=== PATIENT | female | born 1955 | race Caucasian/White ===

== ENCOUNTER 2017-07-01 14:15 | Emergency (ER) | payer MEDICARE, MEDICAID ==
[~2017-07-01] VITALS: Ht 157.5 cm; Wt 90.9 kg
[~2017-07-01 14:15] MED LIST: ALBUAER3; AMLO10TA2; ATEN100T; ATOR40TA16; BUPR1TAB29; DICL75TA; DULO1CAP3; DYAZ37.5; ESTR1TAB; FENO160T; FOLI1TAB4; GABA300C5; LIDO5%T; MEDR2.5T2; METH2.5T; METH4TAB6; METH750T; MORP1TAB24; TRAZ50TA12
[2017-07-01 14:19] VITALS: BP 127/59; PULSE 85; RESP 18; TEMP 97.8; O2SAT 95
[2017-07-01] MEDS ORDERED: DULO1CAP3 PO (14:49)
[2017-07-01] MEDS ORDERED: FENO160T PO (14:49)
[2017-07-01] MEDS ORDERED: AMLO10TA2 PO (14:49)
[2017-07-01] MEDS ORDERED: GABA300C5 PO (14:49)
[2017-07-01] MEDS ORDERED: DICL75TA PO (14:49)
[2017-07-01] MEDS ORDERED: ESTR1TAB PO (14:49)
[2017-07-01] MEDS ORDERED: VENTAER INH (14:49)
[2017-07-01] MEDS ORDERED: BUPR150CR PO (14:49)
[2017-07-01] MEDS ORDERED: ATOR40TA16 PO (14:49)
[2017-07-01] MEDS ORDERED: TRAZ50TA12 PO (14:49)
[2017-07-01] MEDS ORDERED: TRIA37.5 PO (14:49)
[2017-07-01] MEDS ORDERED: ATEN100T PO (14:49)
[2017-07-01] MEDS ORDERED: CEPH-460 PO (15:42)
--- NOTE | 2017-07-01 15:42 | PD ---
HPI Chief Complaint: Laceration/Skin Injury Time Seen by Provider: 15:06 Travel History International Travel<30 days: No Contact w/Intl Traveler<30days: No Traveled to known affect area: No History of Present Illness HPI 61-year-old female here with a laceration to the left palm caused by anupam wire fence prior to arrival. She has an avulsion type laceration to the palm. She reports pain at the site of laceration which is constant, aching, nonradiating. Symptom severity is mild to moderate. No aggravating or alleviating factors. Tetanus immunization is not up-to-date. PFSH Past Medical History Arthritis: Yes (RA) Blood Disorders: No Anxiety: Yes Depression: Yes Heart Rhythm Problems: No Cancer: No Cardiovascular Problems: Yes High Cholesterol: Yes Chemotherapy: No Chest Pain: No Congestive Heart Failure: No Diabetes: No Diminished Hearing: No Endocrine: No Gastrointestinal Disorders: Yes (IBS, GERD) GERD: Yes Glaucoma: No Genitourinary: No Headaches: Yes Hepatitis: No Hiatal Hernia: Yes Hypertension: Yes Immune Disorder: Yes (RHEUMATOID ARTHRITIS ) Medical other: Yes (RHEUMATOID ARTHRITIS, HIGH CHOLESTEROL) Musculoskeletal: Yes (RHEUMATOID ARTHRITIS, SPINAL STENOSIS) Neurologic: Yes (WAIST TO KNEES C/O NUMBNESS) Psychiatric: Yes (ANXIETY & DEPRESSION ) Reproductive: No Respiratory: No Migraines: No Radiation Therapy: No Thyroid Disease: No Tetanus Vaccination: Unknown Influenza Vaccination: Yes Menopausal: Yes Past Surgical History Abdominal Surgery: No AICD: No Arteriovenous Shunt: No Body Medical Devices: SCREWS IN NECK; FROM PREVIOUS BACK SURGERIES Cardiac Surgery: No Ear Surgery: No Endocrine Surgery: No Eye Surgery: Yes (BILATERAL CATARACT EXTRACTIONS WITH LENS IMPLANTS) Genitourinary Surgery: No Gynecologic Surgery: No Insulin Pump: No Joint Replacement: No Neurologic Surgery: Yes (LUMBAR FUSION) Oral Surgery: Yes (TONSILS 1964; SINSUS SX) Pacemaker: No Thoracic Surgery: No Tonsillectomy: Yes Other Surgery: Yes (SINUS 1989, LEFT WRIST 1974, RIGHT [id number]) Social History Alcohol Use: No Tobacco Use: No (QUIT 12 YRS AGO SMOKED 1 1/2 PPD CIGS) Substance Use: No Allergies-Medications (Allergen,Severity, Reaction): Coded Allergies: azithromycin (Unverified Allergy, Severe, HIVES, N AND V, 07/01/17) citric acid (Unverified Allergy, Severe, hives, 07/01/17) erythromycin base (Unverified Allergy, Severe, ALL MYCINS, 07/01/17) lovastatin (Unverified Allergy, Severe, hives, 07/01/17) "ALL STATINS" ALLERGY niacin (Unverified Allergy, Severe, hives, 07/01/17) oxybutynin (Unverified Allergy, Severe, hives, 07/01/17) rosuvastatin (Unverified Allergy, Severe, Hives, 07/01/17) ciprofloxacin (Unverified Allergy, Unknown, 07/01/17) cholestyramine (Unverified Adverse Reaction, Severe, vomits, 07/01/17) Reported Meds & Prescriptions Reported Meds & Active Scripts Active Reported Triamterene-Hydrochlorothiazide 37.5-25 Mg Tab 1 Tab PO DAILY Trazodone (Trazodone HCl) 50 Mg Tab 50 Mg PO HS Gabapentin 300 Mg Cap 300 Mg PO BID Fenofibrate 160 Mg Tab 160 Mg PO DAILY Estradiol 1 Mg Tab 1 Mg PO DAILY Duloxetine DR (Duloxetine HCl) 60 Mg Capdr 90 Mg PO DAILY Diclofenac Sodium DR (Diclofenac Sodium) 75 Mg Tabdr 75 Mg PO DAILY Wellbutrin SR 12 HR (Bupropion HCl) 150 Mg Tab 150 Mg PO Q12HR Atorvastatin (Atorvastatin Calcium) 40 Mg Tab 40 Mg PO HS Atenolol 100 Mg Tab 100 Mg PO DAILY Amlodipine (Amlodipine Besylate) 10 Mg Tab 10 Mg PO DAILY Ventolin Hfa 18 GM Inh (Albuterol Sulfate) 90 Mcg/Act Aer 1 Puff INH Q4H PRN Review of Systems Except as stated in HPI: all other systems reviewed are Neg General / Constitutional: No: Fever Eyes: No: Visual changes HENT: No: Headaches Cardiovascular: No: Chest Pain or Discomfort Respiratory: No: Shortness of Breath Gastrointestinal: No: Abdominal Pain Physical Exam Narrative GENERAL: Alert and well-appearing 7-year-old female SKIN: Warm and dry.1.5 centimeter avulsion/flap type laceration to the left palm. No vascular or tendon injury identified. No foreign body. HEAD: Normocephalic. EYES: No scleral icterus. No injection or drainage. NECK: Supple CARDIOVASCULAR: Regular rate and rhythm RESPIRATORY: Breath sounds equal bilaterally. No accessory muscle use. GASTROINTESTINAL: Abdomen soft, non-tender, nondistended. MUSCULOSKELETAL: No cyanosis, or edema. Left hand: See skin note above. Patient can freely move all fingers. Normal sensation. Brisk cap refill. Data Data Last Documented VS Vital Signs Date Time Temp Pulse Resp B/P (MAP) Pulse Ox O2 Delivery O2 Flow Rate FiO2 07/01/17 14:19 97.8 85 18 127/59 (81) 95 MDM Medical Decision Making Medical Screen Exam Complete: Yes Emergency Medical Condition: Yes Differential Diagnosis Skin laceration, avulsion skin injury, wound infection Narrative Course 7-year-old female here with a laceration to left palm. The wound was extensively irrigated. Laceration repair performed. Tetanus immunization updated. Patient tolerated procedure well Procedures Procedure Narrative LACERATION LOCATION: Left hand, palm LENGTH: 1.5 cm irregularly shaped avulsion/flap plaque NUMBER OF STITCHES/QUINN: 1 REPAIR: The area of the laceration was prepped with Betadine and sterilely draped. The laceration was infiltrated with 1% lidocaine. The wound was copiously irrigated and explored without evidence of foreign body, tendon injury or neurovascular injury. The wound was closed using 4-0 Ethilon. This was a single layer repair. A sterile dressing was applied. The patient was advised to keep the dressing clean and dry. Patient tolerated the procedure well. Diagnosis Primary Impression: Hand laceration Qualified Codes: S61.412A - Laceration without foreign body of left hand, initial encounter Additional Impression: Avulsion, skin Referrals: Primary Care Physician Additional Instructions: Keep the area clean and dry. Do not submerge the wound in dirty water. You may wash the area daily with soap and water with each dressing change. Suture needs to be removed in 7-10 days Follow-up with your primary doctor for recheck Return if you have new or worsening symptoms or signs of infection Scripts Cephalexin (Keflex) 500 Mg Cap 500 MG PO Q6H for Infection for 5 Days, #20 CAP 0 Refills Prov: Cara Purvis 07/01/17 Disposition: 01 DISCHARGE HOME Condition: Stable Cara Purvis Jul 01, 2017 15:42
[2017-07-01] MEDS ORDERED: TETANUS/DIPHTHERIA TOXOID ADULT 0.5 ML VIAL IM ONE (15:45)
== END 2017-07-01 16:20 | disposition home or self-care (01) ==
LOC: PHED 14:15 → PHEFT 16:20
DX: S61.412A Laceration without foreign body of left hand, initial encounter (principal); W26.8XXA Contact with other sharp object(s), not elsewhere classified, initial encounter; Z23 Encounter for immunization; I10 Essential (primary) hypertension; E78.00 Pure hypercholesterolemia, unspecified; M06.9 Rheumatoid arthritis, unspecified; F32.9 Major depressive disorder, single episode, unspecified; Z87.891 Personal history of nicotine dependence; Z88.1 Allergy status to other antibiotic agents; Z88.8 Allergy status to other drugs, medicaments and biological substances; Z79.899 Other long term (current) drug therapy
CPT/HCPCS: 12001; 90471; 90714

== ENCOUNTER 2018-01-25 18:06 | Inpatient (IN) ==
[2018-01-25 19:55] LABS: ABG Base Excess 2.4 mmol/L (-2-2); ABG PCO2 35 mmHg (38-42); ABG PO2 63 mmHg (61-120)
[2018-01-25 20:08] LABS: Baso % (Auto) 0.4 % (0.0-2.0); Eos # (Auto) 0.2 th/mm3 (0.0-0.4); Eos % (Auto) 1.7 % (0.0-4.0); Hematocrit 32.3 % (35.0-46.0); Hemoglobin 11.3 gm/dL (11.6-15.3); Mean Corpuscular Hemoglobin 31.9 pg (27.0-34.0); Mean Corpuscular Volume 91.3 fL (80.0-100.0); Mean Platelet Volume 7.1 fL (7.0-11.0); Mono # (Auto) 0.6 th/mm3 (0.0-0.9); Neut # (Auto) 8.1 th/mm3 (1.8-7.7); Neut % (Auto) 81.9 % (16.0-70.0); Platelet Count 346 th/mm3 (150-450); Red Blood Count 3.54 mil/mm3 (4.00-5.30); Red Cell Distribution Width 14.3 % (11.6-17.2); White Blood Count 9.9 th/mm3 (4.0-11.0)
--- NOTE | 2018-01-25 20:12 | XR ---
EXAM DATE: 01/25/2018 8:08 PM EST AGE/SEX: 62 years / Female INDICATIONS: Cough and dyspnea. CLINICAL DATA: This is the patient's initial encounter. Patient reports that signs and symptoms have been present for 1 week and indicates a pain score of 0/10. MEDICAL/SURGICAL HISTORY: None. None. Spinal fusion. COMPARISON: POI, XR CHEST PA AND LAT, 01/02/2018. . FINDINGS: Hazy infiltrate with volume loss and potentially a small pleural effusion seen on the right. Left cezar g clear. No pneumothorax on either side. Heart size stable, within normal limits. CONCLUSION: Nonspecific diffuse infiltrate on the right. Electronically signed by: Thomas Parker MD 01/25/2018 8:11 PM EST
--- NOTE | 2018-01-25 20:20 | ED ---
HPI General Chief complaint: Shortness of Breath/Dyspnea Stated complaint: SOB Time Seen by Provider: 01/25/18 19:23 Source: patient, family, EMS and RN notes reviewed Mode of arrival: EMS History of Present Illness HPI narrative: 62yF presenting with dyspnea, cough, and hypoxia. The patient is at a rehab facility following spinal surgery; she says that while she was participating in physical therapy, she began to have chest tightness and wheezing. She reports a non-productive cough x 1 week as well. The facility called EMS, who noted her pulse ox to be 87% on room air. Her O2 sats improved when she was given a neb treatment en route. She says that she uses an inhaler "when I get upset and start to wheeze" but denies history of COPD or asthma. No history of VTE. 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 Related Data Home Medications Medication Instructions Recorded Confirmed atenolol 25 mg PO DAILY 01/04/18 01/25/18 bupropion HCl [Wellbutrin XL] 150 mg PO QAM 01/04/18 01/25/18 duloxetine [Cymbalta] 90 mg PO DAILY 01/04/18 01/25/18 fenofibrate 40 mg PO DAILY 01/04/18 01/25/18 gabapentin 300 mg PO TID 01/04/18 01/25/18 methotrexate 20 mg/m2 PO QWEEK 01/04/18 01/25/18 pantoprazole [Protonix] 40 mg PO DAILY 01/04/18 01/25/18 diclofenac sodium 75 mg PO BID 01/05/18 01/25/18 estradiol 1 mg PO DAILY 01/05/18 01/25/18 medroxyprogesterone 2.5 mg PO DAILY 01/05/18 01/25/18 methylprednisolone 4 mg PO DAILY 01/05/18 01/25/18 trazodone 100 mg PO DAILY 01/05/18 01/25/18 triamterene-hydrochlorothiazid 37.5 mg DAILY 01/05/18 01/25/18 amlodipine 10 mg PO DAILY 01/25/18 01/25/18 ascorbic acid (vitamin C) 500 mg PO DAILY 01/25/18 01/25/18 atorvastatin [Lipitor] 40 mg PO DAILY 01/25/18 01/25/18 bupropion HCl [Wellbutrin SR] 150 mg PO DAILY 01/25/18 01/25/18 cetirizine [Zyrtec] 10 mg PO DAILY 01/25/18 01/25/18 folic acid 1 mg PO DAILY 01/25/18 01/25/18 furosemide 20 mg PO DAILY 01/25/18 01/25/18 gabapentin 600 mg PO HS 01/25/18 01/25/18 hydrocodone-acetaminophen 1 tab PO Q6H PRN 01/25/18 01/25/18 magnesium citrate [Citroma] 30 ml PO DAILY PRN 01/25/18 01/25/18 methocarbamol [Robaxin-750] 750 mg PO QID PRN 01/25/18 01/25/18 Previous Rx's Medication Instructions Recorded baclofen 20 mg PO Q8H #15 tab 01/05/18 Allergies Allergy/AdvReac Type Severity Reaction Status Date / Time azithromycin Allergy Severe HIVES, N Verified 01/25/18 19:06 AND V citric acid Allergy Severe hives Verified 01/25/18 19:06 erythromycin base Allergy Severe ALL MYCINS Verified 01/25/18 19:06 lovastatin Allergy Severe hives Verified 01/25/18 19:06 niacin Allergy Severe hives Verified 01/25/18 19:06 oxybutynin Allergy Severe hives Verified 01/25/18 19:06 rosuvastatin Allergy Severe Hives Verified 01/25/18 19:06 ciprofloxacin Allergy Unknown Hives Verified 01/25/18 19:06 cholestyramine AdvReac Severe vomits Verified 01/25/18 19:06 Review of Systems ROS: all other systems reviewed are negative Constitutional Reports chills and Denies fever(s) Eyes Denies blurry vision ENT Denies nasal congestion Cardiovascular Denies chest pain Respiratory Reports cough and Reports dyspnea Gastrointestinal Denies nausea Genitourinary Denies dysuria Neurologic Denies confusion Psychiatric Denies confusion PMFSH History History Provided By: Patient Medical History Medical History Anemia (Acute) Degenerative disc disease, cervical (Acute) GERD (gastroesophageal reflux disease) (Acute) History of depressive symptoms (Acute) Hyperlipidemia (Acute) Muscle weakness of lower extremity (Acute) Osteoarthritis (Acute) Rheumatoid arthritis (Acute) Degenerative disorder of bone (Acute) Hypertension (Acute) Rheumatic disease (Acute) Sciatica (Acute) Spinal stenosis (Acute) Surgical History Surgical History H/O sinus surgery (Acute) Previous back surgery (Acute) Social History Social History Substance History: No History of Abuse Second Hand Smoke Exposure: No Smoking Status: Former smoker How Often Do You Have a Drink Containing Alcohol: 2 to 4 times a month Recent Travel in [place] within the Last 8 Weeks: No Recent Out of Country Travel within the Last 8 Weeks: No Immunization History Tetanus Immunization: <5 Years Tetanus Immunization Year if Known: 2018 Exam Const General: healthy appearing and no acute distress HENMT Head: normocephalic and atraumatic Face and sinus: normal facial exam Eyes General: appearance normal, both eyes and all related structures Pupils: PERRL Chest Chest: normal inspection of the chest Resp Other: Appears mildly dyspneic, speaking in complete sentences, O2 sats 88-90% on 4L nasal cannula Diminished breath sounds bilaterally, no wheezing or rhonchi Cardio Rate: regular rate Rhythm: regular rhythm GI Inspection: non-distended Palpation: soft and nontender Skin General: no rashes or lesions noted Neuro General: alert, awake, oriented x3 and no focal motor deficits Extrem Other: Trace bilateral lower extremity edema, no calf tenderness Psych Affect: normal affect Course Initial Documented Vital Signs Temperature 98.2 F 01/25/18 19:06 Pulse Rate 118 H 01/25/18 19:06 Respiratory Rate 18 01/25/18 19:06 Blood Pressure 127/79 01/25/18 19:06 Pulse Oximetry 90 L 01/25/18 19:06 Last Documented Vital Signs Temperature 98.2 F 01/25/18 19:06 Pulse Rate 108 H 01/25/18 19:51 Respiratory Rate 20 01/25/18 21:13 Blood Pressure 126/75 01/25/18 19:28 Pulse Oximetry 91 L 01/25/18 19:51 Medical Decision Making MDM Narrative Medical decision making narrative: Assessment: 62yF presenting with shortness of breath, cough, hypoxia Plan: EKG and monitor Supplemental O2 Labs CXR CT scan Addendum: Patient's workup shows bilateral opacities, R>L, no leukocytosis or significant lab abnormalities. She is still requiring 4-6L of supplemental O2 to keep sats >90%. She is from an inpatient facility so fits into HCAP category but is allergic to azithromycin. Will give aztreonam and admit. Case discussed with Dr. Medrano of [facility]. Patient understands and agrees with plan. Medical Screen Exam Complete: Yes Emergency Medical Condition: Yes Differential Diagnosis Differential Diagnosis: Differential diagnosis includes, but is not limited to: pneumonia, pleural effusion, PTX, pneumonitis, PE, COPD Lab Data Lab results reviewed: Yes I reviewed the patient's lab results. Result diagrams: 01/25/18 19:50 01/25/18 19:50 Lab Results 01/25/18 01/25/18 01/25/18 Range/Units 19:42 19:50 19:50 WBC 9.9 (4.0-11.0) th/mm3 RBC 3.54 L (4.00-5.30) mil/mm3 Hgb 11.3 L (11.6-15.3) gm/dL Hct 32.3 L (35.0-46.0) % MCV 91.3 (80.0-100.0) fL MCH 31.9 (27.0-34.0) pg MCHC 35.0 (32.0-36.0) % RDW 14.3 (11.6-17.2) % Plt Count 346 (150-450) th/mm3 MPV 7.1 (7.0-11.0) fL Neut % (Auto) 81.9 H (16.0-70.0) % Lymph % (Auto) 10.0 (9.0-44.0) % [place] % (Auto) 6.0 (0.0-8.0) % Eos % (Auto) 1.7 (0.0-4.0) % Baso % (Auto) 0.4 (0.0-2.0) % Neut # (Auto) 8.1 H (1.8-7.7) th/mm3 Lymph # (Auto) 1.0 (1.0-4.8) th/mm3 [place] # (Auto) 0.6 (0.0-0.9) th/mm3 Eos # (Auto) 0.2 (0.0-0.4) th/mm3 Baso # (Auto) 0.0 (0.0-0.2) th/mm3 WBC Differential . Differential Comment Auto diff final Puncture Site Left radial Patient Temperature 98.6 O2 Saturation 89 L* (90-100) % ABG pH 7.48 H (7.380-7.420) ABG pCO2 35 L (38-42) mmHg ABG pO2 63 (61-120) mmHg ABG HCO3 26 (22-26) mmol/L ABG O2 Content 13.9 (12.0-20.0) Vol % ABG Base Excess 2.4 H (-2-2) mmol/L ABG Methemoglobin 1.2 (0-2) % Sven Test Present Hemoglobin 11.1 L (12.0-16.0) G/DL Carboxyhemoglobin 1.1 (0-4) % O2 Delivery Device Nasal cannula Liter Flow 5.00 L/M Critical Value Yes Sodium 139 (136-145) meq/L Potassium 3.3 L (3.5-5.1) meq/L Chloride 102 (98-107) meq/L Carbon Dioxide 26.9 (21.0-32.0) meq/L Anion Gap 10 (5-15) meq/L BUN 10 (7-18) mg/dL Creatinine 0.72 (0.50-1.00) mg/dL Estimated GFR 82 L (>89) mL/min Random Glucose 121 H (74-106) mg/dL Calcium 8.7 (8.5-10.1) mg/dL Magnesium 2.2 (1.5-2.5) mg/dL Total Bilirubin 0.6 (0.2-1.0) mg/dL AST 37 (15-37) U/L ALT 46 (10-53) U/L Alkaline Phosphatase 99 (45-117) U/L Troponin I Less than 0.02 L (0.02-0.05) ng/mL B-Natriuretic Peptide (0-100) pg/mL Total Protein 6.6 (6.4-8.2) g/dL Albumin 2.5 L (3.4-5.0) g/dL 01/25/18 01/25/18 Range/Units 19:50 19:50 WBC (4.0-11.0) th/mm3 RBC (4.00-5.30) mil/mm3 Hgb (11.6-15.3) gm/dL Hct (35.0-46.0) % MCV (80.0-100.0) fL MCH (27.0-34.0) pg MCHC (32.0-36.0) % RDW (11.6-17.2) % Plt Count (150-450) th/mm3 MPV (7.0-11.0) fL Neut % (Auto) (16.0-70.0) % Lymph % (Auto) (9.0-44.0) % [place] % (Auto) (0.0-8.0) % Eos % (Auto) (0.0-4.0) % Baso % (Auto) (0.0-2.0) % Neut # (Auto) (1.8-7.7) th/mm3 Lymph # (Auto) (1.0-4.8) th/mm3 [place] # (Auto) (0.0-0.9) th/mm3 Eos # (Auto) (0.0-0.4) th/mm3 Baso # (Auto) (0.0-0.2) th/mm3 WBC Differential Differential Comment Puncture Site Patient Temperature O2 Saturation (90-100) % ABG pH (7.380-7.420) ABG pCO2 (38-42) mmHg ABG pO2 (61-120) mmHg ABG HCO3 (22-26) mmol/L ABG O2 Content (12.0-20.0) Vol % ABG Base Excess (-2-2) mmol/L ABG Methemoglobin (0-2) % Sven Test Hemoglobin (12.0-16.0) G/DL Carboxyhemoglobin (0-4) % O2 Delivery Device Liter Flow L/M Critical Value Sodium (136-145) meq/L Potassium (3.5-5.1) meq/L Chloride (98-107) meq/L Carbon Dioxide (21.0-32.0) meq/L Anion Gap (5-15) meq/L BUN (7-18) mg/dL Creatinine (0.50-1.00) mg/dL Estimated GFR (>89) mL/min Random Glucose (74-106) mg/dL Calcium (8.5-10.1) mg/dL Magnesium Cancelled (1.5-2.5) mg/dL Total Bilirubin (0.2-1.0) mg/dL AST (15-37) U/L ALT (10-53) U/L Alkaline Phosphatase (45-117) U/L Troponin I (0.02-0.05) ng/mL B-Natriuretic Peptide 7 (0-100) pg/mL Total Protein (6.4-8.2) g/dL Albumin (3.4-5.0) g/dL Imaging Data Radiologist's impression: Chest X-Ray 01/25/18 19:41 CONCLUSION: Nonspecific diffuse infiltrate on the right. Chest CTA 01/25/18 20:50 CONCLUSION: 1. Bilateral alveolar opacities right greater than left. The differential diagnosis includes pulmonary edema and community-acquired pneumonia. There is no focal consolidation or mass. 2. Coronary artery calcifications. 3. No evidence of pulmonary embolism. ECG Data Attestation: I personally reviewed and interpreted this ECG as follows: Interpretation: Rate: 105 BPM Rhythm: Sinus [place]: Normal Intervals: Normal intervals, no blocks, QTc 425 ms Q waves: III, aVF T waves: Upright, no inversions ST segments: No elevations or depressions Impression: Non-specific EKG, no changes as compared to EKG from 08/12/2015. Discharge Plan Discharge Disposition Patient Disposition: 30 Still Patient Discharge Condition Condition: Fair Discharge Details Diagnosis: HCAP (healthcare-associated pneumonia), Hypoxia Physicians Team ED Provider: Charlene Cedeño Primary Care Provider: Momo Powell V Rxs /Orders / Referrals /Forms Prescriptions: No Action atenolol 25 mg Tablet 25 mg PO DAILY RF: 0 pantoprazole [Protonix] 40 mg Tablet,Delayed Release (Dr/Ec) 40 mg PO DAILY RF: 0 gabapentin 300 mg Capsule 300 mg PO TID RF: 0 bupropion HCl [Wellbutrin XL] 150 mg Tablet Extended Release 24 Hr 150 mg PO QAM RF: 0 duloxetine [Cymbalta] 30 mg Capsule,Delayed Release(Dr/Ec) 90 mg PO DAILY RF: 0 fenofibrate 40 mg Tablet 40 mg PO DAILY RF: 0 methotrexate 2.5 mg/mL Solution 20 mg/m2 PO QWEEK RF: 0 baclofen 20 mg tablet 20 mg PO Q8H Qty: 15 RF: 0 trazodone 50 mg Tablet 100 mg PO DAILY RF: 0 medroxyprogesterone 2.5 mg Tablet 2.5 mg PO DAILY RF: 0 methylprednisolone 4 mg Tablet 4 mg PO DAILY RF: 0 triamterene-hydrochlorothiazid 37.5-25 mg Capsule 37.5 mg DAILY RF: 0 estradiol 1 mg Tablet 1 mg PO DAILY RF: 0 diclofenac sodium 75 mg Tablet,Delayed Release (Dr/Ec) 75 mg PO BID RF: 0 atorvastatin [Lipitor] 40 mg Tablet 40 mg PO DAILY RF: 0 bupropion HCl [Wellbutrin SR] 150 mg Tablet Sustained-Release 12 Hr 150 mg PO DAILY RF: 0 gabapentin 600 mg Tablet 600 mg PO HS RF: 0 cetirizine [Zyrtec] 10 mg Tablet 10 mg PO DAILY RF: 0 hydrocodone-acetaminophen 10-325 mg Tablet 1 tab PO Q6H PRN (Reason: Back Pain) RF: 0 methocarbamol [Robaxin-750] 750 mg Tablet 750 mg PO QID PRN (Reason: Pain, Moderate) RF: 0 ascorbic acid (vitamin C) 500 mg Tablet 500 mg PO DAILY RF: 0 amlodipine 10 mg Tablet 10 mg PO DAILY RF: 0 magnesium citrate [Citroma] Solution 30 ml PO DAILY PRN (Reason: Constipation) RF: 0 folic acid 1 mg Tablet 1 mg PO DAILY RF: 0 furosemide 20 mg Tablet 20 mg PO DAILY RF: 0 Discharge Interventions Interventions: Vital Signs Last Done: 01/25/18 19:28 Status ED Status: Pending Admission
[2018-01-25 20:42] LABS: Albumin 2.5 g/dL (3.4-5.0); Anion Gap 10 meq/L (5-15); Aspartate Aminotransferase 37 U/L (15-37); Blood Urea Nitrogen 10 mg/dL (7-18); Calcium 8.7 mg/dL (8.5-10.1); Carbon Dioxide 26.9 meq/L (21.0-32.0); Chloride 102 meq/L (98-107); Glomerular Filtration Rate 82 mL/min (>89); Glucose,Random 121 mg/dL (74-106); Magnesium 2.2 mg/dL (1.5-2.5); Potassium 3.3 meq/L (3.5-5.1); Sodium 139 meq/L (136-145)
[2018-01-25 20:43] LABS: Alanine Aminotransferase 46 U/L (10-53)
[2018-01-25 20:46] LABS: Alkaline Phosphatase 99 U/L (45-117); Total Protein 6.6 g/dL (6.4-8.2)
[2018-01-25] MEDS ORDERED: Gabapentin 100 MG Capsule PO ONE (21:49)
[2018-01-25] MEDS ORDERED: Methocarbamol 500 MG Tablet PO ONE (21:50)
--- NOTE | 2018-01-25 21:57 | CT ---
EXAM DATE: 01/25/2018 9:49 PM EST AGE/SEX: 62 years / Female INDICATIONS: Shortness of breath. CLINICAL DATA: This is the patient's initial encounter. Patient reports that signs and symptoms have been present for 1 day and indicates a pain score of 0/10. MEDICAL/SURGICAL HISTORY: Hypertension. Rheumatoid arthritis. . Back surgery RADIATION DOSE: 23.21 CTDI (mGy) COMPARISON: C, CHEST 1V SINGLE AP, 01/25/2018. . TECHNIQUE: Volumetric scanning was performed using a multi-row detector CT scanner during bolus infu jeff of 72 ml Omnipaque 350 (iohexol) nonionic water-soluble contrast as a single exam dose. The edgar a was post processed with a variety of visualization algorithms including full volume maximum intensi ty projection and sliding thin slab reformation. Using automated exposure control and adjustment of t he mA and/or kV according to patient size, radiation dose was kept as low as reasonably achievable to obtain optimal diagnostic quality images. DICOM format image data is available electronically for r eview and comparison. FINDINGS: Pulmonary Arteries: No filling defects are seen in the pulmonary arteries out to the subsegmental ve ssels. The left and right pulmonary arteries are normal in diameter. Lung: Alveolar opacities are present in both lungs right greater than left. This involves the right upper lobe, right middle lobe and right lower lobe with no focal areas of consolidation. On the left there is less alveolar infiltrate especially in the lower lobe. Effusion: None. Mediastinum: No evidence of mediastinal or hilar adenopathy. Other: The axilla is unremarkable. CONCLUSION: 1. Bilateral alveolar opacities right greater than left. The differential diagnosis includes pulmona ry edema and community-acquired pneumonia. There is no focal consolidation or mass. 2. Coronary artery calcifications. 3. No evidence of pulmonary embolism. Electronically signed by: Blaine Simpson MD 01/25/2018 9:55 PM EST
[2018-01-25] MEDS ORDERED: Aztreonam Inj 2 GM in Sodium Chloride 0.9% Inj 100 ML IV.SIG STA (22:03)
[2018-01-26] MEDS ORDERED: Bisacodyl 10 MG Supp RECTAL PRN (00:08)
[2018-01-26] MEDS: MethylPREDNISolone Sod Succinate Inj 40 MG/ML Vial IV.PUSH SCH ×3 (01:10→22:16)
[2018-01-26] MEDS ORDERED: Aztreonam Inj 2 GM in Sodium Chloride 0.9% Inj 100 ML IV.SIG SCH (06:00)
[2018-01-26] MEDS ORDERED: Folic Acid Inj 1 MG/0.2 ML VIAL IM ONE (06:38)
[2018-01-26] MEDS ORDERED: Gabapentin 300 MG Capsule PO SCH (09:00)
[2018-01-26] MEDS: Atenolol 25 MG Tablet PO SCH (09:17)
[2018-01-26] MEDS: amLODIPine 10 MG Tablet PO SCH (09:17)
[2018-01-26] MEDS ORDERED: buPROPion 150 MG XL 24 HR Tablet PO SCH (09:33)
[2018-01-26] MEDS ORDERED: Magnesium Citrate Liq 300 ML Bottle PO PRN (09:33)
[2018-01-26] MEDS: Budesonide-Formoterol 160/4.5 MCG 6 GM Inhaler INH SCH ×2 (09:43→22:20)
--- NOTE | 2018-01-26 10:34 | P.HPIM ---
History of Present Illness Primary Care Physician: Momo Powell MD Chief Complaint: Shortness of breath History of Present Illness: This is a 62-year-old female with history of chronic low back pain from degenerative disc disease both cervical and lumbar, hyperlipidemia, osteoarthritis, rheumatoid arthritis, hypertension, sciatica and spinal stenosis presenting to the hospital from rehab for shortness of breath. Per patient, she has been at rehab for lower extremity weakness because of her spinal stenosis/low back pain for about 2 weeks now. About 3 days ago, she started having progressive worsening of her chronic dry cough, nonproductive, associated shortness of breath but no fever or chills. She denies current smoking. She also started having wheezing, chest tightness in the saturation of 87% on room air which improved with nebulization hence the patient was sent here from the rehab facility. Complaining of moderate to severe low back pain and right lower extremity pain which worsens the low back pain. Per patient, she is on gabapentin 300 mg 3 times a day and another dose of 600 mg at night. Inpatient Certification: I certify that the inpatient services were ordered in accordance with Medicare regulations governing the order. This includes certification that hospital inpatient services are reasonable and necessary and in the case of services not specified as inpatient-only under 42 CFR 419.22(n), that they are appropriately provided as inpatient services in accordance to with the 2-midnight benchmark under 43 CFR 412.3(e) Estimated Total Length of Stay (Days): 3 Plans for Post Hospital Care: Home Review of Systems All other pertinent systems were reviewed and are negative. [facility] - History History Provided By: Patient - Medical History Medical History: Medical History (Last Reviewed 01/26/18 @ 10:37 by Jasvir Judd MD) Anemia Degenerative disc disease, cervical GERD (gastroesophageal reflux disease) History of depressive symptoms Hyperlipidemia Muscle weakness of lower extremity Osteoarthritis Rheumatoid arthritis Degenerative disorder of bone Hypertension Rheumatic disease Sciatica Spinal stenosis - Surgical History Surgical History: Surgical History (Last Reviewed 01/26/18 @ 10:37 by Jasvir Judd MD) H/O sinus surgery Previous back surgery - Family History Family History: Family History (Last Reviewed 01/26/18 @ 10:37 by Jasvir Judd MD) Other No pertinent family history - Tobacco History Second Hand Smoke Exposure: No Tobacco Use In Past 30 Days: No (pt quit smoking 16 yrs ago) Smoking Status: Former smoker Tobacco Type: Cigarettes - Alcohol History How Often Do You Have a Drink Containing Alcohol: Never - Substance Use History Substance History: No History of Abuse - Travel History Recent Travel in the [place] Within the Last 8 Weeks: No Recent Travel Out of the Country Within the Last 8 Weeks: No - Immunization History Tetanus Immunization: <5 Years Tetanus Immunization Year if Known: 2017 Hx Influenza Vaccine This Season: Yes Medications and Allergies Active Medications: Active Medications Hydrocodone Bitart/Acetaminophen (Nadeau 10/325) 1 tab PO Q6H PRN PRN Reason: PAIN 1-10 Last Admin: 01/26/18 10:12 Dose: 1 tab Al Hydroxide/Mg Hydroxide (Milk Of Melissa Sanz) 30 ml PO Q12H PRN PRN Reason: Mild Constipation Albuterol (Albuterol Neb (Prn)) 2.5 mg NEB Q2HR NEB PRN PRN Reason: SHORTNESS OF BREATH Amlodipine Besylate (Norvasc) 10 mg PO DAILY [facility] Last Admin: 01/26/18 09:17 Dose: 10 mg Ascorbic Acid (Vitamin C) 500 mg PO DAILY [facility] Atenolol (Tenormin) 25 mg PO DAILY [facility] Last Admin: 01/26/18 09:17 Dose: 25 mg Atorvastatin Calcium (Lipitor) 40 mg PO DAILY [facility] Baclofen (Lioresal) 20 mg PO Q8H [facility] Last Admin: 01/26/18 10:20 Dose: 20 mg Bisacodyl (Dulcolax Supp) 10 mg RECTAL DAILY PRN PRN Reason: SEVERE CONSITIPATION Budesonide/Formoterol Fumarate (Symbicort 160/4.5 Mcg Inh) 2 puff INH BID [facility] Last Admin: 01/26/18 09:43 Dose: 2 puff Bupropion HCl (Wellbutrin Sr) 150 mg PO DAILY [facility] Cetirizine HCl (Zyrtec) 10 mg PO DAILY [facility] Last Admin: 01/26/18 09:17 Dose: 10 mg Diclofenac Sodium (Voltaren Dr) 75 mg PO BID [facility] Duloxetine HCl (Cymbalta) 90 mg PO DAILY [facility] Last Admin: 01/26/18 09:16 Dose: 90 mg Estradiol (Estrace) 1 mg PO DAILY [facility] Fenofibrate (Tricor) 48 mg PO DAILY [facility] Folic Acid (Folic Acid) 1 mg PO DAILY [facility] Furosemide (Lasix) 20 mg PO DAILY [facility] Gabapentin (Neurontin) 600 mg PO HS [facility] Doxycycline Hyclate 100 mg/ (Sodium Chloride) 100 mls @ 100 mls/hr IV.SIG Q12H [facility] Last Infusion: 01/26/18 01:19 Dose: Infused Aztreonam 2 gm/ Sodium (Chloride) 100 mls @ 200 mls/hr IV.SIG Q8H [facility] Last Infusion: 01/26/18 07:29 Dose: Infused Ipratropium [place] (Atrovent Neb) 0.5 mg NEB Q6HR NEB [facility] Last Admin: 01/26/18 09:15 Dose: 0.5 mg Lactulose (Lactulose Liq) 30 ml PO DAILY PRN PRN Reason: SEVERE CONSITIPATION Magnesium Citrate (Citroma Liq) 30 ml PO DAILY PRN PRN Reason: Constipation Medroxyprogesterone Acetate (Provera) 2.5 mg PO DAILY [facility] Methocarbamol (Robaxin) 750 mg PO QID [facility] Methotrexate Sodium (Methotrexate Pf Inj) 20 mg IM WEEKLY [facility] Methylprednisolone (Medrol) 4 mg PO DAILY [facility] Methylprednisolone Sodium Succinate (Solumedrol Inj) 60 mg IV.PUSH Q6HR [facility] Last Admin: 01/26/18 06:08 Dose: 60 mg Miscellaneous (Pill Splitter) 1 each OTHER UNSCH PRN PRN Reason: SEE LABEL COMMENTS Pantoprazole Sodium (Protonix) 40 mg PO DAILY [facility] Last Admin: 01/26/18 09:17 Dose: 40 mg Sennosides (Senokot) 17.2 mg PO Q12H PRN PRN Reason: Moderate Constipation Sodium Chloride (Ns Flush) 2 ml IV.FLUSH BID [facility] Last Admin: 01/26/18 09:20 Dose: 2 ml Sodium Chloride (Ns Flush) 2 ml IV.FLUSH PRN PRN PRN Reason: FLUSH AFTER USING IV ACCESS Trazodone HCl (Desyrel) 100 mg PO HS [facility] Triamterene/HCTZ (Dyazide 37.5/25 Mg) 1 cap G-TUBE DAILY [facility] Last Admin: 01/26/18 09:17 Dose: 1 cap Allergies Allergy/AdvReac Type Severity Reaction Status Date / Time azithromycin Allergy Severe HIVES, N Verified 01/25/18 19:06 AND V citric acid Allergy Severe hives Verified 01/25/18 19:06 erythromycin base Allergy Severe ALL MYCINS Verified 01/25/18 19:06 lovastatin Allergy Severe hives Verified 01/25/18 19:06 niacin Allergy Severe hives Verified 01/25/18 19:06 oxybutynin Allergy Severe hives Verified 01/25/18 19:06 rosuvastatin Allergy Severe Hives Verified 01/25/18 19:06 ciprofloxacin Allergy Unknown Hives Verified 01/25/18 19:06 cholestyramine AdvReac Severe vomits Verified 01/25/18 19:06 Home Medications Medication Instructions Recorded Confirmed Type atenolol 25 mg PO DAILY 01/04/18 01/25/18 History bupropion HCl [Wellbutrin XL] 150 mg PO QAM 01/04/18 01/25/18 History duloxetine [Cymbalta] 90 mg PO DAILY 01/04/18 01/25/18 History fenofibrate 40 mg PO DAILY 01/04/18 01/25/18 History gabapentin BID 01/04/18 01/08/18 History methotrexate 20 mg/m2 PO QWEEK 01/04/18 01/25/18 History pantoprazole [Protonix] 40 mg PO DAILY 01/04/18 01/25/18 History diclofenac sodium 75 mg PO BID 01/05/18 01/25/18 History estradiol 1 mg PO DAILY 01/05/18 01/25/18 History medroxyprogesterone 2.5 mg PO DAILY 01/05/18 01/25/18 History methylprednisolone 4 mg PO DAILY 01/05/18 01/25/18 History trazodone 100 mg PO DAILY 01/05/18 01/25/18 History triamterene-hydrochlorothiazid 37.5 mg DAILY 01/05/18 01/25/18 History amlodipine 10 mg PO DAILY 01/25/18 01/25/18 History ascorbic acid (vitamin C) 500 mg PO DAILY 01/25/18 01/25/18 History atorvastatin [Lipitor] 40 mg PO DAILY 01/25/18 01/25/18 History bupropion HCl [Wellbutrin SR] 150 mg PO DAILY 01/25/18 01/25/18 History cetirizine [Zyrtec] 10 mg PO DAILY 01/25/18 01/25/18 History folic acid 1 mg PO DAILY 01/25/18 01/25/18 History furosemide 20 mg PO DAILY 01/25/18 01/25/18 History gabapentin 600 mg PO HS 01/25/18 01/25/18 History hydrocodone-acetaminophen 1 tab PO Q6H PRN 01/25/18 01/25/18 History magnesium citrate [Citroma] 30 ml PO DAILY PRN 01/25/18 01/25/18 History methocarbamol [Robaxin-750] 750 mg PO QID PRN 01/25/18 01/25/18 History hydrocodone-acetaminophen [Nadeau] 1 tab PO Q6H PRN 01/26/18 01/26/18 History Exam Vital signs: Vital Signs 01/25/18 19:06 01/25/18 19:28 01/25/18 19:51 Temperature 98.2 F Pulse Rate 118 H 109 H 108 H Respiratory Rate 18 20 Blood Pressure 127/79 126/75 Pulse Oximetry 90 L 91 L 91 L 01/25/18 21:13 01/25/18 22:55 01/26/18 00:06 Temperature Pulse Rate 108 H 110 H Respiratory Rate 20 20 20 Blood Pressure 137/69 118/79 Pulse Oximetry 92 L 89 L 01/26/18 00:24 01/26/18 00:27 01/26/18 02:13 Temperature Pulse Rate 107 H 107 H Respiratory Rate 19 20 Blood Pressure 127/68 124/82 Pulse Oximetry 95 96 93 L 01/26/18 02:45 01/26/18 03:15 01/26/18 03:21 Temperature 97.8 F Pulse Rate 112 H 87 Respiratory Rate 18 18 Blood Pressure 135/83 Pulse Oximetry 93 L 86 L 97 01/26/18 03:55 01/26/18 04:23 01/26/18 08:00 Temperature 97.1 F L Pulse Rate 105 H 107 H 105 H Respiratory Rate 18 20 Blood Pressure 141/82 H Pulse Oximetry 94 L 01/26/18 09:18 01/26/18 10:12 Temperature Pulse Rate 110 H Respiratory Rate 20 16 Blood Pressure Pulse Oximetry 92 L Intake & Output 01/25/18 01/26/18 01/26/18 18:59 06:59 18:59 Intake Total 680 / 680 100 / 100 Balance 680 / 680 100 / 100 Weight 90.4 kg Intake: IV 200 / 200 100 / 100 Azactam Inj 2 GM In NS Inj 100 100 / 100 100 / 100 ML @ 200 mls/hr IV.SIG Q8H JO Rx#:[id number] Doxy 100 Inj 100 MG In NS Inj 100 / 100 100 ML @ 100 mls/hr IV.SIG Q12H JO Rx#:[id number] Oral 480 / 480 Other: # Voids 1 Date of Last Bowel Movement 01/25/18 Narrative: GENERAL: Not in acute distress, well-nourished. Oxygen mask on. HEAD: Atraumatic. Normocephalic. No temporal or scalp tenderness. EYES: PERRL, full EOMs, no jaundice, nonicteric, pink conjunctivae without injection, moist mucosa ENT: Nose without bleeding, purulent drainage. NECK: Trachea midline, no mass, no obvious thyromegaly. CARDIOVASCULAR: Regular rate and rhythm without murmurs, gallops, or rubs. RESPIRATORY: Decreased breath sounds bilaterally, occasional wheezing. GASTROINTESTINAL: Abdomen soft, normal bowel sounds, non-tender, nondistended. No hepato-splenomegaly or palpable mass. No guarding. PEPE and exam deferred. MUSCULOSKELETAL: Extremities without clubbing, cyanosis, 1+ lower extremity edema. INTEGUMENTARY: Warm and dry, no rash of generalized distribution. NEUROLOGICAL: Awake, alert, oriented 3. No obvious cranial nerve deficits. Moves all 4 extremities, muscle strength testing 5 over 5. Results - Labs CBC & Chem 7: 01/25/18 19:50 01/25/18 19:50 Labs: Short CBC 01/25/18 Range/Units 19:50 WBC 9.9 (4.0-11.0) th/mm3 Hgb 11.3 L (11.6-15.3) gm/dL Hct 32.3 L (35.0-46.0) % Plt Count 346 (150-450) th/mm3 BMP 01/25/18 19:50 Sodium 139 Potassium 3.3 L Chloride 102 Carbon Dioxide 26.9 BUN 10 Creatinine 0.72 Calcium 8.7 Cardiac Enzymes 01/25/18 01/26/18 Range/Units 19:50 08:22 Troponin I Less than 0.02 L Less than 0.02 L (0.02-0.05) ng/mL Liver Function 01/25/18 Range/Units 19:50 Total Bilirubin 0.6 (0.2-1.0) mg/dL AST 37 (15-37) U/L ALT 46 (10-53) U/L Alkaline Phosphatase 99 (45-117) U/L Albumin 2.5 L (3.4-5.0) g/dL - Imaging Impressions Chest X-Ray 01/25/18 19:41 CONCLUSION: Nonspecific diffuse infiltrate on the right. Chest CTA 01/25/18 20:50 CONCLUSION: 1. Bilateral alveolar opacities right greater than left. The differential diagnosis includes pulmonary edema and community-acquired pneumonia. There is no focal consolidation or mass. 2. Coronary artery calcifications. 3. No evidence of pulmonary embolism. Caprini VTE Risk Assessment Caprini VTE Risk Assessment: Moderate/High Risk (score >= 2) Caprini Risk Assessment Model: Point Value = 1 Point Value = 2 Point Value = 3 Point Value = 5 Age 41-60 Minor surgery BMI > 25 kg/m2 Swollen legs Varicose veins or History of unexplained or recurrent spontaneous Oral contraceptives or hormone replacement Sepsis (< 1 month) Serious lung disease, including pneumonia (< 1 month) Abnormal pulmonary function Acute myocardial infarction Congestive heart failure (< 1 month) History of inflammatory bowel disease Medical patient at bed rest Age 61-74 Arthroscopic surgery Major open surgery (> 45 min) Laparoscopic surgery (> 45 min) Malignancy Confined to bed (> 72 hours) Immobilizing plaster cast Central venous access Age >= 75 History of VTE Family history of VTE Factor V Leiden Prothrombin [id number] Lupus anticoagulant Anticardiolipin antibodies Elevated serum homocysteine Heparin-induced thrombocytopenia Other congenital or acquired thrombophilia Stroke (< 1 month) Elective arthroplasty Hip, pelvis, or leg fracture Acute spinal cord injury (< 1 month) Prophylaxis Regimen: Total Risk Factor Score Risk Level Prophylaxis Regimen 0-1 Low Early ambulation 2 Moderate Order ONE of the following: *Sequential Compression Device (SCD) *Heparin 5000 units SQ BID 3-4 Higher Order ONE of the following medications: *Heparin 5000 units SQ TID *Enoxaparin/Lovenox 40 mg SQ daily (WT < 150 kg, CrCl > 30 mL/min) *Enoxaparin/Lovenox 30 mg SQ daily (WT < 150 kg, CrCl > 10-29 mL/min) *Enoxaparin/Lovenox 30 mg SQ BID (WT < 150 kg, CrCl > 30 mL/min) AND/OR *Sequential Compression Device (SCD) 5 or more Highest Order ONE of the following medications: *Heparin 5000 units SQ TID (Preferred with Epidurals) *Enoxaparin/Lovenox 40 mg SQ daily (WT < 150 kg, CrCl > 30 mL/min) *Enoxaparin/Lovenox 30 mg SQ daily (WT < 150 kg, CrCl > 10-29 mL/min) *Enoxaparin/Lovenox 30 mg SQ BID (WT < 150 kg, CrCl > 30 mL/min) AND *Sequential Compression Device (SCD) Assessment and Plan - Plan This is a 62 year old female with history of chronic low back pain secondary to spinal stenosis, rheumatoid arthritis, was at rehab for lower extremity weakness , presenting to the hospital with shortness of breath Healthcare associated pneumonia with hypoxic respiratory failure-chest x-ray and CT scan of the chest revealed alveolar opacities bilaterally right greater than the left, no consolidation, mass or pulmonary embolism. No leukocytosis, BNP is normal, with mild lower extremity edema. Continue Lasix for now, check BMP tomorrow and CBC. Restart Symbicort, start DuoNeb's [id number] and as needed. Continue Solu-Medrol but decrease to 40 mg twice a day. Troponin negative x2. Switch antibiotics to cefepime, patient may be immunocompromised because of chronic steroid use. Patient no allergy to penicillin or cephalosporin. Chronic low back pain secondary to spinal stenosis-restart home medications for now including gabapentin, muscle relaxants and narcotics. Consult neurosurgery per patient's request. Continue physical therapy Hypertension-restart Norvasc, atenolol, Dyazide Rheumatoid arthritis-continue methotrexate every Tuesday, Medrol Hypokalemia-recheck potassium DVT prophylaxis: Lovenox H&P: Quality - VTE Deep Vein Thrombosis/Pulmonary Embolism Present on Admission: No
[2018-01-26] MEDS: Methocarbamol 500 MG Tablet PO SCH ×4 (10:45→23:33)
[2018-01-26] MEDS: buPROPion 150 MG 12 HR Tablet PO SCH (10:45)
--- NOTE | 2018-01-26 11:15 | ECG ---
Date Performed: 01/25/2018 Time Performed: 19:57:58 PTAGE: 62 years EKG: SINUS TACHYCARDIA LOW QRS VOLTAGE IN PRECORDIAL LEADS POSSIBLE ANTERIOR MYOCARDIAL INFARCTI ON ABNORMAL RHYTHM ECG Compared to PREVIOUS TRACING there has been loss of R wave in precordium. This may reflect a lead pl acement change or possible interum anterior infarction. Clinical correlation is recommended PREVIOUS TRACIN08/12/2015 10.15 DOCTOR: Leandro Jose Interpretating Date/Time 01/26/2018 11:14:27
--- NOTE | 2018-01-26 11:51 | P.CONNS ---
History of Present Illness Service: neurosurgery Consult date: 01/26/18 Requesting Physician: Jasvir Judd Reason for Consult: back pain Primary Care Provider: Momo Powell MD Chief Complaint: Shortness of breath History of Present Illness: This is a 62-year-old female with history of hyperlipidemia, osteoarthritis, rheumatoid arthritis, hypertension, sciatica, chronic low back pain from degenerative disc disease both cervical and lumbar, and lumbar spinal stenosis, admitted to the hospital from rehab for shortness of breath. She has been at rehab for her spinal stenosis/ with low back pain for about 2 weeks. About 3 days ago, she started having progressive worsening of her chronic dry cough, nonproductive, associated shortness of breath but no fever or chills. She denies current smoking. She also started having wheezing, chest tightness in the saturation of 87% on room air which improved with nebulization hence the patient was sent here from the rehab facility. Complaining of moderate to severe low back pain and right lower extremity pain which worsens the low back pain. She is on gabapentin 300 mg 3 times a day and another dose of 600 mg at night. Caprini VTE Risk Assessment Caprini VTE Risk Assessment: Moderate/High Risk (score >= 2) Caprini Risk Assessment Model: Point Value = 1 Point Value = 2 Point Value = 3 Point Value = 5 Age 41-60 Minor surgery BMI > 25 kg/m2 Swollen legs Varicose veins or History of unexplained or recurrent spontaneous Oral contraceptives or hormone replacement Sepsis (< 1 month) Serious lung disease, including pneumonia (< 1 month) Abnormal pulmonary function Acute myocardial infarction Congestive heart failure (< 1 month) History of inflammatory bowel disease Medical patient at bed rest Age 61-74 Arthroscopic surgery Major open surgery (> 45 min) Laparoscopic surgery (> 45 min) Malignancy Confined to bed (> 72 hours) Immobilizing plaster cast Central venous access Age >= 75 History of VTE Family history of VTE Factor V Leiden Prothrombin [id number] Lupus anticoagulant Anticardiolipin antibodies Elevated serum homocysteine Heparin-induced thrombocytopenia Other congenital or acquired thrombophilia Stroke (< 1 month) Elective arthroplasty Hip, pelvis, or leg fracture Acute spinal cord injury (< 1 month) Prophylaxis Regimen: Total Risk Factor Score Risk Level Prophylaxis Regimen 0-1 Low Early ambulation 2 Moderate Order ONE of the following: *Sequential Compression Device (SCD) *Heparin 5000 units SQ BID 3-4 Higher Order ONE of the following medications: *Heparin 5000 units SQ TID *Enoxaparin/Lovenox 40 mg SQ daily (WT < 150 kg, CrCl > 30 mL/min) *Enoxaparin/Lovenox 30 mg SQ daily (WT < 150 kg, CrCl > 10-29 mL/min) *Enoxaparin/Lovenox 30 mg SQ BID (WT < 150 kg, CrCl > 30 mL/min) AND/OR *Sequential Compression Device (SCD) 5 or more Highest Order ONE of the following medications: *Heparin 5000 units SQ TID (Preferred with Epidurals) *Enoxaparin/Lovenox 40 mg SQ daily (WT < 150 kg, CrCl > 30 mL/min) *Enoxaparin/Lovenox 30 mg SQ daily (WT < 150 kg, CrCl > 10-29 mL/min) *Enoxaparin/Lovenox 30 mg SQ BID (WT < 150 kg, CrCl > 30 mL/min) AND *Sequential Compression Device (SCD) Review of Systems All other systems reviewed negative except as stated in HPI PMFSH - History History Provided By: Patient - Medical History Medical History: Medical History (Last Reviewed 01/26/18 @ 11:46 by Kem Jensen MD) Anemia Degenerative disc disease, cervical GERD (gastroesophageal reflux disease) History of depressive symptoms Hyperlipidemia Muscle weakness of lower extremity Osteoarthritis Rheumatoid arthritis Degenerative disorder of bone Hypertension Rheumatic disease Sciatica Spinal stenosis - Surgical History Surgical History: Surgical History (Last Reviewed 01/26/18 @ 11:46 by Kem Jensen MD) H/O sinus surgery Previous back surgery - Family History Family History: Family History (Last Reviewed 01/26/18 @ 11:46 by Kem Jensen MD) Other No pertinent family history - Tobacco History Second Hand Smoke Exposure: No Tobacco Use In Past 30 Days: No (pt quit smoking 16 yrs ago) Smoking Status: Former smoker Tobacco Type: Cigarettes - Alcohol History How Often Do You Have a Drink Containing Alcohol: Never - Substance Use History Substance History: No History of Abuse - Travel History Recent Travel in the [place] Within the Last 8 Weeks: No Recent Travel Out of the Country Within the Last 8 Weeks: No - Immunization History Tetanus Immunization: <5 Years Tetanus Immunization Year if Known: 2017 Hx Influenza Vaccine This Season: Yes Medications and Allergies Active Medications: Active Medications Hydrocodone Bitart/Acetaminophen ([place] 10/325) 1 tab PO Q6H PRN PRN Reason: PAIN 1-10 Last Admin: 01/26/18 10:12 Dose: 1 tab Al Hydroxide/Mg Hydroxide (Milk Of Melissa Hurtadoq) 30 ml PO Q12H PRN PRN Reason: Mild Constipation Albuterol (Albuterol Neb (Prn)) 2.5 mg NEB Q2HR NEB PRN PRN Reason: SHORTNESS OF BREATH Amlodipine Besylate (Norvasc) 10 mg PO DAILY [facility] Last Admin: 01/26/18 09:17 Dose: 10 mg Ascorbic Acid (Vitamin C) 500 mg PO DAILY [facility] Atenolol (Tenormin) 25 mg PO DAILY [facility] Last Admin: 01/26/18 09:17 Dose: 25 mg Atorvastatin Calcium (Lipitor) 40 mg PO DAILY [facility] Baclofen (Lioresal) 20 mg PO Q8H [facility] Last Admin: 01/26/18 10:20 Dose: 20 mg Bisacodyl (Dulcolax Supp) 10 mg RECTAL DAILY PRN PRN Reason: SEVERE CONSITIPATION Budesonide/Formoterol Fumarate (Symbicort 160/4.5 Mcg Inh) 2 puff INH BID [facility] Last Admin: 01/26/18 09:43 Dose: 2 puff Bupropion HCl (Wellbutrin Sr) 150 mg PO DAILY [facility] Last Admin: 01/26/18 10:45 Dose: 150 mg Cetirizine HCl (Zyrtec) 10 mg PO DAILY [facility] Last Admin: 01/26/18 09:17 Dose: 10 mg Diclofenac Sodium (Voltaren Dr) 75 mg PO BID [facility] Last Admin: 01/26/18 10:45 Dose: 75 mg Duloxetine HCl (Cymbalta) 90 mg PO DAILY [facility] Last Admin: 01/26/18 09:16 Dose: 90 mg Enoxaparin Sodium (Lovenox Inj) 40 mg SQ Q24H [facility] Estradiol (Estrace) 1 mg PO DAILY [facility] Fenofibrate (Tricor) 48 mg PO DAILY [facility] Folic Acid (Folic Acid) 1 mg PO DAILY [facility] Furosemide (Lasix) 20 mg PO DAILY [facility] Gabapentin (Neurontin) 600 mg PO HS [facility] Cefepime HCl 2,000 mg/ Sodium (Chloride) 100 mls @ 200 mls/hr IV.SIG Q8H [facility] Ipratropium Barnes (Atrovent Neb) 0.5 mg NEB Q6HR NEB [facility] Last Admin: 01/26/18 09:15 Dose: 0.5 mg Lactulose (Lactulose Liq) 30 ml PO DAILY PRN PRN Reason: SEVERE CONSITIPATION Magnesium Citrate (Citroma Liq) 30 ml PO DAILY PRN PRN Reason: Constipation Medroxyprogesterone Acetate (Provera) 2.5 mg PO DAILY [facility] Methocarbamol (Robaxin) 750 mg PO QID [facility] Last Admin: 01/26/18 10:45 Dose: 750 mg Methotrexate Sodium (Methotrexate Pf Inj) 20 mg IM Q7D [facility] Methylprednisolone (Medrol) 4 mg PO DAILY [facility] Methylprednisolone Sodium Succinate (Solumedrol Inj) 40 mg IV.PUSH Q12HR [facility] Miscellaneous (Pill Splitter) 1 each OTHER UNSCH PRN PRN Reason: SEE LABEL COMMENTS Pantoprazole Sodium (Protonix) 40 mg PO DAILY [facility] Last Admin: 01/26/18 09:17 Dose: 40 mg Sennosides (Senokot) 17.2 mg PO Q12H PRN PRN Reason: Moderate Constipation Sodium Chloride (Ns Flush) 2 ml IV.FLUSH BID [facility] Last Admin: 01/26/18 09:20 Dose: 2 ml Sodium Chloride (Ns Flush) 2 ml IV.FLUSH PRN PRN PRN Reason: FLUSH AFTER USING IV ACCESS Trazodone HCl (Desyrel) 100 mg PO HS [facility] Triamterene/HCTZ (Dyazide 37.5/25 Mg) 1 cap G-TUBE DAILY [facility] Last Admin: 01/26/18 09:17 Dose: 1 cap Allergies Allergy/AdvReac Type Severity Reaction Status Date / Time azithromycin Allergy Severe HIVES, N Verified 01/25/18 19:06 AND V citric acid Allergy Severe hives Verified 01/25/18 19:06 erythromycin base Allergy Severe ALL MYCINS Verified 01/25/18 19:06 lovastatin Allergy Severe hives Verified 01/25/18 19:06 niacin Allergy Severe hives Verified 01/25/18 19:06 oxybutynin Allergy Severe hives Verified 01/25/18 19:06 rosuvastatin Allergy Severe Hives Verified 01/25/18 19:06 ciprofloxacin Allergy Unknown Hives Verified 01/25/18 19:06 cholestyramine AdvReac Severe vomits Verified 01/25/18 19:06 Home Medications Medication Instructions Recorded Confirmed Type atenolol 25 mg PO DAILY 01/04/18 01/25/18 History bupropion HCl [Wellbutrin XL] 150 mg PO QAM 01/04/18 01/25/18 History duloxetine [Cymbalta] 90 mg PO DAILY 01/04/18 01/25/18 History fenofibrate 40 mg PO DAILY 01/04/18 01/25/18 History gabapentin BID 01/04/18 01/08/18 History methotrexate 20 mg/m2 PO QWEEK 01/04/18 01/25/18 History pantoprazole [Protonix] 40 mg PO DAILY 01/04/18 01/25/18 History diclofenac sodium 75 mg PO BID 01/05/18 01/25/18 History estradiol 1 mg PO DAILY 01/05/18 01/25/18 History medroxyprogesterone 2.5 mg PO DAILY 01/05/18 01/25/18 History methylprednisolone 4 mg PO DAILY 01/05/18 01/25/18 History trazodone 100 mg PO DAILY 01/05/18 01/25/18 History triamterene-hydrochlorothiazid 37.5 mg DAILY 01/05/18 01/25/18 History amlodipine 10 mg PO DAILY 01/25/18 01/25/18 History ascorbic acid (vitamin C) 500 mg PO DAILY 01/25/18 01/25/18 History atorvastatin [Lipitor] 40 mg PO DAILY 01/25/18 01/25/18 History bupropion HCl [Wellbutrin SR] 150 mg PO DAILY 01/25/18 01/25/18 History cetirizine [Zyrtec] 10 mg PO DAILY 01/25/18 01/25/18 History folic acid 1 mg PO DAILY 01/25/18 01/25/18 History furosemide 20 mg PO DAILY 01/25/18 01/25/18 History gabapentin 600 mg PO HS 01/25/18 01/25/18 History hydrocodone-acetaminophen 1 tab PO Q6H PRN 01/25/18 01/25/18 History magnesium citrate [Citroma] 30 ml PO DAILY PRN 01/25/18 01/25/18 History methocarbamol [Robaxin-750] 750 mg PO QID PRN 01/25/18 01/25/18 History hydrocodone-acetaminophen [[place]] 1 tab PO Q6H PRN 01/26/18 01/26/18 History Exam Vital signs: Vital Signs 01/25/18 19:06 01/25/18 19:28 01/25/18 19:51 Temperature 98.2 F Pulse Rate 118 H 109 H 108 H Respiratory Rate 18 20 Blood Pressure 127/79 126/75 Pulse Oximetry 90 L 91 L 91 L 01/25/18 21:13 01/25/18 22:55 01/26/18 00:06 Temperature Pulse Rate 108 H 110 H Respiratory Rate 20 20 20 Blood Pressure 137/69 118/79 Pulse Oximetry 92 L 89 L 01/26/18 00:24 01/26/18 00:27 01/26/18 02:13 Temperature Pulse Rate 107 H 107 H Respiratory Rate 19 20 Blood Pressure 127/68 124/82 Pulse Oximetry 95 96 93 L 01/26/18 02:45 01/26/18 03:15 01/26/18 03:21 Temperature 97.8 F Pulse Rate 112 H 87 Respiratory Rate 18 18 Blood Pressure 135/83 Pulse Oximetry 93 L 86 L 97 01/26/18 03:55 01/26/18 04:23 01/26/18 08:00 Temperature 97.1 F L Pulse Rate 105 H 107 H 105 H Respiratory Rate 18 20 Blood Pressure 141/82 H Pulse Oximetry 94 L 01/26/18 09:18 01/26/18 10:12 Temperature Pulse Rate 110 H Respiratory Rate 20 16 Blood Pressure Pulse Oximetry 92 L Intake & Output 01/25/18 01/26/18 01/26/18 18:59 06:59 18:59 Intake Total 680 / 680 100 / 100 Balance 680 / 680 100 / 100 Weight 90.4 kg Intake: IV 200 / 200 100 / 100 Azactam Inj 2 GM In NS Inj 100 100 / 100 100 / 100 ML @ 200 mls/hr IV.SIG Q8H [facility] Rx#:[id number] Doxy 100 Inj 100 MG In NS Inj 100 / 100 100 ML @ 100 mls/hr IV.SIG Q12H [facility] Rx#:[id number] Oral 480 / 480 Other: # Voids 1 Date of Last Bowel Movement 01/25/18 Narrative: The patient is alert, awake. Comfortable, in no acute distress. Speech is fluent. Cranial nerve examination: pupils to be equal, round and reactive to light. Extra-ocular movements are intact. Facial motor and sensory function are normal and symmetrical. Gross hearing appears intact. Sternocleidomastoid and trapezius muscles are symmetrical. Other cranial nerves are intact. Neck is soft and supple with a good range of motion without pain. Muscle strength is normal in all muscle groups of both upper and lower extremities. Sensory examination is intact to light touch and pin prick in both the upper and lower extremities. Deep tendon reflexes are symmetrical in both upper and lower extremities. There is a bilateral plantar flexion response. Cerebellar examination is unremarkable, without deficits. Lungs are clear Heart regular rhythm is regular rate Skin warm and dry Results - Laboratory Findings CBC and BMP: 01/25/18 19:50 01/25/18 19:50 Abnormal lab findings: Abnormal Labs 01/25/18 01/25/18 01/25/18 19:42 19:50 19:50 RBC 3.54 L Hgb 11.3 L Hct 32.3 L Neut % (Auto) 81.9 H Neut # (Auto) 8.1 H O2 Saturation 89 L* ABG pH 7.48 H ABG pCO2 35 L ABG Base Excess 2.4 H Hemoglobin 11.1 L Potassium 3.3 L Estimated GFR 82 L Random Glucose 121 H Troponin I Less than 0.02 L Albumin 2.5 L 01/26/18 08:22 RBC Hgb Hct Neut % (Auto) Neut # (Auto) O2 Saturation ABG pH ABG pCO2 ABG Base Excess Hemoglobin Potassium Estimated GFR Random Glucose Troponin I Less than 0.02 L Albumin Assessment and Plan - Plan 62 year old female with history of chronic low back pain secondary to spinal stenosis, rheumatoid arthritis, was at rehab for lower extremity weakness, presenting to the hospital with shortness of breath I have reviewed the clinical and radiological findings Chest X-Ray 01/25/18 19:41 CONCLUSION: Nonspecific diffuse infiltrate on the right. Chest CTA 01/25/18 20:50 CONCLUSION: 1. Bilateral alveolar opacities right greater than left. The differential diagnosis includes pulmonary edema and community-acquired pneumonia. There is no focal consolidation or mass. 2. Coronary artery calcifications. 3. No evidence of pulmonary embolism. Neuro: neuro checks in a serial fashion. Recommend MRI lumbar spine. She has not maximized her conservative treatment. She is not a surgical candidate at this time I recommend nonoperative treatment with a referral to pain management and physical therapy Pulmonary: Shortness of breath. No evidence of PE so far, recommend aggressive pulmonary toilette, nasotracheal suction, and breathing treatments with nebulizers. pneumonia with hypoxic respiratory failure-chest x-ray and CT scan of the chest revealed alveolar opacities bilaterally right greater than the left, no consolidation, mass or pulmonary embolism. Hypertension-restart Norvasc, atenolol, Dyazide Rheumatoid arthritis-continue methotrexate every Tuesday, Medrol Hypokalemia-recheck potassium Daily PT and OT Renal: Continue to monitor closely urine output, BUN and creatinine Endocrine: Continue to Monitor serial Acu checks and SSI as needed in detail IDShe may be immunocompromised because of chronic steroid use. Continue Protonix for stress ulcer prophylaxis Continue Abdirizak hose and SCD's for DVT prophylaxis
[2018-01-26] MEDS: Enoxaparin Inj 40 MG/0.4 ML Syringe SQ SCH (13:04)
[2018-01-26] MEDS: Estradiol 1 MG Tablet PO SCH (13:19)
--- NOTE | 2018-01-26 16:08 | MB ---
cc: Rony Uribe MD DATE: 01/26/2018 REASON FOR CONSULTATION: COPD exacerbation. HISTORY OF PRESENT ILLNESS: Mrs. Nguyen is a 62-year-old female who was admitted with increasing shortness of breath from rehabilitation. She does have history of chronic low back pain and degenerative disk disease. She did smoke a pack of cigarettes a day for many years; however, has not smoked for the last 16. She has a cough, small amount of white sputum. No fever, no chills, no hemoptysis, no TB, no industrial exposure. PAST MEDICAL HISTORY: COPD. She has used inhalers on and off in the past on occasion. Degenerative disk disease, acid reflux, hypertension, hyperlipidemia, spinal stenosis. ALLERGIES: ZITHROMAX, CITRIC ACID, LOVASTATIN, NIACIN. PAST SURGICAL HISTORY: She had back surgery and sinus surgery in the past. FAMILY HISTORY: Noncontributory. SOCIAL HISTORY: Long smoking history; however, has not smoked in 16 years. Does not drink any alcohol. No TB, no industrial exposure. Does not use drugs. MEDICATIONS: 1. Nebulized albuterol p.r.n. 2. Symbicort twice a day. 3. Atorvastatin. 4. Cetirizine. 5. Diclofenac. 6. Cymbalta. 7. TriCor. 8. Folic acid. 9. Lasix. 10. Neurontin. 11. Methotrexate. 12. Methocarbamol. 13. Solu-Medrol. 14. Trazodone. REVIEW OF SYSTEMS: A 12-point review of systems as per HPI and past history. Otherwise negative. PHYSICAL EXAMINATION: VITAL SIGNS: Temperature 98, pulse 90, respirations 20, blood pressure 120/80. Oxygen saturation 92% on O2 nasal cannula. HEENT: Unremarkable. Eyes without icterus. NECK: No adenopathy or thyroid enlargement. CHEST: Few scattered rhonchi bilaterally. CARDIAC: PMI not appreciated. S1, S2 audible. No murmur. No rub. ABDOMEN: Lax, bowel sounds audible. EXTREMITIES: No clubbing, cyanosis or edema. LABORATORY DATA: White count 9.9, hemoglobin 11, hematocrit 32, platelets 346,000. Sodium 139, potassium 3.3, BUN 10, creatinine 0.7. Chest x-ray notes nonspecific infiltrates throughout both lungs. IMPRESSION: 1. Chronic obstructive pulmonary disease exacerbation. 2. Atypical pneumonia, question congestive heart failure. 3. Degenerative disk disease. 4. Hypertension. 5. Hyperlipidemia. PLAN: The patient will be maintained on oxygen therapy as needed. Bronchodilators given. Pulmonary function will be obtained. To continue nebulized treatment and IV steroids. Her chest x-ray will be followed and depending on progress and findings, proceed further. Cardiac evaluation as well including an echocardiogram would be appropriate. I do thank you for asking me to partake in Mrs. Nguyen's care. Rony Uribe MD WWW/jey , 03:34 PM , 03:43 PM
[2018-01-26] MEDS ORDERED: MethylPREDNISolone Sod Succinate Inj 40 MG/ML Vial IV.PUSH SCH ×2 (17:00→21:00)
[2018-01-26 17:07] LABS: ABG Base Excess -0.5 mmol/L (-2-2); ABG PCO2 33 mmHg (38-42); ABG PO2 75 mmHG (61-120)
[2018-01-26] MEDS: Gabapentin 300 MG Capsule PO SCH (22:15)
[2018-01-27] MEDS: MethylPREDNISolone Sod Succinate Inj 40 MG/ML Vial IV.PUSH SCH ×4 (04:09→22:52)
[2018-01-27 05:17] LABS: Bilirubin,Urine Negative (Negative); Clarity,Urine Clear (Clear); Color,Urine Yellow (Yellw/Straw); Glucose,Urine (UA) Negative (Negative); Hyaline Casts,Urine 15 /lpf (0-3); Leukocyte Esterase,Urine Negative (Negative); Mucus,Urine Few /lpf (Occasional); Nitrite,Urine Negative (Negative); Specific Gravity,Urine 1.017 (1.002-1.035); Squamous Epithelial Cell,Urine 1 /hpf (0-5)
--- NOTE | 2018-01-27 08:01 | P.PNIM ---
Subjective Interval history: Follow-up for shortness of breath Had an episode of desaturation yesterday, ABG was not bad. Patient did not feel short of breath. Patient was transferred to [facility]. Was placed on BiPAP. Today, Shortness of breath about the same, on BiPAP overnight, feels a little bit better, afebrile.No nausea or vomiting. A little bit anxious. Physical Exam Vital signs: Vital Signs 01/26/18 09:18 01/26/18 10:00 01/26/18 10:12 Temperature Pulse Rate 110 H Respiratory Rate 20 16 Blood Pressure 124/58 L Pulse Oximetry 92 L 01/26/18 11:42 01/26/18 11:43 01/26/18 12:00 Temperature 96.5 F L Pulse Rate 75 94 H Respiratory Rate 20 Blood Pressure 119/60 125/65 116/65 Pulse Oximetry 94 L 01/26/18 16:00 01/26/18 17:07 01/26/18 17:35 Temperature 96.6 F L Pulse Rate 94 H 93 H Respiratory Rate 20 16 Blood Pressure 112/60 Pulse Oximetry 84 L 93 L 96 01/26/18 20:00 01/26/18 20:20 01/26/18 20:23 Temperature 98.4 F Pulse Rate 92 H 95 H Respiratory Rate 20 16 Blood Pressure 118/66 Pulse Oximetry 100 99 97 01/26/18 23:45 01/27/18 00:00 01/27/18 00:02 Temperature 98.1 F Pulse Rate 84 83 Respiratory Rate 25 H 21 Blood Pressure 116/66 Pulse Oximetry 95 96 01/27/18 03:31 01/27/18 04:00 01/27/18 04:04 Temperature 97.7 F Pulse Rate 98 H 86 Respiratory Rate 27 H 22 Blood Pressure 125/67 Pulse Oximetry 91 L 95 01/27/18 06:46 01/27/18 07:56 Temperature Pulse Rate 98 H Respiratory Rate 27 H 25 H Blood Pressure Pulse Oximetry Intake & Output 01/26/18 01/27/18 01/27/18 18:59 06:59 18:59 Intake Total 200 / 200 300 / 300 Output Total 700 / 700 Balance 200 / 200 -400 / -400 Weight 91.6 kg Intake: IV 200 / 200 100 / 100 Azactam Inj 2 GM In NS Inj 100 100 / 100 ML @ 200 mls/hr IV.SIG Q8H [facility] Rx#:[id number] Maxipime Inj 2,000 MG In NS Inj 100 / 100 100 ML @ 200 mls/hr IV.SIG Q8H [facility] Rx#:[id number] Maxipime Inj 2,000 MG In NS Inj 100 / 100 100 ML @ 200 mls/hr IV.SIG Q8H [facility] Rx#:[id number] Oral 200 / 200 Output: Urine Amount (Catheter) 700 / 700 Straight 700 / 700 Other: Date of Last Bowel Movement 01/25/18 01/25/18 # Bowel Movements 0 Narrative: GENERAL: Not in acute distress, well-nourished. On BiPAP. CARDIOVASCULAR: Regular rate and rhythm without murmurs, gallops, or rubs. RESPIRATORY: Decreased breath sounds bilaterally,no wheezing. GASTROINTESTINAL: Abdomen soft, normal bowel sounds, non-tender, nondistended. MUSCULOSKELETAL: Extremities without clubbing, cyanosis, 1+ lower extremity edema. INTEGUMENTARY: Warm and dry, no rash of generalized distribution. NEUROLOGICAL: Awake, alert, oriented 3. No obvious cranial nerve deficits. Moves all 4 extremities, muscle strength testing 5 over 5. - Urinary Catheter Management Straight Cath placed during this visit: no Results - Labs CBC & Chem 7: 01/25/18 19:50 01/25/18 19:50 Laboratory Results - last 24 hr 01/26/18 01/26/18 01/26/18 00:00 08:22 16:53 Puncture Site Right radial Patient Temperature 98.6 O2 Saturation 91 ABG pH 7.46 H ABG pCO2 33 L ABG pO2 75 ABG HCO3 23 ABG O2 Content 17.2 ABG Base Excess -0.5 ABG Methemoglobin 2.1 H Sven Test Present Hemoglobin 13.4 Carboxyhemoglobin 0.7 O2 Delivery Device Nrb Liter Flow 15.00 Critical Value No Troponin I Less than 0.02 L Urine Color Urine Clarity Urine pH Ur Specific [place] Urine Protein Urine Glucose (UA) Urine Ketones Urine Occult Blood Urine Nitrate Urine Bilirubin Urine Urobilinogen Ur Leukocyte Esterase Urine RBC Urine WBC Ur Squamous Epith Cells Hyaline Casts Urine Mucus Urine Yeast Micro UA Comment Ur Microscopic Review Urine Culture Comments Nasal Screen MRSA (PCR) Not detected 01/27/18 04:00 Puncture Site Patient Temperature O2 Saturation ABG pH ABG pCO2 ABG pO2 ABG HCO3 ABG O2 Content ABG Base Excess ABG Methemoglobin Sven Test Hemoglobin Carboxyhemoglobin O2 Delivery Device Liter Flow Critical Value Troponin I Urine Color Yellow Urine Clarity Clear Urine pH 6.0 Ur Specific [place] 1.017 Urine Protein Negative Urine Glucose (UA) Negative Urine Ketones Negative Urine Occult Blood Negative Urine Nitrate Negative Urine Bilirubin Negative Urine Urobilinogen Less than 2 Ur Leukocyte Esterase Negative Urine RBC 1 Urine WBC Less than 1 Ur Squamous Epith Cells 1 Hyaline Casts 15 Urine Mucus Few H Urine Yeast Rare H Micro UA Comment Cath-culture not ind Ur Microscopic Review Not Reportable Urine Culture Comments Cath-cult not ind Nasal Screen MRSA (PCR) Assessment and Plan - Plan This is a 62 year old female with history of chronic low back pain secondary to spinal stenosis, rheumatoid arthritis, was at rehab for lower extremity weakness , presenting to the hospital with shortness of breath Healthcare associated pneumonia with hypoxic respiratory failure-chest x-ray and CT scan of the chest revealed alveolar opacities bilaterally right greater than the left, no consolidation, mass or pulmonary embolism. No leukocytosis, BNP is normal, with mild lower extremity edema. - Continue Lasix for now, pending BMP and CBC. Cont Symbicort, DuoNeb's around- the-clock and as needed. Continue Solu-Medrol q6 for now, pulmonary following. Troponin negative x2. Cont cefepime (01/26--), patient may be immunocompromised because of chronic steroid use. Chronic low back pain secondary to spinal stenosis- cont gabapentin, muscle relaxants and narcotics. Neurosurgery consulted, no surgery for now, conservative management, PT and pain management consult as outpatient, f/u MRI lumbar spine Hypertension- cont Norvasc, atenolol, Dyazide Rheumatoid arthritis-continue methotrexate every Tuesday, Medrol Hypokalemia- monitor potassium DVT prophylaxis: Lovenox
--- NOTE | 2018-01-27 08:53 | P.PN ---
Subjective Interval history: ALERT ON BIPAP FOR HYPOXIA NAD Physical Exam Vital signs: Vital Signs 01/26/18 09:18 01/26/18 10:00 01/26/18 10:12 Temperature Pulse Rate 110 H Respiratory Rate 20 16 Blood Pressure 124/58 L Pulse Oximetry 92 L 01/26/18 11:42 01/26/18 11:43 01/26/18 12:00 Temperature 96.5 F L Pulse Rate 75 94 H Respiratory Rate 20 Blood Pressure 119/60 125/65 116/65 Pulse Oximetry 94 L 01/26/18 16:00 01/26/18 17:07 01/26/18 17:35 Temperature 96.6 F L Pulse Rate 94 H 93 H Respiratory Rate 20 16 Blood Pressure 112/60 Pulse Oximetry 84 L 93 L 96 01/26/18 20:00 01/26/18 20:20 01/26/18 20:23 Temperature 98.4 F Pulse Rate 92 H 95 H Respiratory Rate 20 16 Blood Pressure 118/66 Pulse Oximetry 100 99 97 01/26/18 23:45 01/27/18 00:00 01/27/18 00:02 Temperature 98.1 F Pulse Rate 84 83 Respiratory Rate 25 H 21 Blood Pressure 116/66 Pulse Oximetry 95 96 01/27/18 03:31 01/27/18 04:00 01/27/18 04:04 Temperature 97.7 F Pulse Rate 98 H 86 Respiratory Rate 27 H 22 Blood Pressure 125/67 Pulse Oximetry 91 L 95 01/27/18 06:46 01/27/18 07:56 01/27/18 08:39 Temperature Pulse Rate 98 H Respiratory Rate 27 H 25 H Blood Pressure Pulse Oximetry 100 Intake & Output 01/26/18 01/27/18 01/27/18 18:59 06:59 18:59 Intake Total 200 / 200 300 / 300 Output Total 700 / 700 Balance 200 / 200 -400 / -400 Weight 91.6 kg Intake: IV 200 / 200 100 / 100 Azactam Inj 2 GM In NS Inj 100 100 / 100 ML @ 200 mls/hr IV.SIG Q8H [facility] Rx#:[id number] Maxipime Inj 2,000 MG In NS Inj 100 / 100 100 ML @ 200 mls/hr IV.SIG Q8H [facility] Rx#:[id number] Maxipime Inj 2,000 MG In NS Inj 100 / 100 100 ML @ 200 mls/hr IV.SIG Q8H [facility] Rx#:[id number] Oral 200 / 200 Output: Urine Amount (Catheter) 700 / 700 Straight 700 / 700 Other: Date of Last Bowel Movement 01/25/18 01/25/18 # Bowel Movements 0 Narrative: GENERAL: Not in acute distress, well-nourished. On BiPAP. CARDIOVASCULAR: Regular rate and rhythm without murmurs, gallops, or rubs. RESPIRATORY: Decreased breath sounds bilaterally,no wheezing. GASTROINTESTINAL: Abdomen soft, normal bowel sounds, non-tender, nondistended. MUSCULOSKELETAL: Extremities without clubbing, cyanosis, 1+ lower extremity edema. INTEGUMENTARY: Warm and dry, no rash of generalized distribution. NEUROLOGICAL: Awake, alert, oriented 3. No obvious cranial nerve deficits. Moves all 4 extremities, muscle strength testing 5 over 5. - Urinary Catheter Management Straight Cath placed during this visit: no Results - Labs CBC & Chem 7: 01/25/18 19:50 01/25/18 19:50 Laboratory Results - last 24 hr 01/26/18 01/26/18 01/26/18 00:00 08:22 16:53 Puncture Site Right radial Patient Temperature 98.6 O2 Saturation 91 ABG pH 7.46 H ABG pCO2 33 L ABG pO2 75 ABG HCO3 23 ABG O2 Content 17.2 ABG Base Excess -0.5 ABG Methemoglobin 2.1 H Sven Test Present Hemoglobin 13.4 Carboxyhemoglobin 0.7 O2 Delivery Device Nrb Liter Flow 15.00 Critical Value No Troponin I Less than 0.02 L Urine Color Urine Clarity Urine pH Ur Specific [place] Urine Protein Urine Glucose (UA) Urine Ketones Urine Occult Blood Urine Nitrate Urine Bilirubin Urine Urobilinogen Ur Leukocyte Esterase Urine RBC Urine WBC Ur Squamous Epith Cells Hyaline Casts Urine Mucus Urine Yeast Micro UA Comment Ur Microscopic Review Urine Culture Comments Nasal Screen MRSA (PCR) Not detected 01/27/18 04:00 Puncture Site Patient Temperature O2 Saturation ABG pH ABG pCO2 ABG pO2 ABG HCO3 ABG O2 Content ABG Base Excess ABG Methemoglobin Sven Test Hemoglobin Carboxyhemoglobin O2 Delivery Device Liter Flow Critical Value Troponin I Urine Color Yellow Urine Clarity Clear Urine pH 6.0 Ur Specific [place] 1.017 Urine Protein Negative Urine Glucose (UA) Negative Urine Ketones Negative Urine Occult Blood Negative Urine Nitrate Negative Urine Bilirubin Negative Urine Urobilinogen Less than 2 Ur Leukocyte Esterase Negative Urine RBC 1 Urine WBC Less than 1 Ur Squamous Epith Cells 1 Hyaline Casts 15 Urine Mucus Few H Urine Yeast Rare H Micro UA Comment Cath-culture not ind Ur Microscopic Review Not Reportable Urine Culture Comments Cath-cult not ind Nasal Screen MRSA (PCR) Assessment and Plan - Plan RESPIRATORY FAILURE PNA ? JORDANA PLAN O2 BIPAP ANTIBX HIGH FLOW NASAL O2 , CHECK ECHO F/U CXRAY
[2018-01-27] MEDS: Ascorbic Acid 500 MG Tablet PO SCH (09:30)
[2018-01-27] MEDS: Atenolol 25 MG Tablet PO SCH (09:35)
[2018-01-27] MEDS: Budesonide-Formoterol 160/4.5 MCG 6 GM Inhaler INH SCH ×2 (09:35→22:52)
[2018-01-27] MEDS: Fenofibrate 48 MG Tablet PO SCH (09:35)
[2018-01-27] MEDS: Furosemide 20 MG Tablet PO SCH (09:35)
[2018-01-27] MEDS: Estradiol 1 MG Tablet PO SCH (09:35)
[2018-01-27] MEDS: Methocarbamol 500 MG Tablet PO SCH ×4 (09:35→22:52)
[2018-01-27] MEDS: buPROPion 150 MG 12 HR Tablet PO SCH (09:35)
[2018-01-27] MEDS: amLODIPine 10 MG Tablet PO SCH (09:35)
[2018-01-27] MEDS: Folic Acid 1 MG Tablet PO SCH (09:35)
--- NOTE | 2018-01-27 10:01 | XR ---
EXAM DATE: 01/27/2018 9:54 AM EST AGE/SEX: 62 years / Female INDICATIONS: COPD. CLINICAL DATA: This is the patient's subsequent encounter. Patient reports that signs and symptoms h ave been present for 1 day and indicates a pain score of 0/10. MEDICAL/SURGICAL HISTORY: None. . Spinal fusion. COMPARISON: [facility] [place] 1[place], 01/25/2018. . FINDINGS: Lungs are hypoaerated. Some mild interstitial vascular prominence remains evident throughout the righ t lung. Lungs are otherwise stable without evidence of segmental or lobar consolidation. There are no pleural effusions. Heart and mediastinal shadows are stable. CONCLUSION: Mild asymmetric right-sided interstitial vascular prominence. No evidence of consolidating airspace disease. Otherwise stable chest Electronically signed by: Brodie Pham MD 01/27/2018 9:59 AM EST
[2018-01-27] MEDS: Enoxaparin Inj 40 MG/0.4 ML Syringe SQ SCH (12:01)
[2018-01-27 13:22] LABS: Baso % (Auto) 0.1 % (0.0-2.0); Hematocrit 33.6 % (35.0-46.0); Hemoglobin 11.1 gm/dL (11.6-15.3); Lymph # (Auto) 0.4 th/mm3 (1.0-4.8); Lymph % (Auto) 2.5 % (9.0-44.0); Mean Corpuscular HGB Conc 33.1 % (32.0-36.0); Mean Corpuscular Hemoglobin 31.5 pg (27.0-34.0); Mean Corpuscular Volume 95.2 fL (80.0-100.0); Mono # (Auto) 0.2 th/mm3 (0.0-0.9); Mono % (Auto) 1.1 % (0.0-8.0); Neut # (Auto) 14.2 th/mm3 (1.8-7.7); Neut % (Auto) 96.3 % (16.0-70.0); Platelet Count 442 th/mm3 (150-450); Red Blood Count 3.53 mil/mm3 (4.00-5.30); Red Cell Distribution Width 14.5 % (11.6-17.2); White Blood Count 14.7 th/mm3 (4.0-11.0)
[2018-01-27 13:38] LABS: Albumin 2.4 g/dL (3.4-5.0); Anion Gap 12 meq/L (5-15); Aspartate Aminotransferase 54 U/L (15-37); Blood Urea Nitrogen 20 mg/dL (7-18); Calcium 8.9 mg/dL (8.5-10.1); Carbon Dioxide 22.9 meq/L (21.0-32.0); Chloride 105 meq/L (98-107); Glomerular Filtration Rate 75 mL/min (>89); Glucose,Random 144 mg/dL (74-106); Potassium 3.3 meq/L (3.5-5.1); Sodium 140 meq/L (136-145)
[2018-01-27 13:40] LABS: Alanine Aminotransferase 51 U/L (10-53); Alkaline Phosphatase 120 U/L (45-117); Total Protein 6.7 g/dL (6.4-8.2)
--- NOTE | 2018-01-27 13:49 | ECHRPT ---
Indication: Cardiomyopathy CONCLUSIONS Normal left ventricular size. Wall thickness is measured at the upper limits of normal. The left ventricular systolic function is normal with an estimated ejection fraction in the range of 55-60%. Trace mitral valve regurgitation. BP: 120 / 62 HR: 97 Rhythm: MEASUREMENTS (Male / Female) Normal Values Technical Quality:Fair 2D ECHO LV Diastolic Diameter PLAX 4.9 cm 4.2 - 5.9 / 3.9 - 5.3 cm LV Systolic Diameter PLAX 2.9 cm IVS Diastolic Thickness 1.0 cm 0.6 - 1.0 / 0.6 - 0.9 cm LVPW Diastolic Thickness 1.0 cm 0.6 - 1.0 / 0.6 - 0.9 cm LV Relative Wall Thickness 0.4 RV Internal Dim ED PLAX 2.3 cm LVOT Diameter 1.7 cm Aortic Root Diameter 2.6 cm LA Systolic Diameter LX 2.4 cm 3.0 - 4.0 / 2.7 - 3.8 cm DOPPLER AV Peak Velocity 171.0 cm/s AV Peak Gradient 11.7 mmHg LVOT Peak Velocity 131.0 cm/s LVOT Peak Gradient 6.9 mmHg AV Area Cont Eq pk 1.7 cm Mitral E Point Velocity 95.3 cm/s Mitral A Point Velocity 110.0 cm/s Mitral E to A Ratio 0.9 LV E' Lateral Velocity 9.9 cm/s Mitral E to LV E' Lateral Ratio 9.6 LV E' Septal Velocity 10.3 cm/s Mitral E to LV E' Septal Ratio 9.3 TR Peak Velocity 133.0 cm/s TR Peak Gradient 7.1 mmHg Right Atrial Pressure 10.0 mmHg Pulmonary Artery Systolic Pressu 17.1 mmHg Right Ventricular Systolic Press 17.1 mmHg PV Peak Velocity 96.4 cm/s PV Peak Gradient 3.7 mmHg FINDINGS LEFT VENTRICLE Normal left ventricular size. Wall thickness is measured at the upper limits of normal. The left ventricular systolic function is normal with an estimated ejection fraction in the range of 55-60%. RIGHT VENTRICLE Normal right ventricular size and systolic function. LEFT ATRIUM The left atrial size is normal. RIGHT ATRIUM The right atrial size is normal. ATRIAL SEPTUM Normal atrial septal thickness without atrial level shunting by limited color doppler interrogation. AORTA The aortic root and proximal ascending aorta are normal in size on limited imaging. MITRAL VALVE Trace mitral valve regurgitation. AORTIC VALVE Trileaflet aortic valve. No aortic valve stenosis or regurgitation. TRICUSPID VALVE Structurally normal tricuspid valve. No tricuspid valve stenosis or regurgitation. PULMONARY VALVE No pulmonary valve regurgitation or stenosis. VESSELS The inferior vena cava is normal in size. PERICARDIUM No pericardial effusion. Dre Quintana MD, FACC (Electronically Signed) Final Date:27 January 2018 13:48
--- NOTE | 2018-01-27 16:01 | ECG ---
Date Performed: 01/26/2018 Time Performed: 10:10:03 PTAGE: 62 years EKG: Sinus rhythm MARKED LEFT AXIS DEVIATION LOW QRS VOLTAGE IN PRECORDIAL LEADS PATTERN CONSISTENT WITH PULMONARY DIS EASE Since previous tracing, no significant change noted ABNORMAL ECG PREVIOUS TRACING : 01/25/2018 19.57 DOCTOR: Pratik Blackwell Interpretating Date/Time 01/27/2018 15:59:16
[2018-01-27] MEDS: ALPRAZolam 0.25 MG Tablet PO PRN (17:22)
[2018-01-27] MEDS: traZODone 50 MG Tablet PO SCH (22:51)
[2018-01-27] MEDS: Gabapentin 300 MG Capsule PO SCH (22:52)
[2018-01-28] MEDS: MethylPREDNISolone Sod Succinate Inj 40 MG/ML Vial IV.PUSH SCH ×3 (04:11→18:38)
[2018-01-28 06:19] LABS: Potassium 3.6 meq/L (3.5-5.1)
[2018-01-28] MEDS: amLODIPine 10 MG Tablet PO SCH (09:00)
[2018-01-28] MEDS: Fenofibrate 48 MG Tablet PO SCH (09:00)
[2018-01-28] MEDS: Folic Acid 1 MG Tablet PO SCH (09:00)
[2018-01-28] MEDS: Furosemide 20 MG Tablet PO SCH (09:00)
[2018-01-28] MEDS: Ascorbic Acid 500 MG Tablet PO SCH (09:00)
[2018-01-28] MEDS: Methocarbamol 500 MG Tablet PO SCH ×4 (09:00→21:37)
[2018-01-28] MEDS: Budesonide-Formoterol 160/4.5 MCG 6 GM Inhaler INH SCH (09:00)
[2018-01-28] MEDS: Estradiol 1 MG Tablet PO SCH (09:00)
[2018-01-28] MEDS: buPROPion 150 MG 12 HR Tablet PO SCH (09:00)
[2018-01-28] MEDS: Atenolol 25 MG Tablet PO SCH (09:00)
--- NOTE | 2018-01-28 11:26 | P.PNIM ---
Subjective Interval history: Patient has been weaned from BiPAP to nonrebreather. Currently oxygen saturations ranged from 85% to 90%. Patient has some confusion when seen this morning. Physical Exam Vital signs: Vital Signs 01/27/18 11:43 01/27/18 11:47 01/27/18 12:00 Temperature 98.2 F Pulse Rate 105 H 104 H Respiratory Rate 24 33 H Blood Pressure 125/56 L Pulse Oximetry 94 L 91 L 01/27/18 16:00 01/27/18 16:13 01/27/18 19:50 Temperature 98.7 F Pulse Rate 99 H 86 Respiratory Rate 32 H 26 H Blood Pressure 125/69 Pulse Oximetry 97 98 96 01/27/18 19:57 01/27/18 20:00 01/27/18 22:43 Temperature 98.5 F Pulse Rate 88 85 Respiratory Rate 30 H 32 H 37 H Blood Pressure 117/66 Pulse Oximetry 92 L 90 L 01/27/18 23:23 01/28/18 00:00 01/28/18 00:06 Temperature 98.5 F Pulse Rate 76 81 Respiratory Rate 18 16 Blood Pressure 109/65 Pulse Oximetry 95 93 L 01/28/18 00:56 01/28/18 02:36 01/28/18 03:45 Temperature Pulse Rate 99 H Respiratory Rate 25 H 27 H 26 H Blood Pressure Pulse Oximetry 01/28/18 04:00 01/28/18 04:25 01/28/18 07:55 Temperature 98.3 F Pulse Rate 86 80 Respiratory Rate 33 H 21 Blood Pressure 106/56 L Pulse Oximetry 92 L 93 L 94 L 01/28/18 11:06 01/28/18 11:07 Temperature Pulse Rate 71 Respiratory Rate 18 Blood Pressure Pulse Oximetry 93 L Intake & Output 01/27/18 01/28/18 01/28/18 18:59 06:59 18:59 Intake Total 350 / 350 300 / 300 Output Total 1600 / 1600 600 / 600 Balance -1250 / -1250 -300 / -300 Weight 90.5 kg Intake: IV 200 / 200 Maxipime Inj 2,000 MG In NS Inj 200 / 200 100 ML @ 200 mls/hr IV.SIG Q8H [facility] Rx#:[id number] Oral 350 / 350 100 / 100 Output: Urine Amount (Catheter) 1600 / 1600 600 / 600 Straight 1600 / 1600 600 / 600 Other: Date of Last Bowel Movement 01/25/18 01/25/18 # Bowel Movements 0 Narrative: GENERAL: NAD, A&Ox1 HEAD: Normocephalic. NECK: Supple, trachea midline. No lymphadenopathy. EYES: No scleral icterus. No injection or drainage. CARDIOVASCULAR: Regular rate and rhythm without murmurs, gallops, or rubs. RESPIRATORY: Breath sounds equal bilaterally. No accessory muscle use. GASTROINTESTINAL: Abdomen soft, non-tender, nondistended. MUSCULOSKELETAL: No cyanosis, or edema. SKIN: Warm and dry. NEURO: No focal neurological deficits. - Urinary Catheter Management Straight Cath placed during this visit: yes, but has since been removed by the nurse Reason for continuing: Not indwelling catheter Insertion date: 01/27/18 Insertion time: 16:00 Removal date: 01/27/18 Removal time: 14:05 Results - Labs CBC & Chem 7: 01/27/18 12:56 01/28/18 05:13 Laboratory Results - last 24 hr 01/27/18 01/27/18 01/28/18 12:56 12:56 05:13 WBC 14.7 H RBC 3.53 L Hgb 11.1 L Hct 33.6 L MCV 95.2 D MCH 31.5 MCHC 33.1 RDW 14.5 Plt Count 442 MPV 7.0 Neut % (Auto) 96.3 H Lymph % (Auto) 2.5 L [place] % (Auto) 1.1 Eos % (Auto) 0.0 Baso % (Auto) 0.1 Neut # (Auto) 14.2 H Lymph # (Auto) 0.4 L [place] # (Auto) 0.2 Eos # (Auto) 0.0 Baso # (Auto) 0.0 WBC Differential . Differential Comment Auto diff final Sodium 140 141 Potassium 3.3 L 3.6 Chloride 105 104 Carbon Dioxide 22.9 25.0 Anion Gap 12 12 BUN 20 H 32 H Creatinine 0.78 0.95 Estimated GFR 75 L 60 L Random Glucose 144 H 161 H Calcium 8.9 9.0 Total Bilirubin 0.4 AST 54 H ALT 51 Alkaline Phosphatase 120 H Total Protein 6.7 Albumin 2.4 L Assessment and Plan - Plan 62-year-old female admitted secondary to healthcare associated pneumonia with respiratory failure. Higher risk given immunocompromise state from rheumatoid arthritis treatment. Healthcare associated pneumonia Hypoxia Acute respiratory failure Continue cefepime Probiotics Continue monitoring in ICU BiPAP as needed Continue oxygen supplementation Follow CBC Continue duo nebs Continue Symbicort Continue Solu-Medrol Pulmonology following Rheumatoid arthritis Methotrexate on hold Hypertension Continue baseline treatment cont Norvasc, atenolol, Dyazide Follow blood pressures Adjust treatments as needed Chronic lower back pain Caution with narcotics and presence of lethargy No surgical interventions at this point Continue PT Hypokalemia Monitor potassium and replace as needed DVT prophylaxis Lovenox
[2018-01-28] MEDS: Enoxaparin Inj 40 MG/0.4 ML Syringe SQ SCH (13:57)
[2018-01-28] MEDS: Lactobacillus Acidophilus/L. Spores Tablet PO SCH ×2 (13:58→17:31)
--- NOTE | 2018-01-28 17:00 | P.PN ---
Subjective Interval history: ALERT ON BIPAP Physical Exam Vital signs: Vital Signs 01/27/18 19:50 01/27/18 19:57 01/27/18 20:00 Temperature 98.5 F Pulse Rate 88 85 Respiratory Rate 30 H 32 H Blood Pressure 117/66 Pulse Oximetry 96 92 L 90 L 01/27/18 22:43 01/27/18 23:23 01/28/18 00:00 Temperature 98.5 F Pulse Rate 76 81 Respiratory Rate 37 H 18 16 Blood Pressure 109/65 Pulse Oximetry 95 01/28/18 00:06 01/28/18 00:56 01/28/18 02:36 Temperature Pulse Rate Respiratory Rate 25 H 27 H Blood Pressure Pulse Oximetry 93 L 01/28/18 03:45 01/28/18 04:00 01/28/18 04:25 Temperature 98.3 F Pulse Rate 99 H 86 Respiratory Rate 26 H 33 H Blood Pressure 106/56 L Pulse Oximetry 92 L 93 L 01/28/18 07:55 01/28/18 08:00 01/28/18 09:00 Temperature 97.9 F Pulse Rate 80 83 106 H Respiratory Rate 21 38 H Blood Pressure 113/60 118/67 Pulse Oximetry 94 L 98 01/28/18 10:00 01/28/18 11:00 01/28/18 11:06 Temperature Pulse Rate 85 72 71 Respiratory Rate 21 18 Blood Pressure 112/65 126/65 Pulse Oximetry 94 L 95 01/28/18 11:07 01/28/18 12:00 01/28/18 13:00 Temperature 98.1 F Pulse Rate 71 76 Respiratory Rate Blood Pressure 125/64 Pulse Oximetry 93 L 99 96 01/28/18 15:00 01/28/18 16:41 Temperature 98.2 F Pulse Rate 93 H 91 H Respiratory Rate 18 30 H Blood Pressure 118/80 Pulse Oximetry 94 L Intake & Output 01/27/18 01/28/18 01/28/18 18:59 06:59 18:59 Intake Total 350 / 350 300 / 300 Output Total 1600 / 1600 600 / 600 Balance -1250 / -1250 -300 / -300 Weight 90.5 kg Intake: IV 200 / 200 Maxipime Inj 2,000 MG In NS Inj 200 / 200 100 ML @ 200 mls/hr IV.SIG Q8H [facility] Rx#:[id number] Oral 350 / 350 100 / 100 Output: Urine Amount (Catheter) 1600 / 1600 600 / 600 Straight 1600 / 1600 600 / 600 Other: Date of Last Bowel Movement 01/25/18 01/25/18 01/25/18 # Bowel Movements 0 Narrative: GENERAL: NAD, A&Ox1 HEAD: Normocephalic. NECK: Supple, trachea midline. No lymphadenopathy. EYES: No scleral icterus. No injection or drainage. CARDIOVASCULAR: Regular rate and rhythm without murmurs, gallops, or rubs. RESPIRATORY: Breath sounds equal bilaterally. No accessory muscle use. GASTROINTESTINAL: Abdomen soft, non-tender, nondistended. MUSCULOSKELETAL: No cyanosis, or edema. SKIN: Warm and dry. NEURO: No focal neurological deficits. - Urinary Catheter Management Straight Cath placed during this visit: yes, but has since been removed by the nurse Reason for continuing: Not indwelling catheter Insertion date: 01/27/18 Insertion time: 16:00 Removal date: 01/27/18 Removal time: 14:05 Results - Labs CBC & Chem 7: 01/27/18 12:56 01/28/18 05:13 Laboratory Results - last 24 hr 01/28/18 05:13 Sodium 141 Potassium 3.6 Chloride 104 Carbon Dioxide 25.0 Anion Gap 12 BUN 32 H Creatinine 0.95 Estimated GFR 60 L Random Glucose 161 H Calcium 9.0 Assessment and Plan - Plan RESPIRATORY FAILURE PNA ? JORDANA PLAN O2 HIGH FLOW NASAL O2 ANTIBX HIGH FLOW NASAL O2 , CHECK ECHO F/U CXRAY
[2018-01-28] MEDS: ALPRAZolam 0.25 MG Tablet PO PRN (18:41)
[2018-01-28] MEDS: Gabapentin 300 MG Capsule PO SCH (21:36)
[2018-01-28] MEDS: traZODone 50 MG Tablet PO SCH (21:37)
[2018-01-29] MEDS: Budesonide-Formoterol 160/4.5 MCG 6 GM Inhaler INH SCH ×3 (00:13→20:08)
[2018-01-29] MEDS: MethylPREDNISolone Sod Succinate Inj 40 MG/ML Vial IV.PUSH SCH ×4 (00:14→17:25)
[2018-01-29 07:01] LABS: Baso % (Auto) 0.2 % (0.0-2.0); Hematocrit 34.1 % (35.0-46.0); Lymph # (Auto) 0.6 th/mm3 (1.0-4.8); Lymph % (Auto) 6.3 % (9.0-44.0); Mean Corpuscular HGB Conc 32.4 % (32.0-36.0); Mean Corpuscular Hemoglobin 31.1 pg (27.0-34.0); Mean Corpuscular Volume 95.9 fL (80.0-100.0); Mean Platelet Volume 7.3 fL (7.0-11.0); Mono # (Auto) 0.1 th/mm3 (0.0-0.9); Mono % (Auto) 1.4 % (0.0-8.0); Neut # (Auto) 9.5 th/mm3 (1.8-7.7); Neut % (Auto) 92.1 % (16.0-70.0); Platelet Count 403 th/mm3 (150-450); Red Blood Count 3.55 mil/mm3 (4.00-5.30); Red Cell Distribution Width 14.9 % (11.6-17.2); White Blood Count 10.4 th/mm3 (4.0-11.0)
[2018-01-29 07:02] LABS: Alanine Aminotransferase 47 U/L (10-53); Albumin 2.3 g/dL (3.4-5.0); Alkaline Phosphatase 108 U/L (45-117); Anion Gap 12 meq/L (5-15); Aspartate Aminotransferase 30 U/L (15-37); Blood Urea Nitrogen 43 mg/dL (7-18); Calcium 8.5 mg/dL (8.5-10.1); Carbon Dioxide 24.8 meq/L (21.0-32.0); Chloride 105 meq/L (98-107); Glomerular Filtration Rate 69 mL/min (>89); Glucose,Random 138 mg/dL (74-106); Total Protein 6.5 g/dL (6.4-8.2)
[2018-01-29 07:03] LABS: Sodium 142 meq/L (136-145)
[2018-01-29] MEDS: Lactobacillus Acidophilus/L. Spores Tablet PO SCH ×3 (09:47→17:24)
[2018-01-29] MEDS: Fenofibrate 48 MG Tablet PO SCH (09:47)
[2018-01-29] MEDS: Ascorbic Acid 500 MG Tablet PO SCH (09:48)
[2018-01-29] MEDS: Estradiol 1 MG Tablet PO SCH (09:49)
[2018-01-29] MEDS: Atenolol 25 MG Tablet PO SCH (09:49)
[2018-01-29] MEDS: Furosemide 20 MG Tablet PO SCH (09:51)
[2018-01-29] MEDS: Folic Acid 1 MG Tablet PO SCH (09:51)
[2018-01-29] MEDS: amLODIPine 10 MG Tablet PO SCH (09:51)
[2018-01-29] MEDS: Methocarbamol 500 MG Tablet PO SCH ×4 (09:53→20:08)
[2018-01-29] MEDS: buPROPion 150 MG 12 HR Tablet PO SCH (09:54)
--- NOTE | 2018-01-29 11:01 | P.PNIM ---
Subjective Interval history: Currently on high flow oxygen. Orientation and alertness have improved compared to yesterday. Intermittent hypoxia remains despite high flow oxygen. Physical Exam Vital signs: Vital Signs 01/28/18 11:06 01/28/18 11:07 01/28/18 12:00 Temperature 98.1 F Pulse Rate 71 71 Respiratory Rate 18 Blood Pressure 125/64 Pulse Oximetry 93 L 99 01/28/18 13:00 01/28/18 15:00 01/28/18 16:41 Temperature 98.2 F Pulse Rate 76 93 H 91 H Respiratory Rate 18 30 H Blood Pressure 118/80 Pulse Oximetry 96 94 L 01/28/18 17:17 01/28/18 18:40 01/28/18 20:00 Temperature 98.2 F Pulse Rate 72 Respiratory Rate 36 H 16 Blood Pressure 108/61 Pulse Oximetry 96 96 01/28/18 20:32 01/28/18 23:40 01/29/18 00:00 Temperature 98.4 F Pulse Rate 73 77 81 Respiratory Rate 16 17 22 Blood Pressure 121/70 Pulse Oximetry 95 95 01/29/18 03:48 01/29/18 04:00 01/29/18 04:08 Temperature 98.5 F Pulse Rate 104 H 102 H Respiratory Rate 20 27 H Blood Pressure 125/90 Pulse Oximetry 99 94 L 01/29/18 07:43 Temperature Pulse Rate 102 H Respiratory Rate 20 Blood Pressure Pulse Oximetry 80 L Intake & Output 01/28/18 01/29/18 01/29/18 18:59 06:59 18:59 Intake Total 440 / 440 400 / 400 Output Total 1150 / 1150 350 / 350 Balance -710 / -710 50 / 50 Weight 87.8 kg Intake: IV 300 / 300 Maxipime Inj 2,000 MG In NS Inj 300 / 300 100 ML @ 200 mls/hr IV.SIG Q8H [facility] Rx#:[id number] Oral 440 / 440 100 / 100 Output: Urine 1150 / 1150 350 / 350 Stool 0 / 0 Urine/Stool Mix 0 / 0 Other: Date of Last Bowel Movement 01/25/18 01/25/18 # Bowel Movements 0 # Incontinent Bowel Movements 0 Narrative: GENERAL: NAD, A&Ox3 HEAD: Normocephalic. NECK: Supple, trachea midline. No lymphadenopathy. EYES: No scleral icterus. No injection or drainage. CARDIOVASCULAR: Regular rate and rhythm without murmurs, gallops, or rubs. RESPIRATORY: Breath sounds equal bilaterally. No accessory muscle use. GASTROINTESTINAL: Abdomen soft, non-tender, nondistended. MUSCULOSKELETAL: No cyanosis, or edema. SKIN: Warm and dry. NEURO: No focal neurological deficits. - Urinary Catheter Management Straight Cath placed during this visit: yes, but has since been removed by the nurse Reason for continuing: Not indwelling catheter Insertion date: 01/27/18 Insertion time: 16:00 Removal date: 01/27/18 Removal time: 14:05 Results - Labs CBC & Chem 7: 01/29/18 05:12 01/29/18 05:12 Laboratory Results - last 24 hr 01/29/18 01/29/18 05:12 05:12 WBC 10.4 RBC 3.55 L Hgb 11.0 L Hct 34.1 L MCV 95.9 MCH 31.1 MCHC 32.4 RDW 14.9 Plt Count 403 MPV 7.3 Prelim Diff (Auto) Slide review pending Neut % (Auto) 92.1 H Lymph % (Auto) 6.3 L [place] % (Auto) 1.4 Eos % (Auto) 0.0 Baso % (Auto) 0.2 Neut # (Auto) 9.5 H Lymph # (Auto) 0.6 L [place] # (Auto) 0.1 Eos # (Auto) 0.0 Baso # (Auto) 0.0 WBC Differential . Diff Scan Auto diff confirmed Differential Comment . Sodium 142 Potassium 4.0 Chloride 105 Carbon Dioxide 24.8 Anion Gap 12 BUN 43 H Creatinine 0.84 Estimated GFR 69 L Random Glucose 138 H Calcium 8.5 Total Bilirubin 0.4 AST 30 ALT 47 Alkaline Phosphatase 108 Total Protein 6.5 Albumin 2.3 L Assessment and Plan - Plan 62-year-old female admitted secondary to healthcare associated pneumonia with respiratory failure. Higher risk given immunocompromise state from rheumatoid arthritis treatment. Cognitive status and alertness have improved. Continue high flow oxygen. Continue monitoring in ICU. BiPAP on standby. Consider transfer out of ICU when respiratory status improves further. Healthcare associated pneumonia Hypoxia Acute respiratory failure Continue cefepime Probiotics Continue monitoring in ICU BiPAP as needed Continue oxygen supplementation Follow CBC Continue duo nebs Continue Symbicort Continue Solu-Medrol Pulmonology following Rheumatoid arthritis Methotrexate on hold Hypertension Continue baseline treatment cont Norvasc, atenolol, Dyazide Follow blood pressures Adjust treatments as needed Chronic lower back pain Caution with narcotics and presence of lethargy No surgical interventions at this point Continue PT Hypokalemia Monitor potassium and replace as needed DVT prophylaxis Lovenox
[2018-01-29] MEDS: Enoxaparin Inj 40 MG/0.4 ML Syringe SQ SCH (11:20)
[2018-01-29] MEDS: traZODone 50 MG Tablet PO SCH (20:07)
[2018-01-29] MEDS: Gabapentin 300 MG Capsule PO SCH (20:08)
[2018-01-30] MEDS: MethylPREDNISolone Sod Succinate Inj 40 MG/ML Vial IV.PUSH SCH ×5 (00:42→23:25)
[2018-01-30 05:38] LABS: Baso % (Auto) 0.1 % (0.0-2.0); Hematocrit 36.3 % (35.0-46.0); Hemoglobin 12.3 gm/dL (11.6-15.3); Lymph # (Auto) 0.4 th/mm3 (1.0-4.8); Mean Corpuscular Hemoglobin 31.3 pg (27.0-34.0); Mean Corpuscular Volume 92.2 fL (80.0-100.0); Mean Platelet Volume 6.8 fL (7.0-11.0); Mono # (Auto) 0.2 th/mm3 (0.0-0.9); Mono % (Auto) 2.1 % (0.0-8.0); Neut # (Auto) 9.1 th/mm3 (1.8-7.7); Neut % (Auto) 93.8 % (16.0-70.0); Platelet Count 440 th/mm3 (150-450); Red Blood Count 3.93 mil/mm3 (4.00-5.30); White Blood Count 9.7 th/mm3 (4.0-11.0)
[2018-01-30 06:20] LABS: Alanine Aminotransferase 55 U/L (10-53); Albumin 2.5 g/dL (3.4-5.0); Alkaline Phosphatase 110 U/L (45-117); Anion Gap 12 meq/L (5-15); Aspartate Aminotransferase 38 U/L (15-37); Blood Urea Nitrogen 41 mg/dL (7-18); Calcium 9.3 mg/dL (8.5-10.1); Chloride 101 meq/L (98-107); Glomerular Filtration Rate 67 mL/min (>89); Glucose,Random 145 mg/dL (74-106); Potassium 4.3 meq/L (3.5-5.1); Sodium 140 meq/L (136-145); Total Protein 6.8 g/dL (6.4-8.2)
[2018-01-30] MEDS: Estradiol 1 MG Tablet PO SCH (08:00)
[2018-01-30] MEDS: Furosemide 20 MG Tablet PO SCH (08:00)
[2018-01-30] MEDS: Ascorbic Acid 500 MG Tablet PO SCH (08:00)
[2018-01-30] MEDS: Atenolol 25 MG Tablet PO SCH (08:00)
[2018-01-30] MEDS: buPROPion 150 MG 12 HR Tablet PO SCH (08:00)
[2018-01-30] MEDS: Methocarbamol 500 MG Tablet PO SCH ×4 (08:00→20:32)
[2018-01-30] MEDS: Lactobacillus Acidophilus/L. Spores Tablet PO SCH ×3 (08:00→17:29)
[2018-01-30] MEDS: amLODIPine 10 MG Tablet PO SCH (08:00)
[2018-01-30] MEDS: Fenofibrate 48 MG Tablet PO SCH (08:00)
[2018-01-30] MEDS: Folic Acid 1 MG Tablet PO SCH (08:00)
[2018-01-30] MEDS: Enoxaparin Inj 40 MG/0.4 ML Syringe SQ SCH (12:02)
[2018-01-30] MEDS: Budesonide-Formoterol 160/4.5 MCG 6 GM Inhaler INH SCH ×2 (12:11→20:33)
--- NOTE | 2018-01-30 16:05 | P.PN ---
Subjective Interval history: ALERT LESS SOB ON O2/NC, HIGH FLOW Physical Exam Vital signs: Vital Signs 01/29/18 18:00 01/29/18 20:00 01/29/18 20:30 Temperature 98.3 F Pulse Rate 88 91 H 87 Respiratory Rate 26 H 24 Blood Pressure 137/83 Pulse Oximetry 93 L 94 L 01/29/18 22:00 01/29/18 23:20 01/30/18 00:00 Temperature 98.0 F Pulse Rate 77 93 H 91 H Respiratory Rate 26 H 26 H Blood Pressure 127/82 Pulse Oximetry 01/30/18 00:42 01/30/18 02:00 01/30/18 04:00 Temperature 98.5 F Pulse Rate 80 98 H Respiratory Rate 57 H 16 Blood Pressure 138/74 Pulse Oximetry 100 01/30/18 06:00 01/30/18 07:00 01/30/18 08:00 Temperature Pulse Rate 92 H 74 96 H Respiratory Rate 12 Blood Pressure Pulse Oximetry 93 L 01/30/18 10:00 01/30/18 11:00 01/30/18 12:00 Temperature Pulse Rate 81 83 83 Respiratory Rate 24 Blood Pressure Pulse Oximetry 01/30/18 14:00 Temperature Pulse Rate 84 Respiratory Rate Blood Pressure Pulse Oximetry Intake & Output 01/29/18 01/30/18 01/30/18 18:59 06:59 18:59 Intake Total 600 / 600 500 / 500 Output Total 1265 / 1265 450 / 450 Balance -665 / -665 50 / 50 Weight 86.1 kg Intake: IV 100 / 100 200 / 200 Maxipime Inj 2,000 MG In NS Inj 100 / 100 200 / 200 100 ML @ 200 mls/hr IV.SIG Q8H [facility] Rx#:[id number] Oral 500 / 500 300 / 300 Output: Stool 0 / 0 Urine/Stool Mix 0 / 0 Urine Amount (Catheter) 1265 / 1265 450 / 450 Indwelling Urethral Catheter 1265 / 1265 Straight 450 / 450 Other: Date of Last Bowel Movement 01/25/18 01/25/18 01/30/18 # Bowel Movements 0 # Incontinent Bowel Movements 0 Narrative: GENERAL: NAD, A&Ox3 HEAD: Normocephalic. NECK: Supple, trachea midline. No lymphadenopathy. EYES: No scleral icterus. No injection or drainage. CARDIOVASCULAR: Regular rate and rhythm without murmurs, gallops, or rubs. RESPIRATORY: Breath sounds equal bilaterally. No accessory muscle use. GASTROINTESTINAL: Abdomen soft, non-tender, nondistended. MUSCULOSKELETAL: No cyanosis, or edema. SKIN: Warm and dry. NEURO: No focal neurological deficits. - Urinary Catheter Management Straight Cath placed during this visit: yes, but has since been removed by the nurse Reason for continuing: Not indwelling catheter Insertion date: 01/30/18 Insertion time: 10:45 Removal date: 01/30/18 Removal time: 10:55 Indwelling Urethral Catheter Cath placed during this visit: yes, but has since been removed by the nurse Reason for continuing: Decision to DC catheter Insertion date: 01/28/18 Removal date: 01/29/18 Removal time: 18:15 Results - Labs CBC & Chem 7: 01/30/18 04:44 01/30/18 04:44 Laboratory Results - last 24 hr 01/30/18 01/30/18 04:44 04:44 WBC 9.7 RBC 3.93 L Hgb 12.3 Hct 36.3 MCV 92.2 D MCH 31.3 MCHC 34.0 RDW 15.0 Plt Count 440 MPV 6.8 L Neut % (Auto) 93.8 H Lymph % (Auto) 4.0 L [place] % (Auto) 2.1 Eos % (Auto) 0.0 Baso % (Auto) 0.1 Neut # (Auto) 9.1 H Lymph # (Auto) 0.4 L [place] # (Auto) 0.2 Eos # (Auto) 0.0 Baso # (Auto) 0.0 WBC Differential . Differential Comment Auto diff final Sodium 140 Potassium 4.3 Chloride 101 Carbon Dioxide 27.0 Anion Gap 12 BUN 41 H Creatinine 0.86 Estimated GFR 67 L Random Glucose 145 H Calcium 9.3 D Total Bilirubin 0.4 AST 38 H ALT 55 H Alkaline Phosphatase 110 Total Protein 6.8 Albumin 2.5 L Assessment and Plan - Plan RESPIRATORY FAILURE PNA ? JORDANA PLAN O2 HIGH FLOW NASAL O2 ANTIBX HIGH FLOW NASAL O2 , \
--- NOTE | 2018-01-30 17:00 | P.PNIM ---
Subjective Interval history: Patient states that breathing is better and less short of breath. No complaint of chest pain. Reports he she does have a history of chronic low back pain. Her sister at bedside states that prior to coming to the hospital she went to see Dr. Lloyd, [employer] who recommended methotrexate once a week and 8 mg. She also would like her to go see a silk screen painter for her history of lumbar stenosis Physical Exam Vital signs: Last Vital Signs Temp 98.5 F 01/30/18 04:00 Pulse 85 01/30/18 15:00 Resp 22 01/30/18 15:00 BP 138/74 01/30/18 04:00 Pulse Ox 93 L 01/30/18 08:00 Intake & Output 01/28/18 01/29/18 01/30/18 01/31/18 06:59 06:59 06:59 06:59 Intake Total 650 / 650 840 / 840 1100 / 1100 Output Total 2200 / 2200 1500 / 1500 1715 / 1715 Balance -1550 / -1550 -660 / -660 -615 / -615 Weight 90.5 kg 87.8 kg 86.1 kg Narrative: GENERAL: This is a well-nourished, well-developed patient, in no apparent distress. CARDIOVASCULAR: Regular rate and rhythm RESPIRATORY: Few diminished breath sounds in the bases bilaterally GASTROINTESTINAL: Abdomen soft, non-tender, nondistended. Normal active bowel sounds MUSCULOSKELETAL: Extremities without clubbing, cyanosis, trace edema NEURO: Alert and oriented person place time moves all ext x4 but with generalized weakness Urinary Catheter Management Straight: Cath placed during this visit: yes, but has since been removed by the nurse Insertion date: 01/30/18 Insertion time: 10:45 Removal date: 01/30/18 Removal time: 10:55 Indwelling Urethral Catheter: Cath placed during this visit: yes, but has since been removed by the nurse Insertion date: 01/28/18 Removal date: 01/29/18 Removal time: 18:15 Results Labs CBC & Chem 7: 01/30/18 04:44 01/30/18 04:44 Assessment and Plan Plan 62-year-old female admitted secondary to healthcare associated pneumonia with respiratory failure. Higher risk given immunocompromise state from rheumatoid arthritis treatment. Healthcare associated pneumonia with acute respiratory failure with hypoxia Continue cefepime, high flow oxygen with standby BiPAP for pulmonary Continue monitoring in ICU BiPAP as needed Continue duo nebs Symbicort , Solu-Medrol Pulmonology, Dr. Rondon following Rheumatoid arthritis Methotrexate on hold due to infection Hypertension, chronic essential Continue baseline treatment cont Norvasc, atenolol, Dyazide Follow blood pressures Adjust treatments as needed Chronic lower back pain with a history of lumbar stenosis Caution with narcotics and presence of lethargy No surgical interventions at this point Continue PT Will refer patient to interventional pain management per sister's request as an outpatient to Dr. Davies Hypokalemia Monitor potassium and replace as needed DVT prophylaxis Lovenox Continue monitor ICU until oxygen is able to be weaned down Discussed Condition With: Sister at bedside Progress Note: Quality VTE Deep Vein Thrombosis/Pulmonary Embolism Present on Admission: No
[2018-01-30] MEDS: traZODone 50 MG Tablet PO SCH (20:31)
[2018-01-30] MEDS: Gabapentin 300 MG Capsule PO SCH (20:31)
[2018-01-31] MEDS: MethylPREDNISolone Sod Succinate Inj 40 MG/ML Vial IV.PUSH SCH ×4 (04:19→23:21)
[2018-01-31] MEDS: Budesonide-Formoterol 160/4.5 MCG 6 GM Inhaler INH SCH ×2 (09:30→20:08)
[2018-01-31] MEDS: Ascorbic Acid 500 MG Tablet PO SCH (09:44)
[2018-01-31] MEDS: Estradiol 1 MG Tablet PO SCH (09:44)
[2018-01-31] MEDS: Furosemide 20 MG Tablet PO SCH (09:44)
[2018-01-31] MEDS: buPROPion 150 MG 12 HR Tablet PO SCH (09:45)
[2018-01-31] MEDS: Fenofibrate 48 MG Tablet PO SCH (09:45)
[2018-01-31] MEDS: Lactobacillus Acidophilus/L. Spores Tablet PO SCH ×3 (09:45→17:52)
[2018-01-31] MEDS: amLODIPine 10 MG Tablet PO SCH (09:45)
[2018-01-31] MEDS: Methocarbamol 500 MG Tablet PO SCH ×2 (09:45→17:53)
[2018-01-31] MEDS: Atenolol 25 MG Tablet PO SCH (09:45)
[2018-01-31] MEDS: Folic Acid 1 MG Tablet PO SCH (09:45)
[2018-01-31] MEDS: Enoxaparin Inj 40 MG/0.4 ML Syringe SQ SCH (12:28)
--- NOTE | 2018-01-31 15:48 | P.PN ---
Subjective Interval history: ALERT NAD Physical Exam Vital signs: Vital Signs 01/30/18 16:00 01/30/18 17:00 01/30/18 18:00 Temperature Pulse Rate 87 86 89 Respiratory Rate 30 H 27 H 34 H Blood Pressure 133/77 128/81 120/68 Pulse Oximetry 98 97 87 L 01/30/18 19:00 01/30/18 20:00 01/30/18 21:53 Temperature 98.6 F Pulse Rate 87 80 Respiratory Rate 25 H 22 Blood Pressure 134/75 142/76 H Pulse Oximetry 94 L 93 L 92 L 01/30/18 22:00 01/31/18 00:00 01/31/18 02:00 Temperature 98.5 F Pulse Rate 92 H 86 66 Respiratory Rate 21 Blood Pressure 138/74 Pulse Oximetry 93 L 01/31/18 04:00 01/31/18 06:00 01/31/18 08:00 Temperature 98.8 F Pulse Rate 98 H 91 H 93 H Respiratory Rate 24 Blood Pressure 128/87 Pulse Oximetry 94 L 01/31/18 10:00 Temperature Pulse Rate 110 H Respiratory Rate Blood Pressure Pulse Oximetry Intake & Output 01/30/18 01/31/18 01/31/18 18:59 06:59 18:59 Intake Total 550 / 550 680 / 680 Output Total 1999 1125 / 1125 Balance -1450 / -1450 -445 / -445 Weight 86.5 kg Intake: IV 100 / 100 200 / 200 Maxipime Inj 2,000 MG In NS Inj 100 / 100 200 / 200 100 ML @ 200 mls/hr IV.SIG Q8H [facility] Rx#:[id number] Oral 450 / 450 480 / 480 Output: Urine Amount (Catheter) 1999 1125 / 1125 Straight 1999 1125 / 1125 Other: Date of Last Bowel Movement 01/30/18 01/31/18 01/31/18 # Bowel Movements 1 # Incontinent Bowel Movements 3 Narrative: GENERAL: This is a well-nourished, well-developed patient, in no apparent distress. CARDIOVASCULAR: Regular rate and rhythm RESPIRATORY: Few diminished breath sounds in the bases bilaterally GASTROINTESTINAL: Abdomen soft, non-tender, nondistended. Normal active bowel sounds MUSCULOSKELETAL: Extremities without clubbing, cyanosis, trace edema NEURO: Alert and oriented person place time moves all ext x4 but with generalized weakness - Urinary Catheter Management Straight Cath placed during this visit: yes, but has since been removed by the nurse Reason for continuing: Not indwelling catheter Insertion date: 01/30/18 Insertion time: 10:45 Removal date: 01/30/18 Removal time: 10:55 Indwelling Urethral Catheter Cath placed during this visit: yes, but has since been removed by the nurse Reason for continuing: Decision to DC catheter Insertion date: 01/28/18 Removal date: 01/29/18 Removal time: 18:15 Results - Labs CBC & Chem 7: 01/30/18 04:44 01/30/18 04:44 Assessment and Plan - Plan RESPIRATORY FAILURE PNA ? JORDANA PLAN O2 HIGH FLOW NASAL O2 ANTIBX INCREASE ACTIVITY \
--- NOTE | 2018-01-31 17:24 | P.PNIM ---
Subjective Interval history: Patient reports right upper flank pain. Breathing better. Nursing staff states patient became drowsy and confused after Lane given. Physical Exam Vital signs: Last Vital Signs Temp 98.8 F 01/31/18 04:00 Pulse 110 H 01/31/18 10:00 Resp 24 01/31/18 04:00 BP 128/87 01/31/18 04:00 Pulse Ox 94 L 01/31/18 04:00 Intake & Output 01/29/18 01/30/18 01/31/18 02/01/18 06:59 06:59 06:59 06:59 Intake Total 840 / 840 1100 / 1100 1230 / 1230 Output Total 1500 / 1500 1715 / 1715 3125 / 3125 Balance -660 / -660 -615 / -615 -1895 / -1895 Weight 87.8 kg 86.1 kg 86.5 kg Narrative: GENERAL: This is a well-nourished, well-developed patient, in no apparent distress. CARDIOVASCULAR: Regular rate and rhythm RESPIRATORY: Few diminished breath sounds in the bases bilaterally GASTROINTESTINAL: Abdomen soft, non-tender, nondistended. Normal active bowel sounds MUSCULOSKELETAL: Extremities without clubbing, cyanosis, trace edema NEURO: Alert and oriented person place time moves all ext x4 but with generalized weakness Urinary Catheter Management Straight: Cath placed during this visit: yes, but has since been removed by the nurse Insertion date: 01/30/18 Insertion time: 10:45 Removal date: 01/30/18 Removal time: 10:55 Indwelling Urethral Catheter: Cath placed during this visit: yes, but has since been removed by the nurse Insertion date: 01/28/18 Removal date: 01/29/18 Removal time: 18:15 Results Labs CBC & Chem 7: 01/30/18 04:44 01/30/18 04:44 Assessment and Plan Plan 62-year-old female admitted secondary to healthcare associated pneumonia with respiratory failure. Higher risk given immunocompromise state from rheumatoid arthritis treatment. Healthcare associated pneumonia with acute respiratory failure with hypoxia Continue cefepime, high flow oxygen with standby BiPAP for pulmonary, add Zithromax to the regimen Continue monitoring in ICU BiPAP as needed Continue duo nebs Symbicort , Solu-Medrol IV Pulmonology, Dr. Rondon following Wean oxygen as tolerated Rheumatoid arthritis Methotrexate on hold due to infection Hypertension, chronic essential Continue baseline treatment cont Norvasc, atenolol, Dyazide Follow blood pressures Adjust treatments as needed Chronic lower back pain with a history of lumbar stenosis Caution with narcotics and presence of lethargy, will decrease Lane dose and change baclofen to as needed decreased gabapentin. No surgical interventions at this point Continue PT Will refer patient to interventional pain management per sister's request as an outpatient to Dr. Davies Hypokalemia Monitor potassium and replace as needed DVT prophylaxis Lovenox Continue monitor ICU until oxygen is able to be weaned down Progress Note: Quality VTE Deep Vein Thrombosis/Pulmonary Embolism Present on Admission: No
[2018-01-31] MEDS: traZODone 50 MG Tablet PO SCH (20:06)
[2018-01-31] MEDS: Gabapentin 300 MG Capsule PO SCH (20:07)
[2018-02-01] MEDS: MethylPREDNISolone Sod Succinate Inj 40 MG/ML Vial IV.PUSH SCH ×4 (05:29→22:50)
[2018-02-01] MEDS: Furosemide 20 MG Tablet PO SCH (08:32)
[2018-02-01] MEDS: Lactobacillus Acidophilus/L. Spores Tablet PO SCH ×3 (08:32→17:27)
[2018-02-01] MEDS: amLODIPine 10 MG Tablet PO SCH (08:33)
[2018-02-01] MEDS: Atenolol 25 MG Tablet PO SCH (08:33)
[2018-02-01] MEDS: Ascorbic Acid 500 MG Tablet PO SCH (08:33)
[2018-02-01] MEDS: Folic Acid 1 MG Tablet PO SCH (08:33)
[2018-02-01] MEDS: Estradiol 1 MG Tablet PO SCH (08:33)
[2018-02-01] MEDS: Fenofibrate 48 MG Tablet PO SCH (08:33)
[2018-02-01] MEDS: buPROPion 150 MG 12 HR Tablet PO SCH (08:34)
[2018-02-01] MEDS: Budesonide-Formoterol 160/4.5 MCG 6 GM Inhaler INH SCH ×2 (08:34→21:22)
[2018-02-01] MEDS ORDERED: METHOTREXATE 50 MG/2 ML IM SCH (09:00)
[2018-02-01] MEDS: Enoxaparin Inj 40 MG/0.4 ML Syringe SQ SCH (15:15)
--- NOTE | 2018-02-01 16:29 | P.PNIM ---
Subjective Interval history: Patient reports her pain is controlled well. She is less confused and sleepy after adjustment of the medications yesterday. She reports dry cough with one small sputum production earlier today. No complaint of chest pain. Reports breathing better. Overall back pain controlled Physical Exam Vital signs: Last Vital Signs Temp 98.5 F 02/01/18 04:00 Pulse 81 02/01/18 14:00 Resp 21 02/01/18 12:00 BP 115/64 02/01/18 12:00 Pulse Ox 93 L 02/01/18 12:00 Intake & Output 01/30/18 01/31/18 02/01/18 02/02/18 06:59 06:59 06:59 06:59 Intake Total 1100 / 1100 1230 / 1230 1130 / 1130 Output Total 1715 / 1715 3125 / 3125 3200 / 3200 Balance -615 / -615 -1895 / -1895 -2070 / -2070 Weight 86.1 kg 86.5 kg 89.1 kg Narrative: GENERAL: This is a well-nourished, well-developed patient, in no apparent distress. CARDIOVASCULAR: Regular rate and rhythm RESPIRATORY: Few diminished breath sounds in the bases bilaterally GASTROINTESTINAL: Abdomen soft, non-tender, nondistended. Normal active bowel sounds MUSCULOSKELETAL: Extremities without clubbing, cyanosis, trace edema NEURO: Alert and oriented person place time moves all ext x4 but with generalized weakness Urinary Catheter Management Straight: Cath placed during this visit: yes, but has since been removed by the nurse Insertion date: 01/31/18 Insertion time: 14:30 Removal date: 01/30/18 Removal time: 10:55 Indwelling Urethral Catheter: Cath placed during this visit: yes, but has since been removed by the nurse Insertion date: 01/28/18 Removal date: 01/29/18 Removal time: 18:15 Results Labs CBC & Chem 7: 01/30/18 04:44 01/30/18 04:44 Assessment and Plan Plan 62-year-old female admitted secondary to healthcare associated pneumonia with respiratory failure. Higher risk given immunocompromise state from rheumatoid arthritis treatment. Healthcare associated pneumonia with acute respiratory failure with hypoxia Continue cefepime, high flow oxygen with standby BiPAP for pulmonary, add Levaquin to the regimen. Patient states that she is not allergic to Cipro. She has been alert allergic to erythromycin in the past. Check sputum cultures and sensitivity Continue monitoring in ICU BiPAP as needed Continue duo nebs Symbicort , continue Solu-Medrol IV Pulmonology, Dr. Rondon following Wean oxygen as tolerated, currently on high flow oxygen Rheumatoid arthritis Methotrexate on hold due to infection Hypertension, chronic essential Continue baseline treatment continue Norvasc, atenolol, Dyazide Overall blood pressure controlled. Chronic lower back pain with a history of lumbar stenosis Caution with narcotics and presence of lethargy, will decrease [place] dose and change baclofen to as needed decreased gabapentin. No surgical interventions at this point Continue PT Will refer patient to interventional pain management per sister's request as an outpatient to Dr. Davies Hypokalemia Monitor potassium and replace as needed DVT prophylaxis Lovenox Continue physical therapy Continue monitor ICU until oxygen is able to be weaned down Progress Note: Quality VTE Deep Vein Thrombosis/Pulmonary Embolism Present on Admission: No
[2018-02-01] MEDS: levoFLOXacin 750 MG Tablet PO SCH (17:27)
--- NOTE | 2018-02-01 18:25 | P.PN ---
Subjective Interval history: alert in goo spirits on high flow nasal o2 Physical Exam Vital signs: Vital Signs 01/31/18 20:00 01/31/18 20:52 01/31/18 22:00 Temperature 97.6 F Pulse Rate 91 H 88 Respiratory Rate 26 H Blood Pressure 133/64 Pulse Oximetry 94 L 93 L 02/01/18 00:00 02/01/18 02:00 02/01/18 04:00 Temperature 98.1 F 98.5 F Pulse Rate 80 70 72 Respiratory Rate 24 20 Blood Pressure 119/68 128/62 Pulse Oximetry 95 100 02/01/18 06:00 02/01/18 08:00 02/01/18 09:00 Temperature Pulse Rate 75 91 H 85 Respiratory Rate 24 34 H Blood Pressure 125/77 130/75 Pulse Oximetry 91 L 89 L 02/01/18 10:00 02/01/18 11:00 02/01/18 12:00 Temperature Pulse Rate 84 93 H 82 Respiratory Rate 30 H 24 21 Blood Pressure 127/81 118/68 115/64 Pulse Oximetry 98 94 L 93 L 02/01/18 13:00 02/01/18 14:00 02/01/18 15:00 Temperature Pulse Rate 83 81 90 Respiratory Rate 33 H 31 H 27 H Blood Pressure 114/71 114/69 114/75 Pulse Oximetry 95 96 90 L 02/01/18 16:00 02/01/18 16:54 02/01/18 17:00 Temperature Pulse Rate 83 82 Respiratory Rate 35 H 28 H Blood Pressure 134/60 124/72 Pulse Oximetry 94 L 92 L 94 L Intake & Output 01/31/18 02/01/18 02/01/18 18:59 06:59 18:59 Intake Total 450 / 450 680 / 680 100 / 100 Output Total 1800 / 1800 1400 / 1400 Balance -1350 / -1350 -720 / -720 100 / 100 Weight 89.1 kg Intake: IV 100 / 100 200 / 200 100 / 100 Maxipime Inj 2,000 MG In NS Inj 100 / 100 200 / 200 100 / 100 100 ML @ 200 mls/hr IV.SIG Q8H [facility] Rx#:[id number] Oral 350 / 350 480 / 480 Output: Urine 800 / 800 Urine Amount (Catheter) 1000 / 1000 1400 / 1400 Straight 1000 / 1000 1400 / 1400 Other: Date of Last Bowel Movement 01/31/18 02/01/18 02/01/18 # Bowel Movements 4 2 Narrative: GENERAL: This is a well-nourished, well-developed patient, in no apparent distress. CARDIOVASCULAR: Regular rate and rhythm RESPIRATORY: Few diminished breath sounds in the bases bilaterally GASTROINTESTINAL: Abdomen soft, non-tender, nondistended. Normal active bowel sounds MUSCULOSKELETAL: Extremities without clubbing, cyanosis, trace edema NEURO: Alert and oriented person place time moves all ext x4 but with generalized weakness - Urinary Catheter Management Straight Cath placed during this visit: yes, but has since been removed by the nurse Reason for continuing: Not indwelling catheter Insertion date: 01/31/18 Insertion time: 14:30 Removal date: 01/30/18 Removal time: 10:55 Indwelling Urethral Catheter Cath placed during this visit: yes, but has since been removed by the nurse Reason for continuing: Decision to DC catheter Insertion date: 01/28/18 Removal date: 01/29/18 Removal time: 18:15 Results - Labs CBC & Chem 7: 01/30/18 04:44 01/30/18 04:44 Assessment and Plan - Plan RESPIRATORY FAILURE PNA ? JORDANA PLAN O2 HIGH FLOW NASAL O2 ANTIBX INCREASE ACTIVITY \F/U CXRAY
[2018-02-01] MEDS: traZODone 50 MG Tablet PO SCH (21:21)
[2018-02-01] MEDS: Gabapentin 300 MG Capsule PO SCH (21:22)
[2018-02-02] MEDS: MethylPREDNISolone Sod Succinate Inj 40 MG/ML Vial IV.PUSH SCH ×3 (04:23→17:35)
[2018-02-02 05:18] LABS: Baso % (Auto) 0.1 % (0.0-2.0); Hemoglobin 12.6 gm/dL (11.6-15.3); Lymph # (Auto) 0.3 th/mm3 (1.0-4.8); Lymph % (Auto) 1.9 % (9.0-44.0); Mean Corpuscular Hemoglobin 30.7 pg (27.0-34.0); Mono # (Auto) 0.4 th/mm3 (0.0-0.9); Mono % (Auto) 1.9 % (0.0-8.0); Neut # (Auto) 18.1 th/mm3 (1.8-7.7); Neut % (Auto) 96.1 % (16.0-70.0); Platelet Count 372 th/mm3 (150-450); Red Blood Count 4.09 mil/mm3 (4.00-5.30); White Blood Count 18.8 th/mm3 (4.0-11.0)
[2018-02-02] MEDS: Budesonide-Formoterol 160/4.5 MCG 6 GM Inhaler INH SCH ×2 (09:24→21:02)
[2018-02-02] MEDS: Atenolol 25 MG Tablet PO SCH (09:25)
[2018-02-02] MEDS: Estradiol 1 MG Tablet PO SCH (09:25)
[2018-02-02] MEDS: Lactobacillus Acidophilus/L. Spores Tablet PO SCH ×3 (09:25→17:35)
[2018-02-02] MEDS: buPROPion 150 MG 12 HR Tablet PO SCH (09:25)
[2018-02-02] MEDS: amLODIPine 10 MG Tablet PO SCH (09:25)
[2018-02-02] MEDS: Fenofibrate 48 MG Tablet PO SCH (09:25)
[2018-02-02] MEDS: Ascorbic Acid 500 MG Tablet PO SCH (09:25)
[2018-02-02] MEDS: Folic Acid 1 MG Tablet PO SCH (09:25)
[2018-02-02] MEDS: Furosemide 20 MG Tablet PO SCH (09:26)
[2018-02-02] MEDS: Enoxaparin Inj 40 MG/0.4 ML Syringe SQ SCH (12:01)
--- NOTE | 2018-02-02 13:31 | P.PNIM ---
Subjective Interval history: Patient reports that her breathing seems to be better overnight. Dry cough. Sinus drainage. No complaint of chest pain. No fevers or chills. Physical Exam Vital signs: Last Vital Signs Temp 98.5 F 02/02/18 04:00 Pulse 85 02/02/18 10:00 Resp 34 H 02/02/18 10:00 BP 159/76 H 02/02/18 10:00 Pulse Ox 89 L 02/02/18 10:00 Intake & Output 01/31/18 02/01/18 02/02/18 02/03/18 06:59 06:59 06:59 06:59 Intake Total 1230 / 1230 1130 / 1130 1380 / 1380 Output Total 3125 / 3125 3200 / 3200 Balance -1895 / -1895 -2070 / -2070 1380 / 1380 Weight 86.5 kg 89.1 kg 88.5 kg Narrative: GENERAL: This is a well-nourished, well-developed patient, in no apparent distress. CARDIOVASCULAR: Regular rate and rhythm RESPIRATORY: Few expiratory wheeze bilaterally GASTROINTESTINAL: Abdomen soft, non-tender, nondistended. Normal active bowel sounds MUSCULOSKELETAL: Extremities without clubbing, cyanosis, trace edema NEURO: Alert and oriented person place time moves all ext x4 but with generalized weakness Urinary Catheter Management Straight: Cath placed during this visit: yes, but has since been removed by the nurse Insertion date: 01/31/18 Insertion time: 14:30 Removal date: 01/30/18 Removal time: 10:55 Indwelling Urethral Catheter: Cath placed during this visit: yes, but has since been removed by the nurse Insertion date: 01/28/18 Removal date: 01/29/18 Removal time: 18:15 Results Labs CBC & Chem 7: 02/02/18 05:00 01/30/18 04:44 Assessment and Plan Plan 62-year-old female admitted secondary to healthcare associated pneumonia with respiratory failure. Higher risk given immunocompromise state from rheumatoid arthritis treatment. Healthcare associated pneumonia with acute respiratory failure with hypoxia Continue cefepime, high flow oxygen with standby BiPAP for pulmonary, add Levaquin to the regimen yesterday. Patient states that she is not allergic to Cipro. She has been alert allergic to erythromycin in the past. Check sputum cultures and sensitivity Continue monitoring in ICU BiPAP as needed Continue duo nebs Symbicort , continue Solu-Medrol IV Pulmonology, Dr. Rondon following Wean oxygen as tolerated, currently on high flow oxygen Obtain sputum culture and sensitivity Leukocytosislikely due to steroids, Levaquin was added to cefepime yesterday. Rheumatoid arthritis Methotrexate on hold due to infection Hypertension, chronic essential Continue baseline treatment continue Norvasc, atenolol, Dyazide Overall blood pressure controlled. Chronic lower back pain with a history of lumbar stenosis Caution with narcotics and presence of lethargy, will decrease [place] dose and change baclofen to as needed decreased gabapentin. No surgical interventions at this point Continue PT Will refer patient to interventional pain management per sister's request as an outpatient to Dr. Davies Hypokalemia Monitor potassium and replace as needed DVT prophylaxis Lovenox Continue physical therapy Continue monitor ICU until oxygen is able to be weaned down Progress Note: Quality VTE Deep Vein Thrombosis/Pulmonary Embolism Present on Admission: No
[2018-02-02] MEDS: levoFLOXacin 750 MG Tablet PO SCH (17:36)
--- NOTE | 2018-02-02 19:04 | P.PN ---
Subjective Interval history: ALERT SITTING IN BED NAD STILL NEEDS HIGH FLOW NASAL O2 Physical Exam Vital signs: Vital Signs 02/01/18 19:50 02/01/18 20:00 02/01/18 22:00 Temperature 98.6 F Pulse Rate 101 H 102 H Respiratory Rate 26 H Blood Pressure 124/74 Pulse Oximetry 94 L 96 02/02/18 00:00 02/02/18 00:12 02/02/18 02:00 Temperature 98.8 F Pulse Rate 72 78 Respiratory Rate 18 Blood Pressure 99/54 L Pulse Oximetry 96 98 02/02/18 04:00 02/02/18 04:13 02/02/18 06:00 Temperature 98.5 F Pulse Rate 80 76 Respiratory Rate 16 Blood Pressure 122/64 Pulse Oximetry 95 94 L 02/02/18 08:00 02/02/18 09:00 02/02/18 09:09 Temperature Pulse Rate 93 H 91 H Respiratory Rate 27 H 35 H Blood Pressure 121/92 H 120/70 Pulse Oximetry 92 L 82 L 90 L 02/02/18 10:00 02/02/18 11:00 02/02/18 12:00 Temperature Pulse Rate 100 H 93 H 104 H Respiratory Rate 34 H 29 H 32 H Blood Pressure 159/76 H 141/70 H Pulse Oximetry 89 L 87 L 87 L 02/02/18 12:58 02/02/18 13:00 02/02/18 14:00 Temperature Pulse Rate 96 H 93 H 92 H Respiratory Rate 31 H 32 H 30 H Blood Pressure 115/63 118/62 114/62 Pulse Oximetry 87 L 92 L 91 L 02/02/18 15:00 02/02/18 16:00 02/02/18 18:00 Temperature Pulse Rate 92 H 86 95 H Respiratory Rate 28 H 29 H Blood Pressure 109/62 118/69 Pulse Oximetry 86 L 94 L Intake & Output 02/02/18 02/02/18 02/03/18 06:59 18:59 06:59 Intake Total 680 / 680 1300 / 1300 Balance 680 / 680 1300 / 1300 Weight 88.5 kg Intake: IV 200 / 200 100 / 100 Maxipime Inj 2,000 MG In NS Inj 200 / 200 100 / 100 100 ML @ 200 mls/hr IV.SIG Q8H [facility] Rx#:[id number] Oral 480 / 480 1200 / 1200 Other: # Voids 5 5 Date of Last Bowel Movement 11/15/18 11/15/18 # Bowel Movements 3 2 Narrative: GENERAL: This is a well-nourished, well-developed patient, in no apparent distress. CARDIOVASCULAR: Regular rate and rhythm RESPIRATORY: Few expiratory wheeze bilaterally GASTROINTESTINAL: Abdomen soft, non-tender, nondistended. Normal active bowel sounds MUSCULOSKELETAL: Extremities without clubbing, cyanosis, trace edema NEURO: Alert and oriented person place time moves all ext x4 but with generalized weakness - Urinary Catheter Management Straight Cath placed during this visit: yes, but has since been removed by the nurse Reason for continuing: Not indwelling catheter Insertion date: 01/31/18 Insertion time: 14:30 Removal date: 01/30/18 Removal time: 10:55 Indwelling Urethral Catheter Cath placed during this visit: yes, but has since been removed by the nurse Reason for continuing: Decision to DC catheter Insertion date: 01/28/18 Removal date: 01/29/18 Removal time: 18:15 Results - Labs CBC & Chem 7: 02/02/18 05:00 01/30/18 04:44 Laboratory Results - last 24 hr 02/02/18 05:00 WBC 18.8 H RBC 4.09 Hgb 12.6 Hct 38.0 MCV 93.0 MCH 30.7 MCHC 33.0 RDW 15.0 Plt Count 372 MPV 7.0 Neut % (Auto) 96.1 H Lymph % (Auto) 1.9 L M[place]ull[place] % (Auto) 1.9 Eos % (Auto) 0.0 Baso % (Auto) 0.1 Neut # (Auto) 18.1 H Lymph # (Auto) 0.3 L [place] # (Auto) 0.4 Eos # (Auto) 0.0 Baso # (Auto) 0.0 WBC Differential . Differential Comment Auto diff final Assessment and Plan - Plan RESPIRATORY FAILURE PNA ? JORDANA PLAN O2 HIGH FLOW NASAL O2 ANTIBX INCREASE ACTIVITY \F/U CXRAY
--- NOTE | 2018-02-02 19:45 | XR ---
EXAM DATE: 02/02/2018 7:39 PM EST AGE/SEX: 62 years / Female INDICATIONS: COPD. CLINICAL DATA: This is the patient's initial encounter. Patient reports that signs and symptoms have been present for 1 day and indicates a pain score of 0/10. MEDICAL/SURGICAL HISTORY: Chronic obstructive pulmonary disease. Rheumatoid arthritis. Hypert ension. Spinal stenosis. . Cervical, thoracic, and lumbar fusions. COMPARISON: [facility] [place], CHEST 1V SINGLE AP, 01/27/2018. . FINDINGS: Postoperative fixation lower thoracic and lumbar spine and previous cervical fusion. Heart size upper limits normal. Mild interstitial prominence in the lungs similar to prior examination. No new consol idation or effusion. No pneumothorax. CONCLUSION: No new consolidation or effusion. Stable interstitial prominence. Postoperative changes above. Electronically signed by: Robert Edward MD 02/02/2018 7:44 PM EST
[2018-02-02] MEDS: Gabapentin 300 MG Capsule PO SCH (21:02)
[2018-02-03] MEDS: traZODone 50 MG Tablet PO SCH ×2 (00:57→21:09)
[2018-02-03] MEDS: MethylPREDNISolone Sod Succinate Inj 40 MG/ML Vial IV.PUSH SCH ×5 (01:32→21:08)
[2018-02-03 07:08] LABS: Baso % (Auto) 0.1 % (0.0-2.0); Hematocrit 37.6 % (35.0-46.0); Hemoglobin 12.3 gm/dL (11.6-15.3); Lymph # (Auto) 0.3 th/mm3 (1.0-4.8); Lymph % (Auto) 1.6 % (9.0-44.0); Mean Corpuscular HGB Conc 32.8 % (32.0-36.0); Mean Corpuscular Hemoglobin 30.6 pg (27.0-34.0); Mean Corpuscular Volume 93.2 fL (80.0-100.0); Mean Platelet Volume 7.9 fL (7.0-11.0); Mono # (Auto) 0.4 th/mm3 (0.0-0.9); Mono % (Auto) 2.1 % (0.0-8.0); Neut # (Auto) 19.5 th/mm3 (1.8-7.7); Neut % (Auto) 96.2 % (16.0-70.0); Platelet Count 372 th/mm3 (150-450); Red Blood Count 4.03 mil/mm3 (4.00-5.30); Red Cell Distribution Width 14.7 % (11.6-17.2); White Blood Count 20.3 th/mm3 (4.0-11.0)
[2018-02-03] MEDS: Ascorbic Acid 500 MG Tablet PO SCH (08:33)
[2018-02-03] MEDS: buPROPion 150 MG 12 HR Tablet PO SCH (08:33)
[2018-02-03] MEDS: Lactobacillus Acidophilus/L. Spores Tablet PO SCH ×3 (08:33→17:54)
[2018-02-03] MEDS: Furosemide 20 MG Tablet PO SCH (08:34)
[2018-02-03] MEDS: Fenofibrate 48 MG Tablet PO SCH (08:34)
[2018-02-03] MEDS: amLODIPine 10 MG Tablet PO SCH (08:34)
[2018-02-03] MEDS: Folic Acid 1 MG Tablet PO SCH (08:34)
[2018-02-03] MEDS: Budesonide-Formoterol 160/4.5 MCG 6 GM Inhaler INH SCH ×2 (08:38→21:10)
[2018-02-03] MEDS: Atenolol 25 MG Tablet PO SCH (08:46)
[2018-02-03] MEDS: Enoxaparin Inj 40 MG/0.4 ML Syringe SQ SCH (11:27)
[2018-02-03] MEDS: Estradiol 1 MG Tablet PO SCH (11:28)
--- NOTE | 2018-02-03 14:11 | P.PNIM ---
Physical Exam Vital signs: Last Vital Signs Temp 98.4 F 02/02/18 21:00 Pulse 90 02/03/18 07:00 Resp 26 H 02/03/18 07:00 BP 141/78 H 02/03/18 07:00 Pulse Ox 90 L 02/03/18 08:00 Intake & Output 02/01/18 02/02/18 02/03/18 02/04/18 06:59 06:59 06:59 06:59 Intake Total 1130 / 1130 1380 / 1380 1520 / 1520 100 / 100 Output Total 3200 / 3200 600 / 600 Balance -2070 / -2070 1380 / 1380 920 / 920 100 / 100 Weight 89.1 kg 88.5 kg 88.4 kg Narrative: GENERAL: This is a well-nourished, well-developed patient, in no apparent distress. CARDIOVASCULAR: Regular rate and rhythm RESPIRATORY: Few crackles right base GASTROINTESTINAL: Abdomen soft, non-tender, nondistended. Normal active bowel sounds MUSCULOSKELETAL: Extremities without clubbing, cyanosis, trace edema NEURO: Alert and oriented person place time moves all ext x4 but with generalized weakness Urinary Catheter Management Straight: Cath placed during this visit: yes, but has since been removed by the nurse Insertion date: 01/31/18 Insertion time: 14:30 Removal date: 01/30/18 Removal time: 10:55 Indwelling Urethral Catheter: Cath placed during this visit: yes, but has since been removed by the nurse Insertion date: 01/28/18 Removal date: 01/29/18 Removal time: 18:15 Results Labs CBC & Chem 7: 02/03/18 05:14 01/30/18 04:44 Imaging Imaging: Impressions Chest X-Ray 02/02/18 19:05 CONCLUSION: No new consolidation or effusion. Stable interstitial prominence. Postoperative changes above. Assessment and Plan Plan 62-year-old female admitted secondary to healthcare associated pneumonia with respiratory failure. Higher risk given immunocompromise state from rheumatoid arthritis treatment. Healthcare associated pneumonia with acute respiratory failure with hypoxia Continue cefepime, high flow oxygen with standby BiPAP for pulmonary, add Levaquin to the regimen 02/01. Patient states that she is not allergic to Cipro. She has been alert allergic to erythromycin in the past. Check sputum cultures and sensitivity Continue monitoring in ICU due to patient being on high flow oxygen BiPAP as needed Continue duo nebs Symbicort , continue Solu-Medrol IV but will wean dosing Pulmonology, Dr. Rondon following Wean oxygen as tolerated, currently on high flow oxygen Leukocytosislikely due to steroids, Levaquin was added to cefepime , start weaning steroids. Rheumatoid arthritis Methotrexate on hold due to infection Hypertension, chronic essential Continue baseline treatment continue Norvasc, atenolol, Dyazide Overall blood pressure controlled. Chronic lower back pain with a history of lumbar stenosis Caution with narcotics and presence of lethargy, will decrease [place] dose and change baclofen to as needed decreased gabapentin. No surgical interventions at this point Continue PT Will refer patient to interventional pain management per sister's request as an outpatient to Dr. Davies Hypokalemia Monitor potassium and replace as needed DVT prophylaxis Lovenox Continue physical therapy Continue monitor ICU until oxygen is able to be weaned down Progress Note: Quality VTE Deep Vein Thrombosis/Pulmonary Embolism Present on Admission: No
[2018-02-03] MEDS: levoFLOXacin 750 MG Tablet PO SCH (17:54)
--- NOTE | 2018-02-03 19:07 | P.PN ---
Subjective Interval history: ALERT NOW ON O2 N/C LESS SOB Physical Exam Vital signs: Vital Signs 02/02/18 20:00 02/02/18 21:00 02/02/18 21:21 Temperature 98.4 F Pulse Rate 98 H 101 H Respiratory Rate 24 31 H Blood Pressure 135/76 121/85 Pulse Oximetry 91 L 85 L 90 L 02/02/18 22:00 02/02/18 23:00 02/03/18 00:00 Temperature Pulse Rate 99 H 99 H 85 Respiratory Rate 40 H 32 H 24 Blood Pressure 127/83 115/67 Pulse Oximetry 87 L 96 02/03/18 01:00 02/03/18 02:00 02/03/18 03:00 Temperature Pulse Rate 80 79 93 H Respiratory Rate 21 22 30 H Blood Pressure 111/65 116/64 128/70 Pulse Oximetry 93 L 92 L 76 L 02/03/18 04:00 02/03/18 05:00 02/03/18 06:00 Temperature Pulse Rate 76 80 84 Respiratory Rate 20 20 31 H Blood Pressure 125/66 134/70 131/70 Pulse Oximetry 90 L 89 L 97 02/03/18 07:00 02/03/18 08:00 02/03/18 09:06 Temperature 97.6 F Pulse Rate 90 103 H 109 H Respiratory Rate 26 H 29 H 21 Blood Pressure 141/78 H 141/69 H Pulse Oximetry 79 L 87 L 76 L 02/03/18 10:00 02/03/18 10:15 02/03/18 11:00 Temperature Pulse Rate 102 H 99 H 97 H Respiratory Rate 28 H 45 H 30 H Blood Pressure 115/73 Pulse Oximetry 90 L 98 02/03/18 12:00 02/03/18 13:00 02/03/18 14:00 Temperature Pulse Rate 100 H 92 H 98 H Respiratory Rate 55 H 25 H 36 H Blood Pressure Pulse Oximetry 93 L 92 L 94 L 02/03/18 14:40 02/03/18 15:00 02/03/18 15:59 Temperature Pulse Rate 113 H 99 H Respiratory Rate 54 H 48 H Blood Pressure 113/58 L Pulse Oximetry 69 L 87 L 92 L 02/03/18 16:00 02/03/18 18:00 Temperature 98.2 F Pulse Rate 99 H 99 H Respiratory Rate 38 H Blood Pressure Pulse Oximetry 90 L Intake & Output 02/03/18 02/03/18 02/04/18 06:59 18:59 06:59 Intake Total 220 / 220 1300 / 1300 Output Total 600 / 600 900 / 900 Balance -380 / -380 400 / 400 Weight 88.4 kg Intake: IV 100 / 100 200 / 200 Maxipime Inj 2,000 MG In NS Inj 100 / 100 200 / 200 100 ML @ 200 mls/hr IV.SIG Q8H [facility] Rx#:[id number] Oral 120 / 120 1100 / 1100 Output: Urine 600 / 600 900 / 900 Stool 0 / 0 Urine/Stool Mix 0 / 0 Other: # Voids 0 # Incontinent Voids 2 Date of Last Bowel Movement 02/02/18 02/03/18 # Bowel Movements 0 2 # Incontinent Bowel Movements 0 Narrative: GENERAL: This is a well-nourished, well-developed patient, in no apparent distress. CARDIOVASCULAR: Regular rate and rhythm RESPIRATORY: Few crackles right base GASTROINTESTINAL: Abdomen soft, non-tender, nondistended. Normal active bowel sounds MUSCULOSKELETAL: Extremities without clubbing, cyanosis, trace edema NEURO: Alert and oriented person place time moves all ext x4 but with generalized weakness - Urinary Catheter Management Straight Cath placed during this visit: yes, but has since been removed by the nurse Reason for continuing: Not indwelling catheter Insertion date: 01/31/18 Insertion time: 14:30 Removal date: 01/30/18 Removal time: 10:55 Indwelling Urethral Catheter Cath placed during this visit: yes, but has since been removed by the nurse Reason for continuing: Decision to DC catheter Insertion date: 01/28/18 Removal date: 01/29/18 Removal time: 18:15 Results - Labs CBC & Chem 7: 02/03/18 05:14 01/30/18 04:44 Laboratory Results - last 24 hr 02/03/18 02/03/18 05:14 12:07 WBC 20.3 H RBC 4.03 Hgb 12.3 Hct 37.6 MCV 93.2 MCH 30.6 MCHC 32.8 RDW 14.7 Plt Count 372 MPV 7.9 Neut % (Auto) 96.2 H Lymph % (Auto) 1.6 L [place] % (Auto) 2.1 Eos % (Auto) 0.0 Baso % (Auto) 0.1 Neut # (Auto) 19.5 H Lymph # (Auto) 0.3 L [place] # (Auto) 0.4 Eos # (Auto) 0.0 Baso # (Auto) 0.0 WBC Differential . Differential Comment Auto diff final POC Glucose 158 H - Imaging Impressions Chest X-Ray 02/02/18 19:05 CONCLUSION: No new consolidation or effusion. Stable interstitial prominence. Postoperative changes above. Assessment and Plan - Plan RESPIRATORY FAILURE PNA ? JORDANA PLAN O2 NEEDED BRONCHODILATOR THERAPY INCREASE ACTIVITY
[2018-02-03] MEDS: Gabapentin 300 MG Capsule PO SCH (21:10)
[2018-02-03] MEDS: Sodium Chloride 0.65% Nasal Spray 45 ML Bottle EACH NARE SCH (21:10)
[2018-02-04] MEDS: MethylPREDNISolone Sod Succinate Inj 40 MG/ML Vial IV.PUSH SCH ×3 (05:38→21:16)
[2018-02-04 06:09] LABS: Baso # (Auto) 0.2 th/mm3 (0.0-0.2); Baso % (Auto) 0.9 % (0.0-2.0); Eos % (Auto) 0.1 % (0.0-4.0); Hematocrit 38.2 % (35.0-46.0); Hemoglobin 12.9 gm/dL (11.6-15.3); Lymph # (Auto) 0.5 th/mm3 (1.0-4.8); Lymph % (Auto) 2.3 % (9.0-44.0); Mean Corpuscular HGB Conc 33.6 % (32.0-36.0); Mean Corpuscular Hemoglobin 30.7 pg (27.0-34.0); Mean Corpuscular Volume 91.4 fL (80.0-100.0); Mean Platelet Volume 8.2 fL (7.0-11.0); Mono # (Auto) 0.7 th/mm3 (0.0-0.9); Neut % (Auto) 93.7 % (16.0-70.0); Platelet Count 334 th/mm3 (150-450); Red Blood Count 4.19 mil/mm3 (4.00-5.30); Red Cell Distribution Width 14.3 % (11.6-17.2); White Blood Count 22.4 th/mm3 (4.0-11.0)
[2018-02-04] MEDS ORDERED: Vancomycin Consult Pharmacy OTHER PRN (08:35)
[2018-02-04] MEDS ORDERED: Vancomycin Inj 1,000 MG in Sodium Chlor 0.9% Inj 250 ML IV.SIG SCH (08:36)
[2018-02-04] MEDS ORDERED: Vancomycin Inj 1,750 MG in Sodium Chlor 0.9% Inj 500 ML IV.SIG ONE (10:00)
[2018-02-04] MEDS: Lactobacillus Acidophilus/L. Spores Tablet PO SCH ×3 (10:10→17:50)
[2018-02-04] MEDS: Estradiol 1 MG Tablet PO SCH (10:11)
[2018-02-04] MEDS: Folic Acid 1 MG Tablet PO SCH (10:11)
[2018-02-04] MEDS: Ascorbic Acid 500 MG Tablet PO SCH (10:11)
[2018-02-04] MEDS: amLODIPine 10 MG Tablet PO SCH (10:12)
[2018-02-04] MEDS: Furosemide 20 MG Tablet PO SCH (10:13)
[2018-02-04] MEDS: Budesonide-Formoterol 160/4.5 MCG 6 GM Inhaler INH SCH ×2 (10:14→21:17)
[2018-02-04] MEDS: Fenofibrate 48 MG Tablet PO SCH (10:14)
[2018-02-04] MEDS: buPROPion 150 MG 12 HR Tablet PO SCH (10:15)
[2018-02-04] MEDS: Sodium Chloride 0.65% Nasal Spray 45 ML Bottle EACH NARE SCH ×2 (10:39→22:32)
[2018-02-04] MEDS: Atenolol 25 MG Tablet PO SCH (11:01)
--- NOTE | 2018-02-04 11:23 | P.PNIM ---
Subjective Interval history: Reports that breathing is better. No shortness of breath. No chest pain. Wants to go to the floor out of the intensive care unit. Runny nose. No productive cough. No abdominal pain. Back pain is currently controlled. Physical Exam Vital signs: Last Vital Signs Temp 98.0 F 02/04/18 04:00 Pulse 89 02/04/18 06:00 Resp 33 H 02/04/18 05:00 BP 112/68 02/04/18 05:00 Pulse Ox 90 L 02/04/18 10:15 Intake & Output 02/02/18 02/03/18 02/04/18 02/05/18 06:59 06:59 06:59 06:59 Intake Total 1380 / 1380 1520 / 1520 1640 / 1640 100 / 100 Output Total 600 / 600 1000 / 1000 Balance 1380 / 1380 920 / 920 640 / 640 100 / 100 Weight 88.5 kg 88.4 kg 87.4 kg Narrative: GENERAL: This is a well-nourished, well-developed patient, in no apparent distress. CARDIOVASCULAR: Regular rate and rhythm RESPIRATORY: Few crackles bilateral base and diminished breath sounds GASTROINTESTINAL: Abdomen soft, non-tender, nondistended. Normal active bowel sounds MUSCULOSKELETAL: Extremities without clubbing, cyanosis, trace edema NEURO: Alert and oriented person place time moves all ext x4 but with generalized weakness Urinary Catheter Management Straight: Cath placed during this visit: yes, but has since been removed by the nurse Insertion date: 01/31/18 Insertion time: 14:30 Removal date: 01/30/18 Removal time: 10:55 Indwelling Urethral Catheter: Cath placed during this visit: yes, but has since been removed by the nurse Insertion date: 01/28/18 Removal date: 01/29/18 Removal time: 18:15 Results Labs CBC & Chem 7: 02/04/18 05:30 01/30/18 04:44 Assessment and Plan (1) HCAP (healthcare-associated pneumonia): Code(s): J18.9 - Pneumonia, unspecified organism Status: Acute Plan 62-year-old female admitted secondary to healthcare associated pneumonia with respiratory failure. Higher risk given immunocompromise state from rheumatoid arthritis treatment. Healthcare associated pneumonia with acute respiratory failure with hypoxia Patient was on 6 L overnight however is D satting to 87% and had to be placed back on high flow this morning. Transfer will need to be on hold out of the intensive care unit Continue cefepime, Levaquin, will add IV vancomycin as patient is unable to give a sputum for evaluation high flow oxygen with standby BiPAP for pulmonary, add Levaquin to the regimen 02/01. Check sputum cultures and sensitivity if able to cough up sputum Continue monitoring in ICU due to patient being on high flow oxygen, transfer on hold BiPAP as needed Continue duo nebs Symbicort , continue Solu-Medrol IV but will wean dosing Pulmonology, Dr. Rondon following Wean oxygen as tolerated, currently on high flow oxygen Leukocytosislikely due to steroids, Levaquin was added to cefepime , start weaning steroids. Levels persist will add IV vancomycin to the regimen Rheumatoid arthritis Methotrexate on hold due to infection Hypertension, chronic essential Continue baseline treatment continue Norvasc, atenolol, Dyazide Overall blood pressure controlled. Chronic lower back pain with a history of lumbar stenosis Caution with narcotics and presence of lethargy, will decrease [place] dose and change baclofen to as needed decreased gabapentin. No surgical interventions at this point Continue PT Will refer patient to interventional pain management per sister's request as an outpatient to Dr. Davies Hypokalemia Monitor potassium and replace as needed DVT prophylaxis Lovenox Continue physical therapy Continue monitor ICU until oxygen is able to be weaned down Progress Note: Quality VTE Deep Vein Thrombosis/Pulmonary Embolism Present on Admission: No
[2018-02-04] MEDS: Enoxaparin Inj 40 MG/0.4 ML Syringe SQ SCH (12:41)
[2018-02-04] MEDS: ALPRAZolam 0.25 MG Tablet PO PRN (12:55)
--- NOTE | 2018-02-04 17:38 | P.PN ---
Subjective Interval history: alert NAD ON O2 VIA MASK Physical Exam Vital signs: Vital Signs 02/03/18 18:00 02/03/18 18:46 02/03/18 19:00 Temperature Pulse Rate 98 H 98 H 102 H Respiratory Rate 66 H 24 28 H Blood Pressure 137/86 Pulse Oximetry 91 L 84 L 86 L 02/03/18 20:00 02/03/18 21:00 02/03/18 21:09 Temperature 98.4 F Pulse Rate 95 H 92 H Respiratory Rate 29 H 30 H Blood Pressure Pulse Oximetry 85 L 88 L 91 L 02/03/18 22:00 02/03/18 23:00 02/03/18 23:11 Temperature Pulse Rate 79 77 79 Respiratory Rate 20 26 H 30 H Blood Pressure 116/81 Pulse Oximetry 91 L 91 L 90 L 02/04/18 00:00 02/04/18 01:00 02/04/18 02:00 Temperature 97.9 F Pulse Rate 80 84 76 Respiratory Rate 27 H 26 H 20 Blood Pressure 121/66 106/67 109/64 Pulse Oximetry 88 L 87 L 91 L 02/04/18 03:00 02/04/18 04:00 02/04/18 05:00 Temperature 98.0 F Pulse Rate 83 86 93 H Respiratory Rate 23 37 H 33 H Blood Pressure 106/62 107/62 112/68 Pulse Oximetry 92 L 90 L 92 L 02/04/18 06:00 02/04/18 08:00 02/04/18 10:00 Temperature 98.2 F Pulse Rate 89 101 H 110 H Respiratory Rate 40 H Blood Pressure 116/70 Pulse Oximetry 81 L 02/04/18 10:15 02/04/18 12:00 02/04/18 14:00 Temperature 98.1 F Pulse Rate 108 H 92 H Respiratory Rate 35 H Blood Pressure 141/65 H Pulse Oximetry 90 L 73 L Intake & Output 02/03/18 02/04/18 02/04/18 18:59 06:59 18:59 Intake Total 1300 / 1300 340 / 340 715 / 715 Output Total 900 / 900 100 / 100 Balance 400 / 400 240 / 240 715 / 715 Weight 87.4 kg Intake: IV 200 / 200 100 / 100 715 / 715 Maxipime Inj 2,000 MG In NS Inj 200 / 200 100 / 100 197 / 197 100 ML @ 200 mls/hr IV.SIG Q8H [facility] Rx#:[id number] Vancomycin Inj 1,750 MG In NS 518 / 518 Inj 500 ML @ 250 mls/hr IV.SIG ONCE ONE Rx#:[id number] Oral 1100 / 1100 240 / 240 Output: Urine 900 / 900 100 / 100 Stool 0 / 0 Urine/Stool Mix 0 / 0 Other: # Voids 0 # Incontinent Voids 2 0 Date of Last Bowel Movement 02/03/18 02/03/18 02/03/18 # Bowel Movements 2 0 # Incontinent Bowel Movements 0 Narrative: GENERAL: This is a well-nourished, well-developed patient, in no apparent distress. CARDIOVASCULAR: Regular rate and rhythm RESPIRATORY: Few crackles bilateral base and diminished breath sounds GASTROINTESTINAL: Abdomen soft, non-tender, nondistended. Normal active bowel sounds MUSCULOSKELETAL: Extremities without clubbing, cyanosis, trace edema NEURO: Alert and oriented person place time moves all ext x4 but with generalized weakness - Urinary Catheter Management Straight Cath placed during this visit: yes, but has since been removed by the nurse Reason for continuing: Not indwelling catheter Insertion date: 01/31/18 Insertion time: 14:30 Removal date: 01/30/18 Removal time: 10:55 Indwelling Urethral Catheter Cath placed during this visit: yes, but has since been removed by the nurse Reason for continuing: Decision to DC catheter Insertion date: 01/28/18 Removal date: 01/29/18 Removal time: 18:15 Results - Labs CBC & Chem 7: 02/04/18 05:30 01/30/18 04:44 Laboratory Results - last 24 hr 02/04/18 05:30 WBC 22.4 H RBC 4.19 Hgb 12.9 Hct 38.2 MCV 91.4 MCH 30.7 MCHC 33.6 RDW 14.3 Plt Count 334 MPV 8.2 Neut % (Auto) 93.7 H Lymph % (Auto) 2.3 L [place] % (Auto) 3.0 Eos % (Auto) 0.1 Baso % (Auto) 0.9 Neut # (Auto) 21.0 H Lymph # (Auto) 0.5 L [place] # (Auto) 0.7 Eos # (Auto) 0.0 Baso # (Auto) 0.2 WBC Differential . Differential Comment Auto diff final Assessment and Plan - Plan RESPIRATORY FAILURE PNA ? JORDANA PLAN O2 NEEDED BRONCHODILATOR THERAPY INCREASE ACTIVITY
[2018-02-04] MEDS: levoFLOXacin 750 MG Tablet PO SCH (17:50)
[2018-02-04] MEDS: traZODone 50 MG Tablet PO SCH (21:16)
[2018-02-04] MEDS: Gabapentin 300 MG Capsule PO SCH (21:17)
[2018-02-04] MEDS: Vancomycin Inj 1,500 MG in Sodium Chlor 0.9% Inj 500 ML IV.SIG SCH (23:50)
[2018-02-05] MEDS: MethylPREDNISolone Sod Succinate Inj 40 MG/ML Vial IV.PUSH SCH ×3 (04:23→21:07)
[2018-02-05 05:37] LABS: Baso % (Auto) 0.1 % (0.0-2.0); Eos % (Auto) 0.1 % (0.0-4.0); Hematocrit 33.8 % (35.0-46.0); Hemoglobin 11.3 gm/dL (11.6-15.3); Lymph # (Auto) 0.4 th/mm3 (1.0-4.8); Lymph % (Auto) 1.9 % (9.0-44.0); Mean Corpuscular HGB Conc 33.5 % (32.0-36.0); Mean Corpuscular Volume 92.4 fL (80.0-100.0); Mean Platelet Volume 8.3 fL (7.0-11.0); Mono # (Auto) 0.7 th/mm3 (0.0-0.9); Mono % (Auto) 3.7 % (0.0-8.0); Neut # (Auto) 18.7 th/mm3 (1.8-7.7); Neut % (Auto) 94.2 % (16.0-70.0); Platelet Count 322 th/mm3 (150-450); Red Blood Count 3.66 mil/mm3 (4.00-5.30); Red Cell Distribution Width 14.5 % (11.6-17.2); White Blood Count 19.8 th/mm3 (4.0-11.0)
[2018-02-05 06:08] LABS: Calcium 7.9 mg/dL (8.5-10.1); Carbon Dioxide 25.9 meq/L (21.0-32.0); Potassium 4.5 meq/L (3.5-5.1)
[2018-02-05] MEDS: amLODIPine 10 MG Tablet PO SCH (09:30)
[2018-02-05] MEDS: Furosemide 20 MG Tablet PO SCH (09:30)
[2018-02-05] MEDS: buPROPion 150 MG 12 HR Tablet PO SCH (09:30)
[2018-02-05] MEDS: Fenofibrate 48 MG Tablet PO SCH (09:30)
[2018-02-05] MEDS: Folic Acid 1 MG Tablet PO SCH (09:30)
[2018-02-05] MEDS: Lactobacillus Acidophilus/L. Spores Tablet PO SCH ×3 (09:30→18:45)
[2018-02-05] MEDS: Estradiol 1 MG Tablet PO SCH (09:31)
[2018-02-05] MEDS: Sodium Chloride 0.65% Nasal Spray 45 ML Bottle EACH NARE SCH ×2 (09:31→21:09)
[2018-02-05] MEDS: Atenolol 25 MG Tablet PO SCH (09:31)
[2018-02-05] MEDS: Budesonide-Formoterol 160/4.5 MCG 6 GM Inhaler INH SCH ×2 (09:31→21:10)
[2018-02-05] MEDS: Ascorbic Acid 500 MG Tablet PO SCH (09:31)
--- NOTE | 2018-02-05 11:49 | P.PNIM ---
Subjective Interval history: Complaint of right mid back pain, no complaints of coughing. No shortness of breath and states that her breathing feels better. Wants to get better. Set up in the chair yesterday. Physical Exam Vital signs: Last Vital Signs Temp 97.0 F L 02/05/18 08:00 Pulse 96 H 02/05/18 10:00 Resp 25 H 02/05/18 08:00 BP 116/59 L 02/05/18 08:00 Pulse Ox 92 L 02/05/18 08:00 Intake & Output 02/03/18 02/04/18 02/05/18 02/06/18 06:59 06:59 06:59 06:59 Intake Total 1520 / 1520 1640 / 1640 2420 / 2420 Output Total 600 / 600 1000 / 1000 2100 / 2100 Balance 920 / 920 640 / 640 320 / 320 Weight 88.4 kg 87.4 kg 88.1 kg Narrative: GENERAL: This is a well-nourished, well-developed patient, in no apparent distress. CARDIOVASCULAR: Regular rate and rhythm RESPIRATORY: Slightly diminished breath sounds in the bases bilaterally GASTROINTESTINAL: Abdomen soft, non-tender, nondistended. Normal active bowel sounds MUSCULOSKELETAL: Extremities without clubbing, cyanosis, trace edema, examination of the right mid back did elicit reproducible localized musculoskeletal pain NEURO: Alert and oriented person place time moves all ext x4 but with generalized weakness Urinary Catheter Management Straight: Cath placed during this visit: yes, but has since been removed by the nurse Insertion date: 01/31/18 Insertion time: 14:30 Removal date: 01/30/18 Removal time: 10:55 Indwelling Urethral Catheter: Cath placed during this visit: yes, but has since been removed by the nurse Insertion date: 01/28/18 Removal date: 01/29/18 Removal time: 18:15 Female External: Cath placed during this visit: no Results Labs CBC & Chem 7: 02/05/18 05:05 02/05/18 05:05 Assessment and Plan (1) HCAP (healthcare-associated pneumonia): Code(s): J18.9 - Pneumonia, unspecified organism Status: Acute Plan 62-year-old female admitted secondary to healthcare associated pneumonia with respiratory failure. Higher risk given immunocompromise state from rheumatoid arthritis treatment. Healthcare associated pneumonia with acute respiratory failure with hypoxia Continues to be on high flow oxygen and will need to keep patient in the intensive care unit today. Continue cefepime, Levaquin, IV vancomycin as patient is unable to give a sputum for evaluation high flow oxygen with standby BiPAP for pulmonary, Check sputum cultures and sensitivity if able to cough up sputum Continue monitoring in ICU due to patient being on high flow oxygen, transfer on hold BiPAP as needed Continue duo nebs Symbicort , continue Solu-Medrol IV Pulmonology, Dr. Rondon following Wean oxygen as tolerated, currently on high flow oxygen Leukocytosislikely due to steroids, Levaquin and vancomycin was added to cefepime , start weaning steroids. WBC trended down today Rheumatoid arthritis Methotrexate on hold due to infection Hypertension, chronic essential Continue baseline treatment continue Norvasc, atenolol, Dyazide Overall blood pressure controlled. Chronic lower back pain with a history of lumbar stenosis Caution with narcotics and presence of lethargy, will decrease [place] dose and change baclofen to as needed decreased gabapentin. No surgical interventions at this point Continue PT Will refer patient to interventional pain management per sister's request as an outpatient to Dr. Davies Right posterior mid back painthis is reproducible and localized likely musculoskeletal, will initiate lidocaine patch Hypokalemia Monitor potassium and replace as needed DVT prophylaxis Lovenox Continue physical therapy Continue monitor ICU until oxygen is able to be weaned down Progress Note: Quality VTE Deep Vein Thrombosis/Pulmonary Embolism Present on Admission: No
[2018-02-05] MEDS ORDERED: Furosemide 20 MG Tablet PO ONE (11:50)
[2018-02-05] MEDS: Enoxaparin Inj 40 MG/0.4 ML Syringe SQ SCH (12:13)
--- NOTE | 2018-02-05 15:01 | P.PN ---
Subjective Interval history: alert NAD Physical Exam Vital signs: Vital Signs 02/04/18 15:00 02/04/18 16:00 02/04/18 17:00 Temperature 98.6 F Pulse Rate 85 88 87 Respiratory Rate 26 H 43 H 29 H Blood Pressure 109/63 113/60 107/59 L Pulse Oximetry 92 L 87 L 97 02/04/18 18:00 02/04/18 19:00 02/04/18 20:00 Temperature 97.7 F Pulse Rate 86 99 H 92 H Respiratory Rate 29 H 39 H 30 H Blood Pressure 113/60 117/64 108/61 Pulse Oximetry 95 89 L 92 L 02/04/18 20:15 02/04/18 21:00 02/04/18 22:00 Temperature Pulse Rate 104 H 84 Respiratory Rate 28 H 24 Blood Pressure 109/67 102/58 L Pulse Oximetry 93 L 87 L 92 L 02/04/18 23:00 02/05/18 00:00 02/05/18 01:00 Temperature 98.1 F Pulse Rate 78 81 73 Respiratory Rate 38 H 34 H 30 H Blood Pressure 111/65 109/63 113/66 Pulse Oximetry 90 L 91 L 92 L 02/05/18 02:00 02/05/18 03:00 02/05/18 04:00 Temperature 98.4 F Pulse Rate 75 91 H 75 Respiratory Rate 36 H 33 H 33 H Blood Pressure 112/60 107/61 111/62 Pulse Oximetry 90 L 90 L 93 L 02/05/18 05:00 02/05/18 06:00 02/05/18 07:00 Temperature Pulse Rate 92 H 74 Respiratory Rate 25 H Blood Pressure 112/65 Pulse Oximetry 89 L 95 02/05/18 08:00 02/05/18 10:00 Temperature 97.0 F L Pulse Rate 80 96 H Respiratory Rate 25 H Blood Pressure 116/59 L Pulse Oximetry 92 L Intake & Output 02/04/18 02/05/18 02/05/18 18:59 06:59 18:59 Intake Total 1675 / 1675 745 / 745 Output Total 1300 / 1300 800 / 800 Balance 375 / 375 -55 / -55 Weight 88.1 kg Intake: IV 715 / 715 715 / 715 Maxipime Inj 2,000 MG In NS Inj 197 / 197 200 / 200 100 ML @ 200 mls/hr IV.SIG Q8H [facility] Rx#:[id number] Vancomycin Inj 1,500 MG In NS 518 / 518 515 / 515 Inj 500 ML @ 250 mls/hr IV.SIG Q12H [facility] Rx#:[id number] Oral 960 / 960 30 / 30 Output: Urine 1300 / 1300 Stool 0 / 0 Urine/Stool Mix 0 / 0 Urine Amount (Catheter) 800 / 800 Female External 800 / 800 Other: # Voids 1 # Incontinent Voids 0 Date of Last Bowel Movement 02/03/18 02/05/18 02/05/18 # Bowel Movements 0 # Incontinent Bowel Movements 0 Narrative: GENERAL: This is a well-nourished, well-developed patient, in no apparent distress. CARDIOVASCULAR: Regular rate and rhythm RESPIRATORY: Slightly diminished breath sounds in the bases bilaterally GASTROINTESTINAL: Abdomen soft, non-tender, nondistended. Normal active bowel sounds MUSCULOSKELETAL: Extremities without clubbing, cyanosis, trace edema, examination of the right mid back did elicit reproducible localized musculoskeletal pain NEURO: Alert and oriented person place time moves all ext x4 but with generalized weakness - Urinary Catheter Management Straight Cath placed during this visit: yes, but has since been removed by the nurse Reason for continuing: Not indwelling catheter Insertion date: 01/31/18 Insertion time: 14:30 Removal date: 01/30/18 Removal time: 10:55 Indwelling Urethral Catheter Cath placed during this visit: yes, but has since been removed by the nurse Reason for continuing: Decision to DC catheter Insertion date: 01/28/18 Removal date: 01/29/18 Removal time: 18:15 Female External Cath placed during this visit: no Results - Labs CBC & Chem 7: 02/05/18 05:05 02/05/18 05:05 Laboratory Results - last 24 hr 02/05/18 02/05/18 05:05 05:05 WBC 19.8 H RBC 3.66 L Hgb 11.3 L Hct 33.8 L MCV 92.4 MCH 31.0 MCHC 33.5 RDW 14.5 Plt Count 322 MPV 8.3 Neut % (Auto) 94.2 H Lymph % (Auto) 1.9 L [place] % (Auto) 3.7 Eos % (Auto) 0.1 Baso % (Auto) 0.1 Neut # (Auto) 18.7 H Lymph # (Auto) 0.4 L [place] # (Auto) 0.7 Eos # (Auto) 0.0 Baso # (Auto) 0.0 WBC Differential . Differential Comment Auto diff final Sodium 137 Potassium 4.5 Chloride 103 Carbon Dioxide 25.9 Anion Gap 8 BUN 52 H Creatinine 1.09 H Estimated GFR 51 L Random Glucose 173 H Calcium 7.9 L Assessment and Plan - Plan RESPIRATORY FAILURE PNA ? JORDANA PLAN O2 NEEDED BRONCHODILATOR THERAPY INCREASE ACTIVITY
[2018-02-05] MEDS: Vancomycin Inj 1,500 MG in Sodium Chlor 0.9% Inj 500 ML IV.SIG SCH (15:41)
[2018-02-05] MEDS: levoFLOXacin 750 MG Tablet PO SCH (18:45)
[2018-02-05] MEDS: Lidocaine 5% Patch T-DERMAL SCH (21:03)
[2018-02-05] MEDS: Gabapentin 300 MG Capsule PO SCH (21:07)
[2018-02-05] MEDS: traZODone 50 MG Tablet PO SCH (21:15)
[2018-02-06] MEDS: Vancomycin Inj 1,500 MG in Sodium Chlor 0.9% Inj 500 ML IV.SIG SCH ×2 (00:46→12:16)
[2018-02-06] MEDS: MethylPREDNISolone Sod Succinate Inj 40 MG/ML Vial IV.PUSH SCH ×3 (04:18→21:39)
[2018-02-06 05:29] LABS: Baso # (Auto) 0.1 th/mm3 (0.0-0.2); Baso % (Auto) 0.3 % (0.0-2.0); Eos % (Auto) 0.1 % (0.0-4.0); Hematocrit 32.5 % (35.0-46.0); Hemoglobin 11.2 gm/dL (11.6-15.3); Lymph # (Auto) 0.4 th/mm3 (1.0-4.8); Lymph % (Auto) 2.1 % (9.0-44.0); Mean Corpuscular HGB Conc 34.4 % (32.0-36.0); Mean Corpuscular Hemoglobin 31.4 pg (27.0-34.0); Mean Corpuscular Volume 91.5 fL (80.0-100.0); Mono # (Auto) 0.7 th/mm3 (0.0-0.9); Mono % (Auto) 3.4 % (0.0-8.0); Neut # (Auto) 19.3 th/mm3 (1.8-7.7); Neut % (Auto) 94.1 % (16.0-70.0); Platelet Count 327 th/mm3 (150-450); Red Blood Count 3.55 mil/mm3 (4.00-5.30); Red Cell Distribution Width 14.4 % (11.6-17.2); White Blood Count 20.5 th/mm3 (4.0-11.0)
[2018-02-06 05:57] LABS: Calcium 7.8 mg/dL (8.5-10.1); Carbon Dioxide 25.3 meq/L (21.0-32.0); Potassium 4.1 meq/L (3.5-5.1)
[2018-02-06] MEDS: amLODIPine 10 MG Tablet PO SCH (08:48)
[2018-02-06] MEDS: Folic Acid 1 MG Tablet PO SCH (08:48)
[2018-02-06] MEDS: Furosemide 20 MG Tablet PO SCH (08:49)
[2018-02-06] MEDS: Lactobacillus Acidophilus/L. Spores Tablet PO SCH ×3 (08:49→18:32)
[2018-02-06] MEDS: Ascorbic Acid 500 MG Tablet PO SCH (08:49)
[2018-02-06] MEDS: Fenofibrate 48 MG Tablet PO SCH (08:49)
[2018-02-06] MEDS: buPROPion 150 MG 12 HR Tablet PO SCH (08:50)
[2018-02-06] MEDS: Estradiol 1 MG Tablet PO SCH (08:50)
[2018-02-06] MEDS: Atenolol 25 MG Tablet PO SCH (08:51)
[2018-02-06] MEDS: Budesonide-Formoterol 160/4.5 MCG 6 GM Inhaler INH SCH ×2 (08:52→21:41)
[2018-02-06] MEDS: Sodium Chloride 0.65% Nasal Spray 45 ML Bottle EACH NARE SCH ×2 (08:52→21:40)
[2018-02-06] MEDS ORDERED: Lidocaine 5% Patch T-DERMAL SCH (09:00)
--- NOTE | 2018-02-06 11:19 | P.PNIM ---
Subjective Interval history: Patient reports her breathing is better. She is not short of breath. She would like to sit up in a chair today. Still with dry cough. No fevers or chills. Reports lidocaine patch did help with her right mid back pain. Physical Exam Vital signs: Last Vital Signs Temp 98.7 F 02/06/18 04:00 Pulse 99 H 02/06/18 10:00 Resp 22 02/06/18 08:00 BP 130/66 02/06/18 08:00 Pulse Ox 97 02/06/18 08:00 Intake & Output 02/04/18 02/05/18 02/06/18 02/07/18 06:59 06:59 06:59 06:59 Intake Total 1640 / 1640 2420 / 2420 2470 / 2470 Output Total 1000 / 1000 2100 / 2100 2250 / 2250 Balance 640 / 640 320 / 320 220 / 220 Weight 87.4 kg 88.1 kg 87.5 kg Narrative: GENERAL: This is a well-nourished, well-developed patient, in no apparent distress. CARDIOVASCULAR: Regular rate and rhythm RESPIRATORY: Slightly diminished breath sounds in the bases bilaterally GASTROINTESTINAL: Abdomen soft, non-tender, nondistended. Normal active bowel sounds MUSCULOSKELETAL: Extremities without clubbing, cyanosis, trace edema, NEURO: Alert and oriented person place time moves all ext x4 but with generalized weakness Urinary Catheter Management Straight: Cath placed during this visit: yes, but has since been removed by the nurse Insertion date: 01/31/18 Insertion time: 14:30 Removal date: 01/30/18 Removal time: 10:55 Indwelling Urethral Catheter: Cath placed during this visit: yes, but has since been removed by the nurse Insertion date: 01/28/18 Removal date: 01/29/18 Removal time: 18:15 Female External: Cath placed during this visit: no Results Labs CBC & Chem 7: 02/06/18 03:56 02/06/18 03:56 Labs: Microbiology 02/05/18 16:10 Sputum - Nasal Tracheal Aspirate Gram Stain - Final Assessment and Plan (1) HCAP (healthcare-associated pneumonia): Code(s): J18.9 - Pneumonia, unspecified organism Status: Acute Plan 62-year-old female admitted secondary to healthcare associated pneumonia with respiratory failure. Higher risk given immunocompromise state from rheumatoid arthritis treatment. Healthcare associated pneumonia with acute respiratory failure with continue hypoxia Continues to be on high flow oxygen and will need to keep patient in the intensive care unit today. Continue cefepime, Levaquin, IV vancomycin , high flow oxygen with standby BiPAP for pulmonary, Sputum cultures and sensitivity collected yesterday currently pending Continue monitoring in ICU due to patient being on high flow oxygen, transfer on hold BiPAP as needed , scheduled duo nebs, Symbicort , continue Solu-Medrol IV Pulmonology, Dr. Rondon following Wean oxygen as tolerated, currently on high flow oxygen Encourage incentive spirometry use Repeat chest x-ray today. Leukocytosispersists likely due to steroids, Levaquin and vancomycin was added to cefepime , start weaning steroids. Repeat in the morning. Rheumatoid arthritis Methotrexate on hold due to infection Hypertension, chronic essential Continue baseline treatment continue Norvasc, atenolol, Dyazide Overall blood pressure controlled. Chronic lower back pain with a history of lumbar stenosis Caution with narcotics and presence of lethargy, decreased [place] dose and change baclofen to as needed decreased gabapentin. No surgical interventions at this point Continue PT Will refer patient to interventional pain management per sister's request as an outpatient to Dr. Davies Right posterior mid back painthis is reproducible and localized likely musculoskeletal, patient reports improved on lidocaine patch Hypokalemia Monitor potassium and replace as needed DVT prophylaxis Lovenox Continue physical therapy Continue monitor ICU until oxygen is able to be weaned down Progress Note: Quality VTE Deep Vein Thrombosis/Pulmonary Embolism Present on Admission: No
[2018-02-06] MEDS ORDERED: Pharmacy Ordered Lab Info OTHER ONE (11:45)
[2018-02-06] MEDS: Enoxaparin Inj 40 MG/0.4 ML Syringe SQ SCH (11:53)
[2018-02-06] MEDS: ALPRAZolam 0.25 MG Tablet PO PRN (11:56)
--- NOTE | 2018-02-06 13:06 | XR ---
EXAM DATE: 02/06/2018 12:36 PM EST AGE/SEX: 62 years / Female INDICATIONS: Shortness of breath. CLINICAL DATA: This is the patient's subsequent encounter. Patient reports that signs and symptoms h ave been present for 3 days and indicates a pain score of 0/10. MEDICAL/SURGICAL HISTORY: Chronic obstructive pulmonary disease. Rheumatoid arthritis. Hypert ension. Fusion, lumbar. Fusion, cervical. Fusion, thoracic. COMPARISON: C, CHEST 1V SINGLE AP, 02/02/2018. . FINDINGS: Lungs are hypoaerated. There is increased interstitial vascular prominence throughout both lungs. Heart and mediastinal structures appear stable. Post surgical changes following lower cervical and thoracolumbar fusion again noted. CONCLUSION: Hypoaerated lungs with diffuse interstitial vascular prominence characteristic of mild congestion. Electronically signed by: Brodie Pham MD 02/06/2018 1:04 PM EST
--- NOTE | 2018-02-06 15:07 | P.PN ---
Subjective Interval history: ALERT NAD STILL REQUIRES HIGH FIO2 Physical Exam Vital signs: Vital Signs 02/05/18 16:00 02/05/18 17:00 02/05/18 18:00 Temperature 98.0 F Pulse Rate 98 H 92 H 93 H Respiratory Rate 30 H 27 H 29 H Blood Pressure 128/85 134/71 141/73 H Pulse Oximetry 88 L 96 91 L 02/05/18 19:00 02/05/18 19:15 02/05/18 19:31 Temperature Pulse Rate 99 H 95 H Respiratory Rate 39 H 39 H Blood Pressure 118/79 Pulse Oximetry 89 L 92 L 94 L 02/05/18 20:00 02/05/18 21:00 02/05/18 22:00 Temperature 98.6 F Pulse Rate 94 H 101 H 92 H Respiratory Rate 23 32 H 26 H Blood Pressure 127/74 124/73 112/61 Pulse Oximetry 92 L 91 L 95 02/05/18 23:00 02/06/18 00:00 02/06/18 01:00 Temperature 98.4 F Pulse Rate 84 81 93 H Respiratory Rate 25 H 30 H 22 Blood Pressure 107/62 105/61 109/63 Pulse Oximetry 91 L 93 L 93 L 02/06/18 02:00 02/06/18 03:00 02/06/18 04:00 Temperature 98.7 F Pulse Rate 83 88 83 Respiratory Rate 23 26 H 21 Blood Pressure 113/67 109/62 121/63 Pulse Oximetry 92 L 92 L 92 L 02/06/18 05:00 02/06/18 06:00 02/06/18 07:00 Temperature Pulse Rate 88 125 H Respiratory Rate 33 H 29 H Blood Pressure 123/73 125/62 Pulse Oximetry 87 L 89 L 90 L 02/06/18 08:00 02/06/18 10:00 Temperature Pulse Rate 81 99 H Respiratory Rate 22 Blood Pressure 130/66 Pulse Oximetry 97 Intake & Output 02/05/18 02/06/18 02/06/18 18:59 06:59 18:59 Intake Total 900 / 900 1570 / 1570 Output Total 1700 / 1700 550 / 550 Balance -800 / -800 1020 / 1020 Weight 87.5 kg Intake: IV 1330 / 1330 Maxipime Inj 2,000 MG In NS Inj 300 / 300 100 ML @ 200 mls/hr IV.SIG Q8H [facility] Rx#:[id number] Vancomycin Inj 1,500 MG In NS 1030 / 1030 Inj 500 ML @ 250 mls/hr IV.SIG Q12H [facility] Rx#:[id number] Oral 900 / 900 240 / 240 Output: Urine 550 / 550 Urine Amount (Catheter) 1700 / 1700 Female External 1700 / 1700 Other: Date of Last Bowel Movement 02/05/18 02/05/18 02/05/18 Narrative: GENERAL: This is a well-nourished, well-developed patient, in no apparent distress. CARDIOVASCULAR: Regular rate and rhythm RESPIRATORY: Slightly diminished breath sounds in the bases bilaterally GASTROINTESTINAL: Abdomen soft, non-tender, nondistended. Normal active bowel sounds MUSCULOSKELETAL: Extremities without clubbing, cyanosis, trace edema, NEURO: Alert and oriented person place time moves all ext x4 but with generalized weakness - Urinary Catheter Management Straight Cath placed during this visit: yes, but has since been removed by the nurse Reason for continuing: Not indwelling catheter Insertion date: 01/31/18 Insertion time: 14:30 Removal date: 01/30/18 Removal time: 10:55 Indwelling Urethral Catheter Cath placed during this visit: yes, but has since been removed by the nurse Reason for continuing: Decision to DC catheter Insertion date: 01/28/18 Removal date: 01/29/18 Removal time: 18:15 Female External Cath placed during this visit: no Results - Labs CBC & Chem 7: 02/06/18 03:56 02/06/18 03:56 Laboratory Results - last 24 hr 02/06/18 02/06/18 02/06/18 03:56 03:56 12:12 WBC 20.5 H RBC 3.55 L Hgb 11.2 L Hct 32.5 L MCV 91.5 MCH 31.4 MCHC 34.4 RDW 14.4 Plt Count 327 MPV 9.0 Neut % (Auto) 94.1 H Lymph % (Auto) 2.1 L [place] % (Auto) 3.4 Eos % (Auto) 0.1 Baso % (Auto) 0.3 Neut # (Auto) 19.3 H Lymph # (Auto) 0.4 L [place] # (Auto) 0.7 Eos # (Auto) 0.0 Baso # (Auto) 0.1 WBC Differential . Differential Comment Auto diff final Sodium 138 Potassium 4.1 Chloride 104 Carbon Dioxide 25.3 Anion Gap 9 BUN 40 H Creatinine 0.93 Estimated GFR 61 L Random Glucose 162 H Calcium 7.8 L Vancomycin Trough 31.7 H Microbiology 02/05/18 16:10 Sputum - Nasal Tracheal Aspirate Gram Stain - Final 02/05/18 16:10 Sputum - Nasal Tracheal Aspirate Sputum Culture - Preliminary Immature growth - reincubate - Imaging Impressions Chest X-Ray 02/06/18 00:00 CONCLUSION: Hypoaerated lungs with diffuse interstitial vascular prominence characteristic of mild congestion. Assessment and Plan - Plan RESPIRATORY FAILURE PNA ? JORDANA PLAN O2 NEEDED BRONCHODILATOR THERAPY INCREASE ACTIVITY
[2018-02-06] MEDS: levoFLOXacin 750 MG Tablet PO SCH (18:32)
[2018-02-06] MEDS: traZODone 50 MG Tablet PO SCH (21:38)
[2018-02-06] MEDS: Lidocaine 5% Patch T-DERMAL SCH (21:39)
[2018-02-06] MEDS: Gabapentin 300 MG Capsule PO SCH (21:39)
[2018-02-07] MEDS: ALPRAZolam 0.25 MG Tablet PO PRN (00:56)
[2018-02-07] MEDS: MethylPREDNISolone Sod Succinate Inj 40 MG/ML Vial IV.PUSH SCH ×3 (04:41→20:54)
[2018-02-07 06:10] LABS: Baso % (Auto) 0.2 % (0.0-2.0); Eos % (Auto) 0.1 % (0.0-4.0); Hematocrit 33.1 % (35.0-46.0); Hemoglobin 11.1 gm/dL (11.6-15.3); Lymph # (Auto) 0.4 th/mm3 (1.0-4.8); Lymph % (Auto) 1.7 % (9.0-44.0); Mean Corpuscular HGB Conc 33.5 % (32.0-36.0); Mean Corpuscular Hemoglobin 30.9 pg (27.0-34.0); Mean Corpuscular Volume 92.5 fL (80.0-100.0); Mean Platelet Volume 9.1 fL (7.0-11.0); Mono # (Auto) 0.6 th/mm3 (0.0-0.9); Mono % (Auto) 2.8 % (0.0-8.0); Neut # (Auto) 19.6 th/mm3 (1.8-7.7); Neut % (Auto) 95.2 % (16.0-70.0); Platelet Count 363 th/mm3 (150-450); Red Blood Count 3.58 mil/mm3 (4.00-5.30); Red Cell Distribution Width 14.3 % (11.6-17.2); White Blood Count 20.6 th/mm3 (4.0-11.0)
[2018-02-07 06:32] LABS: Calcium 8.3 mg/dL (8.5-10.1); Carbon Dioxide 28.2 meq/L (21.0-32.0)
[2018-02-07] MEDS: Lactobacillus Acidophilus/L. Spores Tablet PO SCH ×3 (09:23→17:19)
[2018-02-07] MEDS: amLODIPine 10 MG Tablet PO SCH (09:24)
[2018-02-07] MEDS: Folic Acid 1 MG Tablet PO SCH (09:24)
[2018-02-07] MEDS: buPROPion 150 MG 12 HR Tablet PO SCH (09:24)
[2018-02-07] MEDS: Fenofibrate 48 MG Tablet PO SCH (09:25)
[2018-02-07] MEDS: Estradiol 1 MG Tablet PO SCH (09:25)
[2018-02-07] MEDS: Atenolol 25 MG Tablet PO SCH (09:25)
[2018-02-07] MEDS: Furosemide 20 MG Tablet PO SCH (09:29)
[2018-02-07] MEDS: Ascorbic Acid 500 MG Tablet PO SCH (09:30)
[2018-02-07] MEDS: Sodium Chloride 0.65% Nasal Spray 45 ML Bottle EACH NARE SCH ×2 (09:30→20:56)
[2018-02-07] MEDS: Budesonide-Formoterol 160/4.5 MCG 6 GM Inhaler INH SCH ×2 (09:30→20:55)
[2018-02-07] MEDS: Enoxaparin Inj 40 MG/0.4 ML Syringe SQ SCH (11:57)
--- NOTE | 2018-02-07 12:07 | P.PNIM ---
Subjective Interval history: No active shortness of breath and breathing better. Reports nasal stuffiness and feels clogged up there. No headaches. No visual changes. No chest pain or palpitations Physical Exam Vital signs: Last Vital Signs Temp 97.7 F 02/07/18 04:00 Pulse 86 02/07/18 08:04 Resp 23 02/07/18 08:04 BP 114/64 02/07/18 06:00 Pulse Ox 90 L 02/07/18 08:04 Intake & Output 02/05/18 02/06/18 02/07/18 02/08/18 06:59 06:59 06:59 06:59 Intake Total 2420 / 2420 2470 / 2470 1752 / 1752 100 / 100 Output Total 2100 / 2100 2250 / 2250 2950 / 2950 Balance 320 / 320 220 / 220 -1198 / -1198 100 / 100 Weight 88.1 kg 87.5 kg 87.5 kg Narrative: GENERAL: This is a well-nourished, well-developed patient, in no apparent distress. CARDIOVASCULAR: Regular rate and rhythm RESPIRATORY: Slightly diminished breath sounds in the bases bilaterally GASTROINTESTINAL: Abdomen soft, non-tender, nondistended. Normal active bowel sounds MUSCULOSKELETAL: Extremities without clubbing, cyanosis, trace edema, NEURO: Alert and oriented person place time moves all ext x4 but with generalized weakness Urinary Catheter Management Straight: Cath placed during this visit: yes, but has since been removed by the nurse Insertion date: 01/31/18 Insertion time: 14:30 Removal date: 01/30/18 Removal time: 10:55 Indwelling Urethral Catheter: Cath placed during this visit: yes, but has since been removed by the nurse Insertion date: 01/28/18 Removal date: 01/29/18 Removal time: 18:15 Female External: Cath placed during this visit: no Results Labs CBC & Chem 7: 02/07/18 04:01 02/07/18 04:01 Labs: Microbiology 02/05/18 16:10 Sputum - Nasal Tracheal Aspirate Gram Stain - Final 02/05/18 16:10 Sputum - Nasal Tracheal Aspirate Sputum Culture - Preliminary Immature growth - reincubate Imaging Imaging: Impressions Chest X-Ray 02/06/18 00:00 CONCLUSION: Hypoaerated lungs with diffuse interstitial vascular prominence characteristic of mild congestion. Assessment and Plan (1) HCAP (healthcare-associated pneumonia): Code(s): J18.9 - Pneumonia, unspecified organism Status: Acute Plan 62-year-old female admitted secondary to healthcare associated pneumonia with respiratory failure. Higher risk given immunocompromise state from rheumatoid arthritis treatment. Healthcare associated pneumonia with acute respiratory failure with continue hypoxia Continues to be on high flow oxygen and will need to keep patient in the intensive care unit today. Continue cefepime, Levaquin, IV vancomycin , high flow oxygen with standby BiPAP for pulmonary, Sputum cultures and sensitivity collected yesterday currently shows immature growth with no significant findings Continue monitoring in ICU due to patient being on high flow oxygen BiPAP as needed , scheduled duo nebs, Symbicort , continue Solu-Medrol IV and had decreased 40 mg gram IV every 8 Pulmonology, Dr. Rondon following Wean oxygen as tolerated, currently on high flow oxygen Encourage incentive spirometry use Repeat chest x-ray yesterday showed venous congestion, dose of Lasix to be given today in addition to the scheduled p.o. dosing Leukocytosispersists likely due to steroids, Levaquin and vancomycin was added to cefepime , start weaning steroids. Repeat in the morning. Rheumatoid arthritis Methotrexate on hold due to infection Hypertension, chronic essential Continue baseline treatment continue Norvasc, atenolol, Dyazide Overall blood pressure controlled. Chronic lower back pain with a history of lumbar stenosis Caution with narcotics and presence of lethargy, decreased [place] dose and change baclofen to as needed decreased gabapentin. No surgical interventions at this point Continue PT Will refer patient to interventional pain management per sister's request as an outpatient to Dr. Davies Right posterior mid back painthis is reproducible and localized likely musculoskeletal, patient reports improved on lidocaine patch Hypokalemia Monitor potassium and replace as needed DVT prophylaxis Lovenox Continue physical therapy Continue monitor ICU until oxygen is able to be weaned down Progress Note: Quality VTE Deep Vein Thrombosis/Pulmonary Embolism Present on Admission: No
[2018-02-07] MEDS: levoFLOXacin 750 MG Tablet PO SCH (17:19)
--- NOTE | 2018-02-07 18:14 | P.PN ---
Subjective Interval history: ALERT NAD ON HIGH FLOW NASAL O2 Physical Exam Vital signs: Vital Signs 02/06/18 19:00 02/06/18 20:00 02/06/18 20:24 Temperature 98.2 F Pulse Rate 89 90 110 H Respiratory Rate 30 H 17 26 H Blood Pressure 115/66 106/61 Pulse Oximetry 99 92 L 92 L 02/06/18 21:00 02/06/18 22:00 02/06/18 23:00 Temperature Pulse Rate 90 84 93 H Respiratory Rate 29 H 31 H 24 Blood Pressure 107/65 103/60 94/58 L Pulse Oximetry 97 98 91 L 02/07/18 00:00 02/07/18 01:00 02/07/18 02:00 Temperature 97.6 F Pulse Rate 85 83 76 Respiratory Rate 28 H 27 H 37 H Blood Pressure 104/61 109/58 L 108/59 L Pulse Oximetry 93 L 96 93 L 02/07/18 03:00 02/07/18 04:00 02/07/18 05:00 Temperature 97.7 F Pulse Rate 75 98 H 84 Respiratory Rate 34 H 37 H 33 H Blood Pressure 108/59 L 107/70 120/66 Pulse Oximetry 92 L 89 L 91 L 02/07/18 06:00 02/07/18 08:00 02/07/18 08:04 Temperature 98.0 F Pulse Rate 86 88 86 Respiratory Rate 23 28 H 23 Blood Pressure 114/64 126/65 Pulse Oximetry 92 L 91 L 90 L 02/07/18 10:00 02/07/18 12:00 02/07/18 12:56 Temperature 98.3 F Pulse Rate 117 H 101 H 96 H Respiratory Rate 31 H 18 Blood Pressure 112/63 Pulse Oximetry 86 L 95 Intake & Output 02/06/18 02/07/18 02/07/18 18:59 06:59 18:59 Intake Total 1352 / 1352 400 / 400 100 / 100 Output Total 2400 / 2400 550 / 550 Balance -1048 / -1048 -150 / -150 100 / 100 Weight 87.5 kg Intake: IV 512 / 512 100 / 100 100 / 100 Maxipime Inj 2,000 MG In NS Inj 100 / 100 100 / 100 100 / 100 100 ML @ 200 mls/hr IV.SIG Q8H [facility] Rx#:[id number] Oral 840 / 840 300 / 300 Output: Urine 2400 / 2400 Urine Amount (Catheter) 550 / 550 Female External 550 / 550 Other: # Urine Diapers 1 Date of Last Bowel Movement 02/05/18 02/05/18 02/05/18 Narrative: GENERAL: This is a well-nourished, well-developed patient, in no apparent distress. CARDIOVASCULAR: Regular rate and rhythm RESPIRATORY: Slightly diminished breath sounds in the bases bilaterally GASTROINTESTINAL: Abdomen soft, non-tender, nondistended. Normal active bowel sounds MUSCULOSKELETAL: Extremities without clubbing, cyanosis, trace edema, NEURO: Alert and oriented person place time moves all ext x4 but with generalized weakness - Urinary Catheter Management Straight Cath placed during this visit: yes, but has since been removed by the nurse Reason for continuing: Not indwelling catheter Insertion date: 01/31/18 Insertion time: 14:30 Removal date: 01/30/18 Removal time: 10:55 Indwelling Urethral Catheter Cath placed during this visit: yes, but has since been removed by the nurse Reason for continuing: Decision to DC catheter Insertion date: 01/28/18 Removal date: 01/29/18 Removal time: 18:15 Female External Cath placed during this visit: no Results - Labs CBC & Chem 7: 02/07/18 04:01 02/07/18 04:01 Laboratory Results - last 24 hr 02/07/18 02/07/18 04:01 04:01 WBC 20.6 H RBC 3.58 L Hgb 11.1 L Hct 33.1 L MCV 92.5 MCH 30.9 MCHC 33.5 RDW 14.3 Plt Count 363 MPV 9.1 Neut % (Auto) 95.2 H Lymph % (Auto) 1.7 L [place] % (Auto) 2.8 Eos % (Auto) 0.1 Baso % (Auto) 0.2 Neut # (Auto) 19.6 H Lymph # (Auto) 0.4 L [place] # (Auto) 0.6 Eos # (Auto) 0.0 Baso # (Auto) 0.0 WBC Differential . Differential Comment Auto diff final Sodium 137 Potassium 4.0 Chloride 99 Carbon Dioxide 28.2 Anion Gap 10 BUN 41 H Creatinine 0.95 Estimated GFR 60 L Random Glucose 170 H Calcium 8.3 L Microbiology 02/05/18 16:10 Sputum - Nasal Tracheal Aspirate Gram Stain - Final 02/05/18 16:10 Sputum - Nasal Tracheal Aspirate Sputum Culture - Final Rare growth normal respiratory odette Assessment and Plan - Plan RESPIRATORY FAILURE STILL NEEDS HIGH FIO2 PNA ? JORDANA PLAN O2 NEEDED BRONCHODILATOR THERAPY INCREASE ACTIVITY CT CHEST
[2018-02-07] MEDS: Gabapentin 300 MG Capsule PO SCH (20:55)
[2018-02-07] MEDS: traZODone 50 MG Tablet PO SCH (20:55)
[2018-02-07] MEDS: Lidocaine 5% Patch T-DERMAL SCH (21:05)
[2018-02-08] MEDS: MethylPREDNISolone Sod Succinate Inj 40 MG/ML Vial IV.PUSH SCH ×3 (04:41→21:07)
[2018-02-08 06:42] LABS: Baso % (Auto) 0.2 % (0.0-2.0); Eos % (Auto) 0.1 % (0.0-4.0); Hematocrit 32.5 % (35.0-46.0); Hemoglobin 10.9 gm/dL (11.6-15.3); Lymph # (Auto) 0.6 th/mm3 (1.0-4.8); Lymph % (Auto) 3.1 % (9.0-44.0); Mean Corpuscular HGB Conc 33.7 % (32.0-36.0); Mean Corpuscular Hemoglobin 31.1 pg (27.0-34.0); Mean Corpuscular Volume 92.5 fL (80.0-100.0); Mean Platelet Volume 9.1 fL (7.0-11.0); Mono # (Auto) 0.6 th/mm3 (0.0-0.9); Mono % (Auto) 2.9 % (0.0-8.0); Neut # (Auto) 19.1 th/mm3 (1.8-7.7); Neut % (Auto) 93.7 % (16.0-70.0); Platelet Count 362 th/mm3 (150-450); Red Blood Count 3.51 mil/mm3 (4.00-5.30); Red Cell Distribution Width 14.9 % (11.6-17.2); White Blood Count 20.4 th/mm3 (4.0-11.0)
[2018-02-08 06:49] LABS: Calcium 8.1 mg/dL (8.5-10.1); Carbon Dioxide 26.3 meq/L (21.0-32.0); Potassium 4.2 meq/L (3.5-5.1)
[2018-02-08 06:50] LABS: Vancomycin,Random 14.3 Comment
[2018-02-08] MEDS: Ascorbic Acid 500 MG Tablet PO SCH (09:12)
[2018-02-08] MEDS: Fenofibrate 48 MG Tablet PO SCH (09:12)
[2018-02-08] MEDS: Furosemide 20 MG Tablet PO SCH (09:13)
[2018-02-08] MEDS: Atenolol 25 MG Tablet PO SCH (09:13)
[2018-02-08] MEDS: Folic Acid 1 MG Tablet PO SCH (09:14)
[2018-02-08] MEDS: Lactobacillus Acidophilus/L. Spores Tablet PO SCH ×3 (09:14→17:25)
[2018-02-08] MEDS: Estradiol 1 MG Tablet PO SCH (09:14)
[2018-02-08] MEDS: buPROPion 150 MG 12 HR Tablet PO SCH (09:14)
[2018-02-08] MEDS: Budesonide-Formoterol 160/4.5 MCG 6 GM Inhaler INH SCH ×2 (09:15→21:09)
[2018-02-08] MEDS: amLODIPine 10 MG Tablet PO SCH (09:15)
[2018-02-08] MEDS ORDERED: Vancomycin Inj 1,500 MG in Sodium Chlor 0.9% Inj 500 ML IV.SIG ONE (11:00)
[2018-02-08 11:07] LABS: ABG Base Excess 0.5 mmol/L (-2-2); ABG PCO2 36 mmHg (38-42); ABG PO2 55 mmHG (61-120)
[2018-02-08] MEDS: Enoxaparin Inj 40 MG/0.4 ML Syringe SQ SCH (13:16)
[2018-02-08] MEDS: Sodium Chloride 0.65% Nasal Spray 45 ML Bottle EACH NARE SCH ×2 (13:17→21:09)
--- NOTE | 2018-02-08 15:33 | P.PNIM ---
Subjective Interval history: Reports that she is not short of breath. Reports breathing is not better or worse. Still requiring high flow oxygen overnight. Physical Exam Vital signs: Last Vital Signs Temp 98.8 F 02/08/18 08:00 Pulse 98 H 02/08/18 14:16 Resp 24 02/08/18 14:16 BP 118/66 02/08/18 08:00 Pulse Ox 93 L 02/08/18 08:00 Intake & Output 02/06/18 02/07/18 02/08/18 02/09/18 06:59 06:59 06:59 06:59 Intake Total 2470 / 2470 1752 / 1752 2019 / 2019 Output Total 2250 / 2250 2950 / 2950 2500 / 2500 Balance 220 / 220 -1198 / -1198 -480 / -480 Weight 87.5 kg 87.5 kg 86.3 kg Narrative: GENERAL: This is a well-nourished, well-developed patient, in no apparent distress. CARDIOVASCULAR: Regular rate and rhythm RESPIRATORY: Slightly diminished breath sounds in the bases bilaterally GASTROINTESTINAL: Abdomen soft, non-tender, nondistended. Normal active bowel sounds MUSCULOSKELETAL: Extremities without clubbing, cyanosis, trace edema, NEURO: Alert and oriented person place time moves all ext x4 but with generalized weakness Urinary Catheter Management Straight: Cath placed during this visit: yes, but has since been removed by the nurse Insertion date: 01/31/18 Insertion time: 14:30 Removal date: 01/30/18 Removal time: 10:55 Indwelling Urethral Catheter: Cath placed during this visit: yes, but has since been removed by the nurse Insertion date: 01/28/18 Removal date: 01/29/18 Removal time: 18:15 Female External: Cath placed during this visit: no Results Labs CBC & Chem 7: 02/08/18 04:54 02/08/18 04:54 Labs: Microbiology 02/05/18 16:10 Sputum - Nasal Tracheal Aspirate Gram Stain - Final 02/05/18 16:10 Sputum - Nasal Tracheal Aspirate Sputum Culture - Final Rare growth normal respiratory odette Assessment and Plan (1) HCAP (healthcare-associated pneumonia): Code(s): J18.9 - Pneumonia, unspecified organism Status: Acute Plan 62-year-old female admitted secondary to healthcare associated pneumonia with respiratory failure. Higher risk given immunocompromise state from rheumatoid arthritis treatment. Healthcare associated pneumonia with acute respiratory failure with continue hypoxia Continues to be on high flow oxygen and will need to keep patient in the intensive care unit Continue cefepime Day #14, Levaquin # 8, IV vancomycin Day # 6, high flow oxygen with standby BiPAP for pulmonary, Sputum cultures and sensitivity collected yesterday currently shows immature growth with no significant findings Continue monitoring in ICU due to patient being on high flow oxygen BiPAP as needed , scheduled duo nebs, Symbicort , continue Solu-Medrol IV and had decreased 40 mg gram IV every 8 Pulmonology, Dr. Rondon following Has been difficult with Weaning oxygen, currently on high flow oxygen Encourage incentive spirometry use Pulmonary has ordered a repeat CT chest due to difficulty weaning oxygen ? Evaluate need for bronch if clinically does not improve Leukocytosispersists likely due to steroids, Levaquin and vancomycin was added to cefepime , start weaning steroids. Repeat in the morning. Rheumatoid arthritis Methotrexate on hold due to infection Hypertension, chronic essential Continue baseline treatment continue Norvasc, atenolol, Dyazide Overall blood pressure controlled. Chronic lower back pain with a history of lumbar stenosis Caution with narcotics and presence of lethargy, decreased [place] dose and change baclofen to as needed decreased gabapentin. No surgical interventions at this point Continue PT Will refer patient to interventional pain management per sister's request as an outpatient to Dr. Davies Right posterior mid back painthis is reproducible and localized likely musculoskeletal, patient reports improved on lidocaine patch Hypokalemia Monitor potassium and replace as needed MARCELA - stop NSAIDS, adjust Vanco monitor Creatinine levels closely DVT prophylaxis Lovenox Continue physical therapy Continue monitor ICU until oxygen is able to be weaned down Progress Note: Quality VTE Deep Vein Thrombosis/Pulmonary Embolism Present on Admission: No
--- NOTE | 2018-02-08 15:50 | P.PNWCN ---
Wound Care Nurse Consult Description: Received pressure ulcer consult for bilateral buttocks from Doctor Jeff Communicated with: Doctor Jeff and FABIANA [place] [facility]: 1.Please cleanse wound to R buttock with normal saline or wound cleanser and pat dry. 2. Apply Calazime in a thin layer to periwound circumferentially 3. Apply pea sized amount of hydrogel to open wound. 4. Apply [place] spray to intact skin before applying bordered gauze over wound. 5. Change dressing daily or PRN if saturated or dislodged. 6. Continue to turn patient every 2 hours and PRN for comfort and offloading of pressure from rachel prominences Wound/Pressure Injury - Wound Right Buttocks Wound Staging: Stage III Wound Type: Pressure Injury Is This a Chronic Wound: No Requested from Provider a Wound Care Consult: Yes (Patient seen by in patient wound care) Length (cm): 3 Width (cm): 4 Depth (cm): 0.1 Wound Bed Appearance: [place], Yellow Wound Bed Appearance: Wound bed presents with ~ 20% adipose tissue and ~80% pink tissue. wound bed appears dry. Periwound is slightly denuded Surrounding Tissue Appearance: [place] Surrounding Tissue Temperature: Cool Drainage Description: Serosanguinous Drainage Amount: Scant Drainage Odor: No Odor Dressing Status: Changed Cleansing Solution: Saline Topical: hydrogel Cover Dressing: bordered gauze Wound Dressing Change Date: 02/08/18 Wound Margin Description: well defined and open - Additional Information [place] [facility] [place] to bilateral buttocks.Patient is noted laying on regular hill rom [facility] [place]. Patient was positioned toward the L side for wound assessment by mortgage loan underwriter and FABIANA Chou [facility]Bilateral buttocks present with Calazime skin protectant paste covering the skin and wound.Removed skin protectant paste gently with bath wipes. R buttock wound presents as a stage III pressure injury with mixed etiology of moisture, pressure and friction. Wound bed presents with ~80% pink tissue and ~20% adipose tissue. Wound bed appears dry, but upon cleansing was noted with scant sero-sanguinous drainage that is without foul odor.Periwound presents with slightly denuded skin. Full wound measurements and description are noted above. L buttock area presents with denuded peeling skin, but no open wound. Cleansed wound to R buttock area with normal saline and patted dry. Applied Pea sized amount of hydrogel to wound bed. Then Applied Calazime skin protectant paste to periwound. Skin barrier film was sprayed to periwound before applying bordered gauze dressing.
--- NOTE | 2018-02-08 16:14 | P.PN ---
Subjective Interval history: ALERT NAD HIGH FLOW NASAL O2 Physical Exam Vital signs: Vital Signs 02/07/18 18:00 02/07/18 20:00 02/07/18 20:33 Temperature 98.7 F Pulse Rate 99 H 94 H 83 Respiratory Rate 30 H 19 Blood Pressure 130/79 Pulse Oximetry 90 L 02/07/18 20:34 02/07/18 22:00 02/08/18 00:00 Temperature 98.6 F Pulse Rate 80 85 Respiratory Rate 24 Blood Pressure 118/68 Pulse Oximetry 92 L 88 L 02/08/18 00:42 02/08/18 01:30 02/08/18 01:56 Temperature Pulse Rate Respiratory Rate Blood Pressure Pulse Oximetry 92 L 93 L 92 L 02/08/18 02:00 02/08/18 03:58 02/08/18 04:00 Temperature 98.6 F Pulse Rate 77 78 Respiratory Rate 24 Blood Pressure 108/62 Pulse Oximetry 93 L 92 L 02/08/18 05:16 02/08/18 07:39 02/08/18 08:00 Temperature 98.8 F Pulse Rate 78 99 H 93 H Respiratory Rate 21 33 H Blood Pressure 118/66 Pulse Oximetry 90 L 93 L 02/08/18 10:00 02/08/18 14:16 Temperature Pulse Rate 99 H 98 H Respiratory Rate 24 Blood Pressure Pulse Oximetry Intake & Output 02/07/18 02/08/18 02/08/18 18:59 06:59 18:59 Intake Total 1300 / 1300 720 / 720 Output Total 1500 / 1500 1000 / 1000 Balance -200 / -200 -280 / -280 Weight 86.3 kg Intake: IV 100 / 100 300 / 300 Maxipime Inj 2,000 MG In NS Inj 100 / 100 300 / 300 100 ML @ 200 mls/hr IV.SIG Q8H [facility] Rx#:[id number] Oral 1200 / 1200 420 / 420 Output: Urine Amount (Catheter) 1500 / 1500 1000 / 1000 Female External 1500 / 1500 1000 / 1000 Other: Date of Last Bowel Movement 02/05/18 02/05/18 02/05/18 Narrative: GENERAL: This is a well-nourished, well-developed patient, in no apparent distress. CARDIOVASCULAR: Regular rate and rhythm RESPIRATORY: Slightly diminished breath sounds in the bases bilaterally GASTROINTESTINAL: Abdomen soft, non-tender, nondistended. Normal active bowel sounds MUSCULOSKELETAL: Extremities without clubbing, cyanosis, trace edema, NEURO: Alert and oriented person place time moves all ext x4 but with generalized weakness - Urinary Catheter Management Straight Cath placed during this visit: yes, but has since been removed by the nurse Reason for continuing: Not indwelling catheter Insertion date: 01/31/18 Insertion time: 14:30 Removal date: 01/30/18 Removal time: 10:55 Indwelling Urethral Catheter Cath placed during this visit: yes, but has since been removed by the nurse Reason for continuing: Decision to DC catheter Insertion date: 01/28/18 Removal date: 01/29/18 Removal time: 18:15 Female External Cath placed during this visit: no Results - Labs CBC & Chem 7: 02/08/18 04:54 02/08/18 04:54 Laboratory Results - last 24 hr 02/08/18 02/08/18 02/08/18 04:54 04:54 10:58 WBC 20.4 H RBC 3.51 L Hgb 10.9 L Hct 32.5 L MCV 92.5 MCH 31.1 MCHC 33.7 RDW 14.9 Plt Count 362 MPV 9.1 Neut % (Auto) 93.7 H Lymph % (Auto) 3.1 L [place] % (Auto) 2.9 Eos % (Auto) 0.1 Baso % (Auto) 0.2 Neut # (Auto) 19.1 H Lymph # (Auto) 0.6 L [place] # (Auto) 0.6 Eos # (Auto) 0.0 Baso # (Auto) 0.0 WBC Differential . Differential Comment Auto diff final Puncture Site Right radial Patient Temperature 98.6 O2 Saturation 84 L* ABG pH 7.45 H ABG pCO2 36 L ABG pO2 55 L* ABG HCO3 24 ABG O2 Content 13.1 ABG Base Excess 0.5 ABG Methemoglobin 2.1 H Sven Test Present Hemoglobin 11.1 L Carboxyhemoglobin 0.7 O2 Delivery Device Nrb Liter Flow 15.00 Inspired O2 100 Critical Value Yes Sodium 136 Potassium 4.2 Chloride 100 Carbon Dioxide 26.3 Anion Gap 10 BUN 42 H Creatinine 1.21 H Estimated GFR 45 L Random Glucose 161 H Calcium 8.1 L Random Vancomycin 14.3 Microbiology 02/05/18 16:10 Sputum - Nasal Tracheal Aspirate Gram Stain - Final 02/05/18 16:10 Sputum - Nasal Tracheal Aspirate Sputum Culture - Final Rare growth normal respiratory odette Assessment and Plan - Plan RESPIRATORY FAILURE STILL NEEDS HIGH FIO2 PNA ? JORDANA PLAN O2 NEEDED BRONCHODILATOR THERAPY INCREASE ACTIVITY CT CHEST, HELD FOR NOW TILL MORE STABLE
[2018-02-08] MEDS: levoFLOXacin 750 MG Tablet PO SCH (17:25)
[2018-02-08 20:47] LABS: ABG Base Excess 4.1 mmol/L (-2-2); ABG PCO2 38 mmHg (38-42); ABG PO2 37 mmHG (61-120)
[2018-02-08] MEDS: traZODone 50 MG Tablet PO SCH (21:07)
[2018-02-08] MEDS: Lidocaine 5% Patch T-DERMAL SCH (21:08)
[2018-02-08] MEDS: Gabapentin 300 MG Capsule PO SCH (21:12)
[2018-02-08 23:33] LABS: ABG Base Excess 2.9 mmol/L (-2-2); ABG PCO2 40 mmHg (38-42); ABG PO2 85 mmHG (61-120)
[2018-02-09] MEDS: MethylPREDNISolone Sod Succinate Inj 40 MG/ML Vial IV.PUSH SCH ×3 (04:29→20:50)
[2018-02-09 05:47] LABS: Hematocrit 31.7 % (35.0-46.0); Hemoglobin 10.9 gm/dL (11.6-15.3); Lymph # (Auto) 0.5 th/mm3 (1.0-4.8); Lymph % (Auto) 2.5 % (9.0-44.0); Mean Corpuscular HGB Conc 34.3 % (32.0-36.0); Mean Corpuscular Hemoglobin 31.1 pg (27.0-34.0); Mean Corpuscular Volume 90.6 fL (80.0-100.0); Mean Platelet Volume 8.7 fL (7.0-11.0); Mono # (Auto) 0.7 th/mm3 (0.0-0.9); Mono % (Auto) 3.2 % (0.0-8.0); Neut # (Auto) 20.2 th/mm3 (1.8-7.7); Neut % (Auto) 94.3 % (16.0-70.0); Platelet Count 379 th/mm3 (150-450); Red Cell Distribution Width 14.6 % (11.6-17.2); White Blood Count 21.4 th/mm3 (4.0-11.0)
[2018-02-09 06:30] LABS: Calcium 8.2 mg/dL (8.5-10.1); Carbon Dioxide 28.1 meq/L (21.0-32.0)
[2018-02-09 06:31] LABS: Vancomycin,Random 7.6 Comment
--- NOTE | 2018-02-09 08:18 | P.PNIM ---
Subjective Interval history: Follow-up for shortness of breath Patient denies shortness of breath but still on BiPAP, on high FiO2, no cough, no fever or chills. No nausea or vomiting. Still with leukocytosis. Physical Exam Vital signs: Vital Signs 02/08/18 10:00 02/08/18 11:00 02/08/18 12:00 Temperature 98.2 F Pulse Rate 99 H 87 81 Respiratory Rate 31 H 28 H Blood Pressure 131/80 120/65 Pulse Oximetry 86 L 90 L 02/08/18 14:00 02/08/18 14:16 02/08/18 15:00 Temperature Pulse Rate 87 98 H 89 Respiratory Rate 24 30 H Blood Pressure 123/69 Pulse Oximetry 86 L 02/08/18 16:00 02/08/18 18:00 02/08/18 19:49 Temperature 98.5 F Pulse Rate 90 86 88 Respiratory Rate 31 H 23 Blood Pressure 122/66 Pulse Oximetry 89 L 02/08/18 19:50 02/08/18 20:00 02/08/18 22:00 Temperature 98.6 F Pulse Rate 87 90 Respiratory Rate 30 H Blood Pressure 126/65 Pulse Oximetry 95 90 L 02/08/18 22:52 02/09/18 00:00 02/09/18 02:00 Temperature 98.4 F Pulse Rate 87 85 Respiratory Rate 24 Blood Pressure 118/66 Pulse Oximetry 97 97 02/09/18 04:00 02/09/18 04:03 02/09/18 06:00 Temperature 98.7 F Pulse Rate 92 H 85 Respiratory Rate 26 H Blood Pressure 116/58 L Pulse Oximetry 96 97 02/09/18 07:28 Temperature Pulse Rate 90 Respiratory Rate 18 Blood Pressure Pulse Oximetry 94 L Intake & Output 02/08/18 02/09/18 02/09/18 18:59 06:59 18:59 Intake Total 920 / 920 440 / 440 Output Total 1400 / 1400 Balance -480 / -480 440 / 440 Weight 86.5 kg Intake: IV 100 / 100 200 / 200 Maxipime Inj 2,000 MG In NS Inj 100 / 100 200 / 200 100 ML @ 200 mls/hr IV.SIG Q8H [facility] Rx#:[id number] Oral 820 / 820 240 / 240 Output: Urine Amount (Catheter) 1400 / 1400 Female External 1400 / 1400 Other: # Voids 4 # Incontinent Voids 2 Date of Last Bowel Movement 02/05/18 02/05/18 # Bowel Movements 0 0 Narrative: GENERAL: This is a well-nourished, well-developed patient, in no apparent distress. CARDIOVASCULAR: Regular rate and rhythm RESPIRATORY: Slightly diminished breath sounds in the bases bilaterally, BiPAP in place. GASTROINTESTINAL: Abdomen soft, non-tender, nondistended. Normal active bowel sounds MUSCULOSKELETAL: Extremities without clubbing, cyanosis, trace edema, NEURO: Alert and oriented person place time, moves all ext x4 but with generalized weakness - Urinary Catheter Management Straight Cath placed during this visit: yes, but has since been removed by the nurse Reason for continuing: Not indwelling catheter Insertion date: 01/31/18 Insertion time: 14:30 Removal date: 01/30/18 Removal time: 10:55 Indwelling Urethral Catheter Cath placed during this visit: yes, but has since been removed by the nurse Reason for continuing: Decision to DC catheter Insertion date: 01/28/18 Removal date: 01/29/18 Removal time: 18:15 Female External Cath placed during this visit: no Results - Labs CBC & Chem 7: 02/09/18 03:31 02/09/18 03:31 Laboratory Results - last 24 hr 02/08/18 02/08/18 02/08/18 10:58 20:32 23:19 WBC RBC Hgb Hct MCV MCH MCHC RDW Plt Count MPV Neut % (Auto) Lymph % (Auto) [place] % (Auto) Eos % (Auto) Baso % (Auto) Neut # (Auto) Lymph # (Auto) [place] # (Auto) Eos # (Auto) Baso # (Auto) WBC Differential Differential Comment Puncture Site Right radial Right radial Left brachial Patient Temperature 98.6 98.6 98.6 O2 Saturation 84 L* 69 L* 93 ABG pH 7.45 H 7.48 H 7.44 H ABG pCO2 36 L 38 40 ABG pO2 55 L* 37 L* 85 ABG HCO3 24 28 H 27 H ABG O2 Content 13.1 11.1 L 14.5 ABG Base Excess 0.5 4.1 H 2.9 H ABG Methemoglobin 2.1 H 2.1 H 2.3 H Sven Test Present Present Present Hemoglobin 11.1 L 11.6 L 11.1 L Carboxyhemoglobin 0.7 0.7 0.6 O2 Delivery Device Nrb Hiflo Bipap 10/5 Liter Flow 15.00 30.00 Inspired O2 100 100 100 Critical Value Yes Yes No Sodium Potassium Chloride Carbon Dioxide Anion Gap BUN Creatinine Estimated GFR Random Glucose Calcium Random Vancomycin 02/09/18 02/09/18 03:31 03:31 WBC 21.4 H RBC 3.50 L Hgb 10.9 L Hct 31.7 L MCV 90.6 MCH 31.1 MCHC 34.3 RDW 14.6 Plt Count 379 MPV 8.7 Neut % (Auto) 94.3 H Lymph % (Auto) 2.5 L [place] % (Auto) 3.2 Eos % (Auto) 0.0 Baso % (Auto) 0.0 Neut # (Auto) 20.2 H Lymph # (Auto) 0.5 L [place] # (Auto) 0.7 Eos # (Auto) 0.0 Baso # (Auto) 0.0 WBC Differential . Differential Comment Auto diff final Puncture Site Patient Temperature O2 Saturation ABG pH ABG pCO2 ABG pO2 ABG HCO3 ABG O2 Content ABG Base Excess ABG Methemoglobin Sven Test Hemoglobin Carboxyhemoglobin O2 Delivery Device Liter Flow Inspired O2 Critical Value Sodium 135 L Potassium 4.0 Chloride 98 Carbon Dioxide 28.1 Anion Gap 9 BUN 47 H Creatinine 1.18 H Estimated GFR 47 L Random Glucose 183 H Calcium 8.2 L Random Vancomycin 7.6 Assessment and Plan - Assessment (1) HCAP (healthcare-associated pneumonia) Code(s): J18.9 - Pneumonia, unspecified organism Status: Acute - Plan 62-year-old female admitted secondary to healthcare associated pneumonia with respiratory failure. Higher risk given immunocompromise state from rheumatoid arthritis treatment. Healthcare associated pneumonia with acute respiratory failure with persistent hypoxia -Continues to be on high flow oxygen, keep in the ICU, sputum culture showed normal odette. s/p 2 weeks of cefepime, 1 week of Levaquin and 1 week of IV vancomycin Day. We will stop IV antibiotics for now. BiPAP as needed , scheduled duo nebs, Symbicort , continue Solu-Medrol IV at 40 mg gram IV every 8 Pulmonology, Dr. Rondon following. Has been difficult with Weaning oxygen, currently on high flow oxygen. Will need repeat CT scan once stable, continue incentive spirometry. Leukocytosispersists likely due to steroids, start weaning steroids if okay with pulmonary. Rheumatoid arthritis-Methotrexate on hold due to infection Hypertension, chronic essential - Continue baseline treatment, continue Norvasc , atenolol, Dyazide Chronic lower back pain with a history of lumbar stenosis -Caution with narcotics and presence of lethargy, decreased [place] dose and change baclofen to as needed decreased gabapentin.No surgical interventions at this point, Continue PT. Will refer patient to interventional pain management per sister's request as an outpatient to Dr. Davies Right posterior mid back painthis is reproducible and localized likely musculoskeletal, patient reports improved on lidocaine patch MARCELA -improving, stop vancomycin, monitor. DVT prophylaxis Lovenox Continue physical therapy Continue monitor ICU until oxygen is able to be weaned down
[2018-02-09] MEDS: Lactobacillus Acidophilus/L. Spores Tablet PO SCH ×3 (10:24→18:35)
[2018-02-09] MEDS ORDERED: Furosemide 40 MG Tablet PO SCH (10:45)
--- NOTE | 2018-02-09 10:59 | P.PN ---
Subjective Interval history: ALERT NAD ON BIPAP 100 % FIO2 Physical Exam Vital signs: Vital Signs 02/08/18 11:00 02/08/18 12:00 02/08/18 14:00 Temperature 98.2 F Pulse Rate 87 81 87 Respiratory Rate 31 H 28 H Blood Pressure 131/80 120/65 Pulse Oximetry 86 L 90 L 02/08/18 14:16 02/08/18 15:00 02/08/18 16:00 Temperature 98.5 F Pulse Rate 98 H 89 90 Respiratory Rate 24 30 H 31 H Blood Pressure 123/69 122/66 Pulse Oximetry 86 L 89 L 02/08/18 18:00 02/08/18 19:49 02/08/18 19:50 Temperature Pulse Rate 86 88 Respiratory Rate 23 Blood Pressure Pulse Oximetry 95 02/08/18 20:00 02/08/18 22:00 02/08/18 22:52 Temperature 98.6 F Pulse Rate 87 90 Respiratory Rate 30 H Blood Pressure 126/65 Pulse Oximetry 90 L 97 02/09/18 00:00 02/09/18 02:00 02/09/18 04:00 Temperature 98.4 F 98.7 F Pulse Rate 87 85 92 H Respiratory Rate 24 26 H Blood Pressure 118/66 116/58 L Pulse Oximetry 97 96 02/09/18 04:03 02/09/18 06:00 02/09/18 07:00 Temperature Pulse Rate 85 78 Respiratory Rate 24 Blood Pressure 121/66 Pulse Oximetry 97 95 02/09/18 07:28 02/09/18 08:00 02/09/18 09:00 Temperature 98.1 F Pulse Rate 90 85 94 H Respiratory Rate 18 27 H 23 Blood Pressure 124/66 114/58 L Pulse Oximetry 94 L 96 94 L 02/09/18 10:51 Temperature Pulse Rate 88 Respiratory Rate 22 Blood Pressure Pulse Oximetry 96 Intake & Output 02/08/18 02/09/18 02/09/18 18:59 06:59 18:59 Intake Total 920 / 920 440 / 440 Output Total 1400 / 1400 Balance -480 / -480 440 / 440 Weight 86.5 kg Intake: IV 100 / 100 200 / 200 Maxipime Inj 2,000 MG In NS Inj 100 / 100 200 / 200 100 ML @ 200 mls/hr IV.SIG Q8H [facility] Rx#:[id number] Oral 820 / 820 240 / 240 Output: Urine Amount (Catheter) 1400 / 1400 Female External 1400 / 1400 Other: # Voids 4 # Incontinent Voids 2 Date of Last Bowel Movement 02/05/18 02/05/18 02/05/18 # Bowel Movements 0 0 Narrative: GENERAL: This is a well-nourished, well-developed patient, in no apparent distress. CARDIOVASCULAR: Regular rate and rhythm RESPIRATORY: Slightly diminished breath sounds in the bases bilaterally, BiPAP in place. GASTROINTESTINAL: Abdomen soft, non-tender, nondistended. Normal active bowel sounds MUSCULOSKELETAL: Extremities without clubbing, cyanosis, trace edema, NEURO: Alert and oriented person place time, moves all ext x4 but with generalized weakness - Urinary Catheter Management Straight Cath placed during this visit: yes, but has since been removed by the nurse Reason for continuing: Not indwelling catheter Insertion date: 01/31/18 Insertion time: 14:30 Removal date: 01/30/18 Removal time: 10:55 Indwelling Urethral Catheter Cath placed during this visit: yes, but has since been removed by the nurse Reason for continuing: Decision to DC catheter Insertion date: 01/28/18 Removal date: 01/29/18 Removal time: 18:15 Female External Cath placed during this visit: no Results - Labs CBC & Chem 7: 02/09/18 03:31 02/09/18 03:31 Laboratory Results - last 24 hr 02/08/18 02/08/18 02/08/18 10:58 20:32 23:19 WBC RBC Hgb Hct MCV MCH MCHC RDW Plt Count MPV Neut % (Auto) Lymph % (Auto) [place] % (Auto) Eos % (Auto) Baso % (Auto) Neut # (Auto) Lymph # (Auto) [place] # (Auto) Eos # (Auto) Baso # (Auto) WBC Differential Differential Comment Puncture Site Right radial Right radial Left brachial Patient Temperature 98.6 98.6 98.6 O2 Saturation 84 L* 69 L* 93 ABG pH 7.45 H 7.48 H 7.44 H ABG pCO2 36 L 38 40 ABG pO2 55 L* 37 L* 85 ABG HCO3 24 28 H 27 H ABG O2 Content 13.1 11.1 L 14.5 ABG Base Excess 0.5 4.1 H 2.9 H ABG Methemoglobin 2.1 H 2.1 H 2.3 H Sven Test Present Present Present Hemoglobin 11.1 L 11.6 L 11.1 L Carboxyhemoglobin 0.7 0.7 0.6 O2 Delivery Device Nrb Hiflo Bipap 10/5 Liter Flow 15.00 30.00 Inspired O2 100 100 100 Critical Value Yes Yes No Sodium Potassium Chloride Carbon Dioxide Anion Gap BUN Creatinine Estimated GFR Random Glucose Calcium Random Vancomycin 02/09/18 02/09/18 03:31 03:31 WBC 21.4 H RBC 3.50 L Hgb 10.9 L Hct 31.7 L MCV 90.6 MCH 31.1 MCHC 34.3 RDW 14.6 Plt Count 379 MPV 8.7 Neut % (Auto) 94.3 H Lymph % (Auto) 2.5 L [place] % (Auto) 3.2 Eos % (Auto) 0.0 Baso % (Auto) 0.0 Neut # (Auto) 20.2 H Lymph # (Auto) 0.5 L [place] # (Auto) 0.7 Eos # (Auto) 0.0 Baso # (Auto) 0.0 WBC Differential . Differential Comment Auto diff final Puncture Site Patient Temperature O2 Saturation ABG pH ABG pCO2 ABG pO2 ABG HCO3 ABG O2 Content ABG Base Excess ABG Methemoglobin Sven Test Hemoglobin Carboxyhemoglobin O2 Delivery Device Liter Flow Inspired O2 Critical Value Sodium 135 L Potassium 4.0 Chloride 98 Carbon Dioxide 28.1 Anion Gap 9 BUN 47 H Creatinine 1.18 H Estimated GFR 47 L Random Glucose 183 H Calcium 8.2 L Random Vancomycin 7.6 Assessment and Plan - Plan RESPIRATORY FAILURE STILL NEEDS HIGH FIO2 PNA ? JORDANA PLAN O2 NEEDED BRONCHODILATOR THERAPY INCREASE ACTIVITY CT CHEST,
[2018-02-09] MEDS: buPROPion 150 MG 12 HR Tablet PO SCH (13:28)
[2018-02-09] MEDS: amLODIPine 10 MG Tablet PO SCH (13:28)
[2018-02-09] MEDS: Ascorbic Acid 500 MG Tablet PO SCH (13:29)
[2018-02-09] MEDS: Fenofibrate 48 MG Tablet PO SCH (13:29)
[2018-02-09] MEDS: Atenolol 25 MG Tablet PO SCH (13:29)
[2018-02-09] MEDS: Folic Acid 1 MG Tablet PO SCH (13:29)
[2018-02-09] MEDS: Estradiol 1 MG Tablet PO SCH (13:29)
[2018-02-09] MEDS: Enoxaparin Inj 40 MG/0.4 ML Syringe SQ SCH (13:30)
[2018-02-09] MEDS: Budesonide-Formoterol 160/4.5 MCG 6 GM Inhaler INH SCH ×2 (13:59→21:07)
[2018-02-09] MEDS: Sodium Chloride 0.65% Nasal Spray 45 ML Bottle EACH NARE SCH ×2 (13:59→21:07)
[2018-02-09] MEDS: Gabapentin 300 MG Capsule PO SCH (20:50)
[2018-02-09] MEDS: traZODone 50 MG Tablet PO SCH (20:50)
[2018-02-09] MEDS: Lidocaine 5% Patch T-DERMAL SCH (20:52)
[2018-02-09] MEDS: ALPRAZolam 0.25 MG Tablet PO PRN (21:05)
[2018-02-09] MEDS: Furosemide 20 MG Tablet PO SCH (21:46)
[2018-02-10 04:48] LABS: Calcium 8.2 mg/dL (8.5-10.1); Carbon Dioxide 28.5 meq/L (21.0-32.0)
[2018-02-10] MEDS: MethylPREDNISolone Sod Succinate Inj 40 MG/ML Vial IV.PUSH SCH ×3 (04:51→21:10)
[2018-02-10] MEDS: buPROPion 150 MG 12 HR Tablet PO SCH (08:48)
[2018-02-10] MEDS: Lactobacillus Acidophilus/L. Spores Tablet PO SCH ×3 (08:48→17:26)
[2018-02-10] MEDS: Ascorbic Acid 500 MG Tablet PO SCH (08:48)
[2018-02-10] MEDS: Atenolol 25 MG Tablet PO SCH (08:48)
[2018-02-10] MEDS: Estradiol 1 MG Tablet PO SCH (08:48)
[2018-02-10] MEDS: Folic Acid 1 MG Tablet PO SCH (08:48)
[2018-02-10] MEDS: amLODIPine 10 MG Tablet PO SCH (08:48)
[2018-02-10] MEDS: Sodium Chloride 0.65% Nasal Spray 45 ML Bottle EACH NARE SCH ×2 (08:50→21:09)
[2018-02-10] MEDS: Budesonide-Formoterol 160/4.5 MCG 6 GM Inhaler INH SCH ×2 (08:51→21:10)
[2018-02-10] MEDS: Fenofibrate 48 MG Tablet PO SCH (08:51)
--- NOTE | 2018-02-10 09:03 | P.PNIM ---
Subjective Interval history: Follow-up for shortness of breath Patient does not feel short of breath, currently on nasal cannula but desaturates to high 80s when speaking. Of BiPAP this morning. No nausea or vomiting. Denies any chest pain. Physical Exam Vital signs: Vital Signs 02/09/18 10:00 02/09/18 10:51 02/09/18 12:00 Temperature 98 F Pulse Rate 92 H 88 93 H Respiratory Rate 22 25 H Blood Pressure 131/67 Pulse Oximetry 96 95 02/09/18 13:00 02/09/18 14:00 02/09/18 15:00 Temperature Pulse Rate 96 H 101 H 101 H Respiratory Rate 28 H 43 H 40 H Blood Pressure 128/66 115/61 116/71 Pulse Oximetry 93 L 78 L 86 L 02/09/18 16:00 02/09/18 17:00 02/09/18 18:00 Temperature 98.1 F Pulse Rate 97 H 97 H 95 H Respiratory Rate 29 H 33 H 32 H Blood Pressure 127/66 127/60 112/69 Pulse Oximetry 88 L 84 L 85 L 02/09/18 18:21 02/09/18 19:00 02/09/18 20:00 Temperature Pulse Rate 90 88 Respiratory Rate 34 H 31 H Blood Pressure 120/72 130/70 Pulse Oximetry 94 L 96 94 L 02/09/18 20:13 02/09/18 21:00 02/09/18 22:00 Temperature Pulse Rate 82 88 83 Respiratory Rate 23 33 H 24 Blood Pressure 125/62 120/68 Pulse Oximetry 96 91 L 92 L 02/09/18 23:00 02/10/18 00:00 02/10/18 01:00 Temperature 98.2 F Pulse Rate 75 80 83 Respiratory Rate 19 19 16 Blood Pressure 120/67 123/73 118/64 Pulse Oximetry 95 95 96 02/10/18 01:21 02/10/18 02:00 02/10/18 03:00 Temperature Pulse Rate 74 76 Respiratory Rate 16 19 Blood Pressure 115/65 121/64 Pulse Oximetry 96 95 95 02/10/18 03:33 02/10/18 04:00 02/10/18 07:55 Temperature Pulse Rate 86 82 Respiratory Rate 28 H 22 Blood Pressure 122/69 Pulse Oximetry 96 96 Intake & Output 11/22/18 11/23/18 11/23/18 18:59 06:59 18:59 Intake Total 900 / 900 515 / 515 Output Total 800 / 800 Balance 900 / 900 -285 / -285 Weight 86.4 kg Intake: IV 515 / 515 Oral 900 / 900 Output: Urine Amount (Catheter) 800 / 800 Female External 800 / 800 Other: # Voids 2 Date of Last Bowel Movement 02/05/18 02/05/18 Narrative: GENERAL: Not in distress. CARDIOVASCULAR: Regular rate and rhythm RESPIRATORY: Slightly diminished breath sounds in the bases bilaterally, on nasal cannula. GASTROINTESTINAL: Abdomen soft, non-tender, nondistended. Normal active bowel sounds MUSCULOSKELETAL: Extremities without clubbing, cyanosis, trace edema, NEURO: Alert and oriented person place time, moves all ext x4 but with generalized weakness - Urinary Catheter Management Straight Cath placed during this visit: yes, but has since been removed by the nurse Reason for continuing: Not indwelling catheter Insertion date: 01/31/18 Insertion time: 14:30 Removal date: 01/30/18 Removal time: 10:55 Indwelling Urethral Catheter Cath placed during this visit: yes, but has since been removed by the nurse Reason for continuing: Decision to DC catheter Insertion date: 01/28/18 Removal date: 01/29/18 Removal time: 18:15 Female External Cath placed during this visit: no Results - Labs CBC & Chem 7: 02/09/18 03:31 02/10/18 04:01 Laboratory Results - last 24 hr 02/10/18 04:01 Sodium 138 Potassium 4.0 Chloride 99 Carbon Dioxide 28.5 Anion Gap 11 BUN 48 H Creatinine 1.21 H Estimated GFR 45 L Random Glucose 194 H Calcium 8.2 L Assessment and Plan - Assessment (1) HCAP (healthcare-associated pneumonia) Code(s): J18.9 - Pneumonia, unspecified organism Status: Acute - Plan 62-year-old female admitted secondary to healthcare associated pneumonia with respiratory failure. Higher risk given immunocompromise state from rheumatoid arthritis treatment. Healthcare associated pneumonia with acute respiratory failure with persistent hypoxia -Continues to be on high flow oxygen, oxygen saturation fluctuates with talking. Keep in the ICU, sputum culture showed normal odette. s/p 2 weeks of cefepime, 1 week of Levaquin and 1 week of IV vancomycin Day. Antibiotics stopped 02/09/2018. BiPAP as needed , scheduled duo nebs, Symbicort , no further wheezing, taper steroids, switch Solu-Medrol to every 12 hours today. Pulmonary following, check CT scan of the chest, possible sleep apnea. Increase activity, discussed with nurse, incentive spirometry, discussed with patient. Leukocytosispersists likely due to steroids, start weaning steroids Rheumatoid arthritis-Methotrexate on hold due to infection Hypertension, chronic essential - Continue baseline treatment, continue Norvasc , atenolol, Dyazide Chronic lower back pain with a history of lumbar stenosis -Caution with narcotics and presence of lethargy, decreased [place] dose and changed baclofen to as needed, decreased gabapentin.No surgical interventions at this point, Continue PT. Refer patient to interventional pain management per sister's request as an outpatient to Dr. Davies Right posterior mid back painthis is reproducible and localized likely musculoskeletal, patient reports improved on lidocaine patch, as above, neurosx evaluated, non-surgical for now. MARCELA -improving, Crea still high, off vancomycin, hold Lasix today, recheck BMP tomorrow. DVT prophylaxis: Lovenox Continue physical therapy, [facility]. Continue monitor ICU until oxygen is able to be weaned down
--- NOTE | 2018-02-10 10:19 | P.DIET ---
Nutritional Evaluation Type of nutrition evaluation: initial Nutrition consult regarding: Diet Evaluation Nutrition screening: MDC (wound) Screening comments: 02/08 MDC for wound Objective - Diagnosis HCAP, hypoxia - Objective Body Mass Index: 21.6 % IBW: 98 (IBW = 193.5 lb) Body Weight Used for Calculations: Actual Energy Needs - Lower Range (kCal/kg): 25 Energy Needs - Upper Range (kCal/kg): 30 Lower Limit kCal/kg (kCals): 2,160 Upper Limit kCal/kg (kCals): 2,592 Lower Limit Protein Factor (Grams per Kg): 1.2 Upper Limit Protein Factor (Grams per Kg): 1.5 Lower Protein Needs (Protein): 104 Upper Protein Needs (Protein): 130 Dietitian Reviewed in Medical Record: Current diet, Curent medications, Intake & Output, Labs, Medical history Diet Order: regular, ensure original BID Oral Diet Intake Amount: Poor <50% Wound Care Note: R buttocks pressure injury stage III Objective Comments: PMH: anemia, degenerative disc disesae, GERD, HLD, HTN< rheumatic disease, osteoarthritis, sciatica, spinal stenosis Labs: BUN 48, Cr 1.21, GFR 45, random glucose 194, Ca+ 8.2 Assessment Assessment: [facility] [place] on [place]08. Pt currently eating around 25-50% for most of her meals and tolerating fair. Wound care notes reviewed. Pt currently has a stage III pressure injury on R buttocks. RD to recommend Roberto BID as PO supplement to aid in wound healing. Monitor PO and supplement intake. Labs reviewed, dietitian following. Recommendations: 1. RD to recommend Roberto BID as PO supplement to aid in wound healing 2. Monitor PO and supplement intake 3. Dietitian following Dietitian to Monitor: Lab values, Supplement acceptance, Intake & Output, Diet tolerance, PO Intake, Medical course
[2018-02-10] MEDS: Enoxaparin Inj 40 MG/0.4 ML Syringe SQ SCH (11:00)
--- NOTE | 2018-02-10 17:07 | P.PN ---
Subjective Interval history: ALERT NAD HIGH FLOW NASAL O2 Physical Exam Vital signs: Vital Signs 02/09/18 18:00 02/09/18 18:21 02/09/18 19:00 Temperature Pulse Rate 95 H 90 Respiratory Rate 32 H 34 H Blood Pressure 112/69 120/72 Pulse Oximetry 85 L 94 L 96 02/09/18 20:00 02/09/18 20:13 02/09/18 21:00 Temperature Pulse Rate 88 82 88 Respiratory Rate 31 H 23 33 H Blood Pressure 130/70 125/62 Pulse Oximetry 94 L 96 91 L 02/09/18 22:00 02/09/18 23:00 02/10/18 00:00 Temperature 98.2 F Pulse Rate 83 75 80 Respiratory Rate 24 19 19 Blood Pressure 120/68 120/67 123/73 Pulse Oximetry 92 L 95 95 02/10/18 01:00 02/10/18 01:21 02/10/18 02:00 Temperature Pulse Rate 83 74 Respiratory Rate 16 16 Blood Pressure 118/64 115/65 Pulse Oximetry 96 96 95 02/10/18 03:00 02/10/18 03:33 02/10/18 04:00 Temperature Pulse Rate 76 86 Respiratory Rate 19 28 H Blood Pressure 121/64 122/69 Pulse Oximetry 95 96 96 02/10/18 07:00 02/10/18 07:55 02/10/18 08:00 Temperature 98.5 F Pulse Rate 92 H 82 82 Respiratory Rate 35 H 22 23 Blood Pressure 105/65 114/64 Pulse Oximetry 95 02/10/18 09:00 02/10/18 10:00 02/10/18 10:01 Temperature Pulse Rate 84 92 H 91 H Respiratory Rate 37 H 32 H 39 H Blood Pressure 127/57 L 136/57 L Pulse Oximetry 87 L 88 L 80 L 02/10/18 11:00 02/10/18 11:37 02/10/18 12:00 Temperature 98.6 F Pulse Rate 89 104 H 85 Respiratory Rate 44 H 24 34 H Blood Pressure 132/64 125/57 L Pulse Oximetry 86 L 94 L 91 L 02/10/18 13:00 02/10/18 14:00 02/10/18 15:00 Temperature Pulse Rate 85 88 95 H Respiratory Rate 23 23 27 H Blood Pressure 129/63 128/72 119/64 Pulse Oximetry 92 L 93 L 89 L 02/10/18 16:00 02/10/18 16:59 02/10/18 17:00 Temperature 98.2 F Pulse Rate 91 H 95 H Respiratory Rate 29 H 30 H Blood Pressure 119/61 124/64 Pulse Oximetry 89 L 89 L Intake & Output 02/09/18 02/10/18 02/10/18 18:59 06:59 18:59 Intake Total 900 / 900 515 / 515 Output Total 800 / 800 Balance 900 / 900 -285 / -285 Weight 86.4 kg Intake: IV 515 / 515 Oral 900 / 900 Output: Urine Amount (Catheter) 800 / 800 Female External 800 / 800 Other: # Voids 2 Date of Last Bowel Movement 02/05/18 02/05/18 02/05/18 Narrative: GENERAL: Not in distress. CARDIOVASCULAR: Regular rate and rhythm RESPIRATORY: Slightly diminished breath sounds in the bases bilaterally, on nasal cannula. GASTROINTESTINAL: Abdomen soft, non-tender, nondistended. Normal active bowel sounds MUSCULOSKELETAL: Extremities without clubbing, cyanosis, trace edema, NEURO: Alert and oriented person place time, moves all ext x4 but with generalized weakness - Urinary Catheter Management Straight Cath placed during this visit: yes, but has since been removed by the nurse Reason for continuing: Not indwelling catheter Insertion date: 01/31/18 Insertion time: 14:30 Removal date: 01/30/18 Removal time: 10:55 Indwelling Urethral Catheter Cath placed during this visit: yes, but has since been removed by the nurse Reason for continuing: Decision to DC catheter Insertion date: 01/28/18 Removal date: 01/29/18 Removal time: 18:15 Female External Cath placed during this visit: no Results - Labs CBC & Chem 7: 02/09/18 03:31 02/10/18 04:01 Laboratory Results - last 24 hr 02/10/18 04:01 Sodium 138 Potassium 4.0 Chloride 99 Carbon Dioxide 28.5 Anion Gap 11 BUN 48 H Creatinine 1.21 H Estimated GFR 45 L Random Glucose 194 H Calcium 8.2 L Assessment and Plan - Plan RESPIRATORY FAILURE STILL NEEDS HIGH FIO2 PNA ? JORDANA PLAN O2 NEEDED BRONCHODILATOR THERAPY INCREASE ACTIVITY CT CHEST,PENDING WILL NEED VATS BX
[2018-02-10] MEDS: Lidocaine 5% Patch T-DERMAL SCH (21:08)
[2018-02-10] MEDS: Gabapentin 300 MG Capsule PO SCH (21:08)
[2018-02-10] MEDS: traZODone 50 MG Tablet PO SCH (21:08)
--- NOTE | 2018-02-10 22:07 | CT ---
EXAM DATE: 02/10/2018 9:59 PM EST AGE/SEX: 62 years / Female INDICATIONS: Atelectasis. CLINICAL DATA: This is the patient's subsequent encounter. Patient reports that signs and symptoms h ave been present for 2 weeks and indicates a pain score of 3/10. MEDICAL/SURGICAL HISTORY: Anemia. Hypertension. None. RADIATION DOSE: 18.50 CTDI (mGy) COMPARISON: [facility] [place], CTA PULMONARY W CONTRAST W 3D, 01/25/2018. [facility], CHEST 1V SINGLE AP, 02/06/2018. . TECHNIQUE: Multiple contiguous axial images were obtained through the chest without contrast. Image s were obtained in suspended respiration using multiple row detector helical technique. Using automa dayna exposure control and adjustment of the mA and/or kV according to patient size, radiation dose was kept as low as reasonably achievable to obtain optimal diagnostic quality images. DICOM format imag e data is available electronically for review and comparison. FINDINGS: Persistent diffuse interstitial opacities of both lungs and considerably worse in the interim. There is now a more peripheral predominance and appears to be some developing patchy subpleural honeycombin g. No pleural effusion. No pneumothorax. Heart size stable, within normal limits. Coronary artery calcification again noted. There is no lymph adenopathy. CONCLUSION: Worsening diffuse interstitial disease of both lungs. The features are nonspecific. Acute interstitial pneumonia is in the differential. Electronically signed by: Thomas Parker MD 02/10/2018 10:05 PM EST
[2018-02-11 05:46] LABS: Calcium 8.3 mg/dL (8.5-10.1); Potassium 4.1 meq/L (3.5-5.1)
[2018-02-11] MEDS: Atenolol 25 MG Tablet PO SCH (08:11)
[2018-02-11] MEDS: Ascorbic Acid 500 MG Tablet PO SCH (08:11)
[2018-02-11] MEDS: Folic Acid 1 MG Tablet PO SCH (08:11)
[2018-02-11] MEDS: amLODIPine 10 MG Tablet PO SCH (08:11)
[2018-02-11] MEDS: buPROPion 150 MG 12 HR Tablet PO SCH (08:11)
[2018-02-11] MEDS: Fenofibrate 48 MG Tablet PO SCH (08:11)
[2018-02-11] MEDS: Lactobacillus Acidophilus/L. Spores Tablet PO SCH ×3 (08:11→17:06)
[2018-02-11] MEDS: Estradiol 1 MG Tablet PO SCH (08:11)
[2018-02-11] MEDS: Budesonide-Formoterol 160/4.5 MCG 6 GM Inhaler INH SCH ×2 (08:12→21:06)
[2018-02-11] MEDS: Sodium Chloride 0.65% Nasal Spray 45 ML Bottle EACH NARE SCH ×2 (08:12→21:06)
--- NOTE | 2018-02-11 09:57 | P.PNIM ---
Subjective Interval history: CT scan overnight shows worsening of interstitial lung disease. She has been covered on antibiotics so new infection is not suspected. Etiology could be related to acute interstitial pneumonitis and possibly status post ARDS. Patient has been transitioning between high flow oxygen and BiPAP. Physical Exam Vital signs: Vital Signs 02/10/18 10:00 02/10/18 10:01 02/10/18 11:00 Temperature Pulse Rate 92 H 91 H 89 Respiratory Rate 32 H 39 H 44 H Blood Pressure 136/57 L 132/64 Pulse Oximetry 88 L 80 L 86 L 02/10/18 11:37 02/10/18 12:00 02/10/18 13:00 Temperature 98.6 F Pulse Rate 104 H 85 85 Respiratory Rate 24 34 H 23 Blood Pressure 125/57 L 129/63 Pulse Oximetry 94 L 91 L 92 L 02/10/18 14:00 02/10/18 15:00 02/10/18 16:00 Temperature 98.2 F Pulse Rate 88 95 H 91 H Respiratory Rate 23 27 H 29 H Blood Pressure 128/72 119/64 119/61 Pulse Oximetry 93 L 89 L 89 L 02/10/18 16:59 02/10/18 17:00 02/10/18 18:00 Temperature Pulse Rate 95 H 93 H 98 H Respiratory Rate 30 H 31 H 37 H Blood Pressure 124/64 127/70 Pulse Oximetry 89 L 89 L 81 L 02/10/18 19:00 02/10/18 20:00 02/10/18 20:38 Temperature 98.0 F Pulse Rate 93 H 90 92 H Respiratory Rate 31 H 30 H 20 Blood Pressure 122/59 L 122/61 Pulse Oximetry 90 L 87 L 85 L 02/10/18 21:00 02/10/18 22:00 02/10/18 23:00 Temperature Pulse Rate 85 86 88 Respiratory Rate 26 H 26 H 30 H Blood Pressure 123/65 122/65 119/62 Pulse Oximetry 96 87 L 81 L 02/11/18 00:00 02/11/18 00:03 02/11/18 00:06 Temperature 97.9 F Pulse Rate 97 H 83 Respiratory Rate 33 H 30 H Blood Pressure 110/67 Pulse Oximetry 72 L 90 L 02/11/18 01:00 02/11/18 02:00 02/11/18 03:00 Temperature Pulse Rate 89 84 93 H Respiratory Rate 21 21 29 H Blood Pressure 112/63 118/62 117/65 Pulse Oximetry 95 80 L 94 L 02/11/18 04:00 02/11/18 04:09 02/11/18 05:00 Temperature 98.0 F Pulse Rate 82 90 Respiratory Rate 18 24 Blood Pressure 117/64 124/66 Pulse Oximetry 95 95 95 02/11/18 06:00 02/11/18 07:00 02/11/18 08:00 Temperature 97.8 F Pulse Rate 88 94 H 85 Respiratory Rate 31 H 36 H 26 H Blood Pressure 126/75 120/64 130/64 Pulse Oximetry 96 93 L 87 L 02/11/18 08:21 Temperature Pulse Rate Respiratory Rate Blood Pressure Pulse Oximetry 89 L Intake & Output 02/10/18 02/11/18 02/11/18 18:59 06:59 18:59 Intake Total 1200 / 1200 240 / 240 Output Total 400 / 400 1000 / 1000 Balance 800 / 800 -760 / -760 Weight 84.5 kg Intake: Oral 1200 / 1200 240 / 240 Output: Urine 400 / 400 Urine Amount (Catheter) 1000 / 1000 Straight 1000 / 1000 Other: Date of Last Bowel Movement 02/05/18 02/05/18 # Bowel Movements 0 Narrative: GENERAL: NAD, A&Ox3, high flow oxygen present when seen. HEAD: Normocephalic. NECK: Supple, trachea midline. No lymphadenopathy. EYES: No scleral icterus. No injection or drainage. CARDIOVASCULAR: Regular rate and rhythm without murmurs, gallops, or rubs. RESPIRATORY: Breath sounds equal bilaterally. No accessory muscle use. GASTROINTESTINAL: Abdomen soft, non-tender, nondistended. MUSCULOSKELETAL: No cyanosis, or edema. SKIN: Warm and dry. NEURO: No focal neurological deficits. - Urinary Catheter Management Straight Cath placed during this visit: yes, but has since been removed by the nurse Reason for continuing: Not indwelling catheter Insertion date: 01/31/18 Insertion time: 14:30 Removal date: 01/30/18 Removal time: 10:55 Indwelling Urethral Catheter Cath placed during this visit: yes, but has since been removed by the nurse Reason for continuing: Decision to DC catheter Insertion date: 01/28/18 Removal date: 01/29/18 Removal time: 18:15 Female External Cath placed during this visit: no Results - Labs CBC & Chem 7: 02/09/18 03:31 02/11/18 04:32 Laboratory Results - last 24 hr 02/11/18 04:32 Sodium 139 Potassium 4.1 Chloride 101 Carbon Dioxide 30.0 Anion Gap 8 BUN 52 H Creatinine 1.05 H Estimated GFR 53 L Random Glucose 199 H Calcium 8.3 L - Imaging Impressions Chest CT 02/10/18 00:00 CONCLUSION: Worsening diffuse interstitial disease of both lungs. The features are nonspecific. Acute interstitial pneumonia is in the differential. Assessment and Plan - Assessment (1) HCAP (healthcare-associated pneumonia) Code(s): J18.9 - Pneumonia, unspecified organism Status: Acute - Plan 62-year-old female admitted secondary to healthcare associated pneumonia with respiratory failure. Higher risk given immunocompromise state from rheumatoid arthritis treatment. Healthcare associated pneumonia Leukocytosis Persistent hypoxia Acute respiratory failure Possible ARDS (Possible acute interstitial pneumonitis) Worsening on CT image, of interstitial lung disease, unlikely new infection given coverage Continue steroids Continue cefepime, vancomycin, Levaquin Probiotics High flow oxygen or BiPAP as needed Wean respiratory support as tolerated (unable to wean thus far) Continue monitoring in ICU Continue oxygen supplementation Follow CBC Continue duo nebs Continue Symbicort Continue Solu-Medrol Pulmonology following Rheumatoid arthritis Methotrexate on hold Hypertension Continue baseline treatment cont Norvasc, atenolol, Dyazide Follow blood pressures Adjust treatments as needed Chronic lower back pain Right Posterior Middle Back Pain Caution with narcotics and presence of lethargy No surgical interventions at this point Continue PT PRN Baclofen Gabapentin MARCELA Follow renal function Avoid nephrotoxins Hypokalemia Monitor potassium and replace as needed DVT prophylaxis Lovenox Discharge Planning Return to SNF, to [facility] when improved/stabilized Continue monitor ICU until oxygen is able to be weaned down
[2018-02-11] MEDS: MethylPREDNISolone Sod Succinate Inj 40 MG/ML Vial IV.PUSH SCH ×2 (10:22→21:05)
[2018-02-11] MEDS: Enoxaparin Inj 40 MG/0.4 ML Syringe SQ SCH (12:05)
--- NOTE | 2018-02-11 17:49 | P.PN ---
Subjective Interval history: ALERT NAD STILL ON HIGH FLOW O2 Physical Exam Vital signs: Vital Signs 02/10/18 18:00 02/10/18 19:00 02/10/18 20:00 Temperature 98.0 F Pulse Rate 98 H 93 H 90 Respiratory Rate 37 H 31 H 30 H Blood Pressure 127/70 122/59 L 122/61 Pulse Oximetry 81 L 90 L 87 L 02/10/18 20:38 02/10/18 21:00 02/10/18 22:00 Temperature Pulse Rate 92 H 85 86 Respiratory Rate 20 26 H 26 H Blood Pressure 123/65 122/65 Pulse Oximetry 85 L 96 87 L 02/10/18 23:00 02/11/18 00:00 02/11/18 00:03 Temperature 97.9 F Pulse Rate 88 97 H Respiratory Rate 30 H 33 H Blood Pressure 119/62 110/67 Pulse Oximetry 81 L 72 L 90 L 02/11/18 00:06 02/11/18 01:00 02/11/18 02:00 Temperature Pulse Rate 83 89 84 Respiratory Rate 30 H 21 21 Blood Pressure 112/63 118/62 Pulse Oximetry 95 80 L 02/11/18 03:00 02/11/18 04:00 02/11/18 04:09 Temperature 98.0 F Pulse Rate 93 H 82 Respiratory Rate 29 H 18 Blood Pressure 117/65 117/64 Pulse Oximetry 94 L 95 95 02/11/18 05:00 02/11/18 06:00 02/11/18 07:00 Temperature Pulse Rate 90 88 94 H Respiratory Rate 24 31 H 36 H Blood Pressure 124/66 126/75 120/64 Pulse Oximetry 95 96 93 L 02/11/18 08:00 02/11/18 08:21 02/11/18 09:00 Temperature 97.8 F Pulse Rate 85 88 Respiratory Rate 26 H 29 H Blood Pressure 130/64 119/61 Pulse Oximetry 87 L 89 L 95 02/11/18 10:00 02/11/18 11:00 02/11/18 12:00 Temperature 96.8 F L Pulse Rate 81 83 84 Respiratory Rate 18 19 27 H Blood Pressure 121/66 114/63 121/64 Pulse Oximetry 93 L 89 L 88 L 02/11/18 13:00 02/11/18 14:00 02/11/18 15:00 Temperature Pulse Rate 89 89 92 H Respiratory Rate 28 H 29 H Blood Pressure 119/61 130/61 125/67 Pulse Oximetry 87 L 88 L 02/11/18 16:00 Temperature 97 F L Pulse Rate 92 H Respiratory Rate 33 H Blood Pressure 122/60 Pulse Oximetry 82 L Intake & Output 02/10/18 02/11/18 02/11/18 18:59 06:59 18:59 Intake Total 1200 / 1200 240 / 240 Output Total 400 / 400 1000 / 1000 900 / 900 Balance 800 / 800 -760 / -760 -900 / -900 Weight 84.5 kg Intake: Oral 1200 / 1200 240 / 240 Output: Urine 400 / 400 Urine Amount (Catheter) 1000 / 1000 900 / 900 Straight 1000 / 1000 900 / 900 Other: Date of Last Bowel Movement 02/05/18 02/05/18 # Bowel Movements 0 Narrative: GENERAL: NAD, A&Ox3, high flow oxygen present when seen. HEAD: Normocephalic. NECK: Supple, trachea midline. No lymphadenopathy. EYES: No scleral icterus. No injection or drainage. CARDIOVASCULAR: Regular rate and rhythm without murmurs, gallops, or rubs. RESPIRATORY: Breath sounds equal bilaterally. No accessory muscle use. GASTROINTESTINAL: Abdomen soft, non-tender, nondistended. MUSCULOSKELETAL: No cyanosis, or edema. SKIN: Warm and dry. NEURO: No focal neurological deficits. - Urinary Catheter Management Straight Cath placed during this visit: yes, but has since been removed by the nurse Reason for continuing: Not indwelling catheter Insertion date: 01/31/18 Insertion time: 14:30 Removal date: 01/30/18 Removal time: 10:55 Indwelling Urethral Catheter Cath placed during this visit: yes, but has since been removed by the nurse Reason for continuing: Decision to DC catheter Insertion date: 01/28/18 Removal date: 01/29/18 Removal time: 18:15 Female External Cath placed during this visit: no Results - Labs CBC & Chem 7: 02/09/18 03:31 02/11/18 04:32 Laboratory Results - last 24 hr 02/11/18 04:32 Sodium 139 Potassium 4.1 Chloride 101 Carbon Dioxide 30.0 Anion Gap 8 BUN 52 H Creatinine 1.05 H Estimated GFR 53 L Random Glucose 199 H Calcium 8.3 L - Imaging Impressions Chest CT 02/10/18 00:00 CONCLUSION: Worsening diffuse interstitial disease of both lungs. The features are nonspecific. Acute interstitial pneumonia is in the differential. Assessment and Plan - Plan RESPIRATORY FAILURE STILL NEEDS HIGH FIO2 PNA, CT WORSENING ? JORDANA PLAN O2 NEEDED BRONCHODILATOR THERAPY INCREASE ACTIVITY THORACIC SURGERY CONSULT FOR VATS BX
[2018-02-11] MEDS: Lidocaine 5% Patch T-DERMAL SCH ×2 (20:58→20:59)
[2018-02-11] MEDS: ALPRAZolam 0.25 MG Tablet PO PRN (21:05)
[2018-02-11] MEDS: Gabapentin 300 MG Capsule PO SCH (21:05)
[2018-02-11] MEDS: traZODone 50 MG Tablet PO SCH (21:08)
[2018-02-12 05:50] LABS: Baso % (Auto) 0.2 % (0.0-2.0); Hemoglobin 11.6 gm/dL (11.6-15.3); Lymph # (Auto) 0.4 th/mm3 (1.0-4.8); Lymph % (Auto) 1.8 % (9.0-44.0); Mean Corpuscular HGB Conc 34.3 % (32.0-36.0); Mean Corpuscular Hemoglobin 31.1 pg (27.0-34.0); Mean Corpuscular Volume 90.8 fL (80.0-100.0); Mean Platelet Volume 8.8 fL (7.0-11.0); Mono # (Auto) 0.4 th/mm3 (0.0-0.9); Mono % (Auto) 1.8 % (0.0-8.0); Neut # (Auto) 22.5 th/mm3 (1.8-7.7); Neut % (Auto) 96.2 % (16.0-70.0); Platelet Count 368 th/mm3 (150-450); Red Blood Count 3.74 mil/mm3 (4.00-5.30); Red Cell Distribution Width 15.1 % (11.6-17.2); White Blood Count 23.4 th/mm3 (4.0-11.0)
[2018-02-12 06:12] LABS: Albumin 2.9 g/dL (3.4-5.0); Anion Gap 8 meq/L (5-15); Aspartate Aminotransferase 18 U/L (15-37); Blood Urea Nitrogen 55 mg/dL (7-18); Calcium 8.1 mg/dL (8.5-10.1); Carbon Dioxide 30.6 meq/L (21.0-32.0); Chloride 100 meq/L (98-107); Glomerular Filtration Rate 58 mL/min (>89); Glucose,Random 205 mg/dL (74-106); Sodium 139 meq/L (136-145)
[2018-02-12 06:17] LABS: Alanine Aminotransferase 42 U/L (10-53); Alkaline Phosphatase 102 U/L (45-117)
[2018-02-12] MEDS ORDERED: Dextrose 50% in Water 50 ML Vial IV.PUSH PRN (09:22)
[2018-02-12] MEDS: MethylPREDNISolone Sod Succinate Inj 40 MG/ML Vial IV.PUSH SCH ×2 (09:38→21:33)
[2018-02-12] MEDS: Fenofibrate 48 MG Tablet PO SCH (09:38)
[2018-02-12] MEDS: Lactobacillus Acidophilus/L. Spores Tablet PO SCH ×3 (09:38→17:37)
[2018-02-12] MEDS: Folic Acid 1 MG Tablet PO SCH (09:38)
[2018-02-12] MEDS: Ascorbic Acid 500 MG Tablet PO SCH (09:38)
[2018-02-12] MEDS: Atenolol 25 MG Tablet PO SCH (09:38)
[2018-02-12] MEDS: buPROPion 150 MG 12 HR Tablet PO SCH (09:38)
[2018-02-12] MEDS: amLODIPine 10 MG Tablet PO SCH (09:38)
[2018-02-12] MEDS: Estradiol 1 MG Tablet PO SCH (09:38)
[2018-02-12] MEDS: Budesonide-Formoterol 160/4.5 MCG 6 GM Inhaler INH SCH ×2 (09:39→20:15)
[2018-02-12] MEDS: Sodium Chloride 0.65% Nasal Spray 45 ML Bottle EACH NARE SCH ×2 (09:39→20:15)
--- NOTE | 2018-02-12 10:57 | P.CON ---
History of Present Illness Service: CT Surgery Consult date: 02/12/18 Requesting Physician: Rony Uribe Reason for Consult: Dyspnea, hypoxia, bilateral pulmonary infiltrates Primary Care Provider: Momo Powell MD Chief Complaint: Shortness of breath History of Present Illness: 62-year-old female who was admitted with increasing shortness of breath from rehabilitation. She was placed in rehab secondary to progressive lower extremity weakness thought to be from spinal stenosis. She does have history of chronic low back pain and degenerative disk disease. She is s/p spinal surgery with rods present on x-ray images. She has a cough productive of small amount of white sputum. No fever, no chills, no hemoptysis, no TB, no industrial exposure. She was admitted and her pulmonary status has not improved despite extensive evaluation. She was on methotrexate prior to admission for rheumatic disease and is currently on steroids as well with high-flow oxygen. FAMILY HISTORY: Noncontributory. SOCIAL HISTORY: Long smoking history; however, has not smoked in 16 years. Does not drink any alcohol. No TB, no industrial exposure. Does not use drugs. Review of Systems Constitutional: Reports fatigue, Reports weakness Eyes: Denies blind spots, Denies blurry vision, Denies bulging eyes, Denies change in vision, Denies double vision, Denies discharge, Denies dry eyes, Denies floaters, Denies irritation, Denies itchy eyes, Denies loss of vision, Denies pain, Denies requires corrective lenses, Denies sensitivity to light, Denies other Ears, Nose, Mouth, and Throat: Denies abnormal hearing, Denies bleeding gums, Denies bad breath, Denies change in voice, Denies dental pain, Denies difficulty swallowing, Denies dizziness, Denies dry mouth, Denies ear discharge , Denies ear pain, Denies facial pain, Denies headache(s), Denies hearing loss, Denies hoarseness, Denies lip swelling, Denies nosebleed, Denies mouth lesions, Denies mouth pain, Denies nasal congestion, Denies nasal discharge, Denies nasal obstruction, Denies nasal trauma, Denies neck lump, Denies neck pain, Denies nose pain, Denies pain with swallowing, Denies poor balance, Denies post nasal drip, Denies ringing in the ears, Denies sinus pain, Denies sinus pressure , Denies sore throat, Denies throat swelling, Denies tongue swelling, Denies other Cardiovascular: Reports shortness of breath, Reports shortness of breath with activity, Denies chest pain, Denies chest pain at rest, Denies chest pain with activity, Denies excessive sweating, Denies fainting, Denies fast heart rate, Denies foot swelling, Denies generalized swelling, Denies irregular heart rhythm , Denies leg pain with activity, Denies leg sores, Denies leg swelling, Denies lightheadedness, Denies radiating jaw, neck or arm pain, Denies rapid, pounding , or irregular heartbeat, Denies shortness of breath when lying down, Denies shortness of breath causing sudden awakening, Denies slow heart rate, Denies other Respiratory: Reports chest congestion, Reports cough, Reports shortness of breath, Reports shortness of breath with activity, Reports wheezing Gastrointestinal: Denies abdominal pain, Denies belching, Denies black, tarry stools, Denies bloating, Denies bright, red blood in stools, Denies change in bowel habits, Denies constant urge to pass stool, Denies change in stools, Denies coffee ground vomit, Denies constipation, Denies cramping, Denies difficulty swallowing, Denies excessive passing of gas, Denies feeling full early, Denies heartburn, Denies incontinent of stools, Denies loose stools, Denies nausea, Denies pain with swallowing, Denies vomiting, Denies vomiting blood, Denies other Genitourinary: Denies abnormal periods, Denies abnormal vaginal bleeding, Denies absent period, Denies bleeding between periods, Denies blood in urine, Denies difficulty starting urination, Denies difficulty urinating, Denies dribbling after urination, Denies frequent nighttime urination, Denies genital itching, Denies genital lesions, Denies heavy periods, Denies hot flashes, Denies light periods, Denies nipple discharge, Denies painful intercourse, Denies painful periods, Denies painful urination, Denies pelvic pain, Denies prolapse symptoms, Denies sexual problems, Denies side pain, Denies urinary incontinence, Denies urinary urgency, Denies vaginal discharge, Denies vaginal dryness, Denies vaginal odor, Denies vaginal itching, Denies other Musculoskeletal: Reports abnormal walking, Reports back pain, Reports body aches , Reports decreased muscle mass, Reports joint pain, Reports muscle weakness Skin/Breast: Denies acne, Denies bleeding lesions, Denies boil, Denies breast swelling, Denies breast skin changes, Denies breast pain, Denies breast lump, Denies change in breast shape, Denies change in hair, Denies change in skin color, Denies changing lesions, Denies dry skin, Denies excessive hair growth, Denies hair loss, Denies itching, Denies lesions, Denies nail changes, Denies new lesions, Denies nipple discharge, Denies non-healing lesions, Denies redness , Denies sensitivity to light, Denies rash, Denies skin pain, Denies skin ulcer , Denies sores, Denies stretch falk, Denies unusual bruising, Denies wounds, Denies yellowing of the skin, Denies other Neurologic: Reports weakness, Denies abnormal hearing, Denies abnormal movements , Denies abnormal speech, Denies abnormal walking, Denies behavioral changes, Denies burning sensations, Denies confusion, Denies dizziness, Denies fainting, Denies frequent falls, Denies headache(s), Denies lack of coordination, Denies localized weakness, Denies loss of vision, Denies memory loss, Denies numbness, Denies other visual disturbances, Denies radiating pain, Denies restless legs, Denies convulsions, Denies seizure-like activity, Denies sensory deficit, Denies tingling, Denies tingling/numbness/burning sensations, Denies tremor(s), Denies unsteadiness, Denies other Psychiatric: Denies abnormal sleep pattern, Denies anxiety, Denies behavioral changes, Denies change in appetite, Denies change in sex drive, Denies confusion , Denies depression, Denies difficulty concentrating, Denies hearing things others do not hear, Denies hopelessness, Denies irritability, Denies lack of enjoyment, Denies memory loss, Denies mood swings, Denies panic attacks, Denies paranoia, Denies seeing things others do not see, Denies sensing things others do not sense, Denies tactile hallucinations, Denies thoughts of hurting/killing others, Denies thoughts of hurting/killing yourself, Denies other Hematologic/Lymphatic: Denies easy bleeding, Denies easy bruising, Denies enlarged lymph nodes, Denies other Allergic/Immunologic: Denies GI upset with certain foods, Denies hives, Denies itchy eyes, Denies lip swelling, Denies seasonal runny nose, Denies throat swelling, Denies tongue swelling, Denies wheezing, Denies other PMFSH - History History Provided By: Patient - Medical History Medical History: Medical History (Last Reviewed 01/31/18 @ 08:03 by Blaine Brandon) Anemia Degenerative disc disease, cervical GERD (gastroesophageal reflux disease) History of depressive symptoms Hyperlipidemia Muscle weakness of lower extremity Osteoarthritis Rheumatoid arthritis Degenerative disorder of bone Hypertension Rheumatic disease Sciatica Spinal stenosis - Surgical History Surgical History: Surgical History (Last Reviewed 01/31/18 @ 08:03 by Blaine Brandon) H/O sinus surgery Previous back surgery - Family History Family History: Family History (Last Reviewed 01/26/18 @ 11:46 by Kem Jensen MD) Other No pertinent family history - Social History I have reviewed the patient's Social History: Yes - Tobacco History Second Hand Smoke Exposure: No Tobacco Use In Past 30 Days: No (pt quit smoking 16 yrs ago) Smoking Status: Former smoker Tobacco Type: Cigarettes Packs Per Day: 1 - Alcohol History How Often Do You Have a Drink Containing Alcohol: Never - Substance Use History Substance History: No History of Abuse - Travel History Recent Travel in the [place] Within the Last 8 Weeks: No Recent Travel Out of the Country Within the Last 8 Weeks: No - Immunization History Tetanus Immunization: <5 Years Tetanus Immunization Year if Known: 2018 Hx Influenza Vaccine This Season: Yes Medications and Allergies Active Medications: Active Medications Hydrocodone Bitart/Acetaminophen (Stella 5/325) 1 tab PO Q6H PRN PRN Reason: pain 1to 10 Last Admin: 02/12/18 09:41 Dose: 1 tab Al Hydroxide/Mg Hydroxide (Milk Of Magnaide Liq) 30 ml PO Q12H PRN PRN Reason: Mild Constipation Albuterol (Albuterol Neb (Prn)) 2.5 mg NEB Q2HR NEB PRN PRN Reason: SHORTNESS OF BREATH Last Admin: 02/12/18 03:19 Dose: 2.5 mg Alprazolam (Xanax) 0.25 mg PO Q8H PRN PRN Reason: ANXIETY Last Admin: 02/11/18 21:05 Dose: 0.25 mg Amlodipine Besylate (Norvasc) 10 mg PO DAILY [facility] Last Admin: 02/12/18 09:38 Dose: 10 mg Ascorbic Acid (Vitamin C) 500 mg PO DAILY [facility] Last Admin: 02/12/18 09:38 Dose: 500 mg Atenolol (Tenormin) 25 mg PO DAILY [facility] Last Admin: 02/12/18 09:38 Dose: 25 mg Atorvastatin Calcium (Lipitor) 40 mg PO DAILY [facility] Last Admin: 02/12/18 09:38 Dose: 40 mg Baclofen (Lioresal) 20 mg PO Q8H PRN PRN Reason: SPASM Last Admin: 02/11/18 18:43 Dose: 20 mg Bisacodyl (Dulcolax Supp) 10 mg RECTAL DAILY PRN PRN Reason: SEVERE CONSITIPATION Budesonide/Formoterol Fumarate (Symbicort 160/4.5 Mcg Inh) 2 puff INH BID [facility] Last Admin: 02/12/18 09:39 Dose: 2 puff Bupropion HCl (Wellbutrin Sr) 150 mg PO DAILY [facility] Last Admin: 02/12/18 09:38 Dose: 150 mg Cetirizine HCl (Zyrtec) 10 mg PO DAILY [facility] Last Admin: 02/12/18 09:38 Dose: 10 mg Dextrose (D50w Vial) 50 ml IV.PUSH UNSCH PRN PRN Reason: PER HYPOGLYCEMIA PROTOCOL Duloxetine HCl (Cymbalta) 90 mg PO DAILY [facility] Last Admin: 02/12/18 09:38 Dose: 90 mg Enoxaparin Sodium (Lovenox Inj) 40 mg SQ Q24H [facility] Last Admin: 02/11/18 12:05 Dose: 40 mg Estradiol (Estrace) 1 mg PO DAILY [facility] Last Admin: 02/12/18 09:38 Dose: 1 mg Fenofibrate (Tricor) 48 mg PO DAILY [facility] Last Admin: 02/12/18 09:38 Dose: 48 mg Fluticasone Propionate (Flonase Nasal [place]) 2 spray NASAL DAILY [facility] Last Admin: 02/12/18 09:39 Dose: 2 spray Folic Acid (Folic Acid) 1 mg PO DAILY [facility] Last Admin: 02/12/18 09:38 Dose: 1 mg Furosemide (Lasix) 40 mg PO DAILY [facility] Last Admin: 02/09/18 13:34 Dose: 40 mg Gabapentin (Neurontin) 300 mg PO [facility] Last Admin: 02/11/18 21:05 Dose: 300 mg Glucagon (Glucagon Inj) 1 mg OTHER PRN PRN PRN Reason: for Hypoglycemia Protocol Insulin Aspart (Novolog Insulin Correctional Sugar Inj) 0 unit SQ ACHS [facility]; Protocol Lactobacillus Acidophilus (Lactinex) 1 tab PO TID [facility] Last Admin: 02/12/18 09:38 Dose: 1 tab Lactulose (Lactulose Liq) 30 ml PO DAILY PRN PRN Reason: SEVERE CONSITIPATION Last Admin: 01/30/18 00:45 Dose: 30 ml Lidocaine HCl (Lidoderm 5% Patch.12 Hr) 1 patch T-DERMAL DAILY@1999 [facility] Last Admin: 02/11/18 20:59 Dose: 1 patch Magnesium Citrate (Citroma Liq) 30 ml PO DAILY PRN PRN Reason: Constipation Medroxyprogesterone Acetate (Provera) 2.5 mg PO DAILY [facility] Last Admin: 02/12/18 09:38 Dose: 2.5 mg Methocarbamol (Robaxin) 750 mg PO QID [facility] Last Admin: 01/31/18 17:53 Dose: Not Given Methylprednisolone Sodium Succinate (Solumedrol Inj) 40 mg IV.PUSH Q12H [facility] Last Admin: 02/12/18 09:38 Dose: 40 mg Miscellaneous (Pill Splitter) 1 each OTHER UNSCH PRN PRN Reason: SEE LABEL COMMENTS Pantoprazole Sodium (Protonix) 40 mg PO DAILY [facility] Last Admin: 02/12/18 09:38 Dose: 40 mg Patch Removal (Remove Old Patch) 1 each T-DERMAL [facility] Last Admin: 02/11/18 21:06 Dose: 1 each Sennosides (Senokot) 17.2 mg PO Q12H PRN PRN Reason: Moderate Constipation Last Admin: 02/09/18 18:36 Dose: 17.2 mg Sodium Chloride (Ns Flush) 2 ml IV.FLUSH BID [facility] Last Admin: 02/12/18 09:39 Dose: 2 ml Sodium Chloride (Ns Flush) 2 ml IV.FLUSH PRN PRN PRN Reason: FLUSH AFTER USING IV ACCESS Sodium Chloride ([place] Nasal [place]) 1 spray EACH NARE BID [facility] Last Admin: 02/12/18 09:39 Dose: 1 spray Trazodone HCl (Desyrel) 100 mg PO [facility] Last Admin: 02/11/18 21:08 Dose: 100 mg Triamterene/HCTZ (Dyazide 37.5/25 Mg) 1 cap G-TUBE DAILY [facility] Last Admin: 02/08/18 09:13 Dose: 1 cap Allergies Allergy/AdvReac Type Severity Reaction Status Date / Time azithromycin Allergy Severe HIVES, N Verified 01/25/18 19:06 AND V citric acid Allergy Severe hives Verified 01/25/18 19:06 erythromycin base Allergy Severe ALL MYCINS Verified 01/25/18 19:06 lovastatin Allergy Severe hives Verified 01/25/18 19:06 niacin Allergy Severe hives Verified 01/25/18 19:06 oxybutynin Allergy Severe hives Verified 01/25/18 19:06 rosuvastatin Allergy Severe Hives Verified 01/25/18 19:06 cholestyramine AdvReac Severe vomits Verified 01/25/18 19:06 Home Medications Medication Instructions Recorded Confirmed Type atenolol 25 mg PO DAILY 01/04/18 01/25/18 History bupropion HCl [Wellbutrin XL] 150 mg PO QAM 01/04/18 01/25/18 History duloxetine [Cymbalta] 90 mg PO DAILY 01/04/18 01/25/18 History fenofibrate 40 mg PO DAILY 01/04/18 01/25/18 History gabapentin BID 01/04/18 01/08/18 History methotrexate 20 mg/m2 PO QWEEK 01/04/18 01/25/18 History pantoprazole [Protonix] 40 mg PO DAILY 01/04/18 01/25/18 History diclofenac sodium 75 mg PO BID 01/05/18 01/25/18 History estradiol 1 mg PO DAILY 01/05/18 01/25/18 History medroxyprogesterone 2.5 mg PO DAILY 01/05/18 01/25/18 History methylprednisolone 4 mg PO DAILY 01/05/18 01/25/18 History trazodone 100 mg PO DAILY 01/05/18 01/25/18 History triamterene-hydrochlorothiazid 37.5 mg DAILY 01/05/18 01/25/18 History amlodipine 10 mg PO DAILY 01/25/18 01/25/18 History ascorbic acid (vitamin C) 500 mg PO DAILY 01/25/18 01/25/18 History atorvastatin [Lipitor] 40 mg PO DAILY 01/25/18 01/25/18 History bupropion HCl [Wellbutrin SR] 150 mg PO DAILY 01/25/18 01/25/18 History cetirizine [Zyrtec] 10 mg PO DAILY 01/25/18 01/25/18 History folic acid 1 mg PO DAILY 01/25/18 01/25/18 History furosemide 20 mg PO DAILY 01/25/18 01/25/18 History gabapentin 600 mg PO HS 01/25/18 01/25/18 History hydrocodone-acetaminophen 1 tab PO Q6H PRN 01/25/18 01/25/18 History magnesium citrate [Citroma] 30 ml PO DAILY PRN 01/25/18 01/25/18 History methocarbamol [Robaxin-750] 750 mg PO QID PRN 01/25/18 01/25/18 History hydrocodone-acetaminophen [Stella] 1 tab PO Q6H PRN 01/26/18 01/26/18 History Physical Exam Vital signs: Vital Signs 02/11/18 11:00 02/11/18 12:00 02/11/18 13:00 Temperature 96.8 F L Pulse Rate 83 84 89 Respiratory Rate 19 27 H 28 H Blood Pressure 114/63 121/64 119/61 Pulse Oximetry 89 L 88 L 87 L 02/11/18 14:00 02/11/18 15:00 02/11/18 16:00 Temperature 97 F L Pulse Rate 89 92 H 92 H Respiratory Rate 29 H 33 H Blood Pressure 130/61 125/67 122/60 Pulse Oximetry 88 L 82 L 02/11/18 17:00 02/11/18 18:00 02/11/18 18:33 Temperature Pulse Rate 95 H 98 H 91 H Respiratory Rate 34 H 37 H 17 Blood Pressure 128/68 130/84 126/70 Pulse Oximetry 90 L 90 L 92 L 02/11/18 19:00 02/11/18 20:00 02/11/18 20:38 Temperature 97.6 F Pulse Rate 91 H 91 H 90 Respiratory Rate 30 H 30 H 24 Blood Pressure 126/70 131/60 Pulse Oximetry 97 95 02/11/18 20:44 02/11/18 21:00 02/11/18 22:00 Temperature Pulse Rate 98 H 95 H Respiratory Rate 40 H 39 H Blood Pressure 133/62 117/64 Pulse Oximetry 94 L 95 94 L 02/11/18 23:00 02/11/18 23:57 02/11/18 23:59 Temperature Pulse Rate 93 H 97 H Respiratory Rate 36 H 23 Blood Pressure 128/68 Pulse Oximetry 93 L 92 L 02/12/18 00:00 02/12/18 01:00 02/12/18 02:00 Temperature 98 F Pulse Rate 99 H 96 H 97 H Respiratory Rate 33 H 31 H 15 Blood Pressure 132/72 128/71 135/65 Pulse Oximetry 92 L 87 L 92 L 02/12/18 03:00 02/12/18 03:19 02/12/18 04:00 Temperature 98.1 F Pulse Rate 87 103 H 91 H Respiratory Rate 14 21 16 Blood Pressure 119/60 133/62 Pulse Oximetry 92 L 93 L 02/12/18 05:00 02/12/18 06:00 02/12/18 07:00 Temperature Pulse Rate 93 H 86 86 Respiratory Rate 20 14 18 Blood Pressure 128/69 122/66 126/67 Pulse Oximetry 92 L 92 L 93 L 02/12/18 07:46 02/12/18 07:47 02/12/18 07:52 Temperature Pulse Rate 95 H Respiratory Rate 19 Blood Pressure Pulse Oximetry 93 L 02/12/18 08:00 02/12/18 09:54 02/12/18 10:00 Temperature 97.4 F L Pulse Rate 88 99 H Respiratory Rate 20 Blood Pressure 132/69 Pulse Oximetry 92 L 89 L 02/12/18 10:48 Temperature Pulse Rate Respiratory Rate 20 Blood Pressure Pulse Oximetry Intake & Output 02/11/18 02/12/18 02/12/18 18:59 06:59 18:59 Intake Total 750 / 750 120 / 120 Output Total 900 / 900 Balance -150 / -150 120 / 120 Weight 84.8 kg Intake: Oral 750 / 750 120 / 120 Output: Urine Amount (Catheter) 900 / 900 Female External 0 / 0 Straight 900 / 900 Other: Date of Last Bowel Movement 02/05/18 Narrative: 62y/o female who appears older than her stated age and debilitated. - Constitutional no acute distress - Routine HEENT Exam Head: Present: normocephalic, atraumatic Eye: Present: EOMI, PERRL, normal accommodation ENT: Present: mucous membranes moist - Routine Neck Exam Present: supple - Routine Respiratory Exam Present: rhonchi, wheezes, diminished air movement - Routine Cardiovascular Exam Present: RRR, S1, S2. Absent: murmur - Routine Abdominal Exam Present: soft, normoactive bowel sounds. Absent: tenderness, distended - Routine Extremities Exam Present: pulses intact. Absent: cyanosis, clubbing, edema - Routine Skin Exam Present: intact - Routine Neurological Exam Present: alert, oriented X3 - Urinary Catheter Management Straight Cath placed during this visit: yes, but has since been removed by the nurse Reason for continuing: Not indwelling catheter Insertion date: 01/31/18 Insertion time: 14:30 Removal date: 01/30/18 Removal time: 10:55 Indwelling Urethral Catheter Cath placed during this visit: yes, but has since been removed by the nurse Reason for continuing: Decision to DC catheter Insertion date: 01/28/18 Removal date: 01/29/18 Removal time: 18:15 Female External Cath placed during this visit: no Results - Labs CBC & Chem 7: 02/12/18 04:05 02/12/18 04:05 Labs: Laboratory Results - last 24 hr 02/12/18 02/12/18 04:05 04:05 WBC 23.4 H RBC 3.74 L Hgb 11.6 Hct 34.0 L MCV 90.8 MCH 31.1 MCHC 34.3 RDW 15.1 Plt Count 368 MPV 8.8 Neut % (Auto) 96.2 H Lymph % (Auto) 1.8 L [place] % (Auto) 1.8 Eos % (Auto) 0.0 Baso % (Auto) 0.2 Neut # (Auto) 22.5 H Lymph # (Auto) 0.4 L [place] # (Auto) 0.4 Eos # (Auto) 0.0 Baso # (Auto) 0.0 WBC Differential . Differential Comment Auto diff final Sodium 139 Potassium 4.0 Chloride 100 Carbon Dioxide 30.6 Anion Gap 8 BUN 55 H Creatinine 0.98 Estimated GFR 58 L Random Glucose 205 H Calcium 8.1 L Total Bilirubin 0.4 AST 18 ALT 42 Alkaline Phosphatase 102 Total Protein 6.0 L Albumin 2.9 L - Imaging Chest CTA 01/25/18 20:50 CONCLUSION: 1. Bilateral alveolar opacities right greater than left. The differential diagnosis includes pulmonary edema and community-acquired pneumonia. There is no focal consolidation or mass. 2. Coronary artery calcifications. 3. No evidence of pulmonary embolism. Chest X-Ray 02/06/18 00:00 CONCLUSION: Hypoaerated lungs with diffuse interstitial vascular prominence characteristic of mild congestion. Chest CT 02/10/18 00:00 CONCLUSION: Worsening diffuse interstitial disease of both lungs. The features are nonspecific. Acute interstitial pneumonia is in the differential. Assessment and Plan - Assessment (1) Interstitial lung disease Code(s): J84.9 - Interstitial pulmonary disease, unspecified Status: Acute (2) Immunocompromised Code(s): D84.9 - Immunodeficiency, unspecified Status: Acute (3) Hypoxia Code(s): R09.02 - Hypoxemia Status: Acute - Plan 62y/o female presents with cough, dyspnea, and hypoxia whcih has not responded to treatment. She has no evidence of an infectious etiology at this time. Dr. Uribe recommends a lung biopsy which is a reasonable next step. I discussed this with her and informed her that this procedure would be high-risk based on her pulmonary status. I suspect she will require mechanical ventilation for an indefinite period postoperatively. She understands this issue and will discuss with her sister. I can schedule this procedure this week if she decides to proceed.
--- NOTE | 2018-02-12 11:41 | P.PNIM ---
Subjective Interval history: Steroids initiated yesterday. No perceivable changes in respiratory status as of today. Lung biopsy is being considered by cardiothoracic team. Physical Exam Vital signs: Vital Signs 02/11/18 12:00 02/11/18 13:00 02/11/18 14:00 Temperature 96.8 F L Pulse Rate 84 89 89 Respiratory Rate 27 H 28 H Blood Pressure 121/64 119/61 130/61 Pulse Oximetry 88 L 87 L 02/11/18 15:00 02/11/18 16:00 02/11/18 17:00 Temperature 97 F L Pulse Rate 92 H 92 H 95 H Respiratory Rate 29 H 33 H 34 H Blood Pressure 125/67 122/60 128/68 Pulse Oximetry 88 L 82 L 90 L 02/11/18 18:00 02/11/18 18:33 02/11/18 19:00 Temperature Pulse Rate 98 H 91 H 91 H Respiratory Rate 37 H 17 30 H Blood Pressure 130/84 126/70 126/70 Pulse Oximetry 90 L 92 L 97 02/11/18 20:00 02/11/18 20:38 02/11/18 20:44 Temperature 97.6 F Pulse Rate 91 H 90 Respiratory Rate 30 H 24 Blood Pressure 131/60 Pulse Oximetry 95 94 L 02/11/18 21:00 02/11/18 22:00 02/11/18 23:00 Temperature Pulse Rate 98 H 95 H 93 H Respiratory Rate 40 H 39 H 36 H Blood Pressure 133/62 117/64 128/68 Pulse Oximetry 95 94 L 93 L 02/11/18 23:57 02/11/18 23:59 02/12/18 00:00 Temperature 98 F Pulse Rate 97 H 99 H Respiratory Rate 23 33 H Blood Pressure 132/72 Pulse Oximetry 92 L 92 L 02/12/18 01:00 02/12/18 02:00 02/12/18 03:00 Temperature Pulse Rate 96 H 97 H 87 Respiratory Rate 31 H 15 14 Blood Pressure 128/71 135/65 119/60 Pulse Oximetry 87 L 92 L 92 L 02/12/18 03:19 02/12/18 04:00 02/12/18 05:00 Temperature 98.1 F Pulse Rate 103 H 91 H 93 H Respiratory Rate 21 16 20 Blood Pressure 133/62 128/69 Pulse Oximetry 93 L 92 L 02/12/18 06:00 02/12/18 07:00 02/12/18 07:46 Temperature Pulse Rate 86 86 Respiratory Rate 14 18 Blood Pressure 122/66 126/67 Pulse Oximetry 92 L 93 L 93 L 02/12/18 07:47 02/12/18 07:52 02/12/18 08:00 Temperature 97.4 F L Pulse Rate 95 H 88 Respiratory Rate 19 20 Blood Pressure 132/69 Pulse Oximetry 92 L 02/12/18 09:54 02/12/18 10:00 02/12/18 10:48 Temperature Pulse Rate 99 H Respiratory Rate 20 Blood Pressure Pulse Oximetry 89 L Intake & Output 02/11/18 02/12/18 02/12/18 18:59 06:59 18:59 Intake Total 750 / 750 120 / 120 Output Total 900 / 900 Balance -150 / -150 120 / 120 Weight 84.8 kg Intake: Oral 750 / 750 120 / 120 Output: Urine Amount (Catheter) 900 / 900 Female External 0 / 0 Straight 900 / 900 Other: Date of Last Bowel Movement 02/05/18 Narrative: GENERAL: NAD, A&Ox3 HEAD: Normocephalic. NECK: Supple, trachea midline. No lymphadenopathy. EYES: No scleral icterus. No injection or drainage. CARDIOVASCULAR: Regular rate and rhythm without murmurs, gallops, or rubs. RESPIRATORY: Breath sounds equal bilaterally. No accessory muscle use. High flow oxygen present in order to maintain oxygen saturations. GASTROINTESTINAL: Abdomen soft, non-tender, nondistended. MUSCULOSKELETAL: No cyanosis, or edema. SKIN: Warm and dry. NEURO: No focal neurological deficits. - Urinary Catheter Management Straight Cath placed during this visit: yes, but has since been removed by the nurse Reason for continuing: Not indwelling catheter Insertion date: 01/31/18 Insertion time: 14:30 Removal date: 01/30/18 Removal time: 10:55 Indwelling Urethral Catheter Cath placed during this visit: yes, but has since been removed by the nurse Reason for continuing: Decision to DC catheter Insertion date: 01/28/18 Removal date: 01/29/18 Removal time: 18:15 Female External Cath placed during this visit: no Results - Labs CBC & Chem 7: 02/12/18 04:05 02/12/18 04:05 Laboratory Results - last 24 hr 02/12/18 02/12/18 04:05 04:05 WBC 23.4 H RBC 3.74 L Hgb 11.6 Hct 34.0 L MCV 90.8 MCH 31.1 MCHC 34.3 RDW 15.1 Plt Count 368 MPV 8.8 Neut % (Auto) 96.2 H Lymph % (Auto) 1.8 L Jones % (Auto) 1.8 Eos % (Auto) 0.0 Baso % (Auto) 0.2 Neut # (Auto) 22.5 H Lymph # (Auto) 0.4 L Jones # (Auto) 0.4 Eos # (Auto) 0.0 Baso # (Auto) 0.0 WBC Differential . Differential Comment Auto diff final Sodium 139 Potassium 4.0 Chloride 100 Carbon Dioxide 30.6 Anion Gap 8 BUN 55 H Creatinine 0.98 Estimated GFR 58 L Random Glucose 205 H Calcium 8.1 L Total Bilirubin 0.4 AST 18 ALT 42 Alkaline Phosphatase 102 Total Protein 6.0 L Albumin 2.9 L Assessment and Plan - Assessment (1) HCAP (healthcare-associated pneumonia) Code(s): J18.9 - Pneumonia, unspecified organism Status: Acute - Plan 62-year-old female admitted secondary to healthcare associated pneumonia with respiratory failure. Higher risk given immunocompromise state from rheumatoid arthritis treatment. Continue steroids. No significant change in 24 hours. Interstitial lung disease present, possible arts, consideration for lung biopsy present. Healthcare associated pneumonia Leukocytosis Persistent hypoxia Acute respiratory failure Possible ARDS (Possible acute interstitial pneumonitis) Worsening on CT image, of interstitial lung disease, unlikely new infection given coverage Continue steroids Continue cefepime, vancomycin, Levaquin Probiotics High flow oxygen or BiPAP as needed Wean respiratory support as tolerated (unable to wean thus far) Continue monitoring in ICU Continue oxygen supplementation Follow CBC Continue duo nebs Continue Symbicort Continue Solu-Medrol Pulmonology following Cardiothoracic surgeons following Possible lung biopsy pending Rheumatoid arthritis Methotrexate on hold Hypertension Continue baseline treatment cont Norvasc, atenolol, Dyazide Follow blood pressures Adjust treatments as needed Chronic lower back pain Right Posterior Middle Back Pain Caution with narcotics and presence of lethargy No surgical interventions at this point Continue PT PRN Baclofen Gabapentin MARCELA Follow renal function Avoid nephrotoxins Hypokalemia Monitor potassium and replace as needed DVT prophylaxis Lovenox Discharge Planning Return to SNF, to [facility] when improved/stabilized Continue monitor ICU until oxygen is able to be weaned down
[2018-02-12] MEDS: Insulin NovoLOG Aspart Correctional Sugar Inj SQ SCH ×3 (13:05→21:32)
[2018-02-12] MEDS: Enoxaparin Inj 40 MG/0.4 ML Syringe SQ SCH (13:05)
--- NOTE | 2018-02-12 16:15 | P.PN ---
Subjective Interval history: alert high flow o2 nad c/o back pain Physical Exam Vital signs: Vital Signs 02/11/18 17:00 02/11/18 18:00 02/11/18 18:33 Temperature Pulse Rate 95 H 98 H 91 H Respiratory Rate 34 H 37 H 17 Blood Pressure 128/68 130/84 126/70 Pulse Oximetry 90 L 90 L 92 L 02/11/18 19:00 02/11/18 20:00 02/11/18 20:38 Temperature 97.6 F Pulse Rate 91 H 91 H 90 Respiratory Rate 30 H 30 H 24 Blood Pressure 126/70 131/60 Pulse Oximetry 97 95 02/11/18 20:44 02/11/18 21:00 02/11/18 22:00 Temperature Pulse Rate 98 H 95 H Respiratory Rate 40 H 39 H Blood Pressure 133/62 117/64 Pulse Oximetry 94 L 95 94 L 02/11/18 23:00 02/11/18 23:57 02/11/18 23:59 Temperature Pulse Rate 93 H 97 H Respiratory Rate 36 H 23 Blood Pressure 128/68 Pulse Oximetry 93 L 92 L 02/12/18 00:00 02/12/18 01:00 02/12/18 02:00 Temperature 98 F Pulse Rate 99 H 96 H 97 H Respiratory Rate 33 H 31 H 15 Blood Pressure 132/72 128/71 135/65 Pulse Oximetry 92 L 87 L 92 L 02/12/18 03:00 02/12/18 03:19 02/12/18 04:00 Temperature 98.1 F Pulse Rate 87 103 H 91 H Respiratory Rate 14 21 16 Blood Pressure 119/60 133/62 Pulse Oximetry 92 L 93 L 02/12/18 05:00 02/12/18 06:00 02/12/18 07:00 Temperature Pulse Rate 93 H 86 86 Respiratory Rate 20 14 18 Blood Pressure 128/69 122/66 126/67 Pulse Oximetry 92 L 92 L 93 L 02/12/18 07:46 02/12/18 07:47 02/12/18 07:52 Temperature Pulse Rate 95 H Respiratory Rate 19 Blood Pressure Pulse Oximetry 93 L 02/12/18 08:00 02/12/18 09:00 02/12/18 09:54 Temperature 97.4 F L Pulse Rate 88 86 Respiratory Rate 20 27 H Blood Pressure 132/69 133/69 Pulse Oximetry 92 L 91 L 89 L 02/12/18 10:00 02/12/18 10:48 02/12/18 11:00 Temperature Pulse Rate 99 H 99 H Respiratory Rate 31 H 20 44 H Blood Pressure 137/74 126/72 Pulse Oximetry 93 L 88 L 02/12/18 12:00 02/12/18 13:00 02/12/18 14:00 Temperature 96.6 F L Pulse Rate 91 H 91 H 87 Respiratory Rate 33 H 33 H 28 H Blood Pressure 116/63 122/67 126/64 Pulse Oximetry 83 L 89 L 87 L 02/12/18 15:00 02/12/18 16:00 Temperature 97 F L Pulse Rate 94 H 96 H Respiratory Rate 29 H 40 H Blood Pressure 127/72 129/70 Pulse Oximetry 92 L 90 L Intake & Output 02/11/18 02/12/18 02/12/18 18:59 06:59 18:59 Intake Total 750 / 750 120 / 120 Output Total 900 / 900 Balance -150 / -150 120 / 120 Weight 84.8 kg Intake: Oral 750 / 750 120 / 120 Output: Urine Amount (Catheter) 900 / 900 Female External 0 / 0 Straight 900 / 900 Other: Date of Last Bowel Movement 02/05/18 Narrative: GENERAL: NAD, A&Ox3 HEAD: Normocephalic. NECK: Supple, trachea midline. No lymphadenopathy. EYES: No scleral icterus. No injection or drainage. CARDIOVASCULAR: Regular rate and rhythm without murmurs, gallops, or rubs. RESPIRATORY: Breath sounds equal bilaterally. No accessory muscle use. High flow oxygen present in order to maintain oxygen saturations. GASTROINTESTINAL: Abdomen soft, non-tender, nondistended. MUSCULOSKELETAL: No cyanosis, or edema. SKIN: Warm and dry. NEURO: No focal neurological deficits. - Urinary Catheter Management Straight Cath placed during this visit: yes, but has since been removed by the nurse Reason for continuing: Not indwelling catheter Insertion date: 01/31/18 Insertion time: 14:30 Removal date: 01/30/18 Removal time: 10:55 Indwelling Urethral Catheter Cath placed during this visit: yes, but has since been removed by the nurse Reason for continuing: Decision to DC catheter Insertion date: 01/28/18 Removal date: 01/29/18 Removal time: 18:15 Female External Cath placed during this visit: no Results - Labs CBC & Chem 7: 02/12/18 04:05 02/12/18 04:05 Laboratory Results - last 24 hr 02/12/18 02/12/18 02/12/18 04:05 04:05 12:56 WBC 23.4 H RBC 3.74 L Hgb 11.6 Hct 34.0 L MCV 90.8 MCH 31.1 MCHC 34.3 RDW 15.1 Plt Count 368 MPV 8.8 Neut % (Auto) 96.2 H Lymph % (Auto) 1.8 L [place] % (Auto) 1.8 Eos % (Auto) 0.0 Baso % (Auto) 0.2 Neut # (Auto) 22.5 H Lymph # (Auto) 0.4 L [place] # (Auto) 0.4 Eos # (Auto) 0.0 Baso # (Auto) 0.0 WBC Differential . Differential Comment Auto diff final Sodium 139 Potassium 4.0 Chloride 100 Carbon Dioxide 30.6 Anion Gap 8 BUN 55 H Creatinine 0.98 Estimated GFR 58 L POC Glucose 222 H Random Glucose 205 H Calcium 8.1 L Total Bilirubin 0.4 AST 18 ALT 42 Alkaline Phosphatase 102 Total Protein 6.0 L Albumin 2.9 L Assessment and Plan - Plan RESPIRATORY FAILURE STILL NEEDS HIGH FIO2 atypical pna, due to RA, MTX OTHER ? JORDANA PLAN O2 NEEDED BRONCHODILATOR THERAPY BIPAP INCREASE ACTIVITY THORACIC SURGERY CONSULT FOR VATS BX ID CONSULT
--- NOTE | 2018-02-12 17:03 | P.PNID ---
Subjective Remarks: Patient remains on high flow oxygen. Desaturates easily. No sputum production. Occasional cough. Denies chest pain. Afebrile. 62-year-old white female with a history of rheumatoid arthritis and osteoarthritis. The patient presented to the emergency department with shortness of breath on 01/25/2018. She had been at the rehab facility. The patient states that she went to see her route relief driver and she was given an injection of methotrexate. She states prior to that, she was being given methotrexate daily at the rehab facility. She states that she usually takes methotrexate once a week. She reports that she then started getting short of breath and presented to the emergency department for evaluation. The patient has been afebrile since admission. Her white blood cell count was normal on admission. She has been treated with rounds of antibiotics including Levaquin, cefepime and aztreonam. Past Medical History: PAST MEDICAL HISTORY: Hyperlipidemia, hypertension, osteoarthritis, rheumatoid arthritis, gastroesophageal reflux disease, degenerative disk disease of the cervical spine, history of sinus surgery, history of back surgery. Allergies/Adverse Reactions: Allergies azithromycin Allergy (Severe, Verified 01/25/18 19:06) HIVES, N AND V citric acid Allergy (Severe, Verified 01/25/18 19:06) hives erythromycin base Allergy (Severe, Verified 01/25/18 19:06) ALL MYCINS lovastatin Allergy (Severe, Verified 01/25/18 19:06) hives "ALL STATINS" ALLERGY niacin Allergy (Severe, Verified 01/25/18 19:06) hives oxybutynin Allergy (Severe, Verified 01/25/18 19:06) hives rosuvastatin Allergy (Severe, Verified 01/25/18 19:06) Hives cholestyramine Adverse Reaction (Severe, Verified 01/25/18 19:06) vomits Objective Vital Signs 02/11/18 18:00 02/11/18 18:33 02/11/18 19:00 Temperature Pulse Rate 98 H 91 H 91 H Respiratory Rate 37 H 17 30 H Blood Pressure 130/84 126/70 126/70 Pulse Oximetry 90 L 92 L 97 02/11/18 20:00 02/11/18 20:38 02/11/18 20:44 Temperature 97.6 F Pulse Rate 91 H 90 Respiratory Rate 30 H 24 Blood Pressure 131/60 Pulse Oximetry 95 94 L 02/11/18 21:00 02/11/18 22:00 02/11/18 23:00 Temperature Pulse Rate 98 H 95 H 93 H Respiratory Rate 40 H 39 H 36 H Blood Pressure 133/62 117/64 128/68 Pulse Oximetry 95 94 L 93 L 02/11/18 23:57 02/11/18 23:59 02/12/18 00:00 Temperature 98 F Pulse Rate 97 H 99 H Respiratory Rate 23 33 H Blood Pressure 132/72 Pulse Oximetry 92 L 92 L 02/12/18 01:00 02/12/18 02:00 02/12/18 03:00 Temperature Pulse Rate 96 H 97 H 87 Respiratory Rate 31 H 15 14 Blood Pressure 128/71 135/65 119/60 Pulse Oximetry 87 L 92 L 92 L 02/12/18 03:19 02/12/18 04:00 02/12/18 05:00 Temperature 98.1 F Pulse Rate 103 H 91 H 93 H Respiratory Rate 21 16 20 Blood Pressure 133/62 128/69 Pulse Oximetry 93 L 92 L 02/12/18 06:00 02/12/18 07:00 02/12/18 07:46 Temperature Pulse Rate 86 86 Respiratory Rate 14 18 Blood Pressure 122/66 126/67 Pulse Oximetry 92 L 93 L 93 L 02/12/18 07:47 02/12/18 07:52 02/12/18 08:00 Temperature 97.4 F L Pulse Rate 95 H 88 Respiratory Rate 19 20 Blood Pressure 132/69 Pulse Oximetry 92 L 02/12/18 09:00 02/12/18 09:54 02/12/18 10:00 Temperature Pulse Rate 86 99 H Respiratory Rate 27 H 31 H Blood Pressure 133/69 137/74 Pulse Oximetry 91 L 89 L 93 L 02/12/18 10:48 02/12/18 11:00 02/12/18 12:00 Temperature 96.6 F L Pulse Rate 99 H 91 H Respiratory Rate 20 44 H 33 H Blood Pressure 126/72 116/63 Pulse Oximetry 88 L 83 L 02/12/18 13:00 02/12/18 14:00 02/12/18 15:00 Temperature Pulse Rate 91 H 87 94 H Respiratory Rate 33 H 28 H 29 H Blood Pressure 122/67 126/64 127/72 Pulse Oximetry 89 L 87 L 92 L 02/12/18 16:00 Temperature 97 F L Pulse Rate 96 H Respiratory Rate 40 H Blood Pressure 129/70 Pulse Oximetry 90 L Intake & Output 02/11/18 02/12/18 02/12/18 18:59 06:59 18:59 Intake Total 750 / 750 120 / 120 Output Total 900 / 900 Balance -150 / -150 120 / 120 Weight 84.8 kg Intake: Oral 750 / 750 120 / 120 Output: Urine Amount (Catheter) 900 / 900 Female External 0 / 0 Straight 900 / 900 Other: Date of Last Bowel Movement 02/05/18 Lab - Hematology Results 02/12/18 04:05 WBC 23.4 H RBC 3.74 L Hgb 11.6 Hct 34.0 L MCV 90.8 MCH 31.1 MCHC 34.3 RDW 15.1 Plt Count 368 MPV 8.8 Neut % (Auto) 96.2 H Lymph % (Auto) 1.8 L [place] % (Auto) 1.8 Eos % (Auto) 0.0 Baso % (Auto) 0.2 Neut # (Auto) 22.5 H Lymph # (Auto) 0.4 L [place] # (Auto) 0.4 Eos # (Auto) 0.0 Baso # (Auto) 0.0 WBC Differential . Differential Comment Auto diff final Lab - Chemistry Results 02/11/18 02/12/18 02/12/18 04:32 04:05 12:56 Sodium 139 139 Potassium 4.1 4.0 Chloride 101 100 Carbon Dioxide 30.0 30.6 Anion Gap 8 8 BUN 52 H 55 H Creatinine 1.05 H 0.98 Estimated GFR 53 L 58 L POC Glucose 222 H Random Glucose 199 H 205 H Calcium 8.3 L 8.1 L Total Bilirubin 0.4 AST 18 ALT 42 Alkaline Phosphatase 102 Total Protein 6.0 L Albumin 2.9 L Imaging: ITS Impressions Chest CTA 01/25/18 20:50 CONCLUSION: 1. Bilateral alveolar opacities right greater than left. The differential diagnosis includes pulmonary edema and community-acquired pneumonia. There is no focal consolidation or mass. 2. Coronary artery calcifications. 3. No evidence of pulmonary embolism. Chest X-Ray 02/06/18 00:00 CONCLUSION: Hypoaerated lungs with diffuse interstitial vascular prominence characteristic of mild congestion. Chest CT 02/10/18 00:00 CONCLUSION: Worsening diffuse interstitial disease of both lungs. The features are nonspecific. Acute interstitial pneumonia is in the differential. Physical Exam: GENERAL: Alert and oriented, no acute distress. Becomes dyspneic with activity. HEENT: Pupils reactive to light. Extraocular movements intact. No icterus. No conjunctival edema. Oropharyngeal mucosa moist. NECK: Supple without adenopathy. No swelling. LUNGS: Scattered rales and rhonchi. HEART: S2. No audible murmur or rubs or gallops. ABDOMEN: Bowel sounds present, soft, nontender. EXTREMITIES: No clubbing or cyanosis or edema. SKIN: No rash. NEUROLOGIC: No gross focal finding. PSYCH: Calm and cooperative. LINES: No evidence of infection Assessment and Plan - Plan IMPRESSION: 1. Pneumonitis in a patient with rheumatoid arthritis and abnormal CT scan which shows worsening diffuse interstitial disease of both lungs. Possible methotrexate lung disease versus inflammatory lung disease. The patient has not responded to prior antibiotics and is not coughing up sputum and therefore, very unlikely to have bacterial pneumonia. It is possible she could have a viral pneumonia process as well. I suspect she does have interstitial disease of a noninfectious etiology. 2. Hypoxemia. 3. Leukocytosis secondary to steroids. RECOMMENDATIONS: 1. Monitor mycoplasma and Legionella tests. 2. Follow with steroids. 3. Obtain sputum culture if she begins to cough up sputum. 4. Give a trial of doxycycline IV for atypical bacterial coverage. 5. Monitor clinical response and monitor the temperature. 6. Lung biopsy when feasible. Please note that patient was seen on 02/14/2018 and this note was written on . Doxycycline was also ordered at the time this note was written.
--- NOTE | 2018-02-12 19:42 | MB ---
cc: Adilson Steinberg MD,Rony Mora MD DATE: 02/12/2018 REQUESTING PHYSICIAN: Rony Uribe MD REASON FOR CONSULTATION: Atypical pneumonia. History of RA. Methotrexate therapy. HISTORY OF PRESENT ILLNESS: This is a 62-year-old white female with a history of rheumatoid arthritis and osteoarthritis. The patient presented to the emergency department with shortness of breath on 01/25/2018. She had been at the rehab facility. The patient states that she went to see her auto inspection specialist and she was given an injection of methotrexate. She states prior to that, she was being given methotrexate daily at the rehab facility. She states that she usually takes methotrexate once a week. She reports that she then started getting short of breath and presented to the emergency department for evaluation. The patient has been afebrile since admission. Her white blood cell count was normal on admission. She has been treated with rounds of antibiotics including Levaquin, cefepime and aztreonam. She has also been given Solu-Medrol. Her white blood cell count was normal on admission. Her white blood cell count increased to 18.8 on 02/02/2018 and it has remained elevated since. She denies chills, nausea, vomiting, headache, chest pain, abdominal pain or dysuria. She states that she gets pain across the back. She has had back surgery in the past with rods. She is currently on oxygen and has to pause occasionally and catch her breath during my interview with her. She has an occasional cough and no sputum production. A sputum sample was obtained on 02/05/2018, but she states that she was not bringing up much sputum then and the culture had rare growth of normal respiratory odette. Imaging studies have been performed and a CT scan of the chest on 02/10/2018 showed worsening diffuse interstitial disease of both lungs. The features are nonspecific. Acute interstitial pneumonia is noted to be in the differential per radiology report. A CT of the chest was performed on 01/25/2018 and showed bilateral alveolar opacities, right greater than left, without focal consolidation or mass. The patient denies a prior history of pneumonia. She denies exposure to persons who have been sick. No history of tuberculosis. PAST MEDICAL HISTORY: Hyperlipidemia, hypertension, osteoarthritis, rheumatoid arthritis, gastroesophageal reflux disease, degenerative disk disease of the cervical spine, history of sinus surgery, history of back surgery. ALLERGIES: AZITHROMYCIN, CHOLESTYRAMINE, ROSUVASTATIN, OXYBUTYNIN, NIACIN, LOVASTATIN, CITRIC ACID. MEDICATIONS: 1. Albuterol. 2. [place] 5. 3. Norvasc. 4. Vitamin C. 5. Tenormin. 6. Lipitor. 7. Baclofen. 8. Symbicort. 9. Wellbutrin. 10. Zyrtec. 11. Cymbalta. 12. Lovenox. 13. Estrace. 14. Tricor. 15. Flonase nasal spray. 16. Folic acid. 17. Lasix. 18. Lactulose. 19. Lactinex. 20. Provera. 21. Solu-Medrol 22. Protonix. 23. [place] nasal spray. 24. Desyrel. 25. Dyazide. SOCIAL HISTORY: The patient is a former smoker. No alcohol or illicit drugs. FAMILY HISTORY: Noncontributory. REVIEW OF SYSTEMS: All systems have been reviewed and are negative, except for history mentioned in history of present illness. PHYSICAL EXAMINATION: GENERAL: This is a moderately obese female who is in bed and is in no acute distress. She is on oxygen by nasal cannula and looks chronically ill. VITAL SIGNS: Include temperature 97 degrees, BP 138/74, heart rate 93, respirations per ventilator. HEENT: Her head is atraumatic. Extraocular movements grossly intact. Pupils reactive to light. No icterus. Oropharynx moist mucosa without lesions. No thrush. NECK: Supple without adenopathy. LUNGS: Decreased breath sounds bilaterally. HEART: Regular S1, S2. No audible murmurs, rubs or gallops. ABDOMEN: Bowel sounds present. Obese, soft. No tenderness appreciated. RECTAL: Not performed. EXTREMITIES: No clubbing, cyanosis or edema. SKIN: No rash. NEUROLOGIC: No gross focal findings. PSYCHIATRIC: The patient is calm and cooperative. LABORATORY DATA: WBC 23.4, neutrophils 96%, platelet count 368, hemoglobin 11.6. Creatinine 0.98, BUN 55, sodium 139. Liver function tests normal. IMPRESSION: 1. Pneumonitis in a patient with rheumatoid arthritis and abnormal CT scan which shows worsening diffuse interstitial disease of both lungs. Possible methotrexate lung disease versus inflammatory lung disease. The patient has not responded to prior antibiotics and is not coughing up sputum and therefore, very unlikely to have bacterial pneumonia. It is possible she could have a viral pneumonia process as well. I suspect she does have interstitial disease of a noninfectious etiology. 2. Leukocytosis secondary to steroids. RECOMMENDATIONS: 1. I agree with doing a lung biopsy to further determine the cause of the patient's lung disease since that will impact upon the course of treatment. She has received courses of IV antibiotic treatment without effect. She is not producing any sputum to be able to do sputum sampling. 2. Obtain serology for mycoplasma and obtain urine Legionella antigen test. 3. Monitor clinical response and monitor the temperature. I have explained to the patient's sister my impression and the patient acknowledges the likelihood of her condition not being due to infection as well. Thank you for this consultation. I will monitor the patient's progress along with you and make further recommendations upon followup if necessary. MD EMMA Lozoya/brian , 05:19 PM , 05:39 PM [facility]
[2018-02-12] MEDS: Lidocaine 5% Patch T-DERMAL SCH (20:12)
[2018-02-12] MEDS: Gabapentin 300 MG Capsule PO SCH (20:14)
[2018-02-12] MEDS: traZODone 50 MG Tablet PO SCH (20:14)
[2018-02-13] MEDS: Lactobacillus Acidophilus/L. Spores Tablet PO SCH ×3 (08:14→17:32)
[2018-02-13] MEDS: Ascorbic Acid 500 MG Tablet PO SCH (08:15)
[2018-02-13] MEDS: Folic Acid 1 MG Tablet PO SCH (08:15)
[2018-02-13] MEDS: buPROPion 150 MG 12 HR Tablet PO SCH (08:15)
[2018-02-13] MEDS: Fenofibrate 48 MG Tablet PO SCH (08:15)
[2018-02-13] MEDS: Atenolol 25 MG Tablet PO SCH (08:15)
[2018-02-13] MEDS: amLODIPine 10 MG Tablet PO SCH (08:15)
[2018-02-13] MEDS: Estradiol 1 MG Tablet PO SCH (08:15)
[2018-02-13] MEDS: Insulin NovoLOG Aspart Correctional Sugar Inj SQ SCH ×4 (08:16→20:57)
[2018-02-13] MEDS: Budesonide-Formoterol 160/4.5 MCG 6 GM Inhaler INH SCH ×2 (08:16→20:49)
[2018-02-13] MEDS: Sodium Chloride 0.65% Nasal Spray 45 ML Bottle EACH NARE SCH ×2 (08:16→20:49)
[2018-02-13] MEDS: MethylPREDNISolone Sod Succinate Inj 40 MG/ML Vial IV.PUSH SCH ×2 (09:40→21:01)
--- NOTE | 2018-02-13 12:12 | P.PNCV ---
- Note Subjective/Hospital Course: Atypical pneumonia. History of RA. Methotrexate therapy. 62-year-old white female with a history of rheumatoid arthritis and osteoarthritis. The patient presented to the emergency department with shortness of breath on 01/25/2018. She had been at the rehab facility. The patient states that she went to see her web press operator and she was given an injection of methotrexate. She states prior to that, she was being given methotrexate daily at the rehab facility. She states that she usually takes methotrexate once a week. She reports that she then started getting short of breath and presented to the emergency department for evaluation. She has been treated with rounds of antibiotics including Levaquin, cefepime and aztreonam. She has also been given Solu-Medrol. Her white blood cell count was normal on admission. Her white blood cell count increased to 18.8 on 02/02/2018 and it has remained elevated since. She denies chills, nausea, vomiting, headache, chest pain, abdominal pain or dysuria. She states that she gets pain across the back. She has had back surgery in the past with rods. CT scan of the chest on 02/10/2018 showed worsening diffuse interstitial disease of both lungs, Acute interstitial pneumonia is noted to be in the differential. We were consulted for open lung BX in assisting with her diagnosis. PAST MEDICAL HISTORY: Hyperlipidemia, hypertension, osteoarthritis, rheumatoid arthritis, gastroesophageal reflux disease, degenerative disk disease of the cervical spine , history of sinus surgery, history of back surgery. 02/13 Dr Sawyer spoke with pt over the weekend and informed her that this procedure would be high-risk based on her pulmonary status. I suspect she will require mechanical ventilation for an indefinite period postoperatively. She understands this issue and will discuss with her sister. She remains on high flow 02 at 100% flow rate 30. She desats easily when taking into the 80's . She does recover when resting . Objective: Vital Signs - 24 hr 02/12/18 13:00 02/12/18 14:00 02/12/18 15:00 Temperature Pulse Rate 91 H 87 94 H Respiratory Rate 33 H 28 H 29 H Blood Pressure 122/67 126/64 127/72 Pulse Oximetry 89 L 87 L 92 L 02/12/18 16:00 02/12/18 17:00 02/12/18 17:16 Temperature 97 F L Pulse Rate 96 H 100 H Respiratory Rate 40 H 27 H 20 Blood Pressure 129/70 138/74 Pulse Oximetry 90 L 82 L 02/12/18 18:00 02/12/18 19:00 02/12/18 20:00 Temperature 97.2 F L Pulse Rate 94 H 86 93 H Respiratory Rate 33 H 30 H 33 H Blood Pressure 120/70 132/82 Pulse Oximetry 83 L 91 L 88 L 02/12/18 20:01 02/12/18 21:00 02/12/18 21:15 Temperature Pulse Rate 94 H 86 Respiratory Rate 28 H 25 H Blood Pressure 111/89 146/78 H Pulse Oximetry 87 L 93 L 94 L 02/12/18 21:35 02/12/18 21:40 02/12/18 22:00 Temperature Pulse Rate 109 H 90 Respiratory Rate 29 H 17 Blood Pressure 134/74 Pulse Oximetry 93 L 96 02/12/18 22:18 02/12/18 23:00 02/13/18 00:00 Temperature 97.4 F L Pulse Rate 80 75 Respiratory Rate 14 15 Blood Pressure 143/77 H 144/72 H Pulse Oximetry 96 92 L 93 L 02/13/18 00:27 02/13/18 00:29 02/13/18 01:00 Temperature Pulse Rate 78 82 Respiratory Rate 13 14 Blood Pressure 136/74 Pulse Oximetry 93 L 93 L 02/13/18 02:00 02/13/18 03:00 02/13/18 03:14 Temperature Pulse Rate 84 79 86 Respiratory Rate 27 H 14 13 Blood Pressure 150/79 H 129/75 Pulse Oximetry 92 L 93 L 02/13/18 04:00 02/13/18 04:44 02/13/18 05:00 Temperature 97.2 F L Pulse Rate 80 83 Respiratory Rate 31 H 29 H Blood Pressure 133/79 135/77 Pulse Oximetry 94 L 95 94 L 02/13/18 06:00 02/13/18 07:00 02/13/18 08:00 Temperature 97.9 F Pulse Rate 79 86 86 Respiratory Rate 28 H 23 26 H Blood Pressure 138/76 156/79 H 133/74 Pulse Oximetry 95 96 84 L 02/13/18 08:52 02/13/18 09:39 02/13/18 10:00 Temperature Pulse Rate 91 H Respiratory Rate 24 Blood Pressure Pulse Oximetry 95 GENERAL: A&O x 3 , no reserve / desats easily even when talking SKIN: Warm and dry. HEAD: Normocephalic. EYES: No scleral icterus. No injection or drainage. NECK: Supple, trachea midline. No JVD or lymphadenopathy. CARDIOVASCULAR: Regular rate and rhythm without murmurs, gallops, or rubs. RESPIRATORY: coarse bilateral breaths sounds insp and exp wheezing Breath sounds equal bilaterally. on high flow 02 GASTROINTESTINAL: Abdomen soft, non-tender, nondistended. MUSCULOSKELETAL: No cyanosis, or edema. BACK: Nontender without obvious deformity. No CVA tenderness. Labs: Laboratory Results - last 12 hr 02/13/18 08:13 POC Glucose 139 H Result Diagrams: 02/12/18 04:05 02/12/18 04:05 - Plan (3) Hypoxia Plan: Dr Sawyer to speak again with pt regarding surgery High risk for prolonged intubation / post
[2018-02-13] MEDS: Enoxaparin Inj 40 MG/0.4 ML Syringe SQ SCH (12:52)
--- NOTE | 2018-02-13 16:14 | P.PN ---
Subjective Interval history: The patient is in the chair. She is still short of breath and says there is no improvement in her respiratory status. She is not coughing. No fever or chills. No nausea vomiting no diarrhea constipation. Did not decide yet with cardiothoracic surgeon if she wants to proceed for biopsy. Physical Exam Vital signs: Vital Signs 02/12/18 17:00 02/12/18 17:16 02/12/18 18:00 Temperature Pulse Rate 100 H 94 H Respiratory Rate 27 H 20 33 H Blood Pressure 138/74 120/70 Pulse Oximetry 82 L 83 L 02/12/18 19:00 02/12/18 20:00 02/12/18 20:01 Temperature 97.2 F L Pulse Rate 86 93 H 94 H Respiratory Rate 30 H 33 H 28 H Blood Pressure 132/82 111/89 Pulse Oximetry 91 L 88 L 87 L 02/12/18 21:00 02/12/18 21:15 02/12/18 21:35 Temperature Pulse Rate 86 Respiratory Rate 25 H Blood Pressure 146/78 H Pulse Oximetry 93 L 94 L 93 L 02/12/18 21:40 02/12/18 22:00 02/12/18 22:18 Temperature Pulse Rate 109 H 90 Respiratory Rate 29 H 17 Blood Pressure 134/74 Pulse Oximetry 96 96 02/12/18 23:00 02/13/18 00:00 02/13/18 00:27 Temperature 97.4 F L Pulse Rate 80 75 Respiratory Rate 14 15 Blood Pressure 143/77 H 144/72 H Pulse Oximetry 92 L 93 L 93 L 02/13/18 00:29 02/13/18 01:00 02/13/18 02:00 Temperature Pulse Rate 78 82 84 Respiratory Rate 13 14 27 H Blood Pressure 136/74 150/79 H Pulse Oximetry 93 L 92 L 02/13/18 03:00 02/13/18 03:14 02/13/18 04:00 Temperature 97.2 F L Pulse Rate 79 86 80 Respiratory Rate 14 13 31 H Blood Pressure 129/75 133/79 Pulse Oximetry 93 L 94 L 02/13/18 04:44 02/13/18 05:00 02/13/18 06:00 Temperature Pulse Rate 83 79 Respiratory Rate 29 H 28 H Blood Pressure 135/77 138/76 Pulse Oximetry 95 94 L 95 02/13/18 07:00 02/13/18 08:00 02/13/18 08:52 Temperature 97.9 F Pulse Rate 86 86 Respiratory Rate 23 26 H Blood Pressure 156/79 H 133/74 Pulse Oximetry 96 84 L 95 02/13/18 09:00 02/13/18 09:39 02/13/18 10:00 Temperature Pulse Rate 93 H 91 H Respiratory Rate 31 H 24 27 H Blood Pressure 142/78 H 145/75 H Pulse Oximetry 90 L 90 L 02/13/18 11:00 02/13/18 11:14 02/13/18 12:00 Temperature 96.9 F L Pulse Rate 100 H 91 H 93 H Respiratory Rate 43 H 45 H 37 H Blood Pressure 131/75 125/75 Pulse Oximetry 79 L 89 L 87 L 02/13/18 13:00 02/13/18 14:00 Temperature Pulse Rate 96 H 93 H Respiratory Rate 39 H Blood Pressure 118/77 Pulse Oximetry 88 L Intake & Output 02/12/18 02/13/18 02/13/18 18:59 06:59 18:59 Intake Total 500 / 500 240 / 240 100 / 100 Output Total 800 / 800 800 / 800 Balance -300 / -300 -560 / -560 100 / 100 Weight 86 kg Intake: IV 100 / 100 Doxy 100 Inj 100 MG In NS Inj 100 / 100 100 ML @ 100 mls/hr IV.SIG Q12H [facility] Rx#:[id number] Oral 500 / 500 240 / 240 Output: Urine 800 / 800 Urine Amount (Catheter) 800 / 800 Straight 800 / 800 Other: # Voids 2 # Bowel Movements 0 0 Narrative: GENERAL: Pleasant 62-year-old female, alert and oriented, appears in NAD at this time. CARDIOVASCULAR: Regular rate and rhythm without murmurs, gallops, or rubs. RESPIRATORY: Breath sounds equal bilaterally. No accessory muscle use. High flow oxygen present in order to maintain oxygen saturations. GASTROINTESTINAL: Abdomen soft, non-tender, nondistended. MUSCULOSKELETAL: No cyanosis, or edema. SKIN: Warm and dry. NEURO: No focal neurological deficits. - Urinary Catheter Management Straight Cath placed during this visit: yes, but has since been removed by the nurse Reason for continuing: Not indwelling catheter Insertion date: 01/31/18 Insertion time: 14:30 Removal date: 01/30/18 Removal time: 10:55 Indwelling Urethral Catheter Cath placed during this visit: yes, but has since been removed by the nurse Reason for continuing: Decision to DC catheter Insertion date: 01/28/18 Removal date: 01/29/18 Removal time: 18:15 Female External Cath placed during this visit: no Results - Labs CBC & Chem 7: 02/12/18 04:05 02/12/18 04:05 Laboratory Results - last 24 hr 02/12/18 02/12/18 02/13/18 17:37 20:47 08:13 POC Glucose 166 H 159 H 139 H 02/13/18 12:43 POC Glucose 196 H Assessment and Plan - Assessment (1) HCAP (healthcare-associated pneumonia) Code(s): J18.9 - Pneumonia, unspecified organism Status: Acute - Plan GENERAL: NAD, A&Ox3 HEAD: Normocephalic. NECK: Supple, trachea midline. No lymphadenopathy. EYES: No scleral icterus. No injection or drainage. CARDIOVASCULAR: Regular rate and rhythm without murmurs, gallops, or rubs. RESPIRATORY: Breath sounds equal bilaterally. No accessory muscle use. High flow oxygen present in order to maintain oxygen saturations. GASTROINTESTINAL: Abdomen soft, non-tender, nondistended. MUSCULOSKELETAL: No cyanosis, or edema. SKIN: Warm and dry. NEURO: No focal neurological deficits. - Urinary Catheter Management Straight Cath placed during this visit: yes, but has since been removed by the nurse Reason for continuing: Not indwelling catheter Insertion date: 01/31/18 Insertion time: 14:30 Removal date: 01/30/18 Removal time: 10:55 Indwelling Urethral Catheter Cath placed during this visit: yes, but has since been removed by the nurse Reason for continuing: Decision to DC catheter Insertion date: 01/28/18 Removal date: 01/29/18 Removal time: 18:15 Female External Cath placed during this visit: no Results - Labs CBC & Chem 7: 02/12/18 04:05 02/12/18 04:05 Laboratory Results - last 24 hr 02/12/18 02/12/18 04:05 04:05 WBC 23.4 H RBC 3.74 L Hgb 11.6 Hct 34.0 L MCV 90.8 MCH 31.1 MCHC 34.3 RDW 15.1 Plt Count 368 MPV 8.8 Neut % (Auto) 96.2 H Lymph % (Auto) 1.8 L Rooks % (Auto) 1.8 Eos % (Auto) 0.0 Baso % (Auto) 0.2 Neut # (Auto) 22.5 H Lymph # (Auto) 0.4 L Rooks # (Auto) 0.4 Eos # (Auto) 0.0 Baso # (Auto) 0.0 WBC Differential . Differential Comment Auto diff final Sodium 139 Potassium 4.0 Chloride 100 Carbon Dioxide 30.6 Anion Gap 8 BUN 55 H Creatinine 0.98 Estimated GFR 58 L Random Glucose 205 H Calcium 8.1 L Total Bilirubin 0.4 AST 18 ALT 42 Alkaline Phosphatase 102 Total Protein 6.0 L Albumin 2.9 L Assessment and Plan - Assessment (1) HCAP (healthcare-associated pneumonia) Code(s): J18.9 - Pneumonia, unspecified organism Status: Acute - Plan 62-year-old female admitted secondary to healthcare associated pneumonia with respiratory failure. Higher risk given immunocompromise state from rheumatoid arthritis treatment. Continue steroids. No significant change in 24 hours. Interstitial lung disease present, possible arts, consideration for lung biopsy present. Healthcare associated pneumonia Leukocytosis Persistent hypoxia Acute respiratory failure Possible ARDS (Possible acute interstitial pneumonitis) Worsening on CT image, of interstitial lung disease, unlikely new infection given coverage Continue steroids Continue cefepime, vancomycin, Levaquin Probiotics High flow oxygen or BiPAP as needed Wean respiratory support as tolerated (unable to wean thus far) Continue monitoring in ICU Continue oxygen supplementation Follow CBC Continue duo nebs Continue Symbicort Continue Solu-Medrol Pulmonology following Cardiothoracic surgeons following Possible lung biopsy. Patient will decide with the surrogate and with cardiothoracic surgeon if we will proceed with lung biopsy. Rheumatoid arthritis Methotrexate on hold Hypertension Continue baseline treatment cont Norvasc, atenolol, Dyazide Follow blood pressures Adjust treatments as needed Chronic lower back pain Right Posterior Middle Back Pain Caution with narcotics and presence of lethargy No surgical interventions at this point Continue PT PRN Baclofen Gabapentin MARCELA Follow renal function Avoid nephrotoxins Hypokalemia Monitor potassium and replace as needed DVT prophylaxis Lovenox Discharge Planning Return to SNF, to [facility] when improved/stabilized. Unfortunately no improvement. Continue monitor ICU until oxygen is able to be weaned down. Patient will decide with the surrogate and with cardiothoracic surgeon if we will proceed with lung biopsy.
[2018-02-13] MEDS: traZODone 50 MG Tablet PO SCH (20:48)
[2018-02-13] MEDS: Lidocaine 5% Patch T-DERMAL SCH (20:48)
[2018-02-13] MEDS: Gabapentin 300 MG Capsule PO SCH (20:48)
[2018-02-14] MEDS: ALPRAZolam 0.25 MG Tablet PO PRN (01:08)
[2018-02-14] MEDS: Ascorbic Acid 500 MG Tablet PO SCH (09:25)
[2018-02-14] MEDS: Budesonide-Formoterol 160/4.5 MCG 6 GM Inhaler INH SCH ×2 (09:25→20:28)
[2018-02-14] MEDS: Lactobacillus Acidophilus/L. Spores Tablet PO SCH ×3 (09:25→19:34)
[2018-02-14] MEDS: Fenofibrate 48 MG Tablet PO SCH (09:25)
[2018-02-14] MEDS: amLODIPine 10 MG Tablet PO SCH (09:25)
[2018-02-14] MEDS: Folic Acid 1 MG Tablet PO SCH (09:25)
[2018-02-14] MEDS: MethylPREDNISolone Sod Succinate Inj 40 MG/ML Vial IV.PUSH SCH (09:26)
[2018-02-14] MEDS: Sodium Chloride 0.65% Nasal Spray 45 ML Bottle EACH NARE SCH ×2 (09:26→20:27)
[2018-02-14] MEDS: Atenolol 25 MG Tablet PO SCH (09:26)
[2018-02-14] MEDS: buPROPion 150 MG 12 HR Tablet PO SCH (09:26)
[2018-02-14] MEDS: Insulin NovoLOG Aspart Correctional Sugar Inj SQ SCH ×4 (09:26→23:21)
[2018-02-14] MEDS: Estradiol 1 MG Tablet PO SCH (09:26)
[2018-02-14] MEDS: Enoxaparin Inj 40 MG/0.4 ML Syringe SQ SCH (12:04)
--- NOTE | 2018-02-14 14:09 | XR ---
EXAM DATE: 02/14/2018 2:04 PM EST AGE/SEX: 62 years / Female INDICATIONS: Respiratory disease. CLINICAL DATA: This is the patient's initial encounter. Patient reports that signs and symptoms have been present for 4 - 6 days and indicates a pain score of 0/10. MEDICAL/SURGICAL HISTORY: Chronic obstructive pulmonary disease. Hypertension. . cervical, tho racic and lumbar fusions COMPARISON: No prior exams available for comparison. FINDINGS: The examination demonstrates diffuse bilateral, interstitial infiltrates. This is new compared to a p revious examination dated 09/27/2016. It is stable compared to the more recent chest chest CT dated . There is no significant pleural effusion. The osseous structures demonstrate fusion hardware in the cervical and thoracic spine. CONCLUSION: Persistent bilateral interstitial infiltrates suggesting pulmonary fibrosis. Electronically signed by: Derek Ovalle MD 02/14/2018 2:07 PM EST
--- NOTE | 2018-02-14 14:17 | P.PN ---
Subjective Interval history: The patient is in the chair she appears with some shortness of breath however improved she is on BiPAP at this time. Patient was eating earlier today and was noted with shortness of breath and she was desaturating. Chest x-ray shows no acute abnormalities. No fever or chills. She denies any chest pain. Is placed on BiPAP saturating well at this time. Also she is noted with more weakness in her legs discussed with Yelena her power of attorney general and also sister patient does not remember the name of the her neurology doctor however per Yelena she is following with Dr. Woodson. Will consult neurology Dr. Woodson for further evaluation as well. Physical Exam Vital signs: Vital Signs 02/13/18 15:00 02/13/18 16:00 02/13/18 17:00 Temperature Pulse Rate 94 H 89 93 H Respiratory Rate 40 H 31 H 43 H Blood Pressure 127/72 120/74 125/76 Pulse Oximetry 86 L 89 L 85 L 02/13/18 18:00 02/13/18 19:00 02/13/18 20:00 Temperature 97.6 F Pulse Rate 84 80 85 Respiratory Rate 35 H 37 H 41 H Blood Pressure 136/72 127/70 134/73 Pulse Oximetry 94 L 98 94 L 02/13/18 20:21 02/13/18 21:00 02/13/18 22:00 Temperature Pulse Rate 85 76 Respiratory Rate 35 H 25 H Blood Pressure 125/62 137/70 Pulse Oximetry 94 L 85 L 91 L 02/13/18 23:00 02/13/18 23:15 02/14/18 00:00 Temperature 97.7 F Pulse Rate 82 88 Respiratory Rate 25 H 27 H Blood Pressure 136/73 140/69 Pulse Oximetry 89 L 91 L 94 L 02/14/18 01:00 02/14/18 02:00 02/14/18 03:00 Temperature Pulse Rate 83 89 98 H Respiratory Rate 24 24 24 Blood Pressure 143/78 H 132/71 136/69 Pulse Oximetry 90 L 93 L 93 L 02/14/18 04:00 02/14/18 05:00 02/14/18 06:00 Temperature 97.6 F Pulse Rate 90 85 85 Respiratory Rate 30 H 23 26 H Blood Pressure 150/71 H 131/74 131/70 Pulse Oximetry 96 95 02/14/18 07:00 02/14/18 07:24 02/14/18 08:00 Temperature 98.5 F Pulse Rate 84 79 Respiratory Rate 16 24 13 Blood Pressure 139/76 140/74 Pulse Oximetry 02/14/18 08:22 02/14/18 09:00 02/14/18 10:00 Temperature Pulse Rate 91 H 94 H Respiratory Rate 33 H 29 H Blood Pressure 141/83 H 135/73 Pulse Oximetry 90 L 88 L 97 02/14/18 10:43 Temperature Pulse Rate 91 H Respiratory Rate 35 H Blood Pressure 143/68 H Pulse Oximetry 87 L Intake & Output 02/13/18 02/14/18 02/14/18 18:59 06:59 18:59 Intake Total 850 / 850 580 / 580 Output Total 1400 / 1400 Balance 850 / 850 -820 / -820 Weight 89.1 kg Intake: IV 100 / 100 100 / 100 Doxy 100 Inj 100 MG In NS Inj 100 / 100 100 / 100 100 ML @ 100 mls/hr IV.SIG Q12H [facility] Rx#:[id number] Oral 750 / 750 480 / 480 Output: Urine Amount (Catheter) 1400 / 1400 Straight 1400 / 1400 Other: # Voids 2 # Bowel Movements 0 0 Narrative: GENERAL: Pleasant 62-year-old female, alert and oriented, appears with some sob. CARDIOVASCULAR: Regular rate and rhythm without murmurs, gallops, or rubs. RESPIRATORY: Decreased breath sounds. No accessory muscle use. On Bipap. GASTROINTESTINAL: Abdomen soft, non-tender, nondistended. MUSCULOSKELETAL: No cyanosis, or edema. SKIN: Warm and dry. NEURO: Bilateral lower extremity weakness patient has history of back surgery with weakness at baseline however worsen. Bilateral lower extremity sensory deficit. - Urinary Catheter Management Straight Cath placed during this visit: yes, but has since been removed by the nurse Reason for continuing: Not indwelling catheter Insertion date: 01/31/18 Insertion time: 14:30 Removal date: 01/30/18 Removal time: 10:55 Indwelling Urethral Catheter Cath placed during this visit: yes, but has since been removed by the nurse Reason for continuing: Decision to DC catheter Insertion date: 01/28/18 Removal date: 01/29/18 Removal time: 18:15 Female External Cath placed during this visit: no Results - Labs CBC & Chem 7: 02/12/18 04:05 02/12/18 04:05 Laboratory Results - last 24 hr 02/13/18 02/13/18 02/14/18 17:24 20:47 09:24 POC Glucose 144 H 157 H 132 H 02/14/18 11:31 POC Glucose 196 H Microbiology 02/12/18 17:50 Urine - Catheterized Urine Legionella Antigen - Final Presumptive negative for Legionella pneumophila serogroup 1 antigen in urine, suggesting no recent or recurrent infection. Infection due to Legionella cannot be ruled out since other serogroups and species may cause disease, antigen may not be present in urine in early infection, and the level of antigen present in the urine may be below the detection limit of the test. - Imaging Impressions Chest X-Ray 02/14/18 00:00 CONCLUSION: Persistent bilateral interstitial infiltrates suggesting pulmonary fibrosis. Assessment and Plan - Assessment (1) HCAP (healthcare-associated pneumonia) Code(s): J18.9 - Pneumonia, unspecified organism Status: Acute - Plan 62-year-old female admitted secondary to healthcare associated pneumonia with respiratory failure. Higher risk given immunocompromise state from rheumatoid arthritis treatment. Continue steroids. No significant change in 24 hours. Interstitial lung disease present, possible arts, consideration for lung biopsy present. Healthcare associated pneumonia, treated with abx Leukocytosis Persistent hypoxia Acute respiratory failure Possible ARDS (Possible acute interstitial pneumonitis) Worsening on CT image, of interstitial lung disease, unlikely new infection given coverage Continue steroids Continue cefepime, vancomycin, Levaquin Probiotics High flow oxygen or BiPAP as needed Wean respiratory support as tolerated (unable to wean thus far) Continue monitoring in ICU Continue oxygen supplementation Follow CBC Continue duo nebs Continue Symbicort Continue Solu-Medrol Pulmonology following Cardiothoracic surgeons following Possible lung biopsy. Patient will decide with the surrogate and with cardiothoracic surgeon if we will proceed with lung biopsy. 02/14 Noted dessating on high flow patient is on BiPAP saturating well. ABG reviewed.at this time CXR 02/14 reviewed Persistent bilateral interstitial infiltrates suggesting pulmonary fibrosis. Rheumatoid arthritis Methotrexate on hold Hypertension Continue baseline treatment cont Norvasc, atenolol, Dyazide Follow blood pressures Adjust treatments as needed Chronic lower back pain Right Posterior Middle Back Pain Caution with narcotics and presence of lethargy No surgical interventions at this point Continue PT PRN Baclofen Gabapentin 02/14 more weakness in her legs as well as paresthesia worsening. Consult Dr Woodson neurology for further eval MARCELA Follow renal function Avoid nephrotoxins Hypokalemia Monitor potassium and replace as needed DVT prophylaxis Lovenox Discharge Planning Return to SNF, to [facility] when improved/stabilized. Unfortunately no improvement. Continue monitor ICU until oxygen is able to be weaned down. Patient will decide with the surrogate and with cardiothoracic surgeon if we will proceed with lung biopsy. Discussed with the patient, nurse, patient sister DO Kirk by phone
--- NOTE | 2018-02-14 16:01 | P.PNCV ---
- Note Subjective/Hospital Course: Atypical pneumonia. History of RA. Methotrexate therapy. 62-year-old white female with a history of rheumatoid arthritis and osteoarthritis. The patient presented to the emergency department with shortness of breath on 01/25/2018. She had been at the rehab facility. The patient states that she went to see her radial saw operator and she was given an injection of methotrexate. She states prior to that, she was being given methotrexate daily at the rehab facility. She states that she usually takes methotrexate once a week. She reports that she then started getting short of breath and presented to the emergency department for evaluation. She has been treated with rounds of antibiotics including Levaquin, cefepime and aztreonam. She has also been given Solu-Medrol. Her white blood cell count was normal on admission. Her white blood cell count increased to 18.8 on 02/02/2018 and it has remained elevated since. She denies chills, nausea, vomiting, headache, chest pain, abdominal pain or dysuria. She states that she gets pain across the back. She has had back surgery in the past with rods. CT scan of the chest on 02/10/2018 showed worsening diffuse interstitial disease of both lungs, Acute interstitial pneumonia is noted to be in the differential. We were consulted for open lung BX in assisting with her diagnosis. PAST MEDICAL HISTORY: Hyperlipidemia, hypertension, osteoarthritis, rheumatoid arthritis, gastroesophageal reflux disease, degenerative disk disease of the cervical spine , history of sinus surgery, history of back surgery. 02/13 Dr Sawyer spoke with pt over the weekend and informed her that this procedure would be high-risk based on her pulmonary status. I suspect she will require mechanical ventilation for an indefinite period postoperatively. She understands this issue and will discuss with her sister. She remains on high flow 02 at 100% flow rate 30. She desats easily when taking into the 80's . She does recover when resting . 02/14 pt was on 90% fio2 high flow apparently eating some meat, possible aspiration/ now back on Bipap will consult [facility] for assitance, pt too unstable to consider open lung bx at this point she will more than likely require prolonged mechanical ventilation post Objective: Vital Signs - 24 hr 02/13/18 16:00 02/13/18 17:00 02/13/18 18:00 Temperature Pulse Rate 89 93 H 84 Respiratory Rate 31 H 43 H 35 H Blood Pressure 120/74 125/76 136/72 Pulse Oximetry 89 L 85 L 94 L 02/13/18 19:00 02/13/18 20:00 02/13/18 20:21 Temperature 97.6 F Pulse Rate 80 85 Respiratory Rate 37 H 41 H Blood Pressure 127/70 134/73 Pulse Oximetry 98 94 L 94 L 02/13/18 21:00 02/13/18 22:00 02/13/18 23:00 Temperature Pulse Rate 85 76 82 Respiratory Rate 35 H 25 H 25 H Blood Pressure 125/62 137/70 136/73 Pulse Oximetry 85 L 91 L 89 L 02/13/18 23:15 02/14/18 00:00 02/14/18 01:00 Temperature 97.7 F Pulse Rate 88 83 Respiratory Rate 27 H 24 Blood Pressure 140/69 143/78 H Pulse Oximetry 91 L 94 L 90 L 02/14/18 02:00 02/14/18 03:00 02/14/18 04:00 Temperature 97.6 F Pulse Rate 89 98 H 90 Respiratory Rate 24 24 30 H Blood Pressure 132/71 136/69 150/71 H Pulse Oximetry 93 L 93 L 96 02/14/18 05:00 02/14/18 06:00 02/14/18 07:00 Temperature Pulse Rate 85 85 84 Respiratory Rate 23 26 H 16 Blood Pressure 131/74 131/70 139/76 Pulse Oximetry 95 02/14/18 07:24 02/14/18 08:00 02/14/18 08:22 Temperature 98.5 F Pulse Rate 79 Respiratory Rate 24 13 Blood Pressure 140/74 Pulse Oximetry 90 L 02/14/18 09:00 02/14/18 10:00 02/14/18 10:43 Temperature Pulse Rate 91 H 94 H 91 H Respiratory Rate 33 H 29 H 35 H Blood Pressure 141/83 H 135/73 143/68 H Pulse Oximetry 88 L 97 87 L 02/14/18 14:17 Temperature Pulse Rate Respiratory Rate Blood Pressure Pulse Oximetry 92 L GENERAL: anxious , back on Bipap mask SKIN: Warm and dry. HEAD: Normocephalic. EYES: No scleral icterus. No injection or drainage. NECK: Supple, trachea midline. No JVD or lymphadenopathy. CARDIOVASCULAR: sinus tach Regular rate and rhythm without murmurs, gallops, or rubs. general edema RESPIRATORY: very diminished throughout with exp wheeze and use of accessory muscles GASTROINTESTINAL: Abdomen soft, non-tender, nondistended, obese MUSCULOSKELETAL: No cyanosis, or edema. BACK: Nontender without obvious deformity. No CVA tenderness. Labs: Laboratory Results - last 12 hr 02/13/18 02/14/18 02/14/18 12:06 09:24 11:31 POC Glucose 132 H 196 H M. pneumoniae Interp . Mycoplasma pneumon IgG Negative Mycoplasma pneumon IgM Negative Result Diagrams: 02/12/18 04:05 02/12/18 04:05 - Plan (3) Hypoxia Plan: Dr Sawyer to speak again with pt regarding surgery High risk for prolonged intubation / post consult CCM for assitance
--- NOTE | 2018-02-14 16:04 | P.PNID ---
Subjective Remarks: Patient had to be put on BIPAP. Oxygen desaturated while she was upright in a chair. Discussed with RN. Patient appeared to have been eating and probably piece of food which went down the wrong way she panicked the saturation dropped She is awake. She is on 100% FiO2. Saturation is 95%. She is communicating verbally without difficulty. No sputum production. No cough Afebrile. Chest x-ray is the same. 62-year-old white female with history of rheumatoid arthritis who presented to emergency department on 01/25/2018 with shortness of breath. Antibiotics: Doxycycline Lines: No evidence of infection Past Medical History: Hyperlipidemia, hypertension, osteoarthritis, rheumatoid arthritis, Gastroesophageal reflux disease, degenerative disc disease of the cervical spine , history of sinus surgery, history of back surgery Allergies/Adverse Reactions: Allergies azithromycin Allergy (Severe, Verified 01/25/18 19:06) HIVES, N AND V citric acid Allergy (Severe, Verified 01/25/18 19:06) hives erythromycin base Allergy (Severe, Verified 01/25/18 19:06) ALL MYCINS lovastatin Allergy (Severe, Verified 01/25/18 19:06) hives "ALL STATINS" ALLERGY niacin Allergy (Severe, Verified 01/25/18 19:06) hives oxybutynin Allergy (Severe, Verified 01/25/18 19:06) hives rosuvastatin Allergy (Severe, Verified 01/25/18 19:06) Hives cholestyramine Adverse Reaction (Severe, Verified 01/25/18 19:06) vomits Objective Vital Signs 02/13/18 16:00 02/13/18 17:00 02/13/18 18:00 Temperature Pulse Rate 89 93 H 84 Respiratory Rate 31 H 43 H 35 H Blood Pressure 120/74 125/76 136/72 Pulse Oximetry 89 L 85 L 94 L 02/13/18 19:00 02/13/18 20:00 02/13/18 20:21 Temperature 97.6 F Pulse Rate 80 85 Respiratory Rate 37 H 41 H Blood Pressure 127/70 134/73 Pulse Oximetry 98 94 L 94 L 02/13/18 21:00 02/13/18 22:00 02/13/18 23:00 Temperature Pulse Rate 85 76 82 Respiratory Rate 35 H 25 H 25 H Blood Pressure 125/62 137/70 136/73 Pulse Oximetry 85 L 91 L 89 L 02/13/18 23:15 02/14/18 00:00 02/14/18 01:00 Temperature 97.7 F Pulse Rate 88 83 Respiratory Rate 27 H 24 Blood Pressure 140/69 143/78 H Pulse Oximetry 91 L 94 L 90 L 02/14/18 02:00 02/14/18 03:00 02/14/18 04:00 Temperature 97.6 F Pulse Rate 89 98 H 90 Respiratory Rate 24 24 30 H Blood Pressure 132/71 136/69 150/71 H Pulse Oximetry 93 L 93 L 96 02/14/18 05:00 02/14/18 06:00 02/14/18 07:00 Temperature Pulse Rate 85 85 84 Respiratory Rate 23 26 H 16 Blood Pressure 131/74 131/70 139/76 Pulse Oximetry 95 02/14/18 07:24 02/14/18 08:00 02/14/18 08:22 Temperature 98.5 F Pulse Rate 79 Respiratory Rate 24 13 Blood Pressure 140/74 Pulse Oximetry 90 L 02/14/18 09:00 02/14/18 10:00 02/14/18 10:43 Temperature Pulse Rate 91 H 94 H 91 H Respiratory Rate 33 H 29 H 35 H Blood Pressure 141/83 H 135/73 143/68 H Pulse Oximetry 88 L 97 87 L 02/14/18 14:17 Temperature Pulse Rate Respiratory Rate Blood Pressure Pulse Oximetry 92 L Intake & Output 02/13/18 02/14/18 02/14/18 18:59 06:59 18:59 Intake Total 850 / 850 580 / 580 Output Total 1400 / 1400 Balance 850 / 850 -820 / -820 Weight 89.1 kg Intake: IV 100 / 100 100 / 100 Doxy 100 Inj 100 MG In NS Inj 100 / 100 100 / 100 100 ML @ 100 mls/hr IV.SIG Q12H [facility] Rx#:[id number] Oral 750 / 750 480 / 480 Output: Urine Amount (Catheter) 1400 / 1400 Straight 1400 / 1400 Other: # Voids 2 # Bowel Movements 0 0 02/12/18 17:50 Urine - Catheterized Urine Legionella Antigen - Final Presumptive negative for Legionella pneumophila serogroup 1 antigen in urine, suggesting no recent or recurrent infection. Infection due to Legionella cannot be ruled out since other serogroups and species may cause disease, antigen may not be present in urine in early infection, and the level of antigen present in the urine may be below the detection limit of the test. Lab - Chemistry Results 02/12/18 02/12/18 02/13/18 17:37 20:47 08:13 POC Glucose 166 H 159 H 139 H 02/13/18 02/13/18 02/13/18 12:43 17:24 20:47 POC Glucose 196 H 144 H 157 H 02/14/18 02/14/18 09:24 11:31 POC Glucose 132 H 196 H Imaging: ITS Impressions Chest CTA 01/25/18 20:50 CONCLUSION: 1. Bilateral alveolar opacities right greater than left. The differential diagnosis includes pulmonary edema and community-acquired pneumonia. There is no focal consolidation or mass. 2. Coronary artery calcifications. 3. No evidence of pulmonary embolism. Chest CT 02/10/18 00:00 CONCLUSION: Worsening diffuse interstitial disease of both lungs. The features are nonspecific. Acute interstitial pneumonia is in the differential. Chest X-Ray 02/14/18 00:00 CONCLUSION: Persistent bilateral interstitial infiltrates suggesting pulmonary fibrosis. Physical Exam: General: Alert and oriented, no acute distress. HEENT: Extraocular movements grossly intact, pupils reactive to light. No icterus. NECK: Supple. No adenopathy. LUNGS: Diffuse rales. CARDIOVASCULAR: Regular S1 and S2. No audible murmur. ABDOMEN: Bowel sounds present, soft, nontender. EXTREMITY: No clubbing or cyanosis or edema. SKIN:No rash. NEURO: Nonfocal. PSYCH: Anxious. Assessment and Plan - Plan Impression: 1. Pneumonitis very likely inflammatory lung disease. 2. Hypoxemia. Chest x-ray suggest pulmonary fibrosis. 3. Leukocytosis. Probably secondary to steroids. Recommendations: Continue doxycycline. Monitor clinical status. Follow temperature. Lung biopsy when feasible. Discussed with RN and patient. .
--- NOTE | 2018-02-14 16:48 | P.CONNEU ---
History of Present Illness Service: Neurology Primary Care Provider: Moom Powell MD Chief Complaint: Lower extremity weakness History of Present Illness: 62-year-old female the intensive care unit being treated for interstitial lung disease. progressive weakness of her legs since hospitalization. She has been bedridden for weeks. Onset of gait difficulty and leg weakness began in December and has been progressive since that time. She states she is having pain rating down her right leg. Has had previous spinal surgeries. hx of lumbar stenosis. seen by nsx 12/2017 and underwent rehab. mri lspine reviewed. Review of Systems All other systems reviewed negative except as [facility] - History History Provided By: Patient - Medical History Medical History: Medical History (Last Reviewed 02/15/18 @ 08:17 by Kiara Paiz) Anemia Degenerative disc disease, cervical GERD (gastroesophageal reflux disease) History of depressive symptoms Hyperlipidemia Muscle weakness of lower extremity Osteoarthritis Rheumatoid arthritis Degenerative disorder of bone Hypertension Rheumatic disease Sciatica Spinal stenosis - Surgical History Surgical History: Surgical History (Last Reviewed 02/15/18 @ 08:17 by Kiara Paiz) H/O sinus surgery Previous back surgery - Family History Family History: Family History (Last Reviewed 02/14/18 @ 09:18 by Maday Haley) Other No pertinent family history - Tobacco History Second Hand Smoke Exposure: No Tobacco Use In Past 30 Days: No (pt quit smoking 16 yrs ago) Smoking Status: Former smoker Tobacco Type: Cigarettes Packs Per Day: 1 - Alcohol History How Often Do You Have a Drink Containing Alcohol: Never - Substance Use History Substance History: No History of Abuse - Travel History Recent Travel in the [place] Within the Last 8 Weeks: No Recent Travel Out of the Country Within the Last 8 Weeks: No - Immunization History Tetanus Immunization: <5 Years Tetanus Immunization Year if Known: 2017 Hx Influenza Vaccine This Season: Yes Medications and Allergies Active Medications: Active Medications Hydrocodone Bitart/Acetaminophen ([place] 5/325) 1 tab PO Q6H PRN PRN Reason: pain 1to 10 Last Admin: 02/14/18 12:03 Dose: 1 tab Al Hydroxide/Mg Hydroxide (Milk Of Melissa Liq) 30 ml PO Q12H PRN PRN Reason: Mild Constipation Albuterol (Albuterol Neb (Prn)) 2.5 mg NEB Q2HR NEB PRN PRN Reason: SHORTNESS OF BREATH Last Admin: 02/13/18 03:14 Dose: 2.5 mg Alprazolam (Xanax) 0.25 mg PO Q8H PRN PRN Reason: ANXIETY Last Admin: 02/14/18 01:08 Dose: 0.25 mg Amlodipine Besylate (Norvasc) 10 mg PO DAILY [facility] Last Admin: 02/14/18 09:25 Dose: 10 mg Ascorbic Acid (Vitamin C) 500 mg PO DAILY [facility] Last Admin: 02/14/18 09:25 Dose: 500 mg Atenolol (Tenormin) 25 mg PO DAILY [facility] Last Admin: 02/14/18 09:26 Dose: 25 mg Atorvastatin Calcium (Lipitor) 40 mg PO DAILY [facility] Last Admin: 02/14/18 09:25 Dose: 40 mg Baclofen (Lioresal) 20 mg PO Q8H PRN PRN Reason: SPASM Last Admin: 02/14/18 12:04 Dose: 20 mg Bisacodyl (Dulcolax Supp) 10 mg RECTAL DAILY PRN PRN Reason: SEVERE CONSITIPATION Budesonide/Formoterol Fumarate (Symbicort 160/4.5 Mcg Inh) 2 puff INH BID [facility] Last Admin: 02/14/18 09:25 Dose: 2 puff Bupropion HCl (Wellbutrin Sr) 150 mg PO DAILY [facility] Last Admin: 02/14/18 09:26 Dose: 150 mg Cetirizine HCl (Zyrtec) 10 mg PO DAILY [facility] Last Admin: 02/14/18 09:26 Dose: 10 mg Dextrose (D50w Vial) 50 ml IV.PUSH UNSCH PRN PRN Reason: PER HYPOGLYCEMIA PROTOCOL Duloxetine HCl (Cymbalta) 90 mg PO DAILY [facility] Last Admin: 02/14/18 09:25 Dose: 90 mg Enoxaparin Sodium (Lovenox Inj) 40 mg SQ Q24H [facility] Last Admin: 02/14/18 12:04 Dose: 40 mg Estradiol (Estrace) 1 mg PO DAILY [facility] Last Admin: 02/14/18 09:26 Dose: 1 mg Fenofibrate (Tricor) 48 mg PO DAILY [facility] Last Admin: 02/14/18 09:25 Dose: 48 mg Fluticasone Propionate (Flonase Nasal [place]) 2 spray NASAL DAILY [facility] Last Admin: 02/14/18 09:25 Dose: 2 spray Folic Acid (Folic Acid) 1 mg PO DAILY [facility] Last Admin: 02/14/18 09:25 Dose: 1 mg Furosemide (Lasix) 40 mg PO DAILY [facility] Last Admin: 02/09/18 13:34 Dose: 40 mg Gabapentin (Neurontin) 300 mg PO HS [facility] Last Admin: 02/13/18 20:48 Dose: 300 mg Glucagon (Glucagon Inj) 1 mg OTHER PRN PRN PRN Reason: for Hypoglycemia Protocol Doxycycline Hyclate 100 mg/ (Sodium Chloride) 100 mls @ 100 mls/hr IV.SIG Q12H [facility] Last Admin: 02/14/18 12:04 Dose: 100 mls/hr Insulin Aspart (Novolog Insulin [place]al Sugar Inj) 0 unit SQ ACHS [facility]; Protocol Last Admin: 02/14/18 12:04 Dose: 1 unit Lactobacillus Acidophilus (Lactinex) 1 tab PO TID [facility] Last Admin: 02/14/18 16:18 Dose: 1 tab Lactulose (Lactulose Liq) 30 ml PO DAILY PRN PRN Reason: SEVERE CONSITIPATION Last Admin: 01/30/18 00:45 Dose: 30 ml Lidocaine HCl (Lidoderm 5% Patch.12 Hr) 1 patch T-DERMAL DAILY@1999 [facility] Last Admin: 02/13/18 20:48 Dose: 1 patch Magnesium Citrate (Citroma Liq) 30 ml PO DAILY PRN PRN Reason: Constipation Medroxyprogesterone Acetate (Provera) 2.5 mg PO DAILY [facility] Last Admin: 02/14/18 09:25 Dose: 2.5 mg Methocarbamol (Robaxin) 750 mg PO QID [facility] Last Admin: 01/31/18 17:53 Dose: Not Given Methylprednisolone Sodium Succinate (Solumedrol Inj) 40 mg IV.PUSH Q12H [facility] Last Admin: 02/14/18 09:26 Dose: 40 mg Miscellaneous (Pill Splitter) 1 each OTHER UNSCH PRN PRN Reason: SEE LABEL COMMENTS Pantoprazole Sodium (Protonix) 40 mg PO DAILY [facility] Last Admin: 02/14/18 09:25 Dose: 40 mg Patch Removal (Remove Old Patch) 1 each T-DERMAL HS [facility] Last Admin: 02/13/18 20:49 Dose: 1 each Sennosides (Senokot) 17.2 mg PO Q12H PRN PRN Reason: Moderate Constipation Last Admin: 02/09/18 18:36 Dose: 17.2 mg Sodium Chloride (Ns Flush) 2 ml IV.FLUSH BID [facility] Last Admin: 02/14/18 09:26 Dose: 2 ml Sodium Chloride (Ns Flush) 2 ml IV.FLUSH PRN PRN PRN Reason: FLUSH AFTER USING IV ACCESS Sodium Chloride ([place] Nasal [place]) 1 spray EACH NARE BID [facility] Last Admin: 02/14/18 09:26 Dose: 1 spray Trazodone HCl (Desyrel) 100 mg PO HS [facility] Last Admin: 02/13/18 20:48 Dose: 100 mg Triamterene/HCTZ (Dyazide 37.5/25 Mg) 1 cap G-TUBE DAILY [facility] Last Admin: 02/08/18 09:13 Dose: 1 cap Allergies Allergy/AdvReac Type Severity Reaction Status Date / Time azithromycin Allergy Severe HIVES, N Verified 01/25/18 19:06 AND V citric acid Allergy Severe hives Verified 01/25/18 19:06 erythromycin base Allergy Severe ALL MYCINS Verified 01/25/18 19:06 lovastatin Allergy Severe hives Verified 01/25/18 19:06 niacin Allergy Severe hives Verified 01/25/18 19:06 oxybutynin Allergy Severe hives Verified 01/25/18 19:06 rosuvastatin Allergy Severe Hives Verified 01/25/18 19:06 cholestyramine AdvReac Severe vomits Verified 01/25/18 19:06 Home Medications Medication Instructions Recorded Confirmed Type atenolol 25 mg PO DAILY 01/04/18 01/25/18 History bupropion HCl [Wellbutrin XL] 150 mg PO QAM 01/04/18 01/25/18 History duloxetine [Cymbalta] 90 mg PO DAILY 01/04/18 01/25/18 History fenofibrate 40 mg PO DAILY 01/04/18 01/25/18 History gabapentin BID 01/04/18 01/08/18 History methotrexate 20 mg/m2 PO QWEEK 01/04/18 01/25/18 History pantoprazole [Protonix] 40 mg PO DAILY 01/04/18 01/25/18 History diclofenac sodium 75 mg PO BID 01/05/18 01/25/18 History estradiol 1 mg PO DAILY 01/05/18 01/25/18 History medroxyprogesterone 2.5 mg PO DAILY 01/05/18 01/25/18 History methylprednisolone 4 mg PO DAILY 01/05/18 01/25/18 History trazodone 100 mg PO DAILY 01/05/18 01/25/18 History triamterene-hydrochlorothiazid 37.5 mg DAILY 01/05/18 01/25/18 History amlodipine 10 mg PO DAILY 01/25/18 01/25/18 History ascorbic acid (vitamin C) 500 mg PO DAILY 01/25/18 01/25/18 History atorvastatin [Lipitor] 40 mg PO DAILY 01/25/18 01/25/18 History bupropion HCl [Wellbutrin SR] 150 mg PO DAILY 01/25/18 01/25/18 History cetirizine [Zyrtec] 10 mg PO DAILY 01/25/18 01/25/18 History folic acid 1 mg PO DAILY 01/25/18 01/25/18 History furosemide 20 mg PO DAILY 01/25/18 01/25/18 History gabapentin 600 mg PO HS 01/25/18 01/25/18 History hydrocodone-acetaminophen 1 tab PO Q6H PRN 01/25/18 01/25/18 History magnesium citrate [Citroma] 30 ml PO DAILY PRN 01/25/18 01/25/18 History methocarbamol [Robaxin-750] 750 mg PO QID PRN 01/25/18 01/25/18 History hydrocodone-acetaminophen [[place]] 1 tab PO Q6H PRN 01/26/18 01/26/18 History Exam Vital signs: Vital Signs 02/13/18 17:00 02/13/18 18:00 02/13/18 19:00 Temperature Pulse Rate 93 H 84 80 Respiratory Rate 43 H 35 H 37 H Blood Pressure 125/76 136/72 127/70 Pulse Oximetry 85 L 94 L 98 02/13/18 20:00 02/13/18 20:21 02/13/18 21:00 Temperature 97.6 F Pulse Rate 85 85 Respiratory Rate 41 H 35 H Blood Pressure 134/73 125/62 Pulse Oximetry 94 L 94 L 85 L 02/13/18 22:00 02/13/18 23:00 02/13/18 23:15 Temperature Pulse Rate 76 82 Respiratory Rate 25 H 25 H Blood Pressure 137/70 136/73 Pulse Oximetry 91 L 89 L 91 L 02/14/18 00:00 02/14/18 01:00 02/14/18 02:00 Temperature 97.7 F Pulse Rate 88 83 89 Respiratory Rate 27 H 24 24 Blood Pressure 140/69 143/78 H 132/71 Pulse Oximetry 94 L 90 L 93 L 02/14/18 03:00 02/14/18 04:00 02/14/18 05:00 Temperature 97.6 F Pulse Rate 98 H 90 85 Respiratory Rate 24 30 H 23 Blood Pressure 136/69 150/71 H 131/74 Pulse Oximetry 93 L 96 95 02/14/18 06:00 02/14/18 07:00 02/14/18 07:24 Temperature Pulse Rate 85 84 Respiratory Rate 26 H 16 24 Blood Pressure 131/70 139/76 Pulse Oximetry 02/14/18 08:00 02/14/18 08:22 02/14/18 09:00 Temperature 98.5 F Pulse Rate 79 91 H Respiratory Rate 13 33 H Blood Pressure 140/74 141/83 H Pulse Oximetry 90 L 88 L 02/14/18 10:00 02/14/18 10:43 02/14/18 14:17 Temperature Pulse Rate 94 H 91 H Respiratory Rate 29 H 35 H Blood Pressure 135/73 143/68 H Pulse Oximetry 97 87 L 92 L Intake & Output 02/13/18 02/14/18 02/14/18 18:59 06:59 18:59 Intake Total 850 / 850 580 / 580 Output Total 1400 / 1400 Balance 850 / 850 -820 / -820 Weight 89.1 kg Intake: IV 100 / 100 100 / 100 Doxy 100 Inj 100 MG In NS Inj 100 / 100 100 / 100 100 ML @ 100 mls/hr IV.SIG Q12H [facility] Rx#:[id number] Oral 750 / 750 480 / 480 Output: Urine Amount (Catheter) 1400 / 1400 Straight 1400 / 1400 Other: # Voids 2 # Bowel Movements 0 0 Narrative: GENERAL: in NAD, obese sitting up in bed SKIN: Warm and dry. HEAD: Atraumatic. Normocephalic. EYES: Pupils equal and round. No scleral icterus. ENT: No nasal bleeding or discharge. NECK: Trachea midline. No JVD. CARDIOVASCULAR: Regular rate and rhythm. RESPIRATORY: Very mild tachypnea GASTROINTESTINAL: Abdomen soft, non-tender, nondistended. MUSCULOSKELETAL: Extremities without clubbing, cyanosis, or edema. NEUROLOGICAL: Awake and alert. Oriented x3, conversant, no aphasia, fluent articulate, No facial asymmetry, OU 3-2mm, eomi, VFF, able to raise both upper extremity to gravity above her shoulders, paraparesis hip flexor thigh atrophy weakness in both legs strength 0 out of 5, reflexes were 1-2+ her no clonus reduce pinprick level above the mid thigh region, no clonus plantar flexor gait not assessed secondary level weakness PSYCHIATRIC: Appropriate mood and affect; insight and judgment normal. - Constitutional no acute distress - Routine HEENT Exam Head: Present: normocephalic Results - Labs CBC & Chem 7: 02/12/18 04:05 02/14/18 20:59 Labs: Laboratory Results - last 24 hr 02/13/18 02/13/18 02/13/18 12:06 17:24 20:47 POC Glucose 144 H 157 H M. pneumoniae Interp . Mycoplasma pneumon IgG Negative Mycoplasma pneumon IgM Negative 02/14/18 02/14/18 09:24 11:31 POC Glucose 132 H 196 H M. pneumoniae Interp Mycoplasma pneumon IgG Mycoplasma pneumon IgM - Imaging Impressions Chest X-Ray 02/14/18 00:00 CONCLUSION: Persistent bilateral interstitial infiltrates suggesting pulmonary fibrosis. Review/Management - Diagnosis (1) Lumbar stenosis Code(s): M48.061 - Spinal stenosis, lumbar region without neurogenic claudication Status: Acute Current Visit: Yes (2) Myopathy Code(s): G72.9 - Myopathy, unspecified Status: Acute Current Visit: Yes (3) Critical illness myopathy Code(s): G72.81 - Critical illness myopathy Status: Acute Current Visit: Yes (4) Critical illness neuropathy Code(s): G62.81 - Critical illness polyneuropathy Status: Acute Current Visit: Yes (5) Interstitial lung disease Code(s): J84.9 - Interstitial pulmonary disease, unspecified Status: Acute Current Visit: Yes (6) Immunocompromised Code(s): D84.9 - Immunodeficiency, unspecified Status: Acute Current Visit: Yes (7) HCAP (healthcare-associated pneumonia) Code(s): J18.9 - Pneumonia, unspecified organism Status: Acute Current Visit : Yes (8) Hypoxia Code(s): R09.02 - Hypoxemia Status: Acute Current Visit: Yes - Review/Management Plan: progressive weakness critical illness myoneuropathy. r/o spinal cord infarct/cauda equina on steroids and has been bedridden for weeks recs mri neuroaxis aggressive nutritional support follow exam
--- NOTE | 2018-02-14 18:56 | P.CONCC ---
History of Present Illness Service: Critical care Consult date: 02/14/18 Requesting Physician: Kathryn Pierre Reason for Consult: Acute hypoxemic respiratory failure Primary Care Provider: Momo Powell MD Chief Complaint: Shortness of breath History of Present Illness: 62-year-old white female with history of hyperlipidemia, hypertension, osteoarthritis, rheumatoid arthritis, on methotrexate. The patient presented to the emergency department with shortness of breath on 01/25/2018. She was admitted with a diagnosis of atypical pneumonia and probable CHF. Admitted to hospitalist service with consult to pulmonology. Has received broad-spectrum antibiotics. Also treated with IV steroids breathing treatments and diuretics. Consultants involved pulmonology and infectious disease. Patient had been here at least 3 weeks with her symptoms not improving and in fact worsening hypoxemia and worsening interstitial infiltrates on the chest. A 2D echo done 01/27/2018 showed normal ejection fraction. BNP also was normal. Cardiothoracic surgery was consulted for possible lung biopsy. Today patient was more short of breath and with an episode of desaturation requiring 100% oxygen on BiPAP. Critical care medicine was consulted for further evaluation and management I evaluated the patient in the [facility]. She is in moderate distress has extensive bilateral crackles. Currently on high flow nasal cannula 40% FiO2. Patient had been on BiPAP on and off. I reviewed the recent chest x-ray and CT scan. It appears that patient has rheumatoid arthritis associated lung disease versus methotrexate toxicity. I will increase the Solu-Medrol to 60 every 6 hours from current dose of 40 every 12. I will also add small dose of Lasix. There is no evidence of infection. I would recommend empiric treatment with immunosuppressants after rheumatology consult. If we cannot arrange for rheumatology consultation here need transfer to a tertiary center. Patient may develop complications including vent dependence and persistent air leak if she undergoes biopsy. Even if proven to be noninfectious ILD on biopsy, patient will need rheumatology consult. Patient's yardage caller in town is Dr. Nick Lloyd MD. Will contact his office in am Review of Systems All other systems reviewed negative except as stated in HPI PMFSH - History History Provided By: Patient - Medical History Medical History: Medical History (Last Reviewed 02/14/18 @ 19:22 by Nasima Guzman MD) Anemia Degenerative disc disease, cervical GERD (gastroesophageal reflux disease) History of depressive symptoms Hyperlipidemia Muscle weakness of lower extremity Osteoarthritis Rheumatoid arthritis Degenerative disorder of bone Hypertension Rheumatic disease Sciatica Spinal stenosis - Surgical History Surgical History: Surgical History (Last Reviewed 02/14/18 @ 19:22 by Nasima Guzman MD) H/O sinus surgery Previous back surgery - Family History Family History: Family History (Last Reviewed 02/14/18 @ 09:18 by Maday Haley) Other No pertinent family history - Tobacco History Second Hand Smoke Exposure: No Tobacco Use In Past 30 Days: No (pt quit smoking 16 yrs ago) Smoking Status: Former smoker Tobacco Type: Cigarettes Packs Per Day: 1 - Alcohol History How Often Do You Have a Drink Containing Alcohol: Never - Substance Use History Substance History: No History of Abuse - Travel History Recent Travel in the [place] Within the Last 8 Weeks: No Recent Travel Out of the Country Within the Last 8 Weeks: No - Immunization History Tetanus Immunization: <5 Years Tetanus Immunization Year if Known: 2017 Hx Influenza Vaccine This Season: Yes Medications and Allergies Active Medications: Active Medications Hydrocodone Bitart/Acetaminophen ([place] 5/325) 1 tab PO Q6H PRN PRN Reason: pain 1to 10 Last Admin: 02/14/18 12:03 Dose: 1 tab Al Hydroxide/Mg Hydroxide (Milk Of Melissa Sanz) 30 ml PO Q12H PRN PRN Reason: Mild Constipation Albuterol (Albuterol Neb (Prn)) 2.5 mg NEB Q2HR NEB PRN PRN Reason: SHORTNESS OF BREATH Last Admin: 02/13/18 03:14 Dose: 2.5 mg Alprazolam (Xanax) 0.25 mg PO Q8H PRN PRN Reason: ANXIETY Last Admin: 02/14/18 01:08 Dose: 0.25 mg Amlodipine Besylate (Norvasc) 10 mg PO DAILY [facility] Last Admin: 02/14/18 09:25 Dose: 10 mg Ascorbic Acid (Vitamin C) 500 mg PO DAILY [facility] Last Admin: 02/14/18 09:25 Dose: 500 mg Atenolol (Tenormin) 25 mg PO DAILY [facility] Last Admin: 02/14/18 09:26 Dose: 25 mg Atorvastatin Calcium (Lipitor) 40 mg PO DAILY [facility] Last Admin: 02/14/18 09:25 Dose: 40 mg Baclofen (Lioresal) 20 mg PO Q8H PRN PRN Reason: SPASM Last Admin: 02/14/18 12:04 Dose: 20 mg Bisacodyl (Dulcolax Supp) 10 mg RECTAL DAILY PRN PRN Reason: SEVERE CONSITIPATION Budesonide/Formoterol Fumarate (Symbicort 160/4.5 Mcg Inh) 2 puff INH BID [facility] Last Admin: 02/14/18 09:25 Dose: 2 puff Bupropion HCl (Wellbutrin Sr) 150 mg PO DAILY [facility] Last Admin: 02/14/18 09:26 Dose: 150 mg Cetirizine HCl (Zyrtec) 10 mg PO DAILY [facility] Last Admin: 02/14/18 09:26 Dose: 10 mg Dextrose (D50w Vial) 50 ml IV.PUSH UNSCH PRN PRN Reason: PER HYPOGLYCEMIA PROTOCOL Duloxetine HCl (Cymbalta) 90 mg PO DAILY [facility] Last Admin: 02/14/18 09:25 Dose: 90 mg Enoxaparin Sodium (Lovenox Inj) 40 mg SQ Q24H [facility] Last Admin: 02/14/18 12:04 Dose: 40 mg Estradiol (Estrace) 1 mg PO DAILY [facility] Last Admin: 02/14/18 09:26 Dose: 1 mg Fenofibrate (Tricor) 48 mg PO DAILY [facility] Last Admin: 02/14/18 09:25 Dose: 48 mg Fluticasone Propionate (Flonase Nasal [place]) 2 spray NASAL DAILY [facility] Last Admin: 02/14/18 09:25 Dose: 2 spray Folic Acid (Folic Acid) 1 mg PO DAILY [facility] Last Admin: 02/14/18 09:25 Dose: 1 mg Furosemide (Lasix) 40 mg PO DAILY [facility] Last Admin: 02/09/18 13:34 Dose: 40 mg Gabapentin (Neurontin) 300 mg PO HS [facility] Last Admin: 02/13/18 20:48 Dose: 300 mg Glucagon (Glucagon Inj) 1 mg OTHER PRN PRN PRN Reason: for Hypoglycemia Protocol Doxycycline Hyclate 100 mg/ (Sodium Chloride) 100 mls @ 100 mls/hr IV.SIG Q12H [facility] Last Admin: 02/14/18 12:04 Dose: 100 mls/hr Insulin Aspart (Novolog Insulin Correctional Sugar Inj) 0 unit SQ ACHS [facility]; Protocol Last Admin: 02/14/18 12:04 Dose: 1 unit Lactobacillus Acidophilus (Lactinex) 1 tab PO TID [facility] Last Admin: 02/14/18 16:18 Dose: 1 tab Lactulose (Lactulose Liq) 30 ml PO DAILY PRN PRN Reason: SEVERE CONSITIPATION Last Admin: 01/30/18 00:45 Dose: 30 ml Lidocaine HCl (Lidoderm 5% Patch.12 Hr) 1 patch T-DERMAL DAILY@1999 [facility] Last Admin: 02/13/18 20:48 Dose: 1 patch Magnesium Citrate (Citroma Liq) 30 ml PO DAILY PRN PRN Reason: Constipation Medroxyprogesterone Acetate (Provera) 2.5 mg PO DAILY [facility] Last Admin: 02/14/18 09:25 Dose: 2.5 mg Methocarbamol (Robaxin) 750 mg PO QID [facility] Last Admin: 01/31/18 17:53 Dose: Not Given Methylprednisolone Sodium Succinate (Solumedrol Inj) 40 mg IV.PUSH Q12H [facility] Last Admin: 02/14/18 09:26 Dose: 40 mg Miscellaneous (Pill Splitter) 1 each OTHER UNSCH PRN PRN Reason: SEE LABEL COMMENTS Pantoprazole Sodium (Protonix) 40 mg PO DAILY [facility] Last Admin: 02/14/18 09:25 Dose: 40 mg Patch Removal (Remove Old Patch) 1 each T-DERMAL [facility] Last Admin: 02/13/18 20:49 Dose: 1 each Sennosides (Senokot) 17.2 mg PO Q12H PRN PRN Reason: Moderate Constipation Last Admin: 02/09/18 18:36 Dose: 17.2 mg Sodium Chloride (Ns Flush) 2 ml IV.FLUSH BID [facility] Last Admin: 02/14/18 09:26 Dose: 2 ml Sodium Chloride (Ns Flush) 2 ml IV.FLUSH PRN PRN PRN Reason: FLUSH AFTER USING IV ACCESS Sodium Chloride ([place] Nasal [place]) 1 spray EACH NARE BID [facility] Last Admin: 02/14/18 09:26 Dose: 1 spray Trazodone HCl (Desyrel) 100 mg PO [facility] Last Admin: 02/13/18 20:48 Dose: 100 mg Triamterene/HCTZ (Dyazide 37.5/25 Mg) 1 cap G-TUBE DAILY [facility] Last Admin: 02/08/18 09:13 Dose: 1 cap Allergies Allergy/AdvReac Type Severity Reaction Status Date / Time azithromycin Allergy Severe HIVES, N Verified 01/25/18 19:06 AND V citric acid Allergy Severe hives Verified 01/25/18 19:06 erythromycin base Allergy Severe ALL MYCINS Verified 01/25/18 19:06 lovastatin Allergy Severe hives Verified 01/25/18 19:06 niacin Allergy Severe hives Verified 01/25/18 19:06 oxybutynin Allergy Severe hives Verified 01/25/18 19:06 rosuvastatin Allergy Severe Hives Verified 01/25/18 19:06 cholestyramine AdvReac Severe vomits Verified 01/25/18 19:06 Home Medications Medication Instructions Recorded Confirmed Type atenolol 25 mg PO DAILY 01/04/18 01/25/18 History bupropion HCl [Wellbutrin XL] 150 mg PO QAM 01/04/18 01/25/18 History duloxetine [Cymbalta] 90 mg PO DAILY 01/04/18 01/25/18 History fenofibrate 40 mg PO DAILY 01/04/18 01/25/18 History gabapentin BID 01/04/18 01/08/18 History methotrexate 20 mg/m2 PO QWEEK 01/04/18 01/25/18 History pantoprazole [Protonix] 40 mg PO DAILY 01/04/18 01/25/18 History diclofenac sodium 75 mg PO BID 01/05/18 01/25/18 History estradiol 1 mg PO DAILY 01/05/18 01/25/18 History medroxyprogesterone 2.5 mg PO DAILY 01/05/18 01/25/18 History methylprednisolone 4 mg PO DAILY 01/05/18 01/25/18 History trazodone 100 mg PO DAILY 01/05/18 01/25/18 History triamterene-hydrochlorothiazid 37.5 mg DAILY 01/05/18 01/25/18 History amlodipine 10 mg PO DAILY 01/25/18 01/25/18 History ascorbic acid (vitamin C) 500 mg PO DAILY 01/25/18 01/25/18 History atorvastatin [Lipitor] 40 mg PO DAILY 01/25/18 01/25/18 History bupropion HCl [Wellbutrin SR] 150 mg PO DAILY 01/25/18 01/25/18 History cetirizine [Zyrtec] 10 mg PO DAILY 01/25/18 01/25/18 History folic acid 1 mg PO DAILY 01/25/18 01/25/18 History furosemide 20 mg PO DAILY 01/25/18 01/25/18 History gabapentin 600 mg PO HS 01/25/18 01/25/18 History hydrocodone-acetaminophen 1 tab PO Q6H PRN 01/25/18 01/25/18 History magnesium citrate [Citroma] 30 ml PO DAILY PRN 01/25/18 01/25/18 History methocarbamol [Robaxin-750] 750 mg PO QID PRN 01/25/18 01/25/18 History hydrocodone-acetaminophen [[place]] 1 tab PO Q6H PRN 01/26/18 01/26/18 History Physical Exam Vital signs: Vital Signs 02/13/18 19:00 02/13/18 20:00 02/13/18 20:21 Temperature 97.6 F Pulse Rate 80 85 Respiratory Rate 37 H 41 H Blood Pressure 127/70 134/73 Pulse Oximetry 98 94 L 94 L 02/13/18 21:00 02/13/18 22:00 02/13/18 23:00 Temperature Pulse Rate 85 76 82 Respiratory Rate 35 H 25 H 25 H Blood Pressure 125/62 137/70 136/73 Pulse Oximetry 85 L 91 L 89 L 02/13/18 23:15 02/14/18 00:00 02/14/18 01:00 Temperature 97.7 F Pulse Rate 88 83 Respiratory Rate 27 H 24 Blood Pressure 140/69 143/78 H Pulse Oximetry 91 L 94 L 90 L 02/14/18 02:00 02/14/18 03:00 02/14/18 04:00 Temperature 97.6 F Pulse Rate 89 98 H 90 Respiratory Rate 24 24 30 H Blood Pressure 132/71 136/69 150/71 H Pulse Oximetry 93 L 93 L 96 02/14/18 05:00 02/14/18 06:00 02/14/18 07:00 Temperature Pulse Rate 85 85 84 Respiratory Rate 23 26 H 16 Blood Pressure 131/74 131/70 139/76 Pulse Oximetry 95 02/14/18 07:24 02/14/18 08:00 02/14/18 08:22 Temperature 98.5 F Pulse Rate 79 Respiratory Rate 24 13 Blood Pressure 140/74 Pulse Oximetry 90 L 02/14/18 09:00 02/14/18 10:00 02/14/18 10:43 Temperature Pulse Rate 91 H 94 H 91 H Respiratory Rate 33 H 29 H 35 H Blood Pressure 141/83 H 135/73 143/68 H Pulse Oximetry 88 L 97 87 L 02/14/18 14:17 Temperature Pulse Rate Respiratory Rate Blood Pressure Pulse Oximetry 92 L Intake & Output 02/13/18 02/14/18 02/14/18 18:59 06:59 18:59 Intake Total 850 / 850 580 / 580 Output Total 1400 / 1400 Balance 850 / 850 -820 / -820 Weight 89.1 kg Intake: IV 100 / 100 100 / 100 Doxy 100 Inj 100 MG In NS Inj 100 / 100 100 / 100 100 ML @ 100 mls/hr IV.SIG Q12H JO Rx#:[id number] Oral 750 / 750 480 / 480 Output: Urine Amount (Catheter) 1400 / 1400 Straight 1400 / 1400 Other: # Voids 2 # Bowel Movements 0 0 Narrative: GENERAL: 62-year-old female, alert and oriented, moderately short of breath CARDIOVASCULAR: Regular rate and rhythm without murmurs, gallops, or rubs. RESPIRATORY: Bilaterally decreased air entry significant diffuse crackles predominantly at the bases. Moderate use of accessory muscles when talking GASTROINTESTINAL: Abdomen soft, non-tender, nondistended. MUSCULOSKELETAL: No cyanosis, or edema. SKIN: Warm and dry. NEURO: Chronic weakness of bilateral lower extremity with sensory loss. Normal strength of upper extremity - Urinary Catheter Management Straight Cath placed during this visit: yes, but has since been removed by the nurse Reason for continuing: Not indwelling catheter Insertion date: 01/31/18 Insertion time: 14:30 Removal date: 01/30/18 Removal time: 10:55 Indwelling Urethral Catheter Cath placed during this visit: yes, but has since been removed by the nurse Reason for continuing: Decision to DC catheter Insertion date: 01/28/18 Removal date: 01/29/18 Removal time: 18:15 Female External Cath placed during this visit: no Septic Shock Reassessment Septic shock perfusion: reassessment completed Assessment and Plan - Assessment and Plan Plan: ASSESSMENT: Acute hypoxemic respiratory failure Interstitial lung disease (rheumatoid lung disease versus methotrexate toxicity) Leukocytosis most likely steroid-induced History of rheumatoid arthritis Hyperlipidemia Hypertension Degenerative disc disease of the cervical spine PLAN: NEURO: -Minimize sedation -Xanax for anxiety RESP: -Increase Solu-Medrol to 60 mg every 6 hours, consider pulse dose of Solu- Medrol 1 g if no response to this regimen -Appears like patient has interstitial lung disease secondary to rheumatoid arthritis versus methotrexate toxicity -Patient will need rheumatology consult, if cannot be arranged here will need transfer to tertiary care center -CT surgery had been consulted for lung biopsy, recommend holding off until rheumatology consult can be arranged -I have placed a consult to patient's yardage caller Dr. Nick Lloyd MD. -Patient may need immunosuppressive therapy (mycophenolate, cyclophosphamide etc.) -DuoNeb every 4 hours scheduled and as needed, EzPAP -Continue BiPAP as needed and at night -Currently on high flow nasal cannula titrate to keep saturation more than 90% CV: -Placed on Lasix 20 mg IV every 12 hours, diuresis to dry weight -2D echo shows normal ejection fraction GI: -Continue diet, continue Protonix -Speech eval : -Monitor renal function closely. ID: -Currently on doxycycline per ID HEME: -Monitor CBC, coags -Leukocytosis most likely steroid-induced ENDO: -Electrolyte replacement per protocol -Sliding scale insulin if needed PROPH: -Bilateral lower extremity SCDs. Lovenox/Protonix LINES: -Utilize peripheral IVs CC time 40 min Code Status: Full Discussed Condition With: Carlos Heard, and Natalie
[2018-02-14] MEDS ORDERED: Potassium Phosphate 500 MG Soluble Tablet PO PRN ×2 (19:31)
[2018-02-14] MEDS ORDERED: Magnesium Sulfate Inj 2 GM in Sodium Chlor 0.9% Inj 96 ML IV.SIG PRN (19:31)
[2018-02-14] MEDS ORDERED: Potassium Chlor 20 mEq Premix 20 MEQ/100 ML PIGGYBACK IV.SIG PRN ×2 (19:31)
[2018-02-14] MEDS ORDERED: Potassium Chlor 40 mEq Premix 40 MEQ/100 ML PIGGYBACK IV.SIG PRN ×2 (19:31)
[2018-02-14] MEDS ORDERED: Magnesium Oxide 400 MG Tablet PO PRN (19:31)
[2018-02-14] MEDS ORDERED: Magnesium Sulfate Inj 4 GM in Sodium Chlor 0.9% Inj 92 ML IV.SIG PRN (19:31)
[2018-02-14] MEDS ORDERED: Sodium Phosphate Inj 30 MMOL in Sodium Chlor 0.9% Inj 250 ML IV.SIG PRN (19:31)
[2018-02-14] MEDS ORDERED: Potassium Chloride 25 MEQ Effervescent Tablet PO PRN (19:31)
[2018-02-14] MEDS ORDERED: Potassium Phosphate Inj 30 MMOL in Sodium Chlor 0.9% Inj 250 ML IV.SIG PRN (19:31)
[2018-02-14] MEDS: traZODone 50 MG Tablet PO SCH (20:22)
[2018-02-14] MEDS: Lidocaine 5% Patch T-DERMAL SCH (20:23)
[2018-02-14] MEDS: Gabapentin 300 MG Capsule PO SCH (20:23)
[2018-02-14] MEDS: MethylPREDNISolone Sod Succinate Inj 125 MG/2 ML Vial IV.PUSH SCH (20:26)
[2018-02-14 21:46] LABS: Alanine Aminotransferase 44 U/L (10-53); Albumin 2.9 g/dL (3.4-5.0); Alkaline Phosphatase 98 U/L (45-117); Anion Gap 7 meq/L (5-15); Aspartate Aminotransferase 29 U/L (15-37); Blood Urea Nitrogen 40 mg/dL (7-18); Calcium 8.5 mg/dL (8.5-10.1); Carbon Dioxide 26.8 meq/L (21.0-32.0); Chloride 102 meq/L (98-107); Glomerular Filtration Rate 71 mL/min (>89); Glucose,Random 177 mg/dL (74-106); Sodium 136 meq/L (136-145); Total Protein 6.2 g/dL (6.4-8.2)
--- NOTE | 2018-02-14 22:35 | P.PN ---
Subjective Interval history: ALERT INCREASE SOB EARLIER TODAY, NOW A LITTLE BETTER ON HIGH FLOW NASAL O2 Physical Exam Vital signs: Vital Signs 02/13/18 23:00 02/13/18 23:15 02/14/18 00:00 Temperature 97.7 F Pulse Rate 82 88 Respiratory Rate 25 H 27 H Blood Pressure 136/73 140/69 Pulse Oximetry 89 L 91 L 94 L 02/14/18 01:00 02/14/18 02:00 02/14/18 03:00 Temperature Pulse Rate 83 89 98 H Respiratory Rate 24 24 24 Blood Pressure 143/78 H 132/71 136/69 Pulse Oximetry 90 L 93 L 93 L 02/14/18 04:00 02/14/18 05:00 02/14/18 06:00 Temperature 97.6 F Pulse Rate 90 85 85 Respiratory Rate 30 H 23 26 H Blood Pressure 150/71 H 131/74 131/70 Pulse Oximetry 96 95 02/14/18 07:00 02/14/18 07:24 02/14/18 08:00 Temperature 98.5 F Pulse Rate 84 79 Respiratory Rate 16 24 13 Blood Pressure 139/76 140/74 Pulse Oximetry 02/14/18 08:22 02/14/18 09:00 02/14/18 10:00 Temperature Pulse Rate 91 H 94 H Respiratory Rate 33 H 29 H Blood Pressure 141/83 H 135/73 Pulse Oximetry 90 L 88 L 97 02/14/18 10:43 02/14/18 12:00 02/14/18 14:00 Temperature 98.2 F Pulse Rate 91 H 80 94 H Respiratory Rate 35 H 34 H Blood Pressure 143/68 H 133/71 Pulse Oximetry 87 L 97 02/14/18 14:17 02/14/18 16:00 02/14/18 18:00 Temperature 98.8 F Pulse Rate 94 H 83 Respiratory Rate 20 Blood Pressure 118/63 Pulse Oximetry 92 L 93 L Intake & Output 02/14/18 02/14/18 02/15/18 06:59 18:59 06:59 Intake Total 580 / 580 600 / 600 100 / 100 Output Total 1400 / 1400 800 / 800 Balance -820 / -820 -200 / -200 100 / 100 Weight 89.1 kg Intake: IV 100 / 100 100 / 100 Doxy 100 Inj 100 MG In NS Inj 100 / 100 100 / 100 100 ML @ 100 mls/hr IV.SIG Q12H JO Rx#:[id number] Oral 480 / 480 600 / 600 Output: Urine Amount (Catheter) 1400 / 1400 800 / 800 Straight 1400 / 1400 800 / 800 Other: # Bowel Movements 0 0 Narrative: GENERAL: 62-year-old female, alert and oriented, moderately short of breath CARDIOVASCULAR: Regular rate and rhythm without murmurs, gallops, or rubs. RESPIRATORY: Bilaterally decreased air entry significant diffuse crackles predominantly at the bases. Moderate use of accessory muscles when talking GASTROINTESTINAL: Abdomen soft, non-tender, nondistended. MUSCULOSKELETAL: No cyanosis, or edema. SKIN: Warm and dry. NEURO: Chronic weakness of bilateral lower extremity with sensory loss. Normal strength of upper extremity - Urinary Catheter Management Straight Cath placed during this visit: yes, but has since been removed by the nurse Reason for continuing: Not indwelling catheter Insertion date: 01/31/18 Insertion time: 14:30 Removal date: 01/30/18 Removal time: 10:55 Indwelling Urethral Catheter Cath placed during this visit: yes, but has since been removed by the nurse Reason for continuing: Decision to DC catheter Insertion date: 01/28/18 Removal date: 01/29/18 Removal time: 18:15 Female External Cath placed during this visit: no Results - Labs CBC & Chem 7: 02/12/18 04:05 02/14/18 20:59 Laboratory Results - last 24 hr 02/13/18 02/14/18 02/14/18 12:06 09:24 11:31 Sodium Potassium Chloride Carbon Dioxide Anion Gap BUN Creatinine Estimated GFR POC Glucose 132 H 196 H Random Glucose Calcium Total Bilirubin AST ALT Alkaline Phosphatase Total Protein Albumin M. pneumoniae Interp . Mycoplasma pneumon IgG Negative Mycoplasma pneumon IgM Negative 02/14/18 02/14/18 02/14/18 18:57 20:27 20:59 Sodium 136 Potassium 4.0 Chloride 102 Carbon Dioxide 26.8 Anion Gap 7 BUN 40 H Creatinine 0.82 Estimated GFR 71 L POC Glucose 203 H 225 H Random Glucose 177 H Calcium 8.5 Total Bilirubin 0.6 AST 29 ALT 44 Alkaline Phosphatase 98 Total Protein 6.2 L Albumin 2.9 L M. pneumoniae Interp Mycoplasma pneumon IgG Mycoplasma pneumon IgM Microbiology 02/12/18 17:50 Urine - Catheterized Urine Legionella Antigen - Final Presumptive negative for Legionella pneumophila serogroup 1 antigen in urine, suggesting no recent or recurrent infection. Infection due to Legionella cannot be ruled out since other serogroups and species may cause disease, antigen may not be present in urine in early infection, and the level of antigen present in the urine may be below the detection limit of the test. - Imaging Impressions Chest X-Ray 02/14/18 00:00 CONCLUSION: Persistent bilateral interstitial infiltrates suggesting pulmonary fibrosis. Assessment and Plan - Plan RESPIRATORY FAILURE STILL NEEDS HIGH FIO2 atypical pna, due to RA, MTX OTHER ? JORDANA ID,CC CONSULTS APPRECIATED PLAN O2 NEEDED BRONCHODILATOR THERAPY BIPAP INCREASE ACTIVITY THORACIC SURGERY CONSULT FOR VATS BX,PATIENT AND FAMILY HESITANT
[2018-02-15] MEDS: ALPRAZolam 0.25 MG Tablet PO PRN (01:08)
[2018-02-15] MEDS: MethylPREDNISolone Sod Succinate Inj 125 MG/2 ML Vial IV.PUSH SCH ×4 (02:32→20:12)
[2018-02-15] MEDS: Insulin NovoLOG Aspart Correctional Sugar Inj SQ SCH ×4 (08:03→20:24)
[2018-02-15] MEDS: Folic Acid 1 MG Tablet PO SCH (08:04)
[2018-02-15] MEDS: amLODIPine 10 MG Tablet PO SCH (08:04)
[2018-02-15] MEDS: Estradiol 1 MG Tablet PO SCH (08:04)
[2018-02-15] MEDS: Atenolol 25 MG Tablet PO SCH (08:04)
[2018-02-15] MEDS: buPROPion 150 MG 12 HR Tablet PO SCH (08:04)
[2018-02-15] MEDS: Lactobacillus Acidophilus/L. Spores Tablet PO SCH ×3 (08:05→17:44)
[2018-02-15] MEDS: Fenofibrate 48 MG Tablet PO SCH (08:05)
[2018-02-15] MEDS: Ascorbic Acid 500 MG Tablet PO SCH (08:05)
[2018-02-15] MEDS: Budesonide-Formoterol 160/4.5 MCG 6 GM Inhaler INH SCH ×2 (08:06→20:12)
[2018-02-15] MEDS: Sodium Chloride 0.65% Nasal Spray 45 ML Bottle EACH NARE SCH ×2 (08:06→20:13)
--- NOTE | 2018-02-15 09:56 | P.PNNEU ---
Subjective Subjective Comments: no acute events, no cp/vertigo/vision loss Active Medications: Active Medications Hydrocodone Bitart/Acetaminophen ([place] 5/325) 1 tab PO Q6H PRN PRN Reason: pain 1to 10 Last Admin: 02/14/18 20:23 Dose: 1 tab Al Hydroxide/Mg Hydroxide (Milk Of Magnaide Liq) 30 ml PO Q12H PRN PRN Reason: Mild Constipation Albuterol (Albuterol Neb (Prn)) 2.5 mg NEB Q2HR NEB PRN PRN Reason: SHORTNESS OF BREATH Last Admin: 02/13/18 03:14 Dose: 2.5 mg Albuterol (Duoneb Neb ([facility])) 1 ampul NEB Q4HR NEB [facility] Last Admin: 02/15/18 07:40 Dose: 1 ampul Alprazolam (Xanax) 0.25 mg PO Q8H PRN PRN Reason: ANXIETY Last Admin: 02/15/18 01:08 Dose: 0.25 mg Amlodipine Besylate (Norvasc) 10 mg PO DAILY [facility] Last Admin: 02/15/18 08:04 Dose: 10 mg Ascorbic Acid (Vitamin C) 500 mg PO DAILY [facility] Last Admin: 02/15/18 08:05 Dose: 500 mg Atenolol (Tenormin) 25 mg PO DAILY [facility] Last Admin: 02/15/18 08:04 Dose: 25 mg Atorvastatin Calcium (Lipitor) 40 mg PO DAILY [facility] Last Admin: 02/15/18 08:05 Dose: 40 mg Baclofen (Lioresal) 20 mg PO Q8H PRN PRN Reason: SPASM Last Admin: 02/14/18 20:23 Dose: 20 mg Bisacodyl (Dulcolax Supp) 10 mg RECTAL DAILY PRN PRN Reason: SEVERE CONSITIPATION Budesonide/Formoterol Fumarate (Symbicort 160/4.5 Mcg Inh) 2 puff INH BID [facility] Last Admin: 02/15/18 08:06 Dose: 2 puff Bupropion HCl (Wellbutrin Sr) 150 mg PO DAILY [facility] Last Admin: 02/15/18 08:04 Dose: 150 mg Cetirizine HCl (Zyrtec) 10 mg PO DAILY [facility] Last Admin: 02/15/18 08:05 Dose: 10 mg Dextrose (D50w Vial) 50 ml IV.PUSH UNSCH PRN PRN Reason: PER HYPOGLYCEMIA PROTOCOL Duloxetine HCl (Cymbalta) 90 mg PO DAILY [facility] Last Admin: 02/15/18 08:04 Dose: 90 mg Enoxaparin Sodium (Lovenox Inj) 40 mg SQ Q24H [facility] Last Admin: 02/14/18 12:04 Dose: 40 mg Estradiol (Estrace) 1 mg PO DAILY [facility] Last Admin: 02/15/18 08:04 Dose: 1 mg Fenofibrate (Tricor) 48 mg PO DAILY [facility] Last Admin: 02/15/18 08:05 Dose: 48 mg Fluticasone Propionate (Flonase Nasal [place]) 2 spray NASAL DAILY [facility] Last Admin: 02/15/18 08:06 Dose: 2 spray Folic Acid (Folic Acid) 1 mg PO DAILY [facility] Last Admin: 02/15/18 08:04 Dose: 1 mg Furosemide (Lasix) 40 mg PO DAILY [facility] Last Admin: 02/09/18 13:34 Dose: 40 mg Furosemide (Lasix Inj) 20 mg IV.PUSH BID@0900,1800 [facility] Last Admin: 02/15/18 08:08 Dose: 20 mg Gabapentin (Neurontin) 300 mg PO HS [facility] Last Admin: 02/14/18 20:23 Dose: 300 mg Glucagon (Glucagon Inj) 1 mg OTHER PRN PRN PRN Reason: for Hypoglycemia Protocol Doxycycline Hyclate 100 mg/ (Sodium Chloride) 100 mls @ 100 mls/hr IV.SIG Q12H [facility] Last Infusion: 02/15/18 03:32 Dose: Infused Magnesium Sulfate 4 gm/ Sodium (Chloride) 100 mls @ 50 mls/hr IV.SIG UNSCH PRN PRN Reason: For Magnesium 0.9 - 1.1 mg/dL Magnesium Sulfate 2 gm/ Sodium (Chloride) 100 mls @ 50 mls/hr IV.SIG UNSCH PRN PRN Reason: For Magnesium 1.2 - 1.6 mg/dL Potassium Chloride (Kcl 40 Meq Premix Inj) 40 meq in 100 mls @ 25 mls/hr IV.SIG Q2H PRN PRN Reason: For Potassium 2.8 - 3.2 mEq/L Potassium Chloride (Kcl 20 Meq Premix Inj) 20 meq in 100 mls @ 50 mls/hr IV.SIG Q2H PRN PRN Reason: For Potassium 3.3 - 3.5 mEq/L Potassium Chloride (Kcl 20 Meq Premix Inj) 20 meq in 100 mls @ 50 mls/hr IV.SIG Q2H PRN PRN Reason: For Potassium 2.8 - 3.2 mEq/L Potassium Phosphate 30 mmol/ (Sodium Chloride) 260 mls @ 42 mls/hr IV.SIG UNSCH PRN PRN Reason: SEE LABEL COMMENTS Sodium Phosphate 30 mmol/ (Sodium Chloride) 260 mls @ 42 mls/hr IV.SIG UNSCH PRN PRN Reason: For Phosphorus < 2.5 mg/dL Potassium Chloride (Kcl 40 Meq Premix Inj) 40 meq in 100 mls @ 25 mls/hr IV.SIG UNSCH PRN PRN Reason: For Potassium 3.3 - 3.5 mEq/L Insulin Aspart (Novolog Insulin Correctional Sugar Inj) 0 unit SQ ACHS [facility]; Protocol Last Admin: 02/15/18 08:03 Dose: 1 unit Lactobacillus Acidophilus (Lactinex) 1 tab PO TID [facility] Last Admin: 02/15/18 08:05 Dose: 1 tab Lactulose (Lactulose Liq) 30 ml PO DAILY PRN PRN Reason: SEVERE CONSITIPATION Last Admin: 01/30/18 00:45 Dose: 30 ml Lidocaine HCl (Lidoderm 5% Patch.12 Hr) 1 patch T-DERMAL DAILY@1999 [facility] Last Admin: 02/14/18 20:23 Dose: 1 patch Magnesium Citrate (Citroma Liq) 30 ml PO DAILY PRN PRN Reason: Constipation Magnesium Oxide (Mag-Ox) 800 mg PO UNSCH PRN PRN Reason: For Magnesium 1.2 - 1.6 mg/dL Medroxyprogesterone Acetate (Provera) 2.5 mg PO DAILY [facility] Last Admin: 02/15/18 08:04 Dose: 2.5 mg Methocarbamol (Robaxin) 750 mg PO QID [facility] Last Admin: 01/31/18 17:53 Dose: Not Given Methylprednisolone Sodium Succinate (Solumedrol Inj) 60 mg IV.PUSH Q6H [facility] Last Admin: 02/15/18 08:05 Dose: 60 mg Miscellaneous (Pill Splitter) 1 each OTHER UNSCH PRN PRN Reason: SEE LABEL COMMENTS Pantoprazole Sodium (Protonix) 40 mg PO DAILY [facility] Last Admin: 02/15/18 08:04 Dose: 40 mg Patch Removal (Remove Old Patch) 1 each T-DERMAL HS [facility] Last Admin: 02/14/18 20:24 Dose: 1 each Potassium Bicarb/Potassium Chloride (K-Lyte Cl Eff) 50 meq PO UNSCH PRN PRN Reason: For Potassium 3.3 - 3.5 mEq/L Potassium Chloride (K-Dur) 20 meq PO DAILY [facility] Last Admin: 02/15/18 08:04 Dose: 20 meq Potassium Phosphate (K-Phos Original) 2,000 mg PO Q4H PRN PRN Reason: Phosphorus Less Than 2.5 mg/dL Potassium Phosphate (K-Phos Original) 2,000 mg PO UNSCH PRN PRN Reason: SEE LABEL COMMENTS Sennosides (Senokot) 17.2 mg PO Q12H PRN PRN Reason: Moderate Constipation Last Admin: 02/09/18 18:36 Dose: 17.2 mg Sodium Chloride (Ns Flush) 2 ml IV.FLUSH BID [facility] Last Admin: 02/15/18 08:06 Dose: 2 ml Sodium Chloride (Ns Flush) 2 ml IV.FLUSH PRN PRN PRN Reason: FLUSH AFTER USING IV ACCESS Sodium Chloride ([place] Nasal [place]) 1 spray EACH NARE BID [facility] Last Admin: 02/15/18 08:06 Dose: 1 spray Trazodone HCl (Desyrel) 100 mg PO HS [facility] Last Admin: 02/14/18 20:22 Dose: 100 mg Triamterene/HCTZ (Dyazide 37.5/25 Mg) 1 cap G-TUBE DAILY [facility] Last Admin: 02/08/18 09:13 Dose: 1 cap Allergies/Adverse Reactions: Allergies Allergy/AdvReac Type Severity Reaction Status Date / Time azithromycin Allergy Severe HIVES, N Verified 01/25/18 19:06 AND V citric acid Allergy Severe hives Verified 01/25/18 19:06 erythromycin base Allergy Severe ALL MYCINS Verified 01/25/18 19:06 lovastatin Allergy Severe hives Verified 01/25/18 19:06 niacin Allergy Severe hives Verified 01/25/18 19:06 oxybutynin Allergy Severe hives Verified 01/25/18 19:06 rosuvastatin Allergy Severe Hives Verified 01/25/18 19:06 cholestyramine AdvReac Severe vomits Verified 01/25/18 19:06 Review of Systems All other systems reviewed negative except as stated in HPI Physical Exam Vital signs: Vital Signs 11/27/18 10:00 02/14/18 10:43 02/14/18 11:00 Temperature Pulse Rate 94 H 91 H 83 Respiratory Rate 29 H 35 H 23 Blood Pressure 135/73 143/68 H 126/71 Pulse Oximetry 97 87 L 94 L 02/14/18 12:00 02/14/18 13:00 02/14/18 13:01 Temperature 98.2 F Pulse Rate 80 91 H 90 Respiratory Rate 34 H 44 H 54 H Blood Pressure 133/71 158/70 H Pulse Oximetry 92 L 82 L 86 L 02/14/18 14:00 02/14/18 14:17 02/14/18 15:00 Temperature Pulse Rate 94 H 103 H Respiratory Rate 20 38 H Blood Pressure 118/63 Pulse Oximetry 96 92 L 93 L 02/14/18 15:09 02/14/18 16:00 02/14/18 17:00 Temperature 98.8 F Pulse Rate 93 H 81 88 Respiratory Rate 30 H 32 H 40 H Blood Pressure 119/77 124/72 132/82 Pulse Oximetry 91 L 99 97 02/14/18 18:00 02/14/18 19:00 02/14/18 20:00 Temperature 98.1 F Pulse Rate 83 86 88 Respiratory Rate 26 H 32 H 31 H Blood Pressure 141/75 H 132/67 153/75 H Pulse Oximetry 93 L 84 L 87 L 02/14/18 21:00 02/14/18 21:35 02/14/18 22:00 Temperature Pulse Rate 81 108 H Respiratory Rate 22 35 H Blood Pressure 129/69 112/78 Pulse Oximetry 92 L 98 02/14/18 23:00 02/14/18 23:57 02/15/18 00:00 Temperature 97.6 F Pulse Rate 85 90 105 H Respiratory Rate 23 20 36 H Blood Pressure 148/69 H 150/83 H Pulse Oximetry 94 L 93 L 02/15/18 00:04 02/15/18 01:00 02/15/18 01:10 Temperature Pulse Rate 86 104 H 82 Respiratory Rate 30 H 60 H 31 H Blood Pressure 150/83 H 137/75 Pulse Oximetry 93 L 85 L 93 L 02/15/18 02:00 02/15/18 03:00 02/15/18 04:00 Temperature 97.7 F Pulse Rate 92 H 75 101 H Respiratory Rate 29 H 18 27 H Blood Pressure 137/71 113/71 134/73 Pulse Oximetry 88 L 94 L 92 L 02/15/18 04:03 02/15/18 05:00 02/15/18 06:00 Temperature Pulse Rate 97 H 79 73 Respiratory Rate 27 H 24 23 Blood Pressure 134/73 125/70 119/66 Pulse Oximetry 90 L 85 L 92 L 02/15/18 07:00 02/15/18 07:41 02/15/18 08:00 Temperature 98.3 F Pulse Rate 91 H 85 97 H Respiratory Rate 22 16 23 Blood Pressure 140/71 137/69 Pulse Oximetry 89 L 92 L Intake & Output 02/14/18 02/15/18 02/15/18 18:59 06:59 18:59 Intake Total 600 / 600 440 / 440 Output Total 800 / 800 600 / 600 Balance -200 / -200 -160 / -160 Weight 89.1 kg Intake: IV 200 / 200 Doxy 100 Inj 100 MG In NS Inj 200 / 200 100 ML @ 100 mls/hr IV.SIG Q12H JO Rx#:[id number] Oral 600 / 600 240 / 240 Output: Urine 600 / 600 Urine Amount (Catheter) 800 / 800 Straight 800 / 800 Other: # Bowel Movements 0 0 Narrative: GENERAL: in NAD, obese sitting up in bed SKIN: Warm and dry. HEAD: Atraumatic. Normocephalic. EYES: Pupils equal and round. No scleral icterus. ENT: No nasal bleeding or discharge. NECK: Trachea midline. No JVD. CARDIOVASCULAR: Regular rate and rhythm. RESPIRATORY: Very mild tachypnea GASTROINTESTINAL: Abdomen soft, non-tender, nondistended. MUSCULOSKELETAL: Extremities without clubbing, cyanosis, or edema. NEUROLOGICAL: Awake and alert. sitting up eating breakfast, Oriented x3, conversant, no aphasia, fluent articulate, No facial asymmetry, OU 3-2mm, eomi, VFF, able to raise both upper extremity to gravity above her shoulders, paraparesis hip flexor thigh atrophy weakness in both legs strength 0 out of 5, reflexes were 1-2+ her no clonus reduce pinprick level above the mid thigh region, no clonus plantar flexor gait not assessed secondary level weakness PSYCHIATRIC: Appropriate mood and affect; insight and judgment normal. - Constitutional no acute distress - Routine HEENT Exam Head: Present: normocephalic Eye: Present: EOMI - Urinary Catheter Management Straight Cath placed during this visit: yes, but has since been removed by the nurse Reason for continuing: Not indwelling catheter Insertion date: 01/31/18 Insertion time: 14:30 Removal date: 01/30/18 Removal time: 10:55 Indwelling Urethral Catheter Cath placed during this visit: yes, but has since been removed by the nurse Reason for continuing: Decision to DC catheter Insertion date: 01/28/18 Removal date: 01/29/18 Removal time: 18:15 Female External Cath placed during this visit: no Objective Laboratory Results - last 24 hr 02/13/18 02/14/18 02/14/18 12:06 11:31 18:57 Sodium Potassium Chloride Carbon Dioxide Anion Gap BUN Creatinine Estimated GFR POC Glucose 196 H 203 H Random Glucose Calcium Total Bilirubin AST ALT Alkaline Phosphatase Total Protein Albumin M. pneumoniae Interp . Mycoplasma pneumon IgG Negative Mycoplasma pneumon IgM Negative 02/14/18 02/14/18 02/14/18 20:27 20:59 22:45 Sodium 136 Potassium 4.0 Chloride 102 Carbon Dioxide 26.8 Anion Gap 7 BUN 40 H Creatinine 0.82 Estimated GFR 71 L POC Glucose 225 H 148 H Random Glucose 177 H Calcium 8.5 Total Bilirubin 0.6 AST 29 ALT 44 Alkaline Phosphatase 98 Total Protein 6.2 L Albumin 2.9 L M. pneumoniae Interp Mycoplasma pneumon IgG Mycoplasma pneumon IgM 02/15/18 08:03 Sodium Potassium Chloride Carbon Dioxide Anion Gap BUN Creatinine Estimated GFR POC Glucose 177 H Random Glucose Calcium Total Bilirubin AST ALT Alkaline Phosphatase Total Protein Albumin M. 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 - Critical illness myopathy Status: Acute Current Visit: Yes (4) Critical illness neuropathy Code(s): G62.81 - Critical illness polyneuropathy Status: Acute Current Visit: Yes (5) Interstitial lung disease Code(s): J84.9 - Interstitial pulmonary disease, unspecified Status: Acute Current Visit: Yes (6) Immunocompromised Code(s): D84.9 - Immunodeficiency, unspecified Status: Acute Current Visit: Yes (7) HCAP (healthcare-associated pneumonia) Code(s): J18.9 - Pneumonia, unspecified organism Status: Acute Current Visit : Yes (8) Hypoxia Code(s): R09.02 - Hypoxemia Status: Acute Current Visit: Yes - Review/Management Plan: progressive weakness critical illness myoneuropathy. r/o spinal cord infarct/cauda equina on steroids and has been bedridden for weeks recs mri neuroaxis-pending f/u esr/crp/ck/aldolas aggressive nutritional support follow exam
[2018-02-15 12:01] LABS: Creatine Kinase 112 U/L (26-192)
--- NOTE | 2018-02-15 12:19 | P.PNID ---
Subjective Remarks: Patient is currently on high flow oxygen via nasal cannula. She feels anxious. Current saturation is in the 80s. Afebrile. No sputum production. No cough Afebrile. 62-year-old white female with history of rheumatoid arthritis who presented to emergency department on 01/25/2018 with shortness of breath. Antibiotics: Doxycycline Lines: No evidence of infection Past Medical History: Hyperlipidemia, hypertension, osteoarthritis, rheumatoid arthritis, Gastroesophageal reflux disease, degenerative disc disease of the cervical spine , history of sinus surgery, history of back surgery Allergies/Adverse Reactions: Allergies azithromycin Allergy (Severe, Verified 01/25/18 19:06) HIVES, N AND V citric acid Allergy (Severe, Verified 01/25/18 19:06) hives erythromycin base Allergy (Severe, Verified 01/25/18 19:06) ALL MYCINS lovastatin Allergy (Severe, Verified 01/25/18 19:06) hives "ALL STATINS" ALLERGY niacin Allergy (Severe, Verified 01/25/18 19:06) hives oxybutynin Allergy (Severe, Verified 01/25/18 19:06) hives rosuvastatin Allergy (Severe, Verified 01/25/18 19:06) Hives cholestyramine Adverse Reaction (Severe, Verified 01/25/18 19:06) vomits Objective Vital Signs 02/14/18 13:00 02/14/18 13:01 02/14/18 14:00 Temperature Pulse Rate 91 H 90 94 H Respiratory Rate 44 H 54 H 20 Blood Pressure 158/70 H 118/63 Pulse Oximetry 82 L 86 L 96 02/14/18 14:17 02/14/18 15:00 02/14/18 15:09 Temperature Pulse Rate 103 H 93 H Respiratory Rate 38 H 30 H Blood Pressure 119/77 Pulse Oximetry 92 L 93 L 91 L 02/14/18 16:00 02/14/18 17:00 02/14/18 18:00 Temperature 98.8 F Pulse Rate 81 88 83 Respiratory Rate 32 H 40 H 26 H Blood Pressure 124/72 132/82 141/75 H Pulse Oximetry 99 97 93 L 02/14/18 19:00 02/14/18 20:00 02/14/18 21:00 Temperature 98.1 F Pulse Rate 86 88 81 Respiratory Rate 32 H 31 H 22 Blood Pressure 132/67 153/75 H 129/69 Pulse Oximetry 84 L 87 L 92 L 02/14/18 21:35 02/14/18 22:00 02/14/18 23:00 Temperature Pulse Rate 108 H 85 Respiratory Rate 35 H 23 Blood Pressure 112/78 148/69 H Pulse Oximetry 98 94 L 02/14/18 23:57 02/15/18 00:00 02/15/18 00:04 Temperature 97.6 F Pulse Rate 90 105 H 86 Respiratory Rate 20 36 H 30 H Blood Pressure 150/83 H 150/83 H Pulse Oximetry 93 L 93 L 02/15/18 01:00 02/15/18 01:10 02/15/18 02:00 Temperature Pulse Rate 104 H 82 92 H Respiratory Rate 60 H 31 H 29 H Blood Pressure 137/75 137/71 Pulse Oximetry 85 L 93 L 88 L 02/15/18 03:00 02/15/18 04:00 02/15/18 04:03 Temperature 97.7 F Pulse Rate 75 101 H 97 H Respiratory Rate 18 27 H 27 H Blood Pressure 113/71 134/73 134/73 Pulse Oximetry 94 L 92 L 90 L 02/15/18 05:00 02/15/18 06:00 02/15/18 07:00 Temperature Pulse Rate 79 73 91 H Respiratory Rate 24 23 22 Blood Pressure 125/70 119/66 140/71 Pulse Oximetry 85 L 92 L 89 L 02/15/18 07:41 02/15/18 08:00 02/15/18 10:00 Temperature 98.3 F Pulse Rate 85 97 H 90 Respiratory Rate 16 23 Blood Pressure 137/69 Pulse Oximetry 92 L 02/15/18 11:09 Temperature Pulse Rate 80 Respiratory Rate 24 Blood Pressure Pulse Oximetry Intake & Output 02/14/18 02/15/18 02/15/18 18:59 06:59 18:59 Intake Total 600 / 600 440 / 440 Output Total 800 / 800 600 / 600 Balance -200 / -200 -160 / -160 Weight 89.1 kg Intake: IV 200 / 200 Doxy 100 Inj 100 MG In NS Inj 200 / 200 100 ML @ 100 mls/hr IV.SIG Q12H JO Rx#:[id number] Oral 600 / 600 240 / 240 Output: Urine 600 / 600 Urine Amount (Catheter) 800 / 800 Straight 800 / 800 Other: # Bowel Movements 0 0 02/12/18 17:50 Urine - Catheterized Urine Legionella Antigen - Final Presumptive negative for Legionella pneumophila serogroup 1 antigen in urine, suggesting no recent or recurrent infection. Infection due to Legionella cannot be ruled out since other serogroups and species may cause disease, antigen may not be present in urine in early infection, and the level of antigen present in the urine may be below the detection limit of the test. Lab - Hematology Results 02/15/18 11:23 ESR 9 Lab - Chemistry Results 02/13/18 02/13/18 02/13/18 12:43 17:24 20:47 Sodium Potassium Chloride Carbon Dioxide Anion Gap BUN Creatinine Estimated GFR POC Glucose 196 H 144 H 157 H Random Glucose Calcium Total Bilirubin AST ALT Alkaline Phosphatase Total Creatine Kinase C-Reactive Protein Total Protein Albumin 02/14/18 02/14/18 02/14/18 09:24 11:31 18:57 Sodium Potassium Chloride Carbon Dioxide Anion Gap BUN Creatinine Estimated GFR POC Glucose 132 H 196 H 203 H Random Glucose Calcium Total Bilirubin AST ALT Alkaline Phosphatase Total Creatine Kinase C-Reactive Protein Total Protein Albumin 02/14/18 02/14/18 02/14/18 20:27 20:59 22:45 Sodium 136 Potassium 4.0 Chloride 102 Carbon Dioxide 26.8 Anion Gap 7 BUN 40 H Creatinine 0.82 Estimated GFR 71 L POC Glucose 225 H 148 H Random Glucose 177 H Calcium 8.5 Total Bilirubin 0.6 AST 29 ALT 44 Alkaline Phosphatase 98 Total Creatine Kinase C-Reactive Protein Total Protein 6.2 L Albumin 2.9 L 02/15/18 02/15/18 08:03 11:23 Sodium Potassium Chloride Carbon Dioxide Anion Gap BUN Creatinine Estimated GFR POC Glucose 177 H Random Glucose Calcium Total Bilirubin AST ALT Alkaline Phosphatase Total Creatine Kinase 112 C-Reactive Protein Less than 0.29 Total Protein Albumin Imaging: ITS Impressions Chest CTA 01/25/18 20:50 CONCLUSION: 1. Bilateral alveolar opacities right greater than left. The differential diagnosis includes pulmonary edema and community-acquired pneumonia. There is no focal consolidation or mass. 2. Coronary artery calcifications. 3. No evidence of pulmonary embolism. Chest CT 02/10/18 00:00 CONCLUSION: Worsening diffuse interstitial disease of both lungs. The features are nonspecific. Acute interstitial pneumonia is in the differential. Chest X-Ray 02/14/18 00:00 CONCLUSION: Persistent bilateral interstitial infiltrates suggesting pulmonary fibrosis. Physical Exam: General: Alert and oriented, no acute distress. HEENT: Extraocular movements grossly intact, pupils reactive to light. No icterus. NECK: Supple. No adenopathy. LUNGS: Diffuse rales. CARDIOVASCULAR: Regular S1 and S2. No audible murmur. ABDOMEN: Bowel sounds present, soft, nontender. EXTREMITY: No clubbing or cyanosis or edema. SKIN:No rash. NEURO: Nonfocal. PSYCH: Anxious. Assessment and Plan - Plan Impression: 1. Pneumonitis very likely inflammatory lung disease. 2. Hypoxemia. Chest x-ray suggest pulmonary fibrosis. 3. Leukocytosis. Probably secondary to steroids. Recommendations: Continue doxycycline. Monitor clinical status. Follow temperature. Lung biopsy when feasible. .
[2018-02-15] MEDS: Enoxaparin Inj 40 MG/0.4 ML Syringe SQ SCH (12:54)
--- NOTE | 2018-02-15 12:57 | P.PNCC ---
Subjective Subjective Remarks/Hospital Course: Hospital Course: 62-year-old white female with history of hyperlipidemia, hypertension, osteoarthritis, rheumatoid arthritis, on methotrexate. The patient presented to the emergency department with shortness of breath on 01/25/2018. She was admitted with a diagnosis of atypical pneumonia and probable CHF. Admitted to hospitalist service with consult to pulmonology. Has received broad-spectrum antibiotics. Also treated with IV steroids breathing treatments and diuretics. Consultants involved pulmonology and infectious disease. Patient had been here at least 3 weeks with her symptoms not improving and in fact worsening hypoxemia and worsening interstitial infiltrates on the chest. A 2D echo done 01/27/2018 showed normal ejection fraction. BNP also was normal. Cardiothoracic surgery was consulted for possible lung biopsy. Today patient was more short of breath and with an episode of desaturation requiring 100% oxygen on BiPAP. Critical care medicine was consulted for further evaluation and management [place] [facility] She is in moderate distress has extensive bilateral crackles. Currently on high flow nasal cannula 40% FiO2. Patient had been on BiPAP on and off. I reviewed the recent chest x-ray and CT scan. It appears that patient has rheumatoid arthritis associated lung disease versus methotrexate toxicity. I will increase the Solu-Medrol to 60 every 6 hours from current dose of 40 every 12. I will also add small dose of Lasix. There is no evidence of infection. I would recommend empiric treatment with immunosuppressants after rheumatology consult. If we cannot arrange for rheumatology consultation here need transfer to a tertiary center. Patient may develop complications including vent dependence and persistent air leak if she undergoes biopsy. Even if proven to be noninfectious ILD on biopsy, patient will need rheumatology consult. Patient's test facility engineer in [facility] is Dr. Nick Lloyd MD. Will contact his office in am subjective: 02/15: remains short of breath. on 100% fio2. 40LPM high flow NC. can talk in short sentences. I discussed her care with her primary test facility engineer Dr. Lloyd. After a discussion of her clinical course, he thinks that methotrexate related lung injury is less likely, and she has been stable on this dose of methotrexate for greater than 10 years. 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 He recommended a trial of steroids, which I informed him we have already begun. He states if she does not respond to these, we should try other immunosuppressive regimens. I asked him if he would like to participate in her inpatient care, but he declined, as he does not do inpatient medicine. I stated we do not have inpatient Rheumatology and I do not have any physician comfortable with these immunosuppressive/immunomodulatory regimens at this facility. His recommendation is to transfer to a higher level of care, which I agree with. He does also state that she likely needs to be trialed on additional therapies prior to proceeding with open lung biopsy, as the risks of permanent ventilator dependence are high with open lung biopsy in the setting of severe acute lung disease. Of note, remainder of the ROS is unchanged. patient is pleasant on exam. Objective Vital Signs / I&O: Vital Signs 02/14/18 13:00 02/14/18 13:01 02/14/18 14:00 Temperature Pulse Rate 91 H 90 94 H Respiratory Rate 44 H 54 H 20 Blood Pressure 158/70 H 118/63 Pulse Oximetry 82 L 86 L 96 02/14/18 14:17 02/14/18 15:00 02/14/18 15:09 Temperature Pulse Rate 103 H 93 H Respiratory Rate 38 H 30 H Blood Pressure 119/77 Pulse Oximetry 92 L 93 L 91 L 02/14/18 16:00 02/14/18 17:00 02/14/18 18:00 Temperature 37.1 C Pulse Rate 81 88 83 Respiratory Rate 32 H 40 H 26 H Blood Pressure 124/72 132/82 141/75 H Pulse Oximetry 99 97 93 L 02/14/18 19:00 02/14/18 20:00 02/14/18 21:00 Temperature 36.7 C Pulse Rate 86 88 81 Respiratory Rate 32 H 31 H 22 Blood Pressure 132/67 153/75 H 129/69 Pulse Oximetry 84 L 87 L 92 L 02/14/18 21:35 02/14/18 22:00 02/14/18 23:00 Temperature Pulse Rate 108 H 85 Respiratory Rate 35 H 23 Blood Pressure 112/78 148/69 H Pulse Oximetry 98 94 L 02/14/18 23:57 02/15/18 00:00 02/15/18 00:04 Temperature 36.4 C Pulse Rate 90 105 H 86 Respiratory Rate 20 36 H 30 H Blood Pressure 150/83 H 150/83 H Pulse Oximetry 93 L 93 L 02/15/18 01:00 02/15/18 01:10 02/15/18 02:00 Temperature Pulse Rate 104 H 82 92 H Respiratory Rate 60 H 31 H 29 H Blood Pressure 137/75 137/71 Pulse Oximetry 85 L 93 L 88 L 02/15/18 03:00 02/15/18 04:00 02/15/18 04:03 Temperature 36.5 C Pulse Rate 75 101 H 97 H Respiratory Rate 18 27 H 27 H Blood Pressure 113/71 134/73 134/73 Pulse Oximetry 94 L 92 L 90 L 02/15/18 05:00 02/15/18 06:00 02/15/18 07:00 Temperature Pulse Rate 79 73 91 H Respiratory Rate 24 23 22 Blood Pressure 125/70 119/66 140/71 Pulse Oximetry 85 L 92 L 89 L 02/15/18 07:41 02/15/18 08:00 02/15/18 10:00 Temperature 36.8 C Pulse Rate 85 97 H 90 Respiratory Rate 16 23 Blood Pressure 137/69 Pulse Oximetry 92 L 02/15/18 11:09 02/15/18 12:24 Temperature Pulse Rate 80 Respiratory Rate 24 22 Blood Pressure Pulse Oximetry Intake & Output 02/14/18 02/15/18 02/15/18 18:59 06:59 18:59 Intake Total 600 / 600 440 / 440 Output Total 800 / 800 600 / 600 Balance -200 / -200 -160 / -160 Weight 89.1 kg Intake: IV 200 / 200 Doxy 100 Inj 100 MG In NS Inj 200 / 200 100 ML @ 100 mls/hr IV.SIG Q12H [facility] Rx#:[id number] Oral 600 / 600 240 / 240 Output: Urine 600 / 600 Urine Amount (Catheter) 800 / 800 Straight 800 / 800 Other: # Bowel Movements 0 0 Result Diagrams: 02/12/18 04:05 02/14/18 20:59 Objective Remarks: GENERAL: 62-year-old female, alert and oriented, moderately short of breath CARDIOVASCULAR: Regular rate and rhythm without murmurs, gallops, or rubs. RESPIRATORY: Bilaterally decreased air entry significant diffuse crackles predominantly at the bases. Moderate use of accessory muscles when talking GASTROINTESTINAL: Abdomen soft, non-tender, nondistended. MUSCULOSKELETAL: No cyanosis, or edema. SKIN: Warm and dry. NEURO: Chronic weakness of bilateral lower extremity with sensory loss. Normal strength of upper extremity Assessment and Plan - Assessment and Plan Plan: ASSESSMENT: Acute hypoxemic respiratory failure Interstitial lung disease (rheumatoid lung disease versus methotrexate toxicity vs. autoimmune) Leukocytosis most likely steroid-induced History of rheumatoid arthritis Hyperlipidemia Hypertension Degenerative disc disease of the cervical spine PLAN: NEURO: -Minimize sedation -Xanax for anxiety RESP: -Increase Solu-Medrol to 60 mg every 6 hours, consider pulse dose of Solu- Medrol 1 g if no response to this regimen -Appears like patient has interstitial lung disease secondary to rheumatoid arthritis versus methotrexate toxicity - agree methotrexate -Patient will need rheumatology consult, if cannot be arranged here will need transfer to tertiary care center -CT surgery had been consulted for lung biopsy, recommend holding off until rheumatology consult can be arranged -I spoke with patient's primary test facility engineer. -Patient may need immunosuppressive therapy (mycophenolate, cyclophosphamide etc.) -DuoNeb every 4 hours scheduled and as needed, EzPAP -Continue BiPAP as needed and at night -Currently on high flow nasal cannula titrate to keep saturation more than 90% CV: -Placed on Lasix 20 mg IV every 12 hours, diuresis to dry weight -2D echo shows normal ejection fraction GI: -Continue diet, continue Protonix -Speech eval : -Monitor renal function closely. ID: -Currently on doxycycline per ID HEME: -Monitor CBC, coags -Leukocytosis most likely steroid-induced ENDO: -Electrolyte replacement per protocol -Sliding scale insulin if needed PROPH: -Bilateral lower extremity SCDs. Lovenox/Protonix LINES: -Utilize peripheral IVs
--- NOTE | 2018-02-15 18:18 | P.PN ---
Subjective Interval history: alert no change nad on high flow nasal O2 Physical Exam Vital signs: Vital Signs 02/14/18 19:00 02/14/18 20:00 02/14/18 21:00 Temperature 98.1 F Pulse Rate 86 88 81 Respiratory Rate 32 H 31 H 22 Blood Pressure 132/67 153/75 H 129/69 Pulse Oximetry 84 L 87 L 92 L 02/14/18 21:35 02/14/18 22:00 02/14/18 23:00 Temperature Pulse Rate 108 H 85 Respiratory Rate 35 H 23 Blood Pressure 112/78 148/69 H Pulse Oximetry 98 94 L 02/14/18 23:57 02/15/18 00:00 02/15/18 00:04 Temperature 97.6 F Pulse Rate 90 105 H 86 Respiratory Rate 20 36 H 30 H Blood Pressure 150/83 H 150/83 H Pulse Oximetry 93 L 93 L 02/15/18 01:00 02/15/18 01:10 02/15/18 02:00 Temperature Pulse Rate 104 H 82 92 H Respiratory Rate 60 H 31 H 29 H Blood Pressure 137/75 137/71 Pulse Oximetry 85 L 93 L 88 L 02/15/18 03:00 02/15/18 04:00 02/15/18 04:03 Temperature 97.7 F Pulse Rate 75 101 H 97 H Respiratory Rate 18 27 H 27 H Blood Pressure 113/71 134/73 134/73 Pulse Oximetry 94 L 92 L 90 L 02/15/18 05:00 02/15/18 06:00 02/15/18 07:00 Temperature Pulse Rate 79 73 91 H Respiratory Rate 24 23 22 Blood Pressure 125/70 119/66 140/71 Pulse Oximetry 85 L 92 L 89 L 02/15/18 07:41 02/15/18 08:00 02/15/18 09:00 Temperature 98.3 F Pulse Rate 85 97 H 81 Respiratory Rate 16 23 35 H Blood Pressure 137/69 134/74 Pulse Oximetry 92 L 89 L 02/15/18 10:00 02/15/18 11:00 02/15/18 11:09 Temperature Pulse Rate 83 89 80 Respiratory Rate 22 35 H 24 Blood Pressure 129/68 124/64 Pulse Oximetry 94 L 89 L 02/15/18 12:00 02/15/18 12:24 02/15/18 13:00 Temperature 97.6 F Pulse Rate 87 82 Respiratory Rate 27 H 22 42 H Blood Pressure 117/66 108/59 L Pulse Oximetry 89 L 92 L 02/15/18 14:00 02/15/18 14:47 02/15/18 15:00 Temperature Pulse Rate 87 78 96 H Respiratory Rate 42 H 16 28 H Blood Pressure 119/69 122/69 Pulse Oximetry 92 L 92 L 02/15/18 16:00 02/15/18 17:00 Temperature 98.4 F Pulse Rate 91 H 80 Respiratory Rate 37 H 21 Blood Pressure 117/65 128/62 Pulse Oximetry 91 L 90 L Intake & Output 02/14/18 02/15/18 02/15/18 18:59 06:59 18:59 Intake Total 600 / 600 440 / 440 100 / 100 Output Total 800 / 800 600 / 600 Balance -200 / -200 -160 / -160 100 / 100 Weight 89.1 kg Intake: IV 200 / 200 100 / 100 Doxy 100 Inj 100 MG In NS Inj 200 / 200 100 / 100 100 ML @ 100 mls/hr IV.SIG Q12H [facility] Rx#:[id number] Oral 600 / 600 240 / 240 Output: Urine 600 / 600 Urine Amount (Catheter) 800 / 800 Straight 800 / 800 Other: # Bowel Movements 0 0 Narrative: GENERAL: in NAD, obese sitting up in bed SKIN: Warm and dry. HEAD: Atraumatic. Normocephalic. EYES: Pupils equal and round. No scleral icterus. ENT: No nasal bleeding or discharge. NECK: Trachea midline. No JVD. CARDIOVASCULAR: Regular rate and rhythm. RESPIRATORY: Very mild tachypnea GASTROINTESTINAL: Abdomen soft, non-tender, nondistended. MUSCULOSKELETAL: Extremities without clubbing, cyanosis, or edema. NEUROLOGICAL: Awake and alert. sitting up eating breakfast, Oriented x3, conversant, no aphasia, fluent articulate, No facial asymmetry, OU 3-2mm, eomi, VFF, able to raise both upper extremity to gravity above her shoulders, paraparesis hip flexor thigh atrophy weakness in both legs strength 0 out of 5, reflexes were 1-2+ her no clonus reduce pinprick level above the mid thigh region, no clonus plantar flexor gait not assessed secondary level weakness PSYCHIATRIC: Appropriate mood and affect; insight and judgment normal. - Urinary Catheter Management Straight Cath placed during this visit: yes, but has since been removed by the nurse Reason for continuing: Not indwelling catheter Insertion date: 01/31/18 Insertion time: 14:30 Removal date: 01/30/18 Removal time: 10:55 Indwelling Urethral Catheter Cath placed during this visit: yes, but has since been removed by the nurse Reason for continuing: Decision to DC catheter Insertion date: 01/28/18 Removal date: 01/29/18 Removal time: 18:15 Female External Cath placed during this visit: no Results - Labs CBC & Chem 7: 02/12/18 04:05 02/14/18 20:59 Laboratory Results - last 24 hr 02/14/18 02/14/18 02/14/18 18:57 20:27 20:59 ESR Sodium 136 Potassium 4.0 Chloride 102 Carbon Dioxide 26.8 Anion Gap 7 BUN 40 H Creatinine 0.82 Estimated GFR 71 L POC Glucose 203 H 225 H Random Glucose 177 H Calcium 8.5 Total Bilirubin 0.6 AST 29 ALT 44 Alkaline Phosphatase 98 Total Creatine Kinase C-Reactive Protein Total Protein 6.2 L Albumin 2.9 L Procalcitonin 02/14/18 02/15/18 02/15/18 22:45 03:41 08:03 ESR Sodium Potassium Chloride Carbon Dioxide Anion Gap BUN Creatinine Estimated GFR POC Glucose 148 H 177 H Random Glucose Calcium Total Bilirubin AST ALT Alkaline Phosphatase Total Creatine Kinase C-Reactive Protein Total Protein Albumin Procalcitonin 0.07 02/15/18 02/15/18 02/15/18 11:23 11:23 12:53 ESR 9 Sodium Potassium Chloride Carbon Dioxide Anion Gap BUN Creatinine Estimated GFR POC Glucose 203 H Random Glucose Calcium Total Bilirubin AST ALT Alkaline Phosphatase Total Creatine Kinase 112 C-Reactive Protein Less than 0.29 Total Protein Albumin Procalcitonin 02/15/18 16:56 ESR Sodium Potassium Chloride Carbon Dioxide Anion Gap BUN Creatinine Estimated GFR POC Glucose 187 H Random Glucose Calcium Total Bilirubin AST ALT Alkaline Phosphatase Total Creatine Kinase C-Reactive Protein Total Protein Albumin Procalcitonin Assessment and Plan - Plan RESPIRATORY FAILURE STILL NEEDS HIGH FIO2 atypical pna, due to RA, MTX OTHER ? JORDANA PLAN O2 NEEDED BRONCHODILATOR THERAPY CONTINUE STEROIDS INCREASE ACTIVITY THORACIC SURGERY CONSULT FOR VATS BX,PATIENT AND FAMILY HESITANT ARRAGEMENTS TO TRANSFER TO TERTIARY FACILITY IN PROGRESS
[2018-02-15] MEDS: Lidocaine 5% Patch T-DERMAL SCH (20:12)
[2018-02-15] MEDS: traZODone 50 MG Tablet PO SCH (20:13)
[2018-02-15] MEDS: Gabapentin 300 MG Capsule PO SCH (20:13)
--- NOTE | 2018-02-15 21:36 | P.DS ---
Date of admission: 01/25/18 22:20 Primary care physician: Momo Powell MD Attending physician on discharge: Kwesi Curry Anticipated date of discharge: 02/16/18 Brief History from admission: This is a 62-year-old female with history of chronic low back pain from degenerative disc disease both cervical and lumbar, hyperlipidemia, osteoarthritis, rheumatoid arthritis, hypertension, sciatica and spinal stenosis presenting to the hospital from rehab for shortness of breath. Per patient, she has been at rehab for lower extremity weakness because of her spinal stenosis/low back pain for about 2 weeks now. About 3 days ago, she started having progressive worsening of her chronic dry cough, nonproductive, associated shortness of breath but no fever or chills. She denies current smoking. She also started having wheezing, chest tightness in the saturation of 87% on room air which improved with nebulization hence the patient was sent here from the rehab facility. Complaining of moderate to severe low back pain and right lower extremity pain which worsens the low back pain. Per patient, she is on gabapentin 300 mg 3 times a day and another dose of 600 mg at night. DS: Diagnosis - Discharge Diagnosis (1) Critical illness myopathy Status: Acute (2) Critical illness neuropathy Status: Acute (3) HCAP (healthcare-associated pneumonia) Status: Acute (4) Hypoxia Status: Acute (5) Immunocompromised Status: Acute (6) Interstitial lung disease Status: Acute (7) Lumbar stenosis Status: Acute (8) Myopathy Status: Acute DS: Summary Hospital Course: Hospital Course: 62-year-old white female with history of hyperlipidemia, hypertension, osteoarthritis, rheumatoid arthritis, on methotrexate. The patient presented to the emergency department with shortness of breath on 01/25/2018. She was admitted with a diagnosis of atypical pneumonia and probable CHF. Admitted to hospitalist service with consult to pulmonology. Has received broad-spectrum antibiotics. Also treated with IV steroids breathing treatments and diuretics. Consultants involved pulmonology and infectious disease. Patient had been here at least 3 weeks with her symptoms not improving and in fact worsening hypoxemia and worsening interstitial infiltrates on the chest. A 2D echo done 01/27/2018 showed normal ejection fraction. BNP also was normal. Cardiothoracic surgery was consulted for possible lung biopsy. Today patient was more short of breath and with an episode of desaturation requiring 100% oxygen on BiPAP. Critical care medicine was consulted for further evaluation and management I [place] the [place] [facility] She is in moderate distress has extensive bilateral crackles. Currently on high flow nasal cannula 40% FiO2. Patient had been on BiPAP on and off. I reviewed the recent chest x-ray and CT scan. It appears that patient has rheumatoid arthritis associated lung disease versus methotrexate toxicity. I will increase the Solu-Medrol to 60 every 6 hours from current dose of 40 every 12. I will also add small dose of Lasix. There is no evidence of infection. I would recommend empiric treatment with immunosuppressants after rheumatology consult. If we cannot arrange for rheumatology consultation here need transfer to a tertiary center. Patient may develop complications including vent dependence and persistent air leak if she undergoes biopsy. Even if proven to be noninfectious ILD on biopsy, patient will need rheumatology consult. Patient's domain architect in [facility] is Dr. Nick Lloyd MD. Will contact his office in am subjective: 02/15: remains short of breath. on 100% fio2. 40LPM high flow NC. can talk in short sentences. I discussed her care with her primary domain architect Dr. Lloyd. After a discussion of her clinical course, he thinks that methotrexate related lung injury is less likely, and she has been stable on this dose of methotrexate for greater than 10 years. 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 He recommended a trial of steroids, which I informed him we have already begun. He states if she does not respond to these, we should try other immunosuppressive regimens. I asked him if he would like to participate in her inpatient care, but he declined, as he does not do inpatient medicine. I stated we do not have inpatient Rheumatology and I do not have any physician comfortable with these immunosuppressive/immunomodulatory regimens at this facility. His recommendation is to transfer to a higher level of care, which I agree with. He does also state that she likely needs to be trialed on additional therapies prior to proceeding with open lung biopsy, as the risks of permanent ventilator dependence are high with open lung biopsy in the setting of severe acute lung disease. Of note, remainder of the ROS is unchanged. patient is pleasant on exam. - Time Spent with Patient Total time spent providing and/or coordinating discharge services: Greater than 30 minutes - Quality: VTE Deep Vein Thrombosis/Pulmonary Embolism Present on Admission: No Exam Vital signs: Vital Signs 02/14/18 22:00 02/14/18 23:00 02/14/18 23:57 Temperature Pulse Rate 108 H 85 90 Respiratory Rate 35 H 23 20 Blood Pressure 112/78 148/69 H Pulse Oximetry 94 L 02/15/18 00:00 02/15/18 00:04 02/15/18 01:00 Temperature 36.4 C Pulse Rate 105 H 86 104 H Respiratory Rate 36 H 30 H 60 H Blood Pressure 150/83 H 150/83 H Pulse Oximetry 93 L 93 L 85 L 02/15/18 01:10 02/15/18 02:00 02/15/18 03:00 Temperature Pulse Rate 82 92 H 75 Respiratory Rate 31 H 29 H 18 Blood Pressure 137/75 137/71 113/71 Pulse Oximetry 93 L 88 L 94 L 02/15/18 04:00 02/15/18 04:03 02/15/18 05:00 Temperature 36.5 C Pulse Rate 101 H 97 H 79 Respiratory Rate 27 H 27 H 24 Blood Pressure 134/73 134/73 125/70 Pulse Oximetry 92 L 90 L 85 L 02/15/18 06:00 02/15/18 07:00 02/15/18 07:41 Temperature Pulse Rate 73 91 H 85 Respiratory Rate 23 22 16 Blood Pressure 119/66 140/71 Pulse Oximetry 92 L 89 L 92 L 02/15/18 08:00 02/15/18 09:00 02/15/18 10:00 Temperature 36.8 C Pulse Rate 97 H 81 83 Respiratory Rate 23 35 H 22 Blood Pressure 137/69 134/74 129/68 Pulse Oximetry 89 L 94 L 02/15/18 11:00 02/15/18 11:09 02/15/18 12:00 Temperature 36.4 C Pulse Rate 89 80 87 Respiratory Rate 35 H 24 27 H Blood Pressure 124/64 117/66 Pulse Oximetry 89 L 89 L 02/15/18 12:24 02/15/18 13:00 02/15/18 14:00 Temperature Pulse Rate 82 87 Respiratory Rate 22 42 H 42 H Blood Pressure 108/59 L 119/69 Pulse Oximetry 92 L 92 L 02/15/18 14:47 02/15/18 15:00 02/15/18 16:00 Temperature 36.9 C Pulse Rate 78 96 H 91 H Respiratory Rate 16 28 H 37 H Blood Pressure 122/69 117/65 Pulse Oximetry 92 L 91 L 02/15/18 17:00 02/15/18 18:00 02/15/18 20:46 Temperature Pulse Rate 80 88 97 H Respiratory Rate 21 16 Blood Pressure 128/62 Pulse Oximetry 90 L 92 L Intake & Output 02/15/18 02/15/18 02/16/18 06:59 18:59 06:59 Intake Total 440 / 440 600 / 600 Output Total 600 / 600 150 / 150 Balance -160 / -160 450 / 450 Weight 89.1 kg Intake: IV 200 / 200 100 / 100 Doxy 100 Inj 100 MG In NS Inj 200 / 200 100 / 100 100 ML @ 100 mls/hr IV.SIG Q12H [facility] Rx#:[id number] Oral 240 / 240 500 / 500 Output: Urine 600 / 600 Urine Amount (Catheter) 150 / 150 Female External 150 / 150 Other: # Voids 2 # Bowel Movements 0 Results Procedures completed during hospitalization: none Labs on day of discharge: Labs from last 24 hours 02/15/18 02/15/18 02/15/18 20:22 16:56 12:53 ESR Sodium Potassium Chloride Carbon Dioxide Anion Gap BUN Creatinine Estimated GFR POC Glucose 233 H 187 H 203 H Random Glucose Calcium Total Bilirubin AST ALT Alkaline Phosphatase Total Creatine Kinase C-Reactive Protein Total Protein Albumin Aldolase Procalcitonin 02/15/18 02/15/18 02/15/18 11:23 11:23 11:23 ESR 9 Sodium Potassium Chloride Carbon Dioxide Anion Gap BUN Creatinine Estimated GFR POC Glucose Random Glucose Calcium Total Bilirubin AST ALT Alkaline Phosphatase Total Creatine Kinase 112 C-Reactive Protein Less than 0.29 Total Protein Albumin Aldolase Pending Procalcitonin 02/15/18 02/15/18 02/14/18 08:03 03:41 22:45 ESR Sodium Potassium Chloride Carbon Dioxide Anion Gap BUN Creatinine Estimated GFR POC Glucose 177 H 148 H Random Glucose Calcium Total Bilirubin AST ALT Alkaline Phosphatase Total Creatine Kinase C-Reactive Protein Total Protein Albumin Aldolase Procalcitonin 0.07 02/14/18 20:59 ESR Sodium 136 Potassium 4.0 Chloride 102 Carbon Dioxide 26.8 Anion Gap 7 BUN 40 H Creatinine 0.82 Estimated GFR 71 L POC Glucose Random Glucose 177 H Calcium 8.5 Total Bilirubin 0.6 AST 29 ALT 44 Alkaline Phosphatase 98 Total Creatine Kinase C-Reactive Protein Total Protein 6.2 L Albumin 2.9 L Aldolase Procalcitonin - Impressions ITS Impressions Chest CTA 01/25/18 20:50 CONCLUSION: 1. Bilateral alveolar opacities right greater than left. The differential diagnosis includes pulmonary edema and community-acquired pneumonia. There is no focal consolidation or mass. 2. Coronary artery calcifications. 3. No evidence of pulmonary embolism. Chest CT 02/10/18 00:00 CONCLUSION: Worsening diffuse interstitial disease of both lungs. The features are nonspecific. Acute interstitial pneumonia is in the differential. Chest X-Ray 02/14/18 00:00 CONCLUSION: Persistent bilateral interstitial infiltrates suggesting pulmonary fibrosis. Discharge Plan - Discharge Disposition Patient Disposition: 70 Transfer To Other Facility - Discharge Condition Condition: Fair - Discharge Order Discharge Orders: Discharge Order (Routine); Ordered 02/15/18 Ordered By: Kwesi Curry - Discharge Details Anticipated Discharge Date: 02/16/18 Discharge Comment: to [facility] - Physicians Team Primary Care Provider: Momo Powell V Attending Provider: Alonzo Medrano Other Providers: [employer] ; Rony Uribe MD ; Kem Jensen MD ; [facility],Agency ; [facility],Agency ; [facility],Agency ; Beulah Sawyer MD ; Julee Salas MD ; Raffi Eduardo MD ; Kwesi Curry MD
[2018-02-16] MEDS: MethylPREDNISolone Sod Succinate Inj 125 MG/2 ML Vial IV.PUSH SCH ×4 (02:40→21:19)
[2018-02-16 03:59] LABS: Hematocrit 33.2 % (35.0-46.0); Mean Corpuscular HGB Conc 33.1 % (32.0-36.0); Mean Corpuscular Hemoglobin 30.4 pg (27.0-34.0); Mean Corpuscular Volume 91.7 fL (80.0-100.0); Mean Platelet Volume 8.3 fL (7.0-11.0); Platelet Count 212 th/mm3 (150-450); Red Blood Count 3.62 mil/mm3 (4.00-5.30); Red Cell Distribution Width 14.5 % (11.6-17.2); White Blood Count 16.2 th/mm3 (4.0-11.0)
[2018-02-16 04:15] LABS: Calcium 8.1 mg/dL (8.5-10.1); Carbon Dioxide 30.3 meq/L (21.0-32.0); Magnesium 2.2 mg/dL (1.5-2.5); Phosphorus 3.5 mg/dL (2.5-4.9); Potassium 3.6 meq/L (3.5-5.1)
[2018-02-16] MEDS: Atenolol 25 MG Tablet PO SCH (08:42)
[2018-02-16] MEDS: buPROPion 150 MG 12 HR Tablet PO SCH (08:42)
[2018-02-16] MEDS: Ascorbic Acid 500 MG Tablet PO SCH (08:42)
[2018-02-16] MEDS: Fenofibrate 48 MG Tablet PO SCH (08:42)
[2018-02-16] MEDS: amLODIPine 10 MG Tablet PO SCH (08:42)
[2018-02-16] MEDS: Folic Acid 1 MG Tablet PO SCH (08:42)
[2018-02-16] MEDS: Budesonide-Formoterol 160/4.5 MCG 6 GM Inhaler INH SCH ×2 (08:43→21:38)
[2018-02-16] MEDS: Estradiol 1 MG Tablet PO SCH (08:43)
[2018-02-16] MEDS: Lactobacillus Acidophilus/L. Spores Tablet PO SCH ×3 (08:43→17:24)
[2018-02-16] MEDS: Insulin NovoLOG Aspart Correctional Sugar Inj SQ SCH ×4 (08:44→21:38)
[2018-02-16] MEDS: Sodium Chloride 0.65% Nasal Spray 45 ML Bottle EACH NARE SCH ×2 (08:45→21:21)
[2018-02-16] MEDS: Enoxaparin Inj 40 MG/0.4 ML Syringe SQ SCH (12:29)
--- NOTE | 2018-02-16 17:22 | P.PNCC ---
Subjective Subjective Remarks/Hospital Course: Hospital Course: 62-year-old white female with history of hyperlipidemia, hypertension, osteoarthritis, rheumatoid arthritis, on methotrexate. The patient presented to the emergency department with shortness of breath on 01/25/2018. She was admitted with a diagnosis of atypical pneumonia and probable CHF. Admitted to hospitalist service with consult to pulmonology. Has received broad-spectrum antibiotics. Also treated with IV steroids breathing treatments and diuretics. Consultants involved pulmonology and infectious disease. Patient had been here at least 3 weeks with her symptoms not improving and in fact worsening hypoxemia and worsening interstitial infiltrates on the chest. A 2D echo done 01/27/2018 showed normal ejection fraction. BNP also was normal. Cardiothoracic surgery was consulted for possible lung biopsy. Today patient was more short of breath and with an episode of desaturation requiring 100% oxygen on BiPAP. Critical care medicine was consulted for further evaluation and management I evaluated the patient in the [facility]. She is in moderate distress has extensive bilateral crackles. Currently on high flow nasal cannula 40% FiO2. Patient had been on BiPAP on and off. I reviewed the recent chest x-ray and CT scan. It appears that patient has rheumatoid arthritis associated lung disease versus methotrexate toxicity. I will increase the Solu-Medrol to 60 every 6 hours from current dose of 40 every 12. I will also add small dose of Lasix. There is no evidence of infection. I would recommend empiric treatment with immunosuppressants after rheumatology consult. If we cannot arrange for rheumatology consultation here need transfer to a tertiary center. Patient may develop complications including vent dependence and persistent air leak if she undergoes biopsy. Even if proven to be noninfectious ILD on biopsy, patient will need rheumatology consult. [facility] Nick Lloyd MD. Will contact his office in am subjective: 02/15: remains short of breath. on 100% fio2. 40LPM high flow NC. can talk in short sentences. I discussed her care with her primary medical screener Dr. Lloyd. After a discussion of her clinical course, he thinks that methotrexate related lung injury is less likely, and she has been stable on this dose of methotrexate for greater than 10 years. 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 He recommended a trial of steroids, which I informed him we have already begun. He states if she does not respond to these, we should try other immunosuppressive regimens. I asked him if he would like to participate in her inpatient care, but he declined, as he does not do inpatient medicine. I stated we do not have inpatient Rheumatology and I do not have any physician comfortable with these immunosuppressive/immunomodulatory regimens at this facility. His recommendation is to transfer to a higher level of care, which I agree with. He does also state that she likely needs to be trialed on additional therapies prior to proceeding with open lung biopsy, as the risks of permanent ventilator dependence are high with open lung biopsy in the setting of severe acute lung disease. Of note, remainder of the ROS is unchanged. patient is pleasant on exam. 02/16: no bed available at [facility] currently. remains hypoxic, though in good spirits. on 100% fio2 HFNC, spo2 88-92%. I did a trial of NRB and the patient remained 91-92% on NRB, without respiratory distress. we did this trial for at least 3 hours, and patient remained stable. I think she should be stable for transfer to OSH without requiring intubation. Objective Vital Signs / I&O: Vital Signs 02/15/18 18:00 02/15/18 20:00 02/15/18 20:46 Temperature 36.5 C Pulse Rate 88 91 H 97 H Respiratory Rate 28 H 16 Blood Pressure 127/71 Pulse Oximetry 91 L 92 L 02/15/18 22:00 02/15/18 23:27 02/16/18 00:00 Temperature 36.6 C Pulse Rate 90 90 71 Respiratory Rate 16 16 Blood Pressure 118/58 L Pulse Oximetry 91 L 02/16/18 02:00 02/16/18 03:37 02/16/18 04:00 Temperature 36.7 C Pulse Rate 74 77 95 H Respiratory Rate 16 28 H Blood Pressure 140/60 Pulse Oximetry 93 L 02/16/18 06:00 02/16/18 08:00 02/16/18 08:26 Temperature 36.4 C Pulse Rate 86 94 H Respiratory Rate 34 H Blood Pressure 128/61 Pulse Oximetry 83 L 94 L 02/16/18 10:00 02/16/18 12:00 02/16/18 14:00 Temperature 36.8 C Pulse Rate 90 84 89 Respiratory Rate 24 Blood Pressure 118/57 L Pulse Oximetry 86 L 02/16/18 15:35 02/16/18 16:00 Temperature 36.7 C Pulse Rate 90 92 H Respiratory Rate 20 31 H Blood Pressure 111/67 Pulse Oximetry 89 L Intake & Output 02/15/18 02/16/18 02/16/18 18:59 06:59 18:59 Intake Total 600 / 600 280 / 280 100 / 100 Output Total 150 / 150 400 / 400 Balance 450 / 450 -120 / -120 100 / 100 Weight 89.1 kg Intake: IV 100 / 100 100 / 100 100 / 100 Doxy 100 Inj 100 MG In NS Inj 100 / 100 100 / 100 100 / 100 100 ML @ 100 mls/hr IV.SIG Q12H [facility] Rx#:[id number] Oral 500 / 500 180 / 180 Output: Urine Amount (Catheter) 150 / 150 400 / 400 Female External 150 / 150 400 / 400 Other: # Voids 2 # Incontinent Voids 2 # Bowel Movements 0 Result Diagrams: 02/16/18 03:28 02/16/18 03:28 Objective Remarks: GENERAL: 62-year-old female, alert and oriented, moderately short of breath CARDIOVASCULAR: Regular rate and rhythm without murmurs, gallops, or rubs. RESPIRATORY: Bilaterally decreased air entry significant diffuse crackles predominantly at the bases. Moderate use of accessory muscles when talking GASTROINTESTINAL: Abdomen soft, non-tender, nondistended. MUSCULOSKELETAL: No cyanosis, or edema. SKIN: Warm and dry. NEURO: Chronic weakness of bilateral lower extremity with sensory loss. Normal strength of upper extremity Assessment and Plan - Problem List (1) Critical illness myopathy Code(s): G72.81 - Critical illness myopathy Status: Acute (2) Critical illness neuropathy Code(s): G62.81 - Critical illness polyneuropathy Status: Acute (3) HCAP (healthcare-associated pneumonia) Code(s): J18.9 - Pneumonia, unspecified organism Status: Acute (4) Hypoxia Code(s): R09.02 - Hypoxemia Status: Acute (5) Immunocompromised Code(s): D84.9 - Immunodeficiency, unspecified Status: Acute (6) Interstitial lung disease Code(s): J84.9 - Interstitial pulmonary disease, unspecified Status: Acute (7) Lumbar stenosis Code(s): M48.061 - Spinal stenosis, lumbar region without neurogenic claudication Status: Acute (8) Myopathy Code(s): G72.9 - Myopathy, unspecified Status: Acute - Assessment and Plan Plan: ASSESSMENT: Acute hypoxemic respiratory failure Interstitial lung disease (rheumatoid lung disease versus methotrexate toxicity vs. autoimmune) Leukocytosis most likely steroid-induced History of rheumatoid arthritis Hyperlipidemia Hypertension Degenerative disc disease of the cervical spine PLAN: NEURO: -Minimize sedation -Xanax for anxiety RESP: -Solu-Medrol to 60 mg every 6 hours, consider pulse dose of Solu-Medrol 1 g if no response to this regimen -Appears like patient has interstitial lung disease secondary to rheumatoid arthritis versus methotrexate toxicity -no rheumatology consultation available at our institution - has been accepted by [facility]Critical access hospital. awaiting bed for transfer. -CT surgery had been consulted for lung biopsy, recommend holding off until rheumatology consult can be arranged -I spoke with patient's primary medical screener. -Patient may need immunosuppressive therapy (mycophenolate, cyclophosphamide etc.) -DuoNeb every 4 hours scheduled and as needed, EzPAP -Continue BiPAP as needed and at night -Currently on high flow nasal cannula titrate to keep saturation more than 90% CV: -Placed on Lasix 20 mg IV every 12 hours, diuresis to dry weight -2D echo shows normal ejection fraction GI: -Continue diet, continue Protonix -Speech eval : -Monitor renal function closely. ID: -Currently on doxycycline per ID HEME: -Monitor CBC, coags -Leukocytosis most likely steroid-induced ENDO: -Electrolyte replacement per protocol -Sliding scale insulin if needed PROPH: -Bilateral lower extremity SCDs. Lovenox/Protonix LINES: -Utilize peripheral IVs
[2018-02-16] MEDS: Lidocaine 5% Patch T-DERMAL SCH (21:19)
[2018-02-16] MEDS: Gabapentin 300 MG Capsule PO SCH (21:20)
[2018-02-16] MEDS: traZODone 50 MG Tablet PO SCH (21:20)
[2018-02-17] MEDS: MethylPREDNISolone Sod Succinate Inj 125 MG/2 ML Vial IV.PUSH SCH ×3 (01:58→14:31)
[2018-02-17 06:19] LABS: Hematocrit 34.9 % (35.0-46.0); Hemoglobin 11.9 gm/dL (11.6-15.3); Mean Corpuscular HGB Conc 34.1 % (32.0-36.0); Mean Corpuscular Hemoglobin 30.8 pg (27.0-34.0); Mean Corpuscular Volume 90.1 fL (80.0-100.0); Mean Platelet Volume 8.7 fL (7.0-11.0); Platelet Count 197 th/mm3 (150-450); Red Blood Count 3.88 mil/mm3 (4.00-5.30); White Blood Count 16.6 th/mm3 (4.0-11.0)
[2018-02-17 06:48] LABS: Calcium 8.6 mg/dL (8.5-10.1); Carbon Dioxide 32.8 meq/L (21.0-32.0); Magnesium 2.2 mg/dL (1.5-2.5)
[2018-02-17 06:51] LABS: Phosphorus 3.6 mg/dL (2.5-4.9)
[2018-02-17] MEDS: Lactobacillus Acidophilus/L. Spores Tablet PO SCH ×2 (08:58→12:30)
[2018-02-17] MEDS: Atenolol 25 MG Tablet PO SCH (08:58)
[2018-02-17] MEDS: Folic Acid 1 MG Tablet PO SCH (08:58)
[2018-02-17] MEDS: buPROPion 150 MG 12 HR Tablet PO SCH (08:58)
[2018-02-17] MEDS: amLODIPine 10 MG Tablet PO SCH (08:58)
[2018-02-17] MEDS: Ascorbic Acid 500 MG Tablet PO SCH (08:59)
[2018-02-17] MEDS: Estradiol 1 MG Tablet PO SCH (08:59)
[2018-02-17] MEDS: Budesonide-Formoterol 160/4.5 MCG 6 GM Inhaler INH SCH (09:00)
[2018-02-17] MEDS: Sodium Chloride 0.65% Nasal Spray 45 ML Bottle EACH NARE SCH (09:00)
[2018-02-17] MEDS: Insulin NovoLOG Aspart Correctional Sugar Inj SQ SCH ×2 (09:01→12:30)
--- NOTE | 2018-02-17 09:24 | P.PNNEU ---
Subjective Subjective Comments: no acute events; no saez, legs weak. +dyspnea Active Medications: Active Medications Hydrocodone Bitart/Acetaminophen ([place] 5/325) 1 tab PO Q6H PRN PRN Reason: pain 1to 10 Last Admin: 02/16/18 18:19 Dose: 1 tab Al Hydroxide/Mg Hydroxide (Milk Of Melissa Sanz) 30 ml PO Q12H PRN PRN Reason: Mild Constipation Albuterol (Albuterol Neb (Prn)) 2.5 mg NEB Q2HR NEB PRN PRN Reason: SHORTNESS OF BREATH Last Admin: 02/13/18 03:14 Dose: 2.5 mg Albuterol (Duoneb Neb ([facility])) 1 ampul NEB Q4HR NEB [facility] Last Admin: 02/17/18 08:04 Dose: 1 ampul Alprazolam (Xanax) 0.25 mg PO Q8H PRN PRN Reason: ANXIETY Last Admin: 02/15/18 01:08 Dose: 0.25 mg Amlodipine Besylate (Norvasc) 10 mg PO DAILY [facility] Last Admin: 02/17/18 08:58 Dose: 10 mg Ascorbic Acid (Vitamin C) 500 mg PO DAILY [facility] Last Admin: 02/17/18 08:59 Dose: 500 mg Atenolol (Tenormin) 25 mg PO DAILY [facility] Last Admin: 02/17/18 08:58 Dose: 25 mg Atorvastatin Calcium (Lipitor) 40 mg PO DAILY [facility] Last Admin: 02/17/18 08:58 Dose: 40 mg Baclofen (Lioresal) 20 mg PO Q8H PRN PRN Reason: SPASM Last Admin: 02/15/18 16:57 Dose: 20 mg Bisacodyl (Dulcolax Supp) 10 mg RECTAL DAILY PRN PRN Reason: SEVERE CONSITIPATION Budesonide/Formoterol Fumarate (Symbicort 160/4.5 Mcg Inh) 2 puff INH BID [facility] Last Admin: 02/17/18 09:00 Dose: 2 puff Bupropion HCl (Wellbutrin Sr) 150 mg PO DAILY [facility] Last Admin: 02/17/18 08:58 Dose: 150 mg Cetirizine HCl (Zyrtec) 10 mg PO DAILY [facility] Last Admin: 02/17/18 08:59 Dose: 10 mg Dextrose (D50w Vial) 50 ml IV.PUSH UNSCH PRN PRN Reason: PER HYPOGLYCEMIA PROTOCOL Duloxetine HCl (Cymbalta) 90 mg PO DAILY [facility] Last Admin: 02/17/18 08:58 Dose: 90 mg Enoxaparin Sodium (Lovenox Inj) 40 mg SQ Q24H [facility] Last Admin: 02/16/18 12:29 Dose: 40 mg Estradiol (Estrace) 1 mg PO DAILY [facility] Last Admin: 02/17/18 08:59 Dose: 1 mg Fenofibrate (Tricor) 48 mg PO DAILY [facility] Last Admin: 02/16/18 08:42 Dose: 48 mg Fluticasone Propionate (Flonase Nasal Timblin) 2 spray NASAL DAILY [facility] Last Admin: 02/17/18 09:00 Dose: 2 spray Folic Acid (Folic Acid) 1 mg PO DAILY [facility] Last Admin: 02/17/18 08:58 Dose: 1 mg Furosemide (Lasix) 40 mg PO DAILY [facility] Last Admin: 02/09/18 13:34 Dose: 40 mg Furosemide (Lasix Inj) 20 mg IV.PUSH BID@0900,1800 [facility] Last Admin: 02/17/18 09:00 Dose: 20 mg Gabapentin (Neurontin) 300 mg PO HS [facility] Last Admin: 02/16/18 21:20 Dose: 300 mg Glucagon (Glucagon Inj) 1 mg OTHER PRN PRN PRN Reason: for Hypoglycemia Protocol Doxycycline Hyclate 100 mg/ (Sodium Chloride) 100 mls @ 100 mls/hr IV.SIG Q12H [facility] Last Infusion: 02/17/18 01:58 Dose: Infused Magnesium Sulfate 4 gm/ Sodium (Chloride) 100 mls @ 50 mls/hr IV.SIG UNSCH PRN PRN Reason: For Magnesium 0.9 - 1.1 mg/dL Magnesium Sulfate 2 gm/ Sodium (Chloride) 100 mls @ 50 mls/hr IV.SIG UNSCH PRN PRN Reason: For Magnesium 1.2 - 1.6 mg/dL Potassium Chloride (Kcl 40 Meq Premix Inj) 40 meq in 100 mls @ 25 mls/hr IV.SIG Q2H PRN PRN Reason: For Potassium 2.8 - 3.2 mEq/L Potassium Chloride (Kcl 20 Meq Premix Inj) 20 meq in 100 mls @ 50 mls/hr IV.SIG Q2H PRN PRN Reason: For Potassium 3.3 - 3.5 mEq/L Potassium Chloride (Kcl 20 Meq Premix Inj) 20 meq in 100 mls @ 50 mls/hr IV.SIG Q2H PRN PRN Reason: For Potassium 2.8 - 3.2 mEq/L Potassium Phosphate 30 mmol/ (Sodium Chloride) 260 mls @ 42 mls/hr IV.SIG UNSCH PRN PRN Reason: SEE LABEL COMMENTS Sodium Phosphate 30 mmol/ (Sodium Chloride) 260 mls @ 42 mls/hr IV.SIG UNSCH PRN PRN Reason: For Phosphorus < 2.5 mg/dL Potassium Chloride (Kcl 40 Meq Premix Inj) 40 meq in 100 mls @ 25 mls/hr IV.SIG UNSCH PRN PRN Reason: For Potassium 3.3 - 3.5 mEq/L Insulin Aspart (Novolog Insulin Correctional Sugar Inj) 0 unit SQ ACHS [facility]; Protocol Last Admin: 02/17/18 09:01 Dose: 1 unit Lactobacillus Acidophilus (Lactinex) 1 tab PO TID [facility] Last Admin: 02/17/18 08:58 Dose: 1 tab Lactulose (Lactulose Liq) 30 ml PO DAILY PRN PRN Reason: SEVERE CONSITIPATION Last Admin: 01/30/18 00:45 Dose: 30 ml Lidocaine HCl (Lidoderm 5% Patch.12 Hr) 1 patch T-DERMAL DAILY@1999 [facility] Last Admin: 02/16/18 21:19 Dose: 1 patch Magnesium Citrate (Citroma Liq) 30 ml PO DAILY PRN PRN Reason: Constipation Magnesium Oxide (Mag-Ox) 800 mg PO UNSCH PRN PRN Reason: For Magnesium 1.2 - 1.6 mg/dL Medroxyprogesterone Acetate (Provera) 2.5 mg PO DAILY [facility] Last Admin: 02/17/18 08:59 Dose: 2.5 mg Methocarbamol (Robaxin) 750 mg PO QID [facility] Last Admin: 01/31/18 17:53 Dose: Not Given Methylprednisolone Sodium Succinate (Solumedrol Inj) 60 mg IV.PUSH Q6H [facility] Last Admin: 02/17/18 09:00 Dose: 60 mg Miscellaneous (Pill Splitter) 1 each OTHER UNSCH PRN PRN Reason: SEE LABEL COMMENTS Pantoprazole Sodium (Protonix) 40 mg PO DAILY [facility] Last Admin: 02/17/18 08:59 Dose: 40 mg Patch Removal (Remove Old Patch) 1 each T-DERMAL HS [facility] Last Admin: 02/16/18 21:21 Dose: 1 each Potassium Bicarb/Potassium Chloride (K-Lyte Cl Eff) 50 meq PO UNSCH PRN PRN Reason: For Potassium 3.3 - 3.5 mEq/L Potassium Chloride (K-Dur) 20 meq PO DAILY [facility] Last Admin: 02/17/18 08:58 Dose: 20 meq Potassium Phosphate (K-Phos Original) 2,000 mg PO Q4H PRN PRN Reason: Phosphorus Less Than 2.5 mg/dL Potassium Phosphate (K-Phos Original) 2,000 mg PO UNSCH PRN PRN Reason: SEE LABEL COMMENTS Sennosides (Senokot) 17.2 mg PO Q12H PRN PRN Reason: Moderate Constipation Last Admin: 02/09/18 18:36 Dose: 17.2 mg Sodium Chloride (Ns Flush) 2 ml IV.FLUSH BID [facility] Last Admin: 02/17/18 08:59 Dose: 2 ml Sodium Chloride (Ns Flush) 2 ml IV.FLUSH PRN PRN PRN Reason: FLUSH AFTER USING IV ACCESS Sodium Chloride (Pulcifer Nasal Timblin) 1 spray EACH NARE BID [facility] Last Admin: 02/17/18 09:00 Dose: 1 spray Trazodone HCl (Desyrel) 100 mg PO HS [facility] Last Admin: 02/16/18 21:20 Dose: 100 mg Triamterene/HCTZ (Dyazide 37.5/25 Mg) 1 cap G-TUBE DAILY [facility] Last Admin: 02/08/18 09:13 Dose: 1 cap Allergies/Adverse Reactions: Allergies Allergy/AdvReac Type Severity Reaction Status Date / Time azithromycin Allergy Severe HIVES, N Verified 01/25/18 19:06 AND V citric acid Allergy Severe hives Verified 01/25/18 19:06 erythromycin base Allergy Severe ALL MYCINS Verified 01/25/18 19:06 lovastatin Allergy Severe hives Verified 01/25/18 19:06 niacin Allergy Severe hives Verified 01/25/18 19:06 oxybutynin Allergy Severe hives Verified 01/25/18 19:06 rosuvastatin Allergy Severe Hives Verified 01/25/18 19:06 cholestyramine AdvReac Severe vomits Verified 01/25/18 19:06 Review of Systems All other systems reviewed negative except as stated in HPI Physical Exam Vital signs: Vital Signs 11/29/18 10:00 02/16/18 12:00 02/16/18 14:00 Temperature 98.3 F Pulse Rate 90 84 89 Respiratory Rate 24 Blood Pressure 118/57 L Pulse Oximetry 86 L 02/16/18 15:35 02/16/18 16:00 02/16/18 18:00 Temperature 98.1 F Pulse Rate 90 92 H 96 H Respiratory Rate 20 31 H Blood Pressure 111/67 Pulse Oximetry 89 L 02/16/18 20:00 02/16/18 20:25 02/16/18 22:00 Temperature 98.0 F Pulse Rate 96 H 88 90 Respiratory Rate 24 24 Blood Pressure 124/64 Pulse Oximetry 86 L 93 L 02/16/18 22:56 02/17/18 00:00 02/17/18 02:00 Temperature 97.8 F Pulse Rate 79 88 86 Respiratory Rate 15 20 Blood Pressure 114/64 Pulse Oximetry 93 L 02/17/18 03:19 02/17/18 04:00 02/17/18 06:00 Temperature 98.0 F Pulse Rate 94 H 80 77 Respiratory Rate 18 22 Blood Pressure 114/64 Pulse Oximetry 87 L 02/17/18 08:04 Temperature Pulse Rate 102 H Respiratory Rate 24 Blood Pressure Pulse Oximetry 90 L Intake & Output 02/16/18 02/17/18 02/17/18 18:59 06:59 18:59 Intake Total 520 / 520 340 / 340 Output Total 100 / 100 900 / 900 Balance 420 / 420 -560 / -560 Weight 89.1 kg Intake: IV 100 / 100 100 / 100 Doxy 100 Inj 100 MG In NS Inj 100 / 100 100 / 100 100 ML @ 100 mls/hr IV.SIG Q12H [facility] Rx#:[id number] Oral 420 / 420 240 / 240 Output: Urine 900 / 900 Urine Amount (Catheter) 100 / 100 Female External 100 / 100 Other: # Voids 3 Date of Last Bowel Movement 02/16/18 # Bowel Movements 0 0 Narrative: GENERAL: in NAD, obese sitting up in bed SKIN: Warm and dry. HEAD: Atraumatic. Normocephalic. EYES: Pupils equal and round. No scleral icterus. ENT: No nasal bleeding or discharge. NECK: Trachea midline. No JVD. CARDIOVASCULAR: Regular rate and rhythm. RESPIRATORY: Very mild tachypnea GASTROINTESTINAL: Abdomen soft, non-tender, nondistended. MUSCULOSKELETAL: Extremities without clubbing, cyanosis, or edema. NEUROLOGICAL: Awake and alert. Oriented x3, conversant, no aphasia, fluent articulate, No facial asymmetry, OU 3-2mm, eomi, VFF, able to raise both upper extremity to gravity above her shoulders, paraparesis hip flexor thigh atrophy weakness in both legs strength 0 out of 5, reflexes were 1-2+ her no clonus reduce pinprick level above the mid thigh region, no clonus plantar flexor gait not assessed secondary level weakness PSYCHIATRIC: Appropriate mood and affect; insight and judgment normal. - Urinary Catheter Management Straight Cath placed during this visit: yes, but has since been removed by the nurse Reason for continuing: Not indwelling catheter Insertion date: 01/31/18 Insertion time: 14:30 Removal date: 01/30/18 Removal time: 10:55 Indwelling Urethral Catheter Cath placed during this visit: yes, but has since been removed by the nurse Reason for continuing: Decision to DC catheter Insertion date: 01/28/18 Removal date: 01/29/18 Removal time: 18:15 Female External Cath placed during this visit: no Objective Laboratory Results - last 24 hr 02/15/18 02/16/18 02/16/18 11:23 11:29 17:11 WBC RBC Hgb Hct MCV MCH MCHC RDW Plt Count MPV Sodium Potassium Chloride Carbon Dioxide Anion Gap BUN Creatinine Estimated GFR POC Glucose 197 H 306 H Random Glucose Calcium Phosphorus Magnesium Aldolase 6.2 02/16/18 02/17/18 02/17/18 21:28 05:36 05:36 WBC 16.6 H RBC 3.88 L Hgb 11.9 Hct 34.9 L MCV 90.1 MCH 30.8 MCHC 34.1 RDW 15.0 Plt Count 197 MPV 8.7 Sodium 142 Potassium 4.0 Chloride 102 Carbon Dioxide 32.8 H Anion Gap 7 BUN 52 H Creatinine 0.79 Estimated GFR 74 L POC Glucose 181 H Random Glucose 204 H Calcium 8.6 Phosphorus 3.6 Magnesium 2.2 Aldolase 02/17/18 08:07 WBC RBC Hgb Hct MCV MCH MCHC RDW Plt Count MPV Sodium Potassium Chloride Carbon Dioxide Anion Gap BUN Creatinine Estimated GFR POC Glucose 195 H Random Glucose Calcium Phosphorus Magnesium Aldolase Review/Management - Diagnosis (1) Lumbar stenosis Code(s): M48.061 - Spinal stenosis, lumbar region without neurogenic claudication Status: Acute Current Visit: Yes (2) Myopathy Code(s): G72.9 - Myopathy, unspecified Status: Acute Current Visit: Yes (3) Critical illness myopathy Code(s): G72.81 - Critical illness myopathy Status: Acute Current Visit: Yes (4) Critical illness neuropathy Code(s): G62.81 - Critical illness polyneuropathy Status: Acute Current Visit: Yes (5) Interstitial lung disease Code(s): J84.9 - Interstitial pulmonary disease, unspecified Status: Acute Current Visit: Yes (6) Immunocompromised Code(s): D84.9 - Immunodeficiency, unspecified Status: Acute Current Visit: Yes (7) HCAP (healthcare-associated pneumonia) Code(s): J18.9 - Pneumonia, unspecified organism Status: Acute Current Visit : Yes (8) Hypoxia Code(s): R09.02 - Hypoxemia Status: Acute Current Visit: Yes - Review/Management Plan: progressive weakness critical illness myoneuropathy. r/o spinal cord infarct/cauda equina on steroids and has been bedridden for weeks recs mri neuroaxis-pending. unable to have completed 2/2 breathing. next step would be consideration of ncv, muscle biopsy f/u esr/crp/aldolase- all in range aggressive nutritional support plans for tx to [facility] for further rheum care of suspected interstitial lung dz/ autoimmune dz
[2018-02-17] MEDS: Fenofibrate 48 MG Tablet PO SCH (09:29)
--- NOTE | 2018-02-17 11:28 | P.DIET ---
Nutritional Evaluation Type of nutrition evaluation: follow-up Nutrition consult regarding: Diet Evaluation Nutrition screening: MDC (wound) Screening comments: 02/08 [facility] [place] for wound Objective - Diagnosis HCAP, hypoxia - Objective % IBW: 98 (IBW = 193.5 lb) Body Weight Used for Calculations: Actual (86.4kg) Energy Needs - Lower Range (kCal/kg): 25 Energy Needs - Upper Range (kCal/kg): 30 Lower Limit kCal/kg (kCals): 2,160 Upper Limit kCal/kg (kCals): 2,592 Lower Limit Protein Factor (Grams per Kg): 1.2 Upper Limit Protein Factor (Grams per Kg): 1.5 Lower Protein Needs (Protein): 104 Upper Protein Needs (Protein): 130 Dietitian Reviewed in Medical Record: Current diet, Curent medications, Intake & Output, Labs, Medical history Diet Order: regular, ensure original BID Oral Diet Intake Amount: Poor <50% Wound Care Note: R buttocks pressure injury stage III Objective Comments: PMH: anemia, degenerative disc disesae, GERD, HLD, HTN, rheumatic disease, osteoarthritis, sciatica, spinal stenosis Labs: POC glucose 197 181 195 Assessment Assessment: Pt waiting on placement to [facility], no beds available right now. Pt currently eating around 25-50% for most of her meals and tolerating fair. Wound care notes reviewed. Pt currently has a stage III pressure injury on R buttocks. RD to recommend Roberto BID as PO supplement to aid in wound healing. Monitor PO and supplement intake. Labs reviewed, dietitian following. Recommendations: 1. RD to recommend Roberto BID as PO supplement to aid in wound healing 2. Monitor PO and supplement intake 3. Dietitian following Dietitian to Monitor: Lab values, Supplement acceptance, Intake & Output, Diet tolerance, PO Intake, Medical course
[2018-02-17] MEDS: Enoxaparin Inj 40 MG/0.4 ML Syringe SQ SCH (12:30)
[2018-02-17 13:15] VITALS: BP 119/63; RESP 29; TEMP 98; O2SAT 91
--- NOTE | 2018-02-17 15:32 | P.PNCC ---
Subjective Subjective Remarks/Hospital Course: Hospital Course: 62-year-old white female with history of hyperlipidemia, hypertension, osteoarthritis, rheumatoid arthritis, on methotrexate. The patient presented to the emergency department with shortness of breath on 01/25/2018. She was admitted with a diagnosis of atypical pneumonia and probable CHF. Admitted to hospitalist service with consult to pulmonology. Has received broad-spectrum antibiotics. Also treated with IV steroids breathing treatments and diuretics. Consultants involved pulmonology and infectious disease. Patient had been here at least 3 weeks with her symptoms not improving and in fact worsening hypoxemia and worsening interstitial infiltrates on the chest. A 2D echo done 01/27/2018 showed normal ejection fraction. BNP also was normal. Cardiothoracic surgery was consulted for possible lung biopsy. Today patient was more short of breath and with an episode of desaturation requiring 100% oxygen on BiPAP. Critical care medicine was consulted for further evaluation and management I evaluated the [place] [facility] She is in moderate distress has extensive bilateral crackles. Currently on high flow nasal cannula 40% FiO2. Patient had been on BiPAP on and off. I reviewed the recent chest x-ray and CT scan. It appears that patient has rheumatoid arthritis associated lung disease versus methotrexate toxicity. I will increase the Solu-Medrol to 60 every 6 hours from current dose of 40 every 12. I will also add small dose of Lasix. There is no evidence of infection. I would recommend empiric treatment with immunosuppressants after rheumatology consult. If we cannot arrange for rheumatology consultation here need transfer to a tertiary center. Patient may develop complications including vent dependence and persistent air leak if she undergoes biopsy. Even if proven to be noninfectious ILD on biopsy, patient will need rheumatology consult. Patient's sausage linker in [facility] is Dr. Nick Lloyd MD. Will contact his office in am subjective: 02/15: remains short of breath. on 100% fio2. 40LPM high flow NC. can talk in short sentences. I discussed her care with her primary sausage linker Dr. Lloyd. After a discussion of her clinical course, he thinks that methotrexate related lung injury is less likely, and she has been stable on this dose of methotrexate for greater than 10 years. 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 He recommended a trial of steroids, which I informed him we have already begun. He states if she does not respond to these, we should try other immunosuppressive regimens. I asked him if he would like to participate in her inpatient care, but he declined, as he does not do inpatient medicine. I stated we do not have inpatient Rheumatology and I do not have any physician comfortable with these immunosuppressive/immunomodulatory regimens at this facility. His recommendation is to transfer to a higher level of care, which I agree with. He does also state that she likely needs to be trialed on additional therapies prior to proceeding with open lung biopsy, as the risks of permanent ventilator dependence are high with open lung biopsy in the setting of severe acute lung disease. Of note, remainder of the ROS is unchanged. patient is pleasant on exam. 02/16: no bed available at [facility] currently. remains hypoxic, though in good spirits. on 100% fio2 HFNC, spo2 88-92%. I did a trial of NRB and the patient remained 91-92% on NRB, without respiratory distress. we did this trial for at least 3 hours, and patient remained stable. I think she should be stable for transfer to OSH without requiring intubation. 02/17: discussed with fourdrinier tender at [facility] again today: will attempt to find bed available today. no change in fio2. remains able to talk in short sentences. tolerates diet without respiratory fatigue. consented patient and family for risks of transport on NRB vs. intubation and mechanical ventilation. they agree with my assessment that given the stability of her pulmonary status on 4-hour trial yesterday of NRB, non-invasive efforts have less risk than intubation. will proceed with transport on NRB. Objective Vital Signs / I&O: Vital Signs 02/16/18 15:35 02/16/18 16:00 02/16/18 18:00 Temperature 36.7 C Pulse Rate 90 92 H 96 H Respiratory Rate 20 31 H Blood Pressure 111/67 Pulse Oximetry 89 L 02/16/18 20:00 02/16/18 20:25 02/16/18 22:00 Temperature 36.7 C Pulse Rate 96 H 88 90 Respiratory Rate 24 24 Blood Pressure 124/64 Pulse Oximetry 86 L 93 L 02/16/18 22:56 02/17/18 00:00 02/17/18 02:00 Temperature 36.6 C Pulse Rate 79 88 86 Respiratory Rate 15 20 Blood Pressure 114/64 Pulse Oximetry 93 L 02/17/18 03:19 02/17/18 04:00 02/17/18 06:00 Temperature 36.7 C Pulse Rate 94 H 80 77 Respiratory Rate 18 22 Blood Pressure 114/64 Pulse Oximetry 87 L 02/17/18 08:00 02/17/18 08:04 02/17/18 10:00 Temperature 36.6 C Pulse Rate 96 H 102 H 90 Respiratory Rate 42 H 24 Blood Pressure 126/70 Pulse Oximetry 90 L 90 L 02/17/18 11:07 02/17/18 12:00 Temperature 36.7 C Pulse Rate 97 H 89 Respiratory Rate 30 H 29 H Blood Pressure 119/63 Pulse Oximetry 91 L Intake & Output 02/16/18 02/17/18 02/17/18 18:59 06:59 18:59 Intake Total 520 / 520 340 / 340 100 / 100 Output Total 100 / 100 900 / 900 Balance 420 / 420 -560 / -560 100 / 100 Weight 89.1 kg Intake: IV 100 / 100 100 / 100 100 / 100 Doxy 100 Inj 100 MG In NS Inj 100 / 100 100 / 100 100 / 100 100 ML @ 100 mls/hr IV.SIG Q12H JO Rx#:[id number] Oral 420 / 420 240 / 240 Output: Urine 900 / 900 Urine Amount (Catheter) 100 / 100 Female External 100 / 100 Other: # Voids 3 Date of Last Bowel Movement 02/16/18 02/16/18 # Bowel Movements 0 0 Result Diagrams: 02/17/18 05:36 02/17/18 05:36 Objective Remarks: GENERAL: 62-year-old female, alert and oriented, moderately short of breath CARDIOVASCULAR: Regular rate and rhythm without murmurs, gallops, or rubs. RESPIRATORY: Bilaterally decreased air entry significant diffuse crackles predominantly at the bases. Moderate use of accessory muscles when talking GASTROINTESTINAL: Abdomen soft, non-tender, nondistended. MUSCULOSKELETAL: No cyanosis, or edema. SKIN: Warm and dry. NEURO: Chronic weakness of bilateral lower extremity with sensory loss. Normal strength of upper extremity Assessment and Plan - Problem List (1) Critical illness myopathy Code(s): G72.81 - Critical illness myopathy Status: Acute (2) Critical illness neuropathy Code(s): G62.81 - Critical illness polyneuropathy Status: Acute (3) HCAP (healthcare-associated pneumonia) Code(s): J18.9 - Pneumonia, unspecified organism Status: Acute (4) Hypoxia Code(s): R09.02 - Hypoxemia Status: Acute (5) Immunocompromised Code(s): D84.9 - Immunodeficiency, unspecified Status: Acute (6) Interstitial lung disease Code(s): J84.9 - Interstitial pulmonary disease, unspecified Status: Acute (7) Lumbar stenosis Code(s): M48.061 - Spinal stenosis, lumbar region without neurogenic claudication Status: Acute (8) Myopathy Code(s): G72.9 - Myopathy, unspecified Status: Acute - Assessment and Plan Plan: ASSESSMENT: Acute hypoxemic respiratory failure Interstitial lung disease (rheumatoid lung disease versus methotrexate toxicity vs. autoimmune) Leukocytosis most likely steroid-induced History of rheumatoid arthritis Hyperlipidemia Hypertension Degenerative disc disease of the cervical spine PLAN: NEURO: -Minimize sedation -Xanax for anxiety RESP: -Solu-Medrol 60 mg every 6 hours, consider pulse dose of Solu-Medrol 1 g if no response to this regimen -Appears like patient has interstitial lung disease secondary to rheumatoid arthritis versus methotrexate toxicity -no rheumatology consultation available at our institution - has been accepted by [facility]. awaiting bed for transfer. -CT surgery had been consulted for lung biopsy, recommend holding off until rheumatology consult can be arranged -I spoke with patient's primary sausage linker. -Patient may need immunosuppressive therapy (mycophenolate, cyclophosphamide etc.) -DuoNeb every 4 hours scheduled and as needed, EzPAP -Continue BiPAP as needed and at night or HFNC. -Currently on high flow nasal cannula titrate to keep saturation more than 90% CV: -Placed on Lasix 20 mg IV every 12 hours, diuresis to dry weight -2D echo shows normal ejection fraction GI: -Continue diet, continue Protonix -Speech eval : -Monitor renal function closely. ID: -Currently on doxycycline per ID HEME: -Monitor CBC, coags -Leukocytosis most likely steroid-induced ENDO: -Electrolyte replacement per protocol -Sliding scale insulin if needed PROPH: -Bilateral lower extremity SCDs. Lovenox/Protonix LINES: -Utilize peripheral IVs
[2018-02-17 15:39] VITALS: PULSE 90
[2018-02-17] MEDS: ALPRAZolam 0.25 MG Tablet PO PRN (15:55)
== END 2018-02-17 16:30 | disposition short-term general hospital (02) ==
LOC: NEPE 18:06 → NEDA 22:20 → H7ONC 01-26 03:14 → HIMC 01-26 18:45
PROVIDERS: ADMIT Internal Medicine; ATTEND Internal Medicine